=== PATIENT | male | born 1950 | race Caucasian/White ===

== ENCOUNTER → 2020-01-18 10:31 | Outpatient (BNVA) | payer OTHER, SELFPAY | PROVIDERS: PCP Internal Medicine Endocrinology, Diabetes & Metabolism; Referring Provider Internal Medicine Endocrinology, Diabetes & Metabolism; Visit Provider Internal Medicine Cardiovascular Disease | DX: I11.9 Hypertensive heart disease without heart failure (principal); I45.10 Unspecified right bundle-branch block; Z79.899 Other long term (current) drug therapy | CPT/HCPCS: 93005 ==

== ENCOUNTER → 2020-02-07 12:46 | Outpatient (REF) | payer OTHER, SELFPAY ==
--- NOTE | 2020-02-07 12:54 | CA_ITS ---
Transthoracic Echocardiogram Patient (Last, First, Middle): Faizan Rudd, Gender: Male Date of : 1950 Age: 69 Procedure Date: 02/07/2020 Procedure Type: Transthoracic Echocardiogram Location: OP Height: 175.26 cm Weight: 88.91 kg BSA: 2.05 m2 Heart Rate: bpm BP: 130 / 74 mmHg Investor Relations Director: Referring MD: Kvng Bonilla MD Symptoms: I11.9 - Hypertensive heart disease without heart failure Study Quality: Good ECG Rhythm: Sinus Conclusions: - The left ventricular systolic function is normal. The visually estimated ejection fraction is between 60-65%. - No obvious valvular pathology seen on this study. Findings Procedure Information Contrast agent, definity, is being given per protocol without apparent complications. Left Ventricle Normal left ventricular cavity size. There is mildly increased left ventricular wall thickness. The left ventricular systolic function is normal. The visually estimated ejection fraction is between 60-65%. There is no evidence of regional wall motion abnormalities. Evidence suggests grade I (mild) diastolic dysfunction. Right Ventricle Normal right ventricular cavity size and systolic function. Atria The left atrium is normal in size. The right atrium is normal in size. Aortic Valve There is a normal trileaflet aortic valve. There is no aortic valve stenosis. There is no aortic valve regurgitation. Mitral Valve The mitral valve appears normal. There is trace mitral valve regurgitation. There is no mitral valve stenosis. Pulmonic Valve The pulmonic valve was not well visualized. Tricuspid Valve Normal tricuspid valve structure. There is trace tricuspid valve regurgitation. The pulmonary artery systolic pressure is normal. Great Vessels The aortic annulus, sinuses of valsalva, and asc aorta are normal in size. Venous The inferior vena cava is normal in size and collapses greater than 50% with inspiration. Pericardium/Pleural There is no evidence of pericardial effusion. Prior Study Comparison No significant change compared to prior study dated: 02/19/2015. Recommendations, Care & Conclusions No obvious valvular pathology seen on this study. Measurements 2D Linear Measurements RVIDd: 3.29 RVIDd Index: 1.60 IVSd: 1.26 0.6-0.9/0.6-1.0 cm LVIDd: 4.88 3.9-5.3/4.2-5.9 cm LVIDd Index: 2.38 2.4-3.2/2.2-3.1 cm/m2 LVIDs: 3.58 2.0-3.6 cm LVPWd: 1.28 0.7-1.1 cm Ao Root: 3.50 2.1-3.5 cm LA Diam: 3.80 2.7-3.8/3.0-4.0 cm LAIDs Index: 1.85 1.5-2.3 cm/m2 LV Mass: 304.00 67-162/88-224 g LV Mass Index: 148.29 43-95/49-115 g/m2 LVOT Diam: 2.30 3.0+(-)1.3 cm Mitral Valve MV Pk E: 0.42 MV PK A: 0.47 MV Decel Time: 337.00 E/A: 0.90 E'Lateral: 6.09 E'Medial: 5.66 E/E' Med: 7.30 E/E' Lat: 6.80 Aortic Valve AoV Pk Sherwin: 1.09 AoV Mn Sherwin: 0.85 AoV VTI: 0.24 AoV Pk Grad: 5.00 Aov Mn Grad: 3.00 GRADY Cont.VTI: 2.97 LVOT LVOT Pk Sherwin: 0.87 LVOT Mn Sherwin: 0.57 LVOT VTI: 0.17 LVOT Pk Grad: 3.00 LVOT Mn Grad: 2.00 LVOT Diam: 2.30 LVOT Area: 4.15 Diastolic Function MV Pk E: 0.42 MV Pk A: 0.47 E/A: 0.90 E'Medial: 5.66 E/E' Med: 7.30 E' Laterial: 6.09 E/E' Lat: 6.80 Tricuspid Valve RA Press: 3.00 Great Vessels Aorta Ao Root-2D: 3.50 2.0-3.7 cm Ao Asc: 3.50 2.1-3.4 cm Updated in Other Vendor System with Status of Final Fernando Sims MD electronically signed on 02/08/2020 10:51:43 AM with status of Final
== END ==
LOC: HO.CARD 12:46
PROVIDERS: Visit Provider Internal Medicine Cardiovascular Disease
DX: I45.10 Unspecified right bundle-branch block (principal); I11.9 Hypertensive heart disease without heart failure; I10 Essential (primary) hypertension
CPT/HCPCS: 93306; Q9957

== ENCOUNTER → 2020-10-17 14:40 | Outpatient (BNVA) | payer OTHER, SELFPAY | PROVIDERS: PCP Internal Medicine Endocrinology, Diabetes & Metabolism; Visit Provider Urology ==

== ENCOUNTER → 2021-01-17 09:52 | Outpatient (BNVA) | payer OTHER, SELFPAY | PROVIDERS: PCP Internal Medicine Endocrinology, Diabetes & Metabolism; Visit Provider Internal Medicine Cardiovascular Disease ==

== ENCOUNTER → 2021-03-18 12:51 | Outpatient (REF) | payer OTHER, SELFPAY ==
--- NOTE | 2021-03-18 13:27 | CA_ITS ---
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 The visually estimated ejection fraction is between 55-60%. - There is mild calcification of the aortic valve. - No obvious valvular pathology seen on this study. Findings Left Ventricle Normal left ventricular cavity size. There is normal left ventricular wall thickness. The left ventricular systolic function is normal. The visually estimated ejection fraction is between 55-60%. There is no evidence of regional wall motion abnormalities. Diastolic function is indeterminate on the basis of available data. Right Ventricle Normal right ventricular cavity size and systolic function. Atria Both atria are normal in size. Aortic Valve There is a normal trileaflet aortic valve. There is mild calcification of the aortic valve. There is no aortic valve stenosis. The peak aortic gradient is 5 mmHg.There is no aortic valve regurgitation. Mitral Valve The mitral valve appears normal. There is trace mitral valve regurgitation. There is no mitral valve stenosis. Pulmonic Valve The pulmonic valve was not well visualized. Tricuspid Valve Normal tricuspid valve structure. There is no tricuspid valve regurgitation. Tricuspid regurgitation envelope is inadequate for calculation of right ventricular systolic pressure. Great Vessels The asc aorta is normal in size. Venous The inferior vena cava is normal in size and collapses greater than 50% with inspiration. Pericardium/Pleural There is no evidence of pericardial effusion. Prior Study Comparison No significant change compared to prior study dated: 02/07/2020. Recommendations, Care & Conclusions No obvious valvular pathology seen on this study. Measurements 2D Linear Measurements IVSd: 1.13 0.6-0.9/0.6-1.0 cm LVIDd: 5.09 3.9-5.3/4.2-5.9 cm LVIDd Index: 2.62 2.4-3.2/2.2-3.1 cm/m2 LVIDs: 2.67 2.0-3.6 cm LVPWd: 0.94 0.7-1.1 cm Ao Root: 3.70 2.1-3.5 cm LA Diam: 3.70 2.7-3.8/3.0-4.0 cm LAIDs Index: 1.91 1.5-2.3 cm/m2 LV Mass: 244.44 67-162/88-224 g LV Mass Index: 126.00 43-95/49-115 g/m2 LVOT Diam: 2.30 3.0+(-)1.3 cm 2D Systolic Function EF 4C: 64.70 >55% Mitral Valve MV Pk E: 0.46 MV PK A: 0.53 MV Decel Time: 111.00 E/A: 0.90 E'Lateral: 8.27 E'Medial: 6.09 E/E' Med: 7.50 E/E' Lat: 5.60 PHT: 32.00 MVA PHT: 6.88 Decel [place]: 4.15 Aortic Valve AoV Pk Sherwin: 1.11 AoV Pk Grad: 5.00 LVOT LVOT Pk Sherwin: 0.98 LVOT Mn Sherwin: 0.68 LVOT VTI: 0.22 LVOT Pk Grad: 4.00 LVOT Mn Grad: 2.00 LVOT Diam: 2.30 LVOT Area: 4.15 Diastolic Function MV Pk E: 0.46 MV Pk A: 0.53 E/A: 0.90 E'Medial: 6.09 E/E' Med: 7.50 E' Laterial: 8.27 E/E' Lat: 5.60 Right Ventricle TAPSE (mm): 2.17 TVS' Sherwin: 12.60 Tricuspid Valve RA Press: 3.00 Great Vessels Aorta Ao Root-2D: 3.70 2.0-3.7 cm Ao Asc: 3.60 2.1-3.4 cm Updated in Other Vendor System with Status of Final Fernando Sims MD electronically signed on 03/18/2021 3:45:11 PM with status of Final
== END ==
LOC: HO.CARD 12:51
PROVIDERS: Visit Provider Internal Medicine Cardiovascular Disease
DX: I11.9 Hypertensive heart disease without heart failure (principal)
CPT/HCPCS: 93306

== ENCOUNTER → 2021-04-24 10:36 | Outpatient (BNVA) | payer OTHER, SELFPAY | PROVIDERS: PCP Internal Medicine Endocrinology, Diabetes & Metabolism; Visit Provider Urology | DX: N40.1 Benign prostatic hyperplasia with lower urinary tract symptoms (principal); N13.8 Other obstructive and reflux uropathy; R35.1 Nocturia; R35.0 Frequency of micturition | CPT/HCPCS: 51798 ==

== ENCOUNTER → 2021-06-13 13:50 | Outpatient (BNVA) | payer OTHER, SELFPAY | PROVIDERS: PCP Physician Assistant Medical; Visit Provider Urology | DX: Z13.89 Encounter for screening for other disorder (principal) ==

== ENCOUNTER 2021-06-23 08:18 | Day surgery (SDC) | payer OTHER, SELFPAY ==
[2021-06-17 14:21] VITALS: BMI 24.7
[2021-06-18 10:31] VITALS: BMI 24.7
[2021-06-23] VITALS (7 sets, daily range): BP systolic 80–142; BP diastolic 39–71; PULSE 46–53; RESP 16–18; TEMP 36.3–36.7; O2SAT 92–96
--- NOTE | 2021-06-23 08:05 | P.CONAN_ITS ---
[facility] Active Problems Active Problems: All Active Problems (Updated 06/18/21 @ 10:30 by Carmina Deleon RN) BPH w urinary obs/LUTS (Acute) Nocturia more than twice per night (Acute) Urinary frequency (Acute) Hypertensive heart disease (Acute) HTN (hypertension) (Acute) Hyperlipidemia (Acute) Right bundle branch block (RBBB) determined by electrocardiography (Acute) Past Medical History Medical History (Updated 06/18/21 @ 10:30 by Carmina Deleon RN) Anemia Arthritis GERD (gastroesophageal reflux disease) History of pancreatic cancer HIV (human immunodeficiency virus infection) HTN (hypertension) Hyperlipidemia Hypertensive heart disease Right bundle branch block (RBBB) determined by electrocardiography Family History Family History Father No problems noted. Mother Cancer Family history of problems with anesthesia: No Surgical History Surgical History (Updated 06/18/21 @ 10:29 by Carmina Deleon RN) History of prostate surgery History of tonsillectomy and adenoidectomy History of Whipple procedure Hx of colonoscopy Hx of cystoscopy Hx of hernia repair History of Problems with Anesthesia: No Social History Social History Are you a primary primary care provider to a significant other at home: No Do you presently have visiting nurse or other home services: No Patient Tobacco Use Status: Never used Tobacco Use of substances other than those prescribed or required for medical reasons: Yes Substance Use Frequency: Weekly Have you been hit, kicked, punched, or otherwise hurt by someone within the past year? If so, by whom?: No Are you DNR?: No Advance Directives: No Advance Directives Information Provided: Yes Advance Directives on File: No Recently lost weight without trying: No Meds Allergies Allergy/AdvReac Type Severity Reaction Status Date / Time Penicillins [PCN] Allergy Mild HIVES Verified 06/23/21 08:29 abacavir Allergy Unknown rash, Verified 06/23/21 08:29 chills Active Medications: Current Medications Lactated Ringer's (Lr) 1,000 mls @ 50 mls/hr IVCONT .Q20H [facility] Home Medications Medication Instructions Recorded Confirmed Last Taken Type atorvastatin 20 mg tablet 20 mg PO DAILY 01/18/20 06/17/21 Unknown History docusate sodium 100 mg capsule 100 mg PO BEDTIME 01/18/20 06/17/21 Unknown History metoprolol succinate 50 mg 50 mg PO DAILY 01/18/20 06/17/21 Unknown History tablet,extended release 24 hr omeprazole 20 mg capsule,delayed 20 mg PO DAILY 01/18/20 06/17/21 Unknown History release bictegravir 50 mg-emtricitabine 1 tab PO BEDTIME 01/17/21 06/17/21 Unknown History 200 mg-tenofovir alafenam 25 mg tablet ferrous sulfate 325 mg (65 mg 325 mg PO DAILY 04/24/21 06/17/21 Unknown History iron) tablet polyethylene glycol 3350 17 g PO 04/24/21 Unknown History gram/dose oral powder Exam Exam Date and Time: June 23, 2021 0805 Height,Weight and Vital Signs: Height 5 ft 9 in Weight 76.204 kg Airway Mallampati Class: II (Caps laterally) TM Dist: >3cm Neck ROM: Full Heart: rrr Lungs: cta Assessment and Plan Assessment Anesthesia Assessment: Anesthesia Plan Discussed and Chart Reviewed Final Anesthetic Review Family History of Problems with Anesthesia: No History of Problems with Anesthesia: No NPO: Yes ASA Class: III Final Preanesthetic Review: No Changes in Pt Med Stat, Meds/Allgs Chart Reviewed and Consent Obtained/Reviewed Patient Risk: Intermediate Procedure Risk: Intermediate Anesthetic Plan Anesthetic Plan: GA Disposition: Standard PACU
[2021-06-23] MEDS: Lactated Ringers 1,000 ML 50 ML IVCONT (08:59)
--- NOTE | 2021-06-23 10:49 | MHC.SHP ---
Pre-Procedural Eval Section A Date of Service: 06/23/21 The patient is an INPATIENT: No Changes since office visit: No Cold of Flu in the past 2 weeks, No New Medical Problems, No Changes in Medication and No Patient answered all questions The History & Physical has been completed within 30 days and I have reviewed it.: Yes Section B Chief Complaint: bph Allergies: Allergies Allergy/AdvReac Type Severity Reaction Status Date / Time Penicillins [PCN] Allergy Mild HIVES Verified 06/23/21 08:29 abacavir Allergy Unknown rash, Verified 06/23/21 08:29 chills Review of Systems Sugical H&P ROS: Negative: Constitution, Cardiovascular, Respiratory, Neurological, Psychiatric, Hem-Onc, Allergic/Immunologic, Gastrointestinal, Genitourinary, Musculoskeletal, Integumentary, Endocrine and Eyes/Ears/Nose/Throat Exam Surgical H&P Exam: Normal: HEENT, Normal: Heart, Normal: Lungs, Normal: Extremities, Normal: Abdomen, Normal: Skin and Normal: Neurological Plan Diagnosis/Plan: Unchanged (GreenLight laser prostatectomy) I have reviewed the history and physical and performed a pertinent physical examination on my patient. No changes have occurred unless specified.
[2021-06-23] MEDS: oxyCODONE HCl Immed Release 5 MG TABLET PO (11:59)
--- NOTE | 2021-06-23 12:08 | W.PM.OPN ---
Operative Note Operative Note Date of Service: 06/23/21 Narrative: PreOperative Diagnosis: Bladder outlet obstruction recurrence Post Operative Diagnosis: Bladder outlet obstruction recurrence Procedure: GreenLight Laser Enucleation of the prostate Surgeon: Dr Carl Brooks Anesthesia: General Indications for procedure: Recurrence of bladder outlet obstruction History of bladder outlet obstruction. Treated with alpha-howard and other medications. Still with symptoms. On cystoscopy in office has recurrence of right lateral lobe after prior TURP many years ago. Recommendation for prostate procedure with laser enucleation of prostate. It has been discussed. Focus was placed on development of retrograde examination which is a normal part of this procedure. Procedure: After informed consent was verified the patient was brought to the operating room and placed in a supine position. Anesthesia was administered per protocol. Patient was placed in modified dorsal lithotomy position and prepped and draped in a sterile fashion. Safety pause time-out was confirmed. Antibiotics have been given. Twenty-four Yoruba laser cystoscope was inserted per urethra. No abnormalities found the anterior posterior urethra. The bladder was filled on both ureteric orifices were seen in normal position away from our area of interest. Using a GreenLight laser settings of 80 w incisions were made at the 7 o'clock position. The incision was taken down and then extended laterally on the right side. The right side was the area of regrowth. After the incision had been made delineating the right side from the median area and extending the right bladder neck incision laterally the tissue above on the right side was carefully ablated away. Once this was complete incision was made at the 5 o'clock position just to extend the lateral nature of median area to the left side to assist with bladder emptying. When this was completed debris and pieces of prostate removed from the bladder. Both ureteric orifices were reviewed again in shown to be patent in away from any areas of energy damage. The apical area was reviewed in any stray ooze was controlled. A 22 Yoruba 30 cc balloon Gupta catheter was placed over stylet into the bladder. Clear efflux was obtained. 30 cc was placed in the balloon and gentle traction was placed. A snap was used to hold tension once the patient will be moved and transported. Once transportation its finish this novel be removed. A belladonna and opiate suppository was placed for postprocedure pain management. He tolerated procedure well was extubated in the operating and transferred in a stable condition to the recovery area. Total Power 54,000 kW Pathology: Prostate tissue Drains: Gupta catheter
== END 2021-06-23 13:10 | disposition home or self-care (01) ==
PROVIDERS: PCP Physician Assistant Medical; Visit Provider Urology
PROC: (CPT 52648; principal; 2021-06-23 10:20)
DX: N40.1 Benign prostatic hyperplasia with lower urinary tract symptoms (principal); N13.8 Other obstructive and reflux uropathy; R35.0 Frequency of micturition; R35.1 Nocturia; I45.10 Unspecified right bundle-branch block; I11.9 Hypertensive heart disease without heart failure; I10 Essential (primary) hypertension; B20 Human immunodeficiency virus [HIV] disease; E78.5 Hyperlipidemia, unspecified; Z79.899 Other long term (current) drug therapy; Z98.890 Other specified postprocedural states; Z88.0 Allergy status to penicillin; Z88.8 Allergy status to other drugs, medicaments and biological substances
CPT/HCPCS: 52648; J1100; J1956; J2250; J2405; J3010

== ENCOUNTER → 2021-06-26 09:24 | Outpatient (BNVA) | payer OTHER, SELFPAY | PROVIDERS: PCP Physician Assistant Medical; Visit Provider Urology | DX: N40.1 Benign prostatic hyperplasia with lower urinary tract symptoms (principal); N13.8 Other obstructive and reflux uropathy | CPT/HCPCS: 51700; 51798 ==

== ENCOUNTER → 2021-08-07 09:58 | Outpatient (BNVA) | payer OTHER, SELFPAY | PROVIDERS: PCP Physician Assistant Medical; Visit Provider Urology | DX: N40.1 Benign prostatic hyperplasia with lower urinary tract symptoms (principal); N13.8 Other obstructive and reflux uropathy; R35.1 Nocturia; R35.0 Frequency of micturition | CPT/HCPCS: 51798 ==

== ENCOUNTER → 2022-01-19 09:31 | Outpatient (BNVA) | payer OTHER, SELFPAY | PROVIDERS: PCP Physician Assistant Medical; Referring Provider Physician Assistant Medical; Visit Provider Internal Medicine Cardiovascular Disease | DX: I11.9 Hypertensive heart disease without heart failure (principal); I45.10 Unspecified right bundle-branch block; R00.2 Palpitations | CPT/HCPCS: 93005 ==

== ENCOUNTER 2022-02-03 13:36 | Outpatient (REF) | payer OTHER, SELFPAY ==
[2022-02-03 16:07] LABS: Prostate Specific Antigen 1.06 ng/mL (<0.05-4.0)
== END 2022-02-03 13:37 | disposition home or self-care (01) ==
LOC: HO.LAB 13:36
PROVIDERS: PCP Physician Assistant Medical; Visit Provider Urology
DX: N40.1 Benign prostatic hyperplasia with lower urinary tract symptoms (principal); N13.8 Other obstructive and reflux uropathy; Z12.5 Encounter for screening for malignant neoplasm of prostate
CPT/HCPCS: 36415; 84153

== ENCOUNTER 2022-05-20 08:22 | Outpatient (REF) | payer OTHER, SELFPAY ==
[2022-05-20 16:55] LABS: Urine Cytology See Pathology rpt
== END 2022-05-20 08:23 | disposition home or self-care (01) ==
LOC: HO.LAB 08:22
PROVIDERS: PCP Physician Assistant Medical; Visit Provider Urology
DX: N40.1 Benign prostatic hyperplasia with lower urinary tract symptoms (principal); R31.29 Other microscopic hematuria; N39.0 Urinary tract infection, site not specified; R35.0 Frequency of micturition; R35.1 Nocturia; I10 Essential (primary) hypertension; B20 Human immunodeficiency virus [HIV] disease; Z79.899 Other long term (current) drug therapy
CPT/HCPCS: 51798; 87086; 87088; 87186; 88112

== ENCOUNTER 2022-11-03 08:45 | Inpatient (IN) | payer OTHER, SELFPAY ==
[2022-11-03] VITALS (17 sets, daily range): BP systolic 81–117; BP diastolic 41–82; PULSE 63–89; RESP 16–24; TEMP 36.1–38.1; O2SAT 93–100; BMI 24.6; BMI 25.1
--- NOTE | ~2022-11-03 | FL_ITS ---
EXAMINATION: XR FLUOROSCOPY WITH IMAGES CLINICAL INFORMATION: Cystoscopy and ureteroscopy. COMPARISON: Previous CT of the abdomen and pelvis 11/03/2022. TECHNIQUE: Dose: 6.60 mGy Time: 21 sec. Images: 4 Performed By: Dr. Medrano FINDINGS: Images demonstrate left retrograde exam and left internal ureteral stent placement. Question stone in the left UPJ region adjacent to the stent on image 4 of 5. FL/FL guidance in OR IMPRESSION: Fluoroscopy guidance for left retrograde exam and stent placement.
--- NOTE | ~2022-11-03 | CT_ITS ---
EXAMINATION: CT ABDOMEN AND PELVIS WITH CONTRAST CLINICAL INFORMATION: Left lower quadrant pain COMPARISON: None available. TECHNIQUE: Multidetector volumetric images were obtained from the superior aspect of the liver through the pubic symphysis following administration 85 mL of Omnipaque 350 intravenous contrast. Sagittal and coronal reformatted images were obtained on the technologist's workstation. Oral contrast: No This CT examination was performed using dose optimization techniques as appropriate, variously including the following: *Automated exposure control *Adjustment of mA and/or kV according to patient size (this includes techniques or standardized protocols for targeted exams where dose is matched to indication/reason for exam; i.e. extremities or head) *Use of iterative reconstruction technique DLP: 532 mGy-cm FINDINGS: Visualized lung bases demonstrate mild dependent atelectasis. The liver is normal in size. Mild periportal edema and pneumobilia noted. 7 mm hypodense focus within the lateral right hepatic lobe is too small to accurately characterize. The gallbladder surgically absent. Surgical changes in the region of the pancreatic head. The pancreatic body and tail are unremarkable. The spleen is normal in size. The adrenal glands are normal in appearance. Symmetrically enhancing kidneys. There is mild left-sided hydronephrosis secondary to a 5 mm calculus within the proximal left ureter. There is asymmetric perinephric stranding of the left kidney. No right-sided hydronephrosis. There are postsurgical changes of the distal stomach. Normal caliber loops of small and large bowel. Moderate colonic stool burden. Patient is status post appendectomy. Normal caliber abdominal aorta demonstrating moderate atherosclerotic disease. No retroperitoneal lymphadenopathy. The bladder is normal in appearance. The prostate gland is at the upper limits of normal in size. There is no gross free pelvic fluid. Surgical changes along the superior aspect of the pubic symphysis. No inguinal lymphadenopathy. Mild to moderate degenerative changes of the spine. Mild anterolisthesis of L4 on L5. CT/CT abdomen pelvis w IV con IMPRESSION: Mild left-sided hydronephrosis secondary to a 5 mm calculus within the proximal left ureter. Fleischner guidelines were followed.
--- NOTE | ~2022-11-03 | XR_ITS ---
EXAMINATION: XR ABDOMEN COMPLETE CLINICAL INDICATION: Status post stent. COMPARISON: CT abdomen pelvis 11/03/2022 TECHNIQUE: Multiple supine abdomen images.. FINDINGS: There is interval left internal ureteral stent with its proximal end in the kidney pelvis and distal end in the bladder. Small radiopaque stones in the left proximal ureter on the previous CT is not visualized on the present exam. The bowel gas pattern is nonspecific with scattered gas and stool in colon. No gross bony abnormality seen. Right lower abdominal wall hernia repair with mesh in place is noted. XR/XR abdomen 3V IMPRESSION: There is interval left internal ureteral stent. Previously noted left proximal ureter stone is not seen at this time. Mild constipation
--- NOTE | 2022-11-03 09:01 | PC.NURSE ---
Patient reports 8/10 abdominal pain that started last night. reports has been throwing up bile for 2 hours. Last BM yesterday morning. History of abdominal surgeries whipple is april 2020, abdominal wall reconstruction 8 months after whipple and turp in [address] Blair. Patient with hypoactive bowel sounds in left and right quadrant. Patient reports taking stool softeners with no effect. Patient afebrile, reports chills.
--- NOTE | 2022-11-03 09:08 | ECG_ITS ---
Test Reason : abdominal pain Blood Pressure : / mmHG Vent. Rate : 076 BPM Atrial Rate : 000 BPM P-R Int : 000 ms QRS Dur : 118 ms QT Int : 480 ms P-R-T Axes : 000 -32 -08 degrees QTc Int : 540 ms Accelerated Junctional rhythm Left axis deviation Right bundle branch block Inferior infarct , new Anterior injury pattern ACUTE VT / STEMI Abnormal ECG When compared with ECG of 23-DEC-2011 06:59, Junctional rhythm has replaced Sinus rhythm Acute Inferior infarct is now Present Referred By: Geno Novak Electronically Signed By:
[2022-11-03] MEDS: 0.9 % Sodium Chloride 1,000 ML 999 ML IVCONT ×3 (09:12→22:17)
--- NOTE | 2022-11-03 09:13 | ED_ITS ---
HPI - Abdominal Pain General Chief Complaint: Abdominal Pain Stated Complaint: Lower L quadrant pain, vomiting Time Seen by Provider: 11/03/22 08:48 Source: patient and old records reviewed Mode of arrival: EMS Limitations: no limitations History of Present Illness HPI narrative: 72 yo male with hx of HTN, BPH, RBBB, HIV, HLD, s/p Whipple for pancreatic tumor at [facility] 2020 (no chemo needed) then underwent reconstruction for ventral hernia 8 months later comes in with chills and n/v with LLQ pain and distention that started around 3am. It woke him from sleep he tried two stool softeners without relief. He took tylenol but still has pain. He had normal BM yesterday. He did go to a cookout but did not drink and states no issues with food. He states he has not passed gas or had relief from stool softeners yet - no hx of obstructions MD elicited complaint: abdominal pain Pertinent past history: other (s/p whipple 2020) Onset (ago): hour(s) (several) Location: LLQ Severity: severe Quality: stabbing Radiation: none Migration to: no migration Exacerbating factors: movement Relieving factors: nothing Context: other (hx of surgery, went to cook out yesterday) Associated symptoms: nausea and vomiting Treatments prior to arrival: other (tylenol) Related Data Home Medications Medication Instructions Recorded Confirmed atorvastatin 20 mg tablet 20 mg PO DAILY 01/18/20 02/11/22 docusate sodium 100 mg capsule 100 mg PO BEDTIME 01/18/20 02/11/22 metoprolol succinate 50 mg 50 mg PO DAILY 01/18/20 02/11/22 tablet,extended release 24 hr omeprazole 20 mg capsule,delayed 20 mg PO DAILY 01/18/20 02/11/22 release bictegravir 50 mg-emtricitabine 1 tab PO BEDTIME 01/17/21 02/11/22 200 mg-tenofovir alafenam 25 mg tablet ferrous sulfate 325 mg (65 mg 325 mg PO DAILY 04/24/21 02/11/22 iron) tablet polyethylene glycol 3350 17 g PO 04/24/21 02/11/22 gram/dose oral powder flash glucose scanning reader #1 ea 05/20/22 ([employer] [place] [facility] [place]) Previous Rx's Medication Instructions Recorded naproxen 500 mg tablet (Naprosyn) 500 mg PO BID 5 days #10 tabs 06/24/21 oxybutynin chloride 5 mg 5 mg PO DAILY 90 days #90 tabs 05/20/22 tablet,extended release 24 hr nitrofurantoin 100 mg PO BID UTI 10 days #20 caps 05/22/22 monohydrate/macrocrystals 100 mg capsule (Macrobid) Allergies Allergy/AdvReac Type Severity Reaction Status Date / Time Penicillins [PCN] Allergy Mild HIVES Verified 05/20/22 08:38 abacavir Allergy Unknown rash, Verified 05/20/22 08:38 chills Review of Systems Review of Systems Constitutional : No Weight loss, No Fever, pos Chills ENT/Mouth : No sore throat, No Rhinorrhea Eyes: No Swelling, No Redness Cardiovascular : No Chest Pain, No SOB, NoEdema Respiratory : No Cough, No Sputum, No Wheezing Gastrointestinal : Positive Nausea, Positive Vomiting, no Diarrhea, positive abdominal Pain, No Hematochezia, No Melena Genitourinary : No Dysuria, No Urinary Frequency, No Hematuria, No Urgency Musculoskeletal : No joint pain, No Myalgias, No Joint Swelling Skin : No Skin Lesions, No rash Neuro : No Weakness, No Numbness, No Dizziness, No Headache Psych : No Anxiety/Panic, No Depression All other systems reviewed and are negative. [facility] Past Medical History Attestation statement: The following information was validated with the patient. Medical History Anemia Arthritis GERD (gastroesophageal reflux disease) History of pancreatic cancer HIV (human immunodeficiency virus infection) HTN (hypertension) Hyperlipidemia Hypertensive heart disease Right bundle branch block (RBBB) determined by electrocardiography Surgical History History of prostate surgery History of tonsillectomy and adenoidectomy History of Whipple procedure Hx of colonoscopy Hx of cystoscopy Hx of hernia repair Family History Family History Father No problems noted. Mother Cancer Social History Social History Are you a primary career discovery teacher to a significant other at home: No Do you presently have visiting nurse or other home services: No Alcohol intake: current Alcohol intake frequency: a few times a week Patient Tobacco Use Status: Never used Tobacco Use of substances other than those prescribed or required for medical reasons: Yes Substance Use Type: Marijuana Substance Use Frequency: Chronic Longstanding Advance Directives: Yes Advance Directives Information Provided: Yes Advance Directives on File: No Physical Exam ED Vital Signs: Vital Signs - 24 hr 11/03/22 08:53 11/03/22 09:06 11/03/22 12:16 Temperature 98.9 F 98.9 F 99.7 F Pulse Rate 76 74 89 Respiratory Rate 18 18 21 H Blood Pressure 110/73 99/49 L Pulse Oximetry 97 97 97 Oxygen Delivery Method Room Air Room Air BMI result Body Mass Index 24.6 Appearance: Alert. Oriented X3. in pain mild acute distress. having chills Eyes: Pupils equal, round and reactive to light. ENT: Pharynx dry MM Neck: Normal inspection. Neck supple. CVS: Normal heart rate and rhythm. Pulses normal. Respiratory: No respiratory distress. Breath sounds normal. Abdomen: distended with ttp in LLQ but no rebound, no mass felt Skin: Skin warm and dry. pale skin color. Normal skin turgor. Extremities: No lower extremity edema. No calf ttp Neuro: Oriented X 3. No motor deficit. No sensory deficit. Course Course Course Narrative: pain improved with IV morphine does not need more medications at this time. IVF ordered lactic acid up but he is on HIV medications. suspect lactic acid due to HIV medications and not infection or severe sepsis at this time, pending lab history from [facility] Reevaluation(s) Reevaluation #1: called by lab about bands - 15H at this time infection suspected will order ceftriaxone/flagyl for possible acute intra-abdominal pathology [id number] Medical Decision Making Medical Decision Making MDM Narrative: 72 yo male with hx of HTN, BPH, RBBB, HIV, HLD, s/p Whipple for pancreatic tumor at [facility] 2020 (no chemo needed) then underwent reconstruction for ventral hernia 8 months later here with c/o n/v chills distention and lack of flatus or BM since yesterday. He did attend a cook out yesterday. At this time will obtain labs, cultures, lactic acid and CT scan to assess for mass/obstruction/diverticulitis. I have ordered IV morphine for pain. He has had extensive surgery on abdomen and would be high risk for SBO though has not had one before. Differential Diagnosis Differential Diagnoses: The differential diagnosis associated with the presentation includes diverticulitis, SBO, mass, renal colic, food toxicity Admission/Observation Consideration of admission/observation: Escalation of care including admissi on/observation considered admit for IV antibiotics trend of labs and cultures Consult Healthcare Provider Management of the patient was discussed with: Hospitalist (to admit) and [employer] Curator (Dr. Brooks aware patient has been NPO possible stent today) Lab Data MDM Lab Attestation statement: I reviewed the patient's lab results. 11/03/22 09:31 11/03/22 09:31 Labs: Lab Results 11/03/22 11/03/22 11/03/22 Range/Units 09:31 09:31 09:31 WBC 1.7 L (4.8-10.8) X10*3/uL RBC 4.25 L (4.60-5.80) X10*6/uL Hgb 14.6 (14.0-18.0) g/dl Hct 42.8 (42.0-52.0) % MCV 100.7 H (80.0-98.0) fL MCH 34.4 H (27.0-33.0) pg MCHC 34.1 (31.0-36.0) g/dl RDW 12.7 (11.0-16.0) % Plt Count 115 L (160-400) X10*3/uL MPV 9.5 (9.4-12.4) fL Immature Gran % (Auto) Cancelled Neut % (Auto) Cancelled Lymph % (Auto) Cancelled [place] % (Auto) Cancelled Eos % (Auto) Cancelled Baso % (Auto) Cancelled Lymph # (Auto) Cancelled [place] # (Auto) Cancelled Eos # (Auto) Cancelled Baso # (Auto) Cancelled Abs Immat Gran (auto) Cancelled Absolute Neuts (auto) Cancelled Absolute Nucleated RBC 0.000 (0.0-0.012) X10*3/uL Nucleated RBC % (auto) 0.0 (0.0-0.2) /100WBC Neutrophils % (Manual) 73 (45-73) % Band Neutrophils % 15 H (3-5) % Lymphocytes % (Manual) 10 L (20-40) % Eosinophils % (Manual) 1 (0-4) % Basophils % (Manual) 1 (0-2) % Abs Neuts (Manual) 1.5 L (2.0-8.3) X10*3/uL Lymphocytes # (Manual) 0.2 L (1.2-4.9) X10*3/uL Toxic Vacuolation PRESENT Dohle Bodies PRESENT Platelet Estimate DECREASED (NORMAL) Plt Morphology Comment NORMAL RBC Morphology NOTED Polychromasia 1+ (0-2) /OIF Macrocytosis 1+ (5-14) /OIF PT 11.4 (11.1-13.3) SEC INR 0.9 (0.9-1.1) Sodium 140 (135-145) mmol/L Potassium 4.1 (3.3-5.1) mmol/L Chloride 107 (96-108) mmol/L Carbon Dioxide 24 (22-29) mmol/L Anion Gap 13 (12-20) BUN 18 H (9-16) mg/dL Creatinine 1.40 (0.5-1.4) mg/dL Estim Creat Clear Calc 47.6 Estimated GFR 50 Random Glucose 151 H (60-115) mg/dL Lactic Acid (0.5-2.0) mmol/L Lactic Acid F/U @ 2Hr (0.5-2.0) mmol/L Calcium 9.3 (8.4-10.2) mg/dL Magnesium 1.7 (1.6-2.6) mg/dL Total Bilirubin 1.7 H (0.0-1.0) mg/dL Direct Bilirubin 0.7 H (0.0-0.5) mg/dL AST 44 H (5-37) U/L ALT 27 (0-40) U/L Alkaline Phosphatase 79 (39-117) U/L Total Protein 6.9 (6.5-8.0) g/dL Albumin 4.0 (3.5-5.0) g/dL Lipase < 4 L (8-78) U/L COVID-19 (RITIKA) (Negative) COVID-19 Clin Com 11/03/22 11/03/22 11/03/22 Range/Units 09:31 10:01 12:21 WBC (4.8-10.8) X10*3/uL RBC (4.60-5.80) X10*6/uL Hgb (14.0-18.0) g/dl Hct (42.0-52.0) % MCV (80.0-98.0) fL MCH (27.0-33.0) pg MCHC (31.0-36.0) g/dl RDW (11.0-16.0) % Plt Count (160-400) X10*3/uL MPV (9.4-12.4) fL Immature Gran % (Auto) Neut % (Auto) Lymph % (Auto) [place] % (Auto) Eos % (Auto) Baso % (Auto) Lymph # (Auto) [place] # (Auto) Eos # (Auto) Baso # (Auto) Abs Immat Gran (auto) Absolute Neuts (auto) Absolute Nucleated RBC (0.0-0.012) X10*3/uL Nucleated RBC % (auto) (0.0-0.2) /100WBC Neutrophils % (Manual) (45-73) % Band Neutrophils % (3-5) % Lymphocytes % (Manual) (20-40) % Eosinophils % (Manual) (0-4) % Basophils % (Manual) (0-2) % Abs Neuts (Manual) (2.0-8.3) X10*3/uL Lymphocytes # (Manual) (1.2-4.9) X10*3/uL Toxic Vacuolation Dohle Bodies Platelet Estimate (NORMAL) Plt Morphology Comment RBC Morphology Polychromasia /OIF Macrocytosis /OIF PT (11.1-13.3) SEC INR (0.9-1.1) Sodium (135-145) mmol/L Potassium (3.3-5.1) mmol/L Chloride (96-108) mmol/L Carbon Dioxide (22-29) mmol/L Anion Gap (12-20) BUN (9-16) mg/dL Creatinine (0.5-1.4) mg/dL Estim Creat Clear Calc Estimated GFR Random Glucose (60-115) mg/dL Lactic Acid 2.7 H* (0.5-2.0) mmol/L Lactic Acid F/U @ 2Hr 2.8 H* (0.5-2.0) mmol/L Calcium (8.4-10.2) mg/dL Magnesium (1.6-2.6) mg/dL Total Bilirubin (0.0-1.0) mg/dL Direct Bilirubin (0.0-0.5) mg/dL AST (5-37) U/L ALT (0-40) U/L Alkaline Phosphatase (39-117) U/L Total Protein (6.5-8.0) g/dL Albumin (3.5-5.0) g/dL Lipase (8-78) U/L COVID-19 (RITIKA) Negative (Negative) COVID-19 Clin Com See Note Independent Interpretation I performed an independent interpretation of an: EKG and CT Scan (L ureteral stone) Interpretation: Rate: 79 Rhythm: NSR with PVCs Hopkins: normal Normal P waves. Normal FAY. RBBB ST T wave : no NGHIA, artifact in inf leads, nonspecific ST T wave changes inf leads qTC: normal prior studies: no acute ischemia The study has been interpreted contemporaneously by me. . Radiology Impression Discussion of test interpretation with radiology: I have reviewed the radiologist's reading. Independent Historian Clinical information obtained from an independent historian. History obtained from or confirmed by: EMS External Record Review External record reviewed: Office record and Prior outpatient labs WBC count 09/15/22 8.3 Cr. 0.99 from [facility] Medications Administered Generic Name Dose Route Start Last Admin Trade Name Freq PRN Reason Stop Dose Admin Sodium Chloride 500 mls @ 500 mls/hr 11/03/22 13:00 11/03/22 13:06 Ns IV 11/03/22 13:59 500 mls/hr .Q1H CHANTELLE Administration Discontinued Medications Generic Name Dose Route Start Last Admin Trade Name Freq PRN Reason Stop Dose Admin Sodium Chloride 1,000 mls @ 999 mls/hr 11/03/22 09:15 11/03/22 10:38 Ns IVCONT 11/03/22 10:15 Infused .Q1H1M CHANTELLE Infusion Ceftriaxone Sodium 2 gm/ 50 mls @ 100 mls/hr 11/03/22 10:55 11/03/22 11:53 Sodium Chloride IV 11/03/22 11:24 Infused ONCE ONE Infusion Sodium Chloride 1,000 mls @ 999 mls/hr 11/03/22 11:00 11/03/22 13:07 Ns IV 11/03/22 12:00 Infused .Q1H1M CHANTELLE Infusion Iohexol 100 ml 11/03/22 11:16 11/03/22 11:17 Iohexol 350 Mg/Ml 100 Ml Infus..Btl IV 11/03/22 11:17 85 ml ONCE ONE Administration Morphine Sulfate 4 mg 11/03/22 09:07 11/03/22 09:16 Morphine Sulfate 4 Mg/Ml Cartridge IVPUSH 11/03/22 09:08 4 mg ONCE ONE Administration Protocol Ondansetron HCl 4 mg 11/03/22 09:07 11/03/22 09:17 Ondansetron Hcl 4 Mg/2 Ml Vial IVPUSH 11/03/22 09:08 4 mg ONCE ONE Administration Critical Care Time Critical Care Time Critical Care Time: Yes Total Critical Care Time: 60 Attestation: 2.5 L of IVF, hr business partner consultant call, IV morphine with reassessment and pain improved, outpatient records reviewed. I attest to this time spent taking care of the patient Discharge Plan Discharge Clinical Impression: Bandemia, Acidosis, lactic, Left ureteral calculus Abdominal pain Qualifiers: Abdominal location: left lower quadrant Qualified Code(s): R10.32 - Left lower quadrant pain Patient Disposition: Admitted As Inpatient
[2022-11-03] MEDS: Morphine Sulfate 4 MG/ML CARTRIDGE IVPUSH (09:16)
[2022-11-03] MEDS: ondansetron HCL 4 MG/2 ML VIAL IVPUSH (09:17)
[2022-11-03 09:45] LABS: Hematocrit 42.8 % (42.0-52.0); Hemoglobin 14.6 g/dl (14.0-18.0); Mean Corpuscular HGB Conc 34.1 g/dl (31.0-36.0); Mean Corpuscular Hemoglobin 34.4 pg (27.0-33.0); Mean Corpuscular Volume 100.7 fL (80.0-98.0); Mean Platelet Volume 9.5 fL (9.4-12.4); Platelet Count 115 X10*3/uL (160-400); Red Blood Count 4.25 X10*6/uL (4.60-5.80); Red Cell Distribution Width 12.7 % (11.0-16.0)
[2022-11-03 09:49] LABS: White Blood Count 1.7 X10*3/uL (4.8-10.8)
[2022-11-03 09:51] LABS: INTERNATIONAL NORM RATIO 0.9 (0.9-1.1); Prothrombin Time 11.4 SEC (11.1-13.3)
--- NOTE | 2022-11-03 09:54 | PC.NURSE ---
Patient reports feeling better after iv pain medication and fluids.
[2022-11-03 10:01] LABS: Lactic Acid 2.7 mmol/L (0.5-2.0)
[2022-11-03 10:11] LABS: Alanine Aminotransferase 27 U/L (0-40); Alkaline Phosphatase 79 U/L (39-117); Anion Gap 13 (12-20); Aspartate Amino Transferase 44 U/L (5-37); Bilirubin Direct 0.7 mg/dL (0.0-0.5); Bilirubin Total 1.7 mg/dL (0.0-1.0); Blood Urea Nitrogen 18 mg/dL (9-16); Calcium 9.3 mg/dL (8.4-10.2); Carbon Dioxide 24 mmol/L (22-29); Chloride 107 mmol/L (96-108); Creatinine Clr Calc Pharmacy 47.6; Estimated Glomerular Filt Rate 50; Glucose Random 151 mg/dL (60-115); Lipase < 4 U/L (8-78); Magnesium 1.7 mg/dL (1.6-2.6); Potassium 4.1 mmol/L (3.3-5.1); Sodium 140 mmol/L (135-145); Total Protein 6.9 g/dL (6.5-8.0)
[2022-11-03 10:32] LABS: COVID-19 Test Negative (Negative); IDNOW Serial# 08D9AD1C
[2022-11-03 10:51] LABS: Neutrophils Percent Manual 73 % (45-73)
[2022-11-03 10:55] LABS: Basophils Percent Manual 1 % (0-2); Eosinophils Percent Manual 1 % (0-4); Lymphocytes Absolute Manual 0.2 X10*3/uL (1.2-4.9); Lymphocytes Percent Manual 10 % (20-40); Neutrophils Absolute Manual 1.5 X10*3/uL (2.0-8.3)
[2022-11-03 10:57] LABS: Band Neutrophils Percent 15 % (3-5); Macrocytosis 1+ (5-14) /OIF; RBC Morphology NOTED
[2022-11-03 11:00] LABS: Dohle Bodies PRESENT; Polychromasia 1+ (0-2) /OIF; Toxic Vacuolation PRESENT
[2022-11-03 11:01] LABS: Platelet Estimate DECREASED (NORMAL); Platelet Morphology Comment NORMAL
--- NOTE | 2022-11-03 11:11 | PC.NURSE ---
Patient`s friend called stating to called [phone] when he is ready to go home
[2022-11-03] MEDS: iohexoL 350 MG/ML 100 ML INFUS..BTL IV (11:17)
[2022-11-03] MEDS: cefTRIAXone sodium 2 GM in 0.9 % Sodium Chloride 50 ML IV (11:21)
[2022-11-03] MEDS: 0.9 % Sodium Chloride 1,000 ML 999 ML IV (11:23)
[2022-11-03 11:41] LABS: Reflex Lactate? Lactic Acid Added
[2022-11-03 12:41] LABS: ~Lactic Acid-LAB USE ONLY 2.8 mmol/L (0.5-2.0)
[2022-11-03] MEDS: 0.9 % Sodium Chloride 500 ML IV (13:06)
--- NOTE | 2022-11-03 13:06 | PC.NURSE ---
18fr 10 c lares inserted, 300mls cloudy broderick urine drained
[2022-11-03 13:20] LABS: Appearance Urine Clear; Color Urine Yellow; Glucose Urine UA Negative (Negative); Leukocyte Esterase Urine Small (1+) (Negative); Nitrite Urine Negative (Negative); PH 5.5 (5.0-9.0); Specific Gravity - Urine 1.025 (1.005-1.025); UMIC TRIGGER UACC YES; Urine Blood Moderate (2+) (Negative); Urine Ketones Negative (Negative); Urine Protein Negative (Neg-Trace)
[2022-11-03 13:28] LABS: Bacteria Urine 4+ (None Seen); Hyaline Casts Urine 0-2 /LPF (0-2); Squamous Epithelial Cell Urine 0-2 /HPF (0-2); UACC Culture Trigger YES; WBC Urine 21-50 /HPF (0-5)
--- NOTE | 2022-11-03 13:56 | PM.IMHP ---
History of Present Illness Date of Service: 11/03/22 Attending physician on admission: Samia Cash Chief Complaint: llq pain 72 year old male with history of non insulin dependent type 2 diabetes, htn, hld, HIV on biktarvy, history pancreatic cancer s/p Whipple procedure, BPH, right bundle branch block presented to the ED earlier today for evaluation of severe left lower quadrant pain. He reports sudden onset pain around 11 30 last night which interferes with sleeping. Pain was nonradiating. There was associated nausea and vomiting as well as chills. No fevers, diarrhea, dysuria, hematuria, increased urinary frequency, urgency, or flank pain. Denies any history of nephrolithiasis. On arrival, vitals stable, patient afebrile. He has leukopenia of 1.7 with 15% bandemia. No anemia. Renal function normal, electrolyte levels normal. Initial lactic acid 2.7, repeat 2.8. Urinalysis with 1+ leukocytes, 2+ blood, positive urinary sediment, 4+ bacteria. CT abdomen/pelvis shows mild left-sided hydronephrosis secondary to a 5 mm calculus within the proximal left ureter. In the ED, given 2 L IV NS, IV morphine, and ondansetron. Patient seen by Urology with plan for stent placement hopefully later today. Review of Systems Review of Systems: General: No fevers, malaise, unintentional weight loss HEENT: No blurred vision, diplopia. No sore throat, nasal congestion, rhinorrhea, sinus pain, ear pain Cardiovascular: No chest pain, palpitations, or leg edema Respiratory: No shortness of breath, wheezing, cough GI: +abd pain, +nausea, +vomiting. No diarrhea, constipation, melena, hematochezia : No dysuria, hematuria, increased urinary frequency, decreased urinary output MSK: No myalgia, back pain Neuro: No headaches, weakness, paresthesias Skin: No rashes or lesions PMFSH Medical History Anemia Arthritis GERD (gastroesophageal reflux disease) History of pancreatic cancer HIV (human immunodeficiency virus infection) HTN (hypertension) Hyperlipidemia Hypertensive heart disease Right bundle branch block (RBBB) determined by electrocardiography Family History Father No problems noted. Mother Cancer Surgical History History of appendectomy History of prostate surgery History of tonsillectomy and adenoidectomy History of Whipple procedure Hx of colonoscopy Hx of cystoscopy Hx of hernia repair Social History Household Members: None Housing: Apartment Are you a primary day care center director to a significant other at home: No Do you presently have visiting nurse or other home services: No Alcohol intake: current Alcohol intake frequency: a few times a week Patient Tobacco Use Status: Never used Tobacco Use of substances other than those prescribed or required for medical reasons: Yes Substance Use Type: Marijuana Substance Use Type Other:: smoke(3 times/wk) Substance Use Frequency: Weekly Last Used Substance: Days (ago) Currently Displaying Signs/Symptoms of Drug Intoxication Withdrawal: No Have you been hit, kicked, punched, or otherwise hurt by someone within the past year? If so, by whom?: No Do you feel safe in your current relationship?: No Current Relationship Is there a partner from a previous relationship who is making you feel unsafe now?: No Are you made to feel afraid or neglected: No Are you DNR?: No Advance Directives: No Advance Directives on File: No Do you have thoughts of harming others: None Recently lost weight without trying: No How much weight loss: Not applicable Eating poorly because of decreased appetite: No Nutrition screen score: 0 service: No Meds Allergies Allergy/AdvReac Type Severity Reaction Status Date / Time Penicillins [PCN] Allergy Mild HIVES Verified 05/20/22 08:38 abacavir Allergy Unknown rash, Verified 05/20/22 08:38 chills Active Medications: Current Medications Acetaminophen (Acetaminophen 325 Mg Tablet) 650 mg PO Q6H PRN PRN Reason: Pain, Mild (Pain Scale 1-3) Docusate Sodium (Docusate Sodium 100 Mg Capsule) 100 mg PO DAILY PRN PRN Reason: Constipation Sodium Chloride (Ns) 500 mls @ 500 mls/hr IV .Q1H [facility] Stop: 11/03/22 13:59 Last Admin: 11/03/22 13:06 Dose: 500 mls/hr Sodium Chloride (Ns) 1,000 mls @ 100 mls/hr IVCONT .Q10H [facility] Morphine Sulfate (Morphine Sulfate 4 Mg/Ml Cartridge) 2 mg IVPUSH Q6H PRN; Protocol PRN Reason: Pain, Severe (Pain Scale 7-10) Ondansetron HCl (Ondansetron Hcl 4 Mg/2 Ml Vial) 4 mg IVPUSH Q8H PRN PRN Reason: Nausea and Vomiting Sodium Chloride (0.9 % Sodium Chloride Flush 3 Ml Syringe) 3 ml IVFLUSH QSHIFT [facility] Home Medications Medication Instructions Recorded Confirmed Last Taken Type atorvastatin 20 mg tablet 20 mg PO BEDTIME 01/18/20 11/03/22 11/02/22 History docusate sodium 100 mg capsule 100 mg PO BEDTIME PRN Constipation 01/18/20 11/03/22 11/02/22 History metoprolol succinate 50 mg 50 mg PO BEDTIME 01/18/20 11/03/22 11/02/22 History tablet,extended release 24 hr omeprazole 20 mg capsule,delayed 20 mg PO DAILY 01/18/20 11/03/22 11/03/22 History release bictegravir 50 mg-emtricitabine 1 tab PO BEDTIME 01/17/21 11/03/22 11/02/22 History 200 mg-tenofovir alafenam 25 mg tablet polyethylene glycol 3350 17 17 g PO DAILY PRN Constipation 04/24/21 11/03/22 11/03/22 History gram/dose oral powder flash glucose scanning reader #1 ea 05/20/22 Unknown History ([employer] Keer[place] 2 [place]) metformin 500 mg tablet 500 mg PO DAILY diabetes mellitus 11/03/22 11/03/22 11/02/22 History multivitamin 1 tab PO DAILY 11/03/22 11/03/22 11/03/22 History naproxen 500 mg tablet (Naprosyn) 500 mg PO BID PRN Pain 11/03/22 11/03/22 Unknown History Physical Exam Vital Signs and Narrative: Vital Signs: Last Vital Signs Temp 98.7 F 11/03/22 13:14 Pulse 88 11/03/22 13:14 Resp 18 11/03/22 13:14 BP 117/60 11/03/22 13:14 Pulse Ox 97 11/03/22 13:14 O2 Del Method Room Air 11/03/22 13:14 BMI result Body Mass Index 24.6 Constitutional - Awake and Alert, No apparent distress Eyes - PERRLA, EOMI Cardiovascular - S1S2, RRR, No edema Respiratory - Normal lung expansion, Normal respiratory effort, No respiratory distress, CTA bilaterally Gastrointestinal - mild llq ttp. ND; +BS; No rebound or guarding - No CVA tenderness Extremities - no calf tenderness bilaterally, no swelling Skin - Warm/Dry Neurological - Alert & oriented x3 Psychological - Appropriate affect Results Labs 11/03/22 09:31 11/03/22 09:31 Labs: Laboratory Results - last 24 hr 11/03/22 11/03/22 11/03/22 09:31 09:31 09:31 MCV 100.7 H MCH 34.4 H MCHC 34.1 RDW 12.7 Plt Count 115 L MPV 9.5 Immature Gran % (Auto) Cancelled Neut % (Auto) Cancelled Lymph % (Auto) Cancelled [place] % (Auto) Cancelled Eos % (Auto) Cancelled Baso % (Auto) Cancelled Lymph # (Auto) Cancelled [place] # (Auto) Cancelled Eos # (Auto) Cancelled Baso # (Auto) Cancelled Abs Immat Gran (auto) Cancelled Absolute Neuts (auto) Cancelled Absolute Nucleated RBC 0.000 Nucleated RBC % (auto) 0.0 Neutrophils % (Manual) 73 Band Neutrophils % 15 H Lymphocytes % (Manual) 10 L Eosinophils % (Manual) 1 Basophils % (Manual) 1 Abs Neuts (Manual) 1.5 L Lymphocytes # (Manual) 0.2 L Toxic Vacuolation PRESENT Dohle Bodies PRESENT Platelet Estimate DECREASED Plt Morphology Comment NORMAL RBC Morphology NOTED Polychromasia 1+ (0-2) Macrocytosis 1+ (5-14) PT 11.4 INR 0.9 Anion Gap 13 Estim Creat Clear Calc 47.6 Estimated GFR 50 Random Glucose 151 H Lactic Acid Lactic Acid F/U @ 2Hr Calcium 9.3 Magnesium 1.7 Total Bilirubin 1.7 H Direct Bilirubin 0.7 H AST 44 H ALT 27 Alkaline Phosphatase 79 Total Protein 6.9 Albumin 4.0 Lipase < 4 L Urine Color Urine Appearance Urine pH Ur Specific [place] Urine Protein Urine Glucose (UA) Urine Ketones Urine Blood Urine Nitrite Ur Leukocyte Esterase Urine RBC Urine WBC Ur Squamous Epith Cells Urine Bacteria Hyaline Casts COVID-19 ([facility]) COVID-19 Clin Com 11/03/22 11/03/22 11/03/22 09:31 10:01 12:21 MCV MCH MCHC RDW Plt Count MPV Immature Gran % (Auto) Neut % (Auto) Lymph % (Auto) [place] % (Auto) Eos % (Auto) Baso % (Auto) Lymph # (Auto) [place] # (Auto) Eos # (Auto) Baso # (Auto) Abs Immat Gran (auto) Absolute Neuts (auto) Absolute Nucleated RBC Nucleated RBC % (auto) Neutrophils % (Manual) Band Neutrophils % Lymphocytes % (Manual) Eosinophils % (Manual) Basophils % (Manual) Abs Neuts (Manual) Lymphocytes # (Manual) Toxic Vacuolation Dohle Bodies Platelet Estimate Plt Morphology Comment RBC Morphology Polychromasia Macrocytosis PT INR Anion Gap Estim Creat Clear Calc Estimated GFR Random Glucose Lactic Acid 2.7 H* Lactic Acid F/U @ 2Hr 2.8 H* Calcium Magnesium Total Bilirubin Direct Bilirubin AST ALT Alkaline Phosphatase Total Protein Albumin Lipase Urine Color Urine Appearance Urine pH Ur Specific [place] Urine Protein Urine Glucose (UA) Urine Ketones Urine Blood Urine Nitrite Ur Leukocyte Esterase Urine RBC Urine WBC Ur Squamous Epith Cells Urine Bacteria Hyaline Casts COVID-19 ([facility]) Negative COVID-19 Clin Com See Note 11/03/22 13:10 MCV MCH MCHC RDW Plt Count MPV Immature Gran % (Auto) Neut % (Auto) Lymph % (Auto) [place] % (Auto) Eos % (Auto) Baso % (Auto) Lymph # (Auto) [place] # (Auto) Eos # (Auto) Baso # (Auto) Abs Immat Gran (auto) Absolute Neuts (auto) Absolute Nucleated RBC Nucleated RBC % (auto) Neutrophils % (Manual) Band Neutrophils % Lymphocytes % (Manual) Eosinophils % (Manual) Basophils % (Manual) Abs Neuts (Manual) Lymphocytes # (Manual) Toxic Vacuolation Dohle Bodies Platelet Estimate Plt Morphology Comment RBC Morphology Polychromasia Macrocytosis PT INR Anion Gap Estim Creat Clear Calc Estimated GFR Random Glucose Lactic Acid Lactic Acid F/U @ 2Hr Calcium Magnesium Total Bilirubin Direct Bilirubin AST ALT Alkaline Phosphatase Total Protein Albumin Lipase Urine Color Yellow Urine Appearance Clear Urine pH 5.5 Ur Specific [place] 1.025 Urine Protein Negative Urine Glucose (UA) Negative Urine Ketones Negative Urine Blood Moderate (2+) H Urine Nitrite Negative Ur Leukocyte Esterase Small (1+) H Urine RBC 6-10 H Urine WBC 21-50 H Ur Squamous Epith Cells 0-2 Urine Bacteria 4+ Hyaline Casts 0-2 COVID-19 ([facility]) COVID-19 Clin Com Imaging Radiologist's Impressions: Impressions Abdomen/Pelvis CT 11/03/22 11:21 IMPRESSION: Mild left-sided hydronephrosis secondary to a 5 mm calculus within the proximal left ureter. Fleischner guidelines were followed. Assessment and Plan (1) Obstructive uropathy: Status: Acute (2) UTI (urinary tract infection): Status: Acute Plan 72 year old male with history of non insulin dependent type 2 diabetes, htn, hld, HIV on biktarvy, history pancreatic cancer s/p Whipple procedure, BPH, right bundle branch block to be observed for obstructive uropathy with UTI. #Obstructive uropathy -5mm obstructing proximal left ureteral stone with mild left hydronephrosis on CT -Urology consult- plan for stent placement later today -Keep NPO -Ondansetron prn -pain management on pain scale -continue IVF #Acute UTI -UA with 1+ leukocytes, 2+ blood, positive urinary sediment, 4+ bacteria -IV ceftriaxone (initiated 11/03) -leukopenia of 1.7 with 15% bandemia. No other sirs criteria -Follow CBC, cultures # HIV -follows outpatient with [facility] Infectious Disease -last CD4 count 1300, undetectable viral load -continue Biktarvy # [id number] type 2 diabetes -POC glucose -NPO for now, advance to diabetic diet -Humalog on sliding scale, hold metformin # hypertension -blood pressure controlled -continue home antihypertensives # HLD -continue statin # GERD -continue PPI DVT prophylaxis- SCPs Full code Time Spent With Patient Time: Total time managing care of this patient today ____ minutes. Quality Stroke Does the patient have a stroke diagnosis?: No VTE Prior VTE?: No VTE Risk Level:: Medical - moderate - high VTE Device Contraindication: N/A - Device Ordered VTE Drug Contraindication: Treatment Not Indicated
--- NOTE | 2022-11-03 13:58 | PHA.MEDREC ---
Pharmacy Consult ? Medication Reconciliation Pharmacy has completed the medication reconciliation.
[2022-11-03 14:25] LABS: Reflex Lactate? 2 Y
[2022-11-03] MEDS: 0.9 % Sodium Chloride 1,000 ML 100 ML IVCONT (14:28)
--- NOTE | 2022-11-03 15:03 | PC.NURSE ---
Report given to OR
--- NOTE | 2022-11-03 15:13 | PC.NURSE ---
Transported by instructor adjunct surgical technician to OR
[2022-11-03 15:42] LABS: ~Lactic Acid-LAB USE ONLY 2.4 mmol/L (0.5-2.0)
--- NOTE | 2022-11-03 15:54 | HO.ANESPROP2 ---
[facility] Active Problems Active Problems: All Active Problems (Updated 11/03/22 @ 14:14 by FEDERICA Sibley) UTI (urinary tract infection) (Acute) Obstructive uropathy (Acute) Abdominal pain (Acute) Bandemia (Acute) Acidosis, lactic (Acute) Left ureteral calculus (Acute) BPH w urinary obs/LUTS (Acute) Nocturia more than twice per night (Acute) Urinary frequency (Acute) Hypertensive heart disease (Acute) HTN (hypertension) (Acute) Hyperlipidemia (Acute) Right bundle branch block (RBBB) determined by electrocardiography (Acute) Past Medical History Medical History Anemia Arthritis GERD (gastroesophageal reflux disease) History of pancreatic cancer HIV (human immunodeficiency virus infection) HTN (hypertension) Hyperlipidemia Hypertensive heart disease Right bundle branch block (RBBB) determined by electrocardiography Functional capacity: independent ambulation Family History Family History Father No problems noted. Mother Cancer Family history of problems with anesthesia: No Surgical History Surgical History History of appendectomy History of prostate surgery History of tonsillectomy and adenoidectomy History of Whipple procedure Hx of colonoscopy Hx of cystoscopy Hx of hernia repair History of Problems with Anesthesia: No Social History Social History Are you a primary adult daycare coordinator to a significant other at home: No Do you presently have visiting nurse or other home services: No Alcohol intake: current Alcohol intake frequency: a few times a week Patient Tobacco Use Status: Never used Tobacco Use of substances other than those prescribed or required for medical reasons: Yes Substance Use Type: Marijuana Substance Use Type Other:: smoke(3 times/wk) Substance Use Frequency: Weekly Are you DNR?: No Advance Directives: No Advance Directives Information Provided: No Advance Directives on File: No Meds Allergies Allergy/AdvReac Type Severity Reaction Status Date / Time Penicillins [PCN] Allergy Mild HIVES Verified 05/20/22 08:38 abacavir Allergy Unknown rash, Verified 05/20/22 08:38 chills Active Medications: Current Medications Acetaminophen (Acetaminophen 325 Mg Tablet) 650 mg PO Q6H PRN PRN Reason: Pain, Mild (Pain Scale 1-3) Atorvastatin Calcium (Atorvastatin Calcium 20 Mg Tablet) 20 mg PO BEDTIME [facility] Bictegravir/Emtricitabine/Tenofovir (Bictegrav/Emtricit/Tenofov Ala Tablet) 1 tab PO BEDTIME [facility] Dextrose (Dextrose 50 % 25 Gm/50 Ml Syringe) 25 gm IVPUSH Q15M PRN; Protocol PRN Reason: per Hypoglycemia Standing Ord. Docusate Sodium (Docusate Sodium 100 Mg Capsule) 100 mg PO DAILY PRN PRN Reason: Constipation Glucose (Glucose Gel 15 Gm Gel..Gram.) 15 gm PO Q15M PRN; Protocol PRN Reason: per Hypoglycemia Standing Ord. Sodium Chloride (Ns) 1,000 mls @ 100 mls/hr IVCONT .Q10H [facility] Last Admin: 11/03/22 14:28 Dose: 100 mls/hr Ceftriaxone Sodium 1 gm/ (Sodium Chloride) 50 mls @ 100 mls/hr IV Q24H [facility] Insulin Human Lispro (Insulin Lispro 100 Unit/Ml 3 Ml Vial) 0 unit SUBCUT QIDACHS [facility]; Protocol Ketorolac Tromethamine (Ketorolac Tromethamine 15 Mg/Ml Vial) 15 mg IVPUSH Q6H PRN PRN Reason: Pain, Moderate(Pain Scale 4-6) Metoprolol Succinate (Metoprolol Succinate Er 50 Mg Tab.Er.24h) 50 mg PO BEDTIME [facility]; Protocol Morphine Sulfate (Morphine Sulfate 4 Mg/Ml Cartridge) 2 mg IVPUSH Q6H PRN; Protocol PRN Reason: Pain, Severe (Pain Scale 7-10) Multivitamins/Vitamin C (Multivitamin Tablet) 1 tab PO DAILY [facility] Omeprazole (Omeprazole 20 Mg Capsule.Dr) 20 mg PO DAILY@0630 [facility] Ondansetron HCl (Ondansetron Hcl 4 Mg/2 Ml Vial) 4 mg IVPUSH Q8H PRN PRN Reason: Nausea and Vomiting Oxybutynin Chloride (Oxybutynin Chloride Er 5 Mg Tab.Er.24) 5 mg PO DAILY [facility] Polyethylene Glycol (Polyethylene Glycol 3350 17 Gm Powd.Pack) 17 gm PO DAILY PRN PRN Reason: Constipation Sodium Chloride (0.9 % Sodium Chloride Flush 3 Ml Syringe) 3 ml IVFLUSH QSHIFT [facility] Home Medications Medication Instructions Recorded Confirmed Last Taken Type atorvastatin 20 mg tablet 20 mg PO BEDTIME 01/18/20 11/03/22 11/02/22 History docusate sodium 100 mg capsule 100 mg PO BEDTIME PRN Constipation 01/18/20 11/03/22 11/02/22 History metoprolol succinate 50 mg 50 mg PO BEDTIME 01/18/20 11/03/22 11/02/22 History tablet,extended release 24 hr omeprazole 20 mg capsule,delayed 20 mg PO DAILY 01/18/20 11/03/22 11/03/22 History release bictegravir 50 mg-emtricitabine 1 tab PO BEDTIME 01/17/21 11/03/22 11/02/22 History 200 mg-tenofovir alafenam 25 mg tablet polyethylene glycol 3350 17 17 g PO DAILY PRN Constipation 04/24/21 11/03/22 11/03/22 History gram/dose oral powder flash glucose scanning reader #1 ea 05/20/22 Unknown History ([employer] [place] 2 [place]) metformin 500 mg tablet 500 mg PO DAILY diabetes mellitus 11/03/22 11/03/22 11/02/22 History multivitamin 1 tab PO DAILY 11/03/22 11/03/22 11/03/22 History naproxen 500 mg tablet (Naprosyn) 500 mg PO BID PRN Pain 11/03/22 11/03/22 Unknown History Exam Exam Date and Time: November 03, 2022 1554 Height,Weight and Vital Signs: Height 5 ft 9 in Weight 75.7 kg Last Vital Signs Temp 98.7 F 11/03/22 13:14 Pulse 88 11/03/22 13:14 Resp 18 11/03/22 13:14 BP 117/60 11/03/22 13:14 Pulse Ox 97 11/03/22 13:14 O2 Del Method Room Air 11/03/22 13:14 Pertinent Lab Results Pertinent Lab Results: lLaboratory Tests 11/03/22 11/03/22 11/03/22 09:31 09:31 09:31 WBC 1.7 L RBC 4.25 L Hgb 14.6 Hct 42.8 MCV 100.7 H MCH 34.4 H MCHC 34.1 RDW 12.7 Plt Count 115 L MPV 9.5 Immature Gran % (Auto) Cancelled Neut % (Auto) Cancelled Lymph % (Auto) Cancelled [place] % (Auto) Cancelled Eos % (Auto) Cancelled Baso % (Auto) Cancelled Lymph # (Auto) Cancelled [place] # (Auto) Cancelled Eos # (Auto) Cancelled Baso # (Auto) Cancelled Abs Immat Gran (auto) Cancelled Absolute Neuts (auto) Cancelled Absolute Nucleated RBC 0.000 Nucleated RBC % (auto) 0.0 Neutrophils % (Manual) 73 Band Neutrophils % 15 H Lymphocytes % (Manual) 10 L Eosinophils % (Manual) 1 Basophils % (Manual) 1 Abs Neuts (Manual) 1.5 L Lymphocytes # (Manual) 0.2 L Toxic Vacuolation PRESENT Dohle Bodies PRESENT Platelet Estimate DECREASED Plt Morphology Comment NORMAL RBC Morphology NOTED Polychromasia 1+ (0-2) Macrocytosis 1+ (5-14) PT 11.4 INR 0.9 Sodium 140 Potassium 4.1 Chloride 107 Carbon Dioxide 24 Anion Gap 13 BUN 18 H Creatinine 1.40 Estim Creat Clear Calc 47.6 Estimated GFR 50 Random Glucose 151 H Lactic Acid Lactic Acid F/U @ 2Hr Lactic Acid F/U @ 4Hr Calcium 9.3 Magnesium 1.7 Total Bilirubin 1.7 H Direct Bilirubin 0.7 H AST 44 H ALT 27 Alkaline Phosphatase 79 Total Protein 6.9 Albumin 4.0 Lipase < 4 L Urine Color Urine Appearance Urine pH Ur Specific [place] Urine Protein Urine Glucose (UA) Urine Ketones Urine Blood Urine Nitrite Ur Leukocyte Esterase Urine RBC Urine WBC Ur Squamous Epith Cells Urine Bacteria Hyaline Casts COVID-19 ([facility]) COVID-19 Clin Com 11/03/22 11/03/22 11/03/22 09:31 10:01 12:21 WBC RBC Hgb Hct MCV MCH MCHC RDW Plt Count MPV Immature Gran % (Auto) Neut % (Auto) Lymph % (Auto) [place] % (Auto) Eos % (Auto) Baso % (Auto) Lymph # (Auto) [place] # (Auto) Eos # (Auto) Baso # (Auto) Abs Immat Gran (auto) Absolute Neuts (auto) Absolute Nucleated RBC Nucleated RBC % (auto) Neutrophils % (Manual) Band Neutrophils % Lymphocytes % (Manual) Eosinophils % (Manual) Basophils % (Manual) Abs Neuts (Manual) Lymphocytes # (Manual) Toxic Vacuolation Dohle Bodies Platelet Estimate Plt Morphology Comment RBC Morphology Polychromasia Macrocytosis PT INR Sodium Potassium Chloride Carbon Dioxide Anion Gap BUN Creatinine Estim Creat Clear Calc Estimated GFR Random Glucose Lactic Acid 2.7 H* Lactic Acid F/U @ 2Hr 2.8 H* Lactic Acid F/U @ 4Hr Calcium Magnesium Total Bilirubin Direct Bilirubin AST ALT Alkaline Phosphatase Total Protein Albumin Lipase Urine Color Urine Appearance Urine pH Ur Specific [place] Urine Protein Urine Glucose (UA) Urine Ketones Urine Blood Urine Nitrite Ur Leukocyte Esterase Urine RBC Urine WBC Ur Squamous Epith Cells Urine Bacteria Hyaline Casts COVID-19 ([facility]) Negative COVID-19 Clin Com See Note 11/03/22 11/03/22 13:10 14:52 WBC RBC Hgb Hct MCV MCH MCHC RDW Plt Count MPV Immature Gran % (Auto) Neut % (Auto) Lymph % (Auto) [place] % (Auto) Eos % (Auto) Baso % (Auto) Lymph # (Auto) [place] # (Auto) Eos # (Auto) Baso # (Auto) Abs Immat Gran (auto) Absolute Neuts (auto) Absolute Nucleated RBC Nucleated RBC % (auto) Neutrophils % (Manual) Band Neutrophils % Lymphocytes % (Manual) Eosinophils % (Manual) Basophils % (Manual) Abs Neuts (Manual) Lymphocytes # (Manual) Toxic Vacuolation Dohle Bodies Platelet Estimate Plt Morphology Comment RBC Morphology Polychromasia Macrocytosis PT INR Sodium Potassium Chloride Carbon Dioxide Anion Gap BUN Creatinine Estim Creat Clear Calc Estimated GFR Random Glucose Lactic Acid Lactic Acid F/U @ 2Hr Lactic Acid F/U @ 4Hr 2.4 H* Calcium Magnesium Total Bilirubin Direct Bilirubin AST ALT Alkaline Phosphatase Total Protein Albumin Lipase Urine Color Yellow Urine Appearance Clear Urine pH 5.5 Ur Specific [place] 1.025 Urine Protein Negative Urine Glucose (UA) Negative Urine Ketones Negative Urine Blood Moderate (2+) H Urine Nitrite Negative Ur Leukocyte Esterase Small (1+) H Urine RBC 6-10 H Urine WBC 21-50 H Ur Squamous Epith Cells 0-2 Urine Bacteria 4+ Hyaline Casts 0-2 COVID-19 ([facility]A) COVID-19 Clin Com Airway Mallampati Class: II TM Dist: >3cm Neck ROM: Full Heart: RRR Lungs: CTA Assessment and Plan Final Anesthetic Review Family History of Problems with Anesthesia: No History of Problems with Anesthesia: No NPO: Yes ASA Class: III and Emergency Final Preanesthetic Review: Meds/Allgs Chart Reviewed, Consent Obtained/Reviewed and Anes Risks/Benef Reviewed Patient Risk: Intermediate Procedure Risk: Low Anesthetic Plan Anesthetic Plan: GA Disposition: Standard PACU
--- NOTE | 2022-11-03 15:56 | PM.UROCN ---
History of Present Illness Consult details Consult date: 11/03/22 Narrative: cc: Left mid ureteric stone 72-year-old male Well known to Urology Presents with 12 hour history of left flank pain that woke him from sleep Minimal nausea vomiting but has had fever in emergency room No prior stone history Imaging - 11/21 here is mild left-sided hydronephrosis secondary to a 5 mm calculus within the proximal left ureter. There is asymmetric perinephric stranding of the left kidney Laboratories - WBC 1.7, creatinine 1.4, lactate 2.4 Recommendation cystoscopy, left retrograde, left stent placement Has been medically managed in emergency room Review of Systems Constitutional: Constitutional: Reports as per HPI and Reports no additional constitutional complaints Cardiovascular: Cardiovascular: Reports as per HPI and Reports no additional cardiovascular complaints Respiratory: Respiratory: Reports as per HPI and Reports no additional respiratory complaints Gastrointestinal: Gastrointestinal: Reports as per HPI and Reports no additional gastrointestinal complaints Genitourinary: Genitourinary: Reports as per HPI Musculoskeletal: Musculoskeletal: Reports no additional musculoskeletal complaints and Reports as per HPI Neurologic: Reports system reviewed and no additional complaints, except as documented and Reports as per HPI [facility] Past Medical History Medical History Anemia Arthritis GERD (gastroesophageal reflux disease) History of pancreatic cancer HIV (human immunodeficiency virus infection) HTN (hypertension) Hyperlipidemia Hypertensive heart disease Right bundle branch block (RBBB) determined by electrocardiography Family History Family History Father No problems noted. Mother Cancer Surgical History Surgical History History of appendectomy History of prostate surgery History of tonsillectomy and adenoidectomy History of Whipple procedure Hx of colonoscopy Hx of cystoscopy Hx of hernia repair Social History Social History Are you a primary lawn care worker to a significant other at home: No Do you presently have visiting nurse or other home services: No Alcohol intake: current Alcohol intake frequency: a few times a week Patient Tobacco Use Status: Never used Tobacco Use of substances other than those prescribed or required for medical reasons: Yes Substance Use Type: Marijuana Substance Use Type Other:: smoke(3 times/wk) Substance Use Frequency: Weekly Are you DNR?: No Advance Directives: No Advance Directives Information Provided: No Advance Directives on File: No Meds Allergies Allergy/AdvReac Type Severity Reaction Status Date / Time Penicillins [PCN] Allergy Mild HIVES Verified 05/20/22 08:38 abacavir Allergy Unknown rash, Verified 05/20/22 08:38 chills Active Medications: Current Medications Acetaminophen (Acetaminophen 325 Mg Tablet) 650 mg PO Q6H PRN PRN Reason: Pain, Mild (Pain Scale 1-3) Atorvastatin Calcium (Atorvastatin Calcium 20 Mg Tablet) 20 mg PO BEDTIME [facility] Bictegravir/Emtricitabine/Tenofovir (Bictegrav/Emtricit/Tenofov Ala Tablet) 1 tab PO BEDTIME [facility] Dextrose (Dextrose 50 % 25 Gm/50 Ml Syringe) 25 gm IVPUSH Q15M PRN; Protocol PRN Reason: per Hypoglycemia Standing Ord. Docusate Sodium (Docusate Sodium 100 Mg Capsule) 100 mg PO DAILY PRN PRN Reason: Constipation Glucose (Glucose Gel 15 Gm Gel..Gram.) 15 gm PO Q15M PRN; Protocol PRN Reason: per Hypoglycemia Standing Ord. Sodium Chloride (Ns) 1,000 mls @ 100 mls/hr IVCONT .Q10H [facility] Last Admin: 11/03/22 14:28 Dose: 100 mls/hr Ceftriaxone Sodium 1 gm/ (Sodium Chloride) 50 mls @ 100 mls/hr IV Q24H [facility] Insulin Human Lispro (Insulin Lispro 100 Unit/Ml 3 Ml Vial) 0 unit SUBCUT QIDACHS [facility]; Protocol Ketorolac Tromethamine (Ketorolac Tromethamine 15 Mg/Ml Vial) 15 mg IVPUSH Q6H PRN PRN Reason: Pain, Moderate(Pain Scale 4-6) Metoprolol Succinate (Metoprolol Succinate Er 50 Mg Tab.Er.24h) 50 mg PO BEDTIME [facility]; Protocol Morphine Sulfate (Morphine Sulfate 4 Mg/Ml Cartridge) 2 mg IVPUSH Q6H PRN; Protocol PRN Reason: Pain, Severe (Pain Scale 7-10) Multivitamins/Vitamin C (Multivitamin Tablet) 1 tab PO DAILY [facility] Omeprazole (Omeprazole 20 Mg Capsule.Dr) 20 mg PO DAILY@0630 [facility] Ondansetron HCl (Ondansetron Hcl 4 Mg/2 Ml Vial) 4 mg IVPUSH Q8H PRN PRN Reason: Nausea and Vomiting Oxybutynin Chloride (Oxybutynin Chloride Er 5 Mg Tab.Er.24) 5 mg PO DAILY [facility] Polyethylene Glycol (Polyethylene Glycol 3350 17 Gm Powd.Pack) 17 gm PO DAILY PRN PRN Reason: Constipation Sodium Chloride (0.9 % Sodium Chloride Flush 3 Ml Syringe) 3 ml IVFLUSH QSHIFT [facility] Home Medications Medication Instructions Recorded Confirmed Last Taken Type atorvastatin 20 mg tablet 20 mg PO BEDTIME 01/18/20 11/03/22 11/02/22 History docusate sodium 100 mg capsule 100 mg PO BEDTIME PRN Constipation 01/18/20 11/03/22 11/02/22 History metoprolol succinate 50 mg 50 mg PO BEDTIME 01/18/20 11/03/22 11/02/22 History tablet,extended release 24 hr omeprazole 20 mg capsule,delayed 20 mg PO DAILY 01/18/20 11/03/22 11/03/22 History release bictegravir 50 mg-emtricitabine 1 tab PO BEDTIME 01/17/21 11/03/22 11/02/22 History 200 mg-tenofovir alafenam 25 mg tablet polyethylene glycol 3350 17 17 g PO DAILY PRN Constipation 04/24/21 11/03/22 11/03/22 History gram/dose oral powder flash glucose scanning reader #1 ea 05/20/22 Unknown History ([employer] Keerthi [address] [place]) metformin 500 mg tablet 500 mg PO DAILY diabetes mellitus 11/03/22 11/03/22 11/02/22 History multivitamin 1 tab PO DAILY 11/03/22 11/03/22 11/03/22 History naproxen 500 mg tablet (Naprosyn) 500 mg PO BID PRN Pain 11/03/22 11/03/22 Unknown History Physical Exam Vital Signs: Vital Signs: Last Vital Signs Temp 98.7 F 11/03/22 13:14 Pulse 88 11/03/22 13:14 Resp 18 11/03/22 13:14 BP 117/60 11/03/22 13:14 Pulse Ox 97 11/03/22 13:14 O2 Del Method Room Air 11/03/22 13:14 BMI result Body Mass Index 24.6 Const: General: cooperative, healthy appearing, comfortable and no acute distress Orientation/consciousness: patient oriented x3 HEENT: Face and sinus: Yes normal facial exam Mouth: moist mucous membranes Neck: Neck: Yes normal visual inspection, Yes full ROM and Yes trachea midline Chest: Chest palpation & inspection: normal inspection of the chest Resp: Effort & Inspection: normal respiratory effort, able to speak in complete sentences and no respiratory distress GI: Inspection: Yes normal to inspection Back/Spine/Pelvis: Cervical Spine: normal cervical lordosis Thoracic/Lumbar Spine: thoracic and lumbar spine normal to inspection Skin: General skin exam: no rashes or lesions noted Neuro: General: patient oriented x3, tone normal and moves all extremities Extrem: General: Yes normal to inspection and Yes capillary refill normal Results Labs 11/03/22 09:11/03/22 09: Labs: Abnormal lab results 11/03/22 11/03/22 11/03/22 Range/Units 09: 09: 09:31 WBC 1.7 L (4.8-10.8) X10*3/uL RBC 4.25 L (4.60-5.80) X10*6/uL MCV 100.7 H (80.0-98.0) fL MCH 34.4 H (27.0-33.0) pg Plt Count 115 L (160-400) X10*3/uL Band Neutrophils % 15 H (3-5) % Lymphocytes % (Manual) 10 L (20-40) % Abs Neuts (Manual) 1.5 L (2.0-8.3) X10*3/uL Lymphocytes # (Manual) 0.2 L (1.2-4.9) X10*3/uL BUN 18 H (9-16) mg/dL Random Glucose 151 H (60-115) mg/dL Lactic Acid 2.7 H* (0.5-2.0) mmol/L Lactic Acid F/U @ 2Hr (0.5-2.0) mmol/L Lactic Acid F/U @ 4Hr (0.5-2.0) mmol/L Total Bilirubin 1.7 H (0.0-1.0) mg/dL Direct Bilirubin 0.7 H (0.0-0.5) mg/dL AST 44 H (5-37) U/L Lipase < 4 L (8-78) U/L Urine Blood (Negative) Ur Leukocyte Esterase (Negative) Urine RBC (0-2) /HPF Urine WBC (0-5) /HPF 11/03/22 11/03/22 11/03/22 Range/Units 12:21 13:10 14:52 WBC (4.8-10.8) X10*3/uL RBC (4.60-5.80) X10*6/uL MCV (80.0-98.0) fL MCH (27.0-33.0) pg Plt Count (160-400) X10*3/uL Band Neutrophils % (3-5) % Lymphocytes % (Manual) (20-40) % Abs Neuts (Manual) (2.0-8.3) X10*3/uL Lymphocytes # (Manual) (1.2-4.9) X10*3/uL BUN (9-16) mg/dL Random Glucose (60-115) mg/dL Lactic Acid (0.5-2.0) mmol/L Lactic Acid F/U @ 2Hr 2.8 H* (0.5-2.0) mmol/L Lactic Acid F/U @ 4Hr 2.4 H* (0.5-2.0) mmol/L Total Bilirubin (0.0-1.0) mg/dL Direct Bilirubin (0.0-0.5) mg/dL AST (5-37) U/L Lipase (8-78) U/L Urine Blood Moderate (2+) H (Negative) Ur Leukocyte Esterase Small (1+) H (Negative) Urine RBC 6-10 H (0-2) /HPF Urine WBC 21-50 H (0-5) /HPF Short CBC 11/03/22 Range/Units 09:31 WBC 1.7 L (4.8-10.8) X10*3/uL Hgb 14.6 (14.0-18.0) g/dl Hct 42.8 (42.0-52.0) % Plt Count 115 L (160-400) X10*3/uL BMP 11/03/22 09:31 Sodium 140 Potassium 4.1 Chloride 107 Carbon Dioxide 24 BUN 18 H Creatinine 1.40 Calcium 9.3 Liver Function 11/03/22 Range/Units 09:31 Total Bilirubin 1.7 H (0.0-1.0) mg/dL Direct Bilirubin 0.7 H (0.0-0.5) mg/dL AST 44 H (5-37) U/L ALT 27 (0-40) U/L Alkaline Phosphatase 79 (39-117) U/L Albumin 4.0 (3.5-5.0) g/dL Urine 11/03/22 Range/Units 13:10 Urine Color Yellow Urine Appearance Clear Urine pH 5.5 (5.0-9.0) Ur Specific [place] 1.025 (1.005-1.025) Urine Protein Negative (Neg-Trace) mg/dL Urine Glucose (UA) Negative (Negative) mg/dL All other labs normal. Assessment and Plan (1) Obstructive uropathy: Status: Acute (2) UTI (urinary tract infection): Status: Acute (3) Bandemia: Status: Acute (4) Acidosis, lactic: Status: Acute Plan Risks, benefits and alternatives to therapy were discussed. These include but are not limited to infection, bleeding, damage to local organs and tissues, need for further interventions. Anesthetic risks regarding cardiac arrhythmia, blood clots, and potential mortality were discussed. The patient understands the typical recovery time and the outpatient nature of the procedure. After consideration of these risks the patient gives full informed consent and they wish to move ahead with the procedure. Cystoscopy, left retrograde, left stent placement Time Spent With Patient Time: Total time managing care of this patient today ____ minutes. Procedures Date of Service Date of Service: 11/03/22
--- NOTE | 2022-11-03 16:01 | PC.NURSE ---
critical lactate discussed with md. Han
--- NOTE | 2022-11-03 16:56 | MHC.SHP ---
Pre-Procedural Eval Section A Date of Service: 11/03/22 The patient is an INPATIENT: Yes The History & Physical has been completed within 30 days and I have reviewed it.: Yes Section B Chief Complaint: obstructive uropathy uti Allergies: Allergies Allergy/AdvReac Type Severity Reaction Status Date / Time Penicillins [PCN] Allergy Mild HIVES Verified 05/20/22 08:38 abacavir Allergy Unknown rash, Verified 05/20/22 08:38 chills Plan Diagnosis/Plan: Unchanged I have reviewed the history and physical and performed a pertinent physical examination on my patient. No changes have occurred unless specified. cysto Left uretera stent, retrograde Time Spent With Patient Time: Total time managing care of this patient today ____ minutes.
[2022-11-03] MEDS: levoFLOXacin/D5W 500 MG/100 ML PIGGYBACK 100 MG IV (17:15)
--- NOTE | 2022-11-03 17:36 | P.CONAN_ITS ---
[facility] Active Problems Active Problems: All Active Problems UTI (urinary tract infection) (Acute) Obstructive uropathy (Acute) Abdominal pain (Acute) Bandemia (Acute) Acidosis, lactic (Acute) Left ureteral calculus (Acute) BPH w urinary obs/LUTS (Acute) Nocturia more than twice per night (Acute) Urinary frequency (Acute) Hypertensive heart disease (Acute) HTN (hypertension) (Acute) Hyperlipidemia (Acute) Right bundle branch block (RBBB) determined by electrocardiography (Acute) Past Medical History Medical History Anemia Arthritis GERD (gastroesophageal reflux disease) History of pancreatic cancer HIV (human immunodeficiency virus infection) HTN (hypertension) Hyperlipidemia Hypertensive heart disease Right bundle branch block (RBBB) determined by electrocardiography Functional capacity: independent ambulation Family History Family History Father No problems noted. Mother Cancer Family history of problems with anesthesia: No Surgical History Surgical History History of appendectomy History of prostate surgery History of tonsillectomy and adenoidectomy History of Whipple procedure Hx of colonoscopy Hx of cystoscopy Hx of hernia repair History of Problems with Anesthesia: No Social History Social History Are you a primary career services coordinator to a significant other at home: No Do you presently have visiting nurse or other home services: No Alcohol intake: current Alcohol intake frequency: a few times a week Patient Tobacco Use Status: Never used Tobacco Use of substances other than those prescribed or required for medical reasons: Yes Substance Use Type: Marijuana Substance Use Type Other:: smoke(3 times/wk) Substance Use Frequency: Weekly Are you DNR?: No Advance Directives: No Advance Directives Information Provided: No Advance Directives on File: No Meds Allergies Allergy/AdvReac Type Severity Reaction Status Date / Time Penicillins [PCN] Allergy Mild HIVES Verified 05/20/22 08:38 abacavir Allergy Unknown rash, Verified 05/20/22 08:38 chills Active Medications: Current Medications Acetaminophen (Acetaminophen 325 Mg Tablet) 650 mg PO Q6H PRN PRN Reason: Pain, Mild (Pain Scale 1-3) Atorvastatin Calcium (Atorvastatin Calcium 20 Mg Tablet) 20 mg PO BEDTIME [facility] Bictegravir/Emtricitabine/Tenofovir (Bictegrav/Emtricit/Tenofov Ala Tablet) 1 tab PO BEDTIME [facility] Dextrose (Dextrose 50 % 25 Gm/50 Ml Syringe) 25 gm IVPUSH Q15M PRN; Protocol PRN Reason: per Hypoglycemia Standing Ord. Docusate Sodium (Docusate Sodium 100 Mg Capsule) 100 mg PO DAILY PRN PRN Reason: Constipation Glucose (Glucose Gel 15 Gm Gel..Gram.) 15 gm PO Q15M PRN; Protocol PRN Reason: per Hypoglycemia Standing Ord. Sodium Chloride (Ns) 1,000 mls @ 100 mls/hr IVCONT .Q10H [facility] Last Admin: 11/03/22 14:28 Dose: 100 mls/hr Ceftriaxone Sodium 1 gm/ (Sodium Chloride) 50 mls @ 100 mls/hr IV Q24H [facility] Levofloxacin (Levaquin) 500 mg in 100 mls @ 100 mls/hr IV PREOP ONE Stop: 11/03/22 17:53 Insulin Human Lispro (Insulin Lispro 100 Unit/Ml 3 Ml Vial) 0 unit SUBCUT QIDACHS [facility]; Protocol Ketorolac Tromethamine (Ketorolac Tromethamine 15 Mg/Ml Vial) 15 mg IVPUSH Q6H PRN PRN Reason: Pain, Moderate(Pain Scale 4-6) Metoprolol Succinate (Metoprolol Succinate Er 50 Mg Tab.Er.24h) 50 mg PO BEDTIME [facility]; Protocol Morphine Sulfate (Morphine Sulfate 4 Mg/Ml Cartridge) 2 mg IVPUSH Q6H PRN; Protocol PRN Reason: Pain, Severe (Pain Scale 7-10) Multivitamins/Vitamin C (Multivitamin Tablet) 1 tab PO DAILY [facility] Omeprazole (Omeprazole 20 Mg Capsule.Dr) 20 mg PO DAILY@0630 [facility] Ondansetron HCl (Ondansetron Hcl 4 Mg/2 Ml Vial) 4 mg IVPUSH Q8H PRN PRN Reason: Nausea and Vomiting Oxybutynin Chloride (Oxybutynin Chloride Er 5 Mg Tab.Er.24) 5 mg PO DAILY [facility] Polyethylene Glycol (Polyethylene Glycol 3350 17 Gm Powd.Pack) 17 gm PO DAILY PRN PRN Reason: Constipation Sodium Chloride (0.9 % Sodium Chloride Flush 3 Ml Syringe) 3 ml IVFLUSH QSHIFT [facility] Home Medications Medication Instructions Recorded Confirmed Last Taken Type atorvastatin 20 mg tablet 20 mg PO BEDTIME 01/18/20 11/03/22 11/02/22 History docusate sodium 100 mg capsule 100 mg PO BEDTIME PRN Constipation 01/18/20 11/03/22 11/02/22 History metoprolol succinate 50 mg 50 mg PO BEDTIME 01/18/20 11/03/22 11/02/22 History tablet,extended release 24 hr omeprazole 20 mg capsule,delayed 20 mg PO DAILY 01/18/20 11/03/22 11/03/22 History release bictegravir 50 mg-emtricitabine 1 tab PO BEDTIME 01/17/21 11/03/22 11/02/22 History 200 mg-tenofovir alafenam 25 mg tablet polyethylene glycol 3350 17 17 g PO DAILY PRN Constipation 04/24/21 11/03/22 11/03/22 History gram/dose oral powder flash glucose scanning reader #1 ea 05/20/22 Unknown History ([employer] Ke[employer] [address] [place]) metformin 500 mg tablet 500 mg PO DAILY diabetes mellitus 11/03/22 11/03/22 11/02/22 History multivitamin 1 tab PO DAILY 11/03/22 11/03/22 11/03/22 History naproxen 500 mg tablet (Naprosyn) 500 mg PO BID PRN Pain 11/03/22 11/03/22 Unknown History Exam Exam Date and Time: November 03, 2022 1736 Height,Weight and Vital Signs: Height 5 ft 9 in Weight 75.7 kg Last Vital Signs Temp 98.7 F 11/03/22 13:14 Pulse 88 11/03/22 13:14 Resp 18 11/03/22 13:14 BP 117/60 11/03/22 13:14 Pulse Ox 97 11/03/22 13:14 O2 Del Method Room Air 11/03/22 13:14 Pertinent Lab Results Pertinent Lab Results: Laboratory Tests 11/03/22 11/03/22 11/03/22 09:31 09:31 09:31 WBC 1.7 L RBC 4.25 L Hgb 14.6 Hct 42.8 MCV 100.7 H MCH 34.4 H MCHC 34.1 RDW 12.7 Plt Count 115 L MPV 9.5 Immature Gran % (Auto) Cancelled Neut % (Auto) Cancelled Lymph % (Auto) Cancelled [place] % (Auto) Cancelled Eos % (Auto) Cancelled Baso % (Auto) Cancelled Lymph # (Auto) Cancelled [place] # (Auto) Cancelled Eos # (Auto) Cancelled Baso # (Auto) Cancelled Abs Immat Gran (auto) Cancelled Absolute Neuts (auto) Cancelled Absolute Nucleated RBC 0.000 Nucleated RBC % (auto) 0.0 Neutrophils % (Manual) 73 Band Neutrophils % 15 H Lymphocytes % (Manual) 10 L Eosinophils % (Manual) 1 Basophils % (Manual) 1 Abs Neuts (Manual) 1.5 L Lymphocytes # (Manual) 0.2 L Toxic Vacuolation PRESENT Dohle Bodies PRESENT Platelet Estimate DECREASED Plt Morphology Comment NORMAL RBC Morphology NOTED Polychromasia 1+ (0-2) Macrocytosis 1+ (5-14) PT 11.4 INR 0.9 Sodium 140 Potassium 4.1 Chloride 107 Carbon Dioxide 24 Anion Gap 13 BUN 18 H Creatinine 1.40 Estim Creat Clear Calc 47.6 Estimated GFR 50 Random Glucose 151 H Lactic Acid Lactic Acid F/U @ 2Hr Lactic Acid F/U @ 4Hr Calcium 9.3 Magnesium 1.7 Total Bilirubin 1.7 H Direct Bilirubin 0.7 H AST 44 H ALT 27 Alkaline Phosphatase 79 Total Protein 6.9 Albumin 4.0 Lipase < 4 L Urine Color Urine Appearance Urine pH Ur Specific [place] Urine Protein Urine Glucose (UA) Urine Ketones Urine Blood Urine Nitrite Ur Leukocyte Esterase Urine RBC Urine WBC Ur Squamous Epith Cells Urine Bacteria Hyaline Casts COVID-19 ([facility]) COVID-19 Clin Com 11/03/22 11/03/22 11/03/22 09:31 10:01 12:21 WBC RBC Hgb Hct MCV MCH MCHC RDW Plt Count MPV Immature Gran % (Auto) Neut % (Auto) Lymph % (Auto) [place] % (Auto) Eos % (Auto) Baso % (Auto) Lymph # (Auto) [place] # (Auto) Eos # (Auto) Baso # (Auto) Abs Immat Gran (auto) Absolute Neuts (auto) Absolute Nucleated RBC Nucleated RBC % (auto) Neutrophils % (Manual) Band Neutrophils % Lymphocytes % (Manual) Eosinophils % (Manual) Basophils % (Manual) Abs Neuts (Manual) Lymphocytes # (Manual) Toxic Vacuolation Dohle Bodies Platelet Estimate Plt Morphology Comment RBC Morphology Polychromasia Macrocytosis PT INR Sodium Potassium Chloride Carbon Dioxide Anion Gap BUN Creatinine Estim Creat Clear Calc Estimated GFR Random Glucose Lactic Acid 2.7 H* Lactic Acid F/U @ 2Hr 2.8 H* Lactic Acid F/U @ 4Hr Calcium Magnesium Total Bilirubin Direct Bilirubin AST ALT Alkaline Phosphatase Total Protein Albumin Lipase Urine Color Urine Appearance Urine pH Ur Specific [place] Urine Protein Urine Glucose (UA) Urine Ketones Urine Blood Urine Nitrite Ur Leukocyte Esterase Urine RBC Urine WBC Ur Squamous Epith Cells Urine Bacteria Hyaline Casts COVID-19 ([facility]) Negative COVID-19 Clin Com See Note 11/03/22 11/03/22 13:10 14:52 WBC RBC Hgb Hct MCV MCH MCHC RDW Plt Count MPV Immature Gran % (Auto) Neut % (Auto) Lymph % (Auto) [place] % (Auto) Eos % (Auto) Baso % (Auto) Lymph # (Auto) [place] # (Auto) Eos # (Auto) Baso # (Auto) Abs Immat Gran (auto) Absolute Neuts (auto) Absolute Nucleated RBC Nucleated RBC % (auto) Neutrophils % (Manual) Band Neutrophils % Lymphocytes % (Manual) Eosinophils % (Manual) Basophils % (Manual) Abs Neuts (Manual) Lymphocytes # (Manual) Toxic Vacuolation Dohle Bodies Platelet Estimate Plt Morphology Comment RBC Morphology Polychromasia Macrocytosis PT INR Sodium Potassium Chloride Carbon Dioxide Anion Gap BUN Creatinine Estim Creat Clear Calc Estimated GFR Random Glucose Lactic Acid Lactic Acid F/U @ 2Hr Lactic Acid F/U @ 4Hr 2.4 H* Calcium Magnesium Total Bilirubin Direct Bilirubin AST ALT Alkaline Phosphatase Total Protein Albumin Lipase Urine Color Yellow Urine Appearance Clear Urine pH 5.5 Ur Specific [place] 1.025 Urine Protein Negative Urine Glucose (UA) Negative Urine Ketones Negative Urine Blood Moderate (2+) H Urine Nitrite Negative Ur Leukocyte Esterase Small (1+) H Urine RBC 6-10 H Urine WBC 21-50 H Ur Squamous Epith Cells 0-2 Urine Bacteria 4+ Hyaline Casts 0-2 COVID-19 ([facility]) COVID-19 Clin Com Airway Heart: RRR Lungs: CTA Assessment and Plan Final Anesthetic Review Family History of Problems with Anesthesia: No History of Problems with Anesthesia: No NPO: Yes ASA Class: III and Emergency Final Preanesthetic Review: Meds/Allgs Chart Reviewed, Consent Obtained/Reviewed and Anes Risks/Benef Reviewed Patient Risk: Intermediate Procedure Risk: Low Anesthetic Plan Anesthetic Plan: GA Disposition: Standard PACU
--- NOTE | 2022-11-03 17:42 | P.OP_ITS ---
Operative Note Operative Note Date of Service: 11/03/22 Narrative: PreOperative Diagnosis:?? Left ureteral stone, hydronephrosis, UTI Post Operative Diagnosis:?? ?Left ureteral stone, hydronephrosis, UTI Procedure: - cystoscopy, left retrograde - left stent placement 6 fr x multi-length Surgeon:?Dr Alexus Medrano Anesthesia:? General Indications for procedure: UTI sepsis, left obstructing proximal ureteral stone Procedure: After informed consent was verified the patient was brought to the operating placed on the OR table in supine position.? General Anesthesia was administered per protocol.? The patient was placed in lithotomy position, prepped and draped in the usual sterile fashion.? Safety pause time-out and side of surgery confirmed.? Antibiotics confirmed. A 22 [place] cystoscope was inserted transurethrally, the bulbous urethra was within normal limits. The prostatic urethra was nonobstructive. The bladder was visualized.? Both ureteric orifices were in normal position. The? left ureteric orifice was cannulated? and a retrograde examination was performed, there was dilation of the left renal pelvis and calyces A hydrophilic guidewire was placed up to the level of the renal pelvis under fluoroscopy. A? 6 [place] by multi- length stent was placed into the ureter and renal pelvis under a combination of fluoroscopy and direct visualization. The bladder was emptied.? The rigid cystoscope was removed. ? The patient tolerated the procedure well and was brought to the recovery room in stable condition. Complications: None Drains: Ureteral stent as dictated above
[2022-11-03] MEDS: Acetaminophen 325 MG TABLET 650 MG PO (18:53)
[2022-11-03 20:37] LABS: Glucose, Whole Blood 141 mg/dL (60-115)
--- NOTE | 2022-11-03 20:47 | PM.EVENT ---
Event Note Date of Service: 11/03/22 Event Note: GNR bactereemia 2/2, and BP trending down. NS bolus, change Ceftriaxone to meropenem to cover ESBL.. Time Spent With Patient Time: Total time managing care of this patient today ____ minutes.
[2022-11-03] MEDS: Atorvastatin Calcium 20 MG TABLET PO (21:27)
[2022-11-03] MEDS: Bictegrav/Emtricit/Tenofov Ala TABLET 1 TAB PO (21:29)
[2022-11-03] MEDS: 0.9 % Sodium Chloride Flush 3 ML SYRINGE IVFLUSH (21:30)
[2022-11-04] VITALS (16 sets, daily range): BP systolic 82–128; BP diastolic 50–71; PULSE 64–85; RESP 12–28; TEMP 36.7–37.1; O2SAT 92–98
[2022-11-04] MEDS: 0.9 % Sodium Chloride 1,000 ML 100 ML IVCONT (00:16)
[2022-11-04] MEDS: 0.9 % Sodium Chloride 1,000 ML 999 ML IVCONT ×2 (00:25→01:26)
[2022-11-04] MEDS: Midodrine HCl 5 MG TABLET PO (01:28)
[2022-11-04 01:57] LABS: Lactic Acid 2.7 mmol/L (0.5-2.0)
--- NOTE | 2022-11-04 02:14 | PM.EVENT ---
Event Note Date of Service: 11/04/22 Event Note: Patient has been given 4 Liters of IVF, 5 mg of midodrine and not able to get SBP over 90, he is alert, conversing, not cold or clamy, given underlying immunosupressive state will transfer to ICU to be considered for vasopressor, discussed with ICU Attending Dr Pearce and FEDERICA Warner Time Spent With Patient Time: Total time managing care of this patient today ____ minutes.
--- NOTE | 2022-11-04 02:39 | PC.NURSE ---
Patient received via stretcher at approx. 20:00; SWIFT TENDER's at bedside and handover received. At 2014, received critical result from lab/micro w/ POSITIVE Blood Cultures with Gram Negative Rods. Pt. awake, alert and oriented x3. Pt. voices no c/o pain, lightheadedness, dizziness on admit to unit. Initial BP on arrival 87/45 at 20:00. 93% 2L NC. Reported BP and no sx's to Dr. Zuleta at 2000 and received order for 1L NS bolus x2 for total of 2L NS. Dr. Johns in to see pt. The 2L of NS bolus completed at 2400. See VS. Manual BP's checked. 2306 manual BP 84/50 left arm. Pt. remains asymptomatic when questioned and awakens easily to verbal cues. Updated Dr. Zuleta at that time. Another 1L NS bolus x2 ordered and started at midnight and completed at 0230. Pt's BP at 0110 manual was 82/56 left arm, reported to Dr. Zuleta. Pt. received Midodrine 5mg by mouth x1 dose at 0128. At 0135, BP 88/72 manual and pt. denies sx's. 0158 received critical LACTIC acid level result of 2.7, reported to Dr. Zuleta. Dr. Zuleta here to see pt. and pt. to transfer to ICU. Pt. remains awake and alert.
[2022-11-04 03:08] LABS: Reflex Lactate? Lactic Acid Added
--- NOTE | 2022-11-04 03:11 | W.PM.CCCN ---
Documented by User: FEDERICA Doran 11/04/22 06:46 History of Present Illness Data of Consult Service Date: 11/04/22 Requesting physician: Aric Granados Primary Care Provider: FEDERICA Ashley HPI Reason for consult: Septic shock, Gram-negative bacteremia HPI: ?72-year-old male with underlying history of HIV currently on HAART whose last CD4 count was 1300 2 months ago, history of pancreatic cancer status post Whipple procedure and abdominal wall reconstructive surgery, TURP x3 due to BPH, hypertension, diabetes, right bundle branch block among others presents to the ICU after being seen in the emergency room and admitted to the hospital due to a infective obstructive uropathy and Gram-negative bacteremia. ? ? Through his workup which included a CT of the abdomen and pelvis it was notice he had a mild left-sided hydronephrosis secondary to 5 mm calculi within the proximal left ureter and he underwent a cystoscopy with left retrograde pyelogram and placement of a 6 Indian multilink stent by Dr. Medrano. ?Postoperatively the patient had been transferred to the floor, had received a total of 4 L fluid since his ER and counter, however despite of these his blood pressure continues to be low with the lowest at 82/56 at 1 in the morning, although the patient is not symptomatic, there is a concern that he has risk factors for opportunistic infection and fast decompensation. ?Two of his preliminary blood cultures have already come back negative with Gram-negative rods and there is a prior history of E coli UTI.? He had been treated with Levaquin and was switched to meropenem. ? Currently patient states that he feels slightly better than what he felt earlier on, denies any abdominal pain, fever, has some chills, denies nausea or vomiting, chest pain, shortness of breath, cough, sputum production.? He does however state that he feels quite constipated for he normally has a bowel movement on a daily basis but he has not gone for the past 3 days. ? Review of systems: As above, otherwise the patient denies any prior history of strokes, cold intolerance, migraine headaches, head trauma, no eyes, ears or nose problems, no problems swallowing or with phonation, no thyroid disease, denies any history of chest pain, palpitations, coronary disease, cough, sputum production, pneumonia, bronchitis, COPD or emphysema, abdominal pain, nausea, vomiting, diarrhea, melena, hematochezia, hematemesis, hematuria, liver problems, no history of DVT or PE, leg edema, fractures or extremity surgeries all other review of systems were reviewed and they were all negative. ? Past Medical History:? As above ? Past Surgical History: ?As above ? Family history: ?Noncontributory ? Social History:? Lives at home with family, denies tobacco consumption, admits to smoking marijuana 3-4 times per week, drinks 3-4 times per week about 3-4 hard liquor drinks. ? CODE STATUS: FULL CODE ? Allergies: ?Penicillin and acyclovir (rash) ? Home Medications: See Med Rec ? PHYSICAL EXAM: VS: ?88/52, 64, 20, 94% on room air, 98.0. General:? Alert oriented x3 no acute distress.? Speaking full sentences.? Speech is well articulated, thought process is coherent.? Following all commands. Skin:? Intact, no lesions, edema, erythema, clubbing or cyanosis.? No ulcers. HEENT:? Head is normocephalic, atraumatic, pupils equal round reactive to light accommodation bilaterally.? Extraocular movements appear intact.? Buccal mucosa is moist, Neck is supple without lymphadenopathy. Cardiac:? Clear S1-S2, no murmurs rubs or gallops. Pulmonary:? Clear to auscultation, no wheezes, rales or rhonchi. Abdomen:? Protuberant, positive but diminished bowel sounds in all 4 quadrants. ?There is tympany but no tenderness to percussion, Soft, nontender, no rebound or guarding.? No CVA tenderness.? Gupta catheter in place with approximately 100 cc of clear yellow urine. Musculoskeletal:? Moving all 4 extremities upon request a major joints, there is no crepitus or tenderness.? The strength is 5/5 bilaterally and throughout all 4 extremities.? There is no leg edema , no calf tenderness , no leg asymmetry.? Gait not assessed at this point. Neurologic:? As above, cranial nerves 2-12 are grossly intact.? No focal deficits noted. Vascular:? 2+ pulses upper and lower extremities distally. ?Less than 2nd capillary refill of the finger and toes bilaterally upper and lower extremities. ? SIGNIFICANT LABORATORY DATA:? White blood cells 1.7, hemoglobin 14.6, hematocrit 42.8, platelets 115, band neutrophils 15, toxic vacuolation and Dohle bodies. ?Sodium 140, potassium 4.1, chloride 107, carbon dioxide 24, BUN 21, creatinine 1.30. Lactic Acid 2.7 ? REVIEW OF IMAGES: ?As above ? EKG REVIEW: ?Sinus rhythm 79 beats per minute.? Occasional PVCs, left axis deviation, incomplete right bundle.? There is no ST elevations, no ST depressions.? It QT 422 MS.? No comparison available. ? ASSESSMENT : 1. Acute septic shock 2. Gram-negative bacteremia 3. Infected obstructive uropathy postop day 0. post cystoscopy with retrograde pyelogram and stent placement 4. History of HIV on HARRT 5. Lactic/metabolic acidosis 6. Uncontrolled diabetes 7. Hypo magnesemia 8. Clinical dehydration 9. Hypoalbuminemia 10. Pseudo hypocalcemia with corrected calcium of 9.02 ? PLAN OF CARE: Given the significant risk of quick decompensation, the patient will be transferred to the ICU for further care, will continue with IV fluids as the patient's lungs are clear, there is no S3 gallop sounds, he is satting well and is not requiring supplemental oxygen, producing good amount of urine.? Will continue with meropenem, repeat labs stat and if necessary give albumin, will also give him hydrocortisone IV x1, for now we will not administer any vasopressors given the patient's lack of symptomatology, certainly he will need to be monitor closely particularly given his immunosuppressed status, leukopenia and we should be aware of the possibility of a low ANC. The overall fluid intake is 8.6 L and the output is 8.4 with a positive balance of 250 mL, will continue with current fluids.? As for now will hold of on metoprolol; given the lactic acidosis I will not continue with metformin although I do not think it is the culprit of it. ?Albumin salt ordered. His last repeated lactic acid is 2.3, coming down from 2.7.? Will continue with morphine for pain control and will discontinue Toradol as these can be a nephrotoxin. ? GI PROPHYLAXIS: ?On Prilosec DVT PROPHYLAXIS: ?Pneumatic stockings while in bed, will avoid anticoagulation for now given risk of bleeding postprocedure. ? Critical care time used for critical evaluation of this patient, diagnosis, treatment and coordination of care, review her records and documentation TOTAL CRITICAL CARE TIME??90? MIN . discussion and coordination with consultants, completely separate from any procedures performed. Patient's care was discussed in detail with Dr. Pearce.? She is aware of all the above as well as the plan of care for this patient. [facility] Past Medical History Medical History Anemia Arthritis GERD (gastroesophageal reflux disease) History of pancreatic cancer HIV (human immunodeficiency virus infection) HTN (hypertension) Hyperlipidemia Hypertensive heart disease Right bundle branch block (RBBB) determined by electrocardiography Functional capacity: independent ambulation Family History Family History Father No problems noted. Mother Cancer Surgical History Surgical History History of appendectomy History of prostate surgery History of tonsillectomy and adenoidectomy History of Whipple procedure Hx of colonoscopy Hx of cystoscopy Hx of hernia repair Social History Social History Household Members: None Housing: Apartment Are you a primary gericare aide to a significant other at home: No Do you presently have visiting nurse or other home services: No Alcohol intake: current Alcohol intake frequency: a few times a week Patient Tobacco Use Status: Never used Tobacco Use of substances other than those prescribed or required for medical reasons: Yes Substance Use Type: Marijuana Substance Use Type Other:: smoke(3 times/wk) Substance Use Frequency: Weekly Last Used Substance: Days (ago) Currently Displaying Signs/Symptoms of Drug Intoxication Withdrawal: No Have you been hit, kicked, punched, or otherwise hurt by someone within the past year? If so, by whom?: No Do you feel safe in your current relationship?: No Current Relationship Is there a partner from a previous relationship who is making you feel unsafe now?: No Are you made to feel afraid or neglected: No Are you DNR?: No Advance Directives: No Advance Directives on File: No Do you have thoughts of harming others: None Recently lost weight without trying: No How much weight loss: Not applicable Eating poorly because of decreased appetite: No Nutrition screen score: 0 service: No Meds Allergies Allergy/AdvReac Type Severity Reaction Status Date / Time Penicillins [PCN] Allergy Mild HIVES Verified 05/20/22 08:38 abacavir Allergy Unknown rash, Verified 05/20/22 08:38 chills Active Medications: Current Medications Acetaminophen (Acetaminophen 325 Mg Tablet) 650 mg PO Q6H PRN PRN Reason: Pain, Mild (Pain Scale 1-3) Last Admin: 11/03/22 18:53 Dose: 650 mg Atorvastatin Calcium (Atorvastatin Calcium 20 Mg Tablet) 20 mg PO BEDTIME [facility] Last Admin: 11/03/22 21:27 Dose: 20 mg Bictegravir/Emtricitabine/Tenofovir (Bictegrav/Emtricit/Tenofov Ala Tablet) 1 tab PO BEDTIME [facility] Last Admin: 11/03/22 21:29 Dose: 1 tab Dextrose (Dextrose 50 % 25 Gm/50 Ml Syringe) 25 gm IVPUSH Q15M PRN; Protocol PRN Reason: per Hypoglycemia Standing Ord. Docusate Sodium (Docusate Sodium 100 Mg Capsule) 100 mg PO DAILY PRN PRN Reason: Constipation Glucose (Glucose Gel 15 Gm Gel..Gram.) 15 gm PO Q15M PRN; Protocol PRN Reason: per Hypoglycemia Standing Ord. Sodium Chloride (Ns) 1,000 mls @ 100 mls/hr IVCONT .Q10H [facility] Last Infusion: 11/04/22 02:29 Dose: 200 mls/hr Meropenem 1 gm/ Sodium (Chloride) 100 mls @ 200 mls/hr IV Q12H [facility] Last Infusion: 11/03/22 22:50 Dose: Infused Insulin Human Lispro (Insulin Lispro 100 Unit/Ml 3 Ml Vial) 0 unit SUBCUT QIDACHS [facility]; Protocol Last Admin: 11/03/22 21:21 Dose: Not Given Morphine Sulfate (Morphine Sulfate 4 Mg/Ml Cartridge) 2 mg IVPUSH Q6H PRN; Protocol PRN Reason: Pain, Severe (Pain Scale 7-10) Multivitamins/Vitamin C (Multivitamin Tablet) 1 tab PO DAILY [facility] Omeprazole (Omeprazole 20 Mg Capsule.Dr) 20 mg PO DAILY@0630 [facility] Ondansetron HCl (Ondansetron Hcl 4 Mg/2 Ml Vial) 4 mg IVPUSH Q8H PRN PRN Reason: Nausea and Vomiting Oxybutynin Chloride (Oxybutynin Chloride Er 5 Mg Tab.Er.24) 5 mg PO DAILY [facility] Polyethylene Glycol (Polyethylene Glycol 3350 17 Gm Powd.Pack) 17 gm PO DAILY PRN PRN Reason: Constipation Sodium Chloride (0.9 % Sodium Chloride Flush 3 Ml Syringe) 3 ml IVFLUSH QSHIFT [facility] Last Admin: 11/04/22 00:00 Dose: 3 ml Home Medications Medication Instructions Recorded Confirmed Last Taken Type atorvastatin 20 mg tablet 20 mg PO BEDTIME 01/18/20 11/03/22 11/02/22 History docusate sodium 100 mg capsule 100 mg PO BEDTIME PRN Constipation 01/18/20 11/03/22 11/02/22 History metoprolol succinate 50 mg 50 mg PO BEDTIME 01/18/20 11/03/22 11/02/22 History tablet,extended release 24 hr omeprazole 20 mg capsule,delayed 20 mg PO DAILY 01/18/20 11/03/22 11/03/22 History release bictegravir 50 mg-emtricitabine 1 tab PO BEDTIME 01/17/21 11/03/22 11/02/22 History 200 mg-tenofovir alafenam 25 mg tablet polyethylene glycol 3350 17 17 g PO DAILY PRN Constipation 04/24/21 11/03/22 11/03/22 History gram/dose oral powder flash glucose scanning reader #1 ea 05/20/22 Unknown History ([facility] [place]) metformin 500 mg tablet 500 mg PO DAILY diabetes mellitus 11/03/22 11/03/22 11/02/22 History multivitamin 1 tab PO DAILY 11/03/22 11/03/22 11/03/22 History naproxen 500 mg tablet (Naprosyn) 500 mg PO BID PRN Pain 11/03/22 11/03/22 Unknown History Physical Exam Vital Signs: Vital Signs: Last Vital Signs Temp 97.2 F 11/03/22 23:23 Pulse 63 11/03/22 23:23 Resp 20 11/03/22 23:23 BP 88/52 L 11/04/22 01:37 Pulse Ox 94 11/03/22 23:23 O2 Del Method Nasal Cannula 11/03/22 23:23 O2 Flow Rate 2 11/03/22 23:23 Oxygen Flow Rate 2 11/03/22 20:27 BMI result Body Mass Index 25.1 Results Labs 11/03/22 09:31 11/03/22 09:31 Labs: Short CBC 11/03/22 Range/Units 09:31 WBC 1.7 L (4.8-10.8) X10*3/uL Hgb 14.6 (14.0-18.0) g/dl Hct 42.8 (42.0-52.0) % Plt Count 115 L (160-400) X10*3/uL BMP 11/03/22 09:31 Sodium 140 Potassium 4.1 Chloride 107 Carbon Dioxide 24 BUN 18 H Creatinine 1.40 Calcium 9.3 Liver Function 11/03/22 Range/Units 09:31 Total Bilirubin 1.7 H (0.0-1.0) mg/dL Direct Bilirubin 0.7 H (0.0-0.5) mg/dL AST 44 H (5-37) U/L ALT 27 (0-40) U/L Alkaline Phosphatase 79 (39-117) U/L Albumin 4.0 (3.5-5.0) g/dL Urine 11/03/22 Range/Units 13:10 Urine Color Yellow Urine Appearance Clear Urine pH 5.5 (5.0-9.0) Ur Specific Meally 1.025 (1.005-1.025) Urine Protein Negative (Neg-Trace) mg/dL Urine Glucose (UA) Negative (Negative) mg/dL Microbiology Microbiology Results: Microbiology 11/03/22 09:31 Blood - Arterial Blood Culture - Preliminary Prelim: GNR Gram Stain only 11/03/22 09:31 Blood - Arterial Blood Culture - Preliminary Prelim: GNR Gram Stain only Assessment and Plan (1) UTI (urinary tract infection): Status: Acute (2) Obstructive uropathy: Status: Acute (3) Left ureteral calculus: Status: Acute Time Spent With Patient Time: Total time managing care of this patient today ____ minutes. Documented by User: Emerita Pearce MD 11/04/22 11:09 [facility] Past Medical History Medical History Anemia Arthritis GERD (gastroesophageal reflux disease) History of pancreatic cancer HIV (human immunodeficiency virus infection) HTN (hypertension) Hyperlipidemia Hypertensive heart disease Right bundle branch block (RBBB) determined by electrocardiography Family History Family History Father No problems noted. Mother Cancer Surgical History Surgical History History of appendectomy History of prostate surgery History of tonsillectomy and adenoidectomy History of Whipple procedure Hx of colonoscopy Hx of cystoscopy Hx of hernia repair Social History Social History Household Members: None Housing: Apartment Are you a primary gericare aide to a significant other at home: No Do you presently have visiting nurse or other home services: No Alcohol intake: current Alcohol intake frequency: a few times a week Patient Tobacco Use Status: Never used Tobacco Use of substances other than those prescribed or required for medical reasons: Yes Substance Use Type: Marijuana Substance Use Type Other:: smoke(3 times/wk) Substance Use Frequency: Weekly Last Used Substance: Days (ago) Currently Displaying Signs/Symptoms of Drug Intoxication Withdrawal: No Have you been hit, kicked, punched, or otherwise hurt by someone within the past year? If so, by whom?: No Do you feel safe in your current relationship?: No Current Relationship Is there a partner from a previous relationship who is making you feel unsafe now?: No Are you made to feel afraid or neglected: No Are you DNR?: No Advance Directives: No Advance Directives on File: No Do you have thoughts of harming others: None Recently lost weight without trying: No How much weight loss: Not applicable Eating poorly because of decreased appetite: No Nutrition screen score: 0 service: No Meds Allergies Allergy/AdvReac Type Severity Reaction Status Date / Time Penicillins [PCN] Allergy Mild HIVES Verified 05/20/22 08:38 abacavir Allergy Unknown rash, Verified 05/20/22 08:38 chills Home Medications Medication Instructions Recorded Confirmed Last Taken Type atorvastatin 20 mg tablet 20 mg PO BEDTIME 01/18/20 11/03/22 11/02/22 History docusate sodium 100 mg capsule 100 mg PO BEDTIME PRN Constipation 01/18/20 11/03/22 11/02/22 History metoprolol succinate 50 mg 50 mg PO BEDTIME 01/18/20 11/03/22 11/02/22 History tablet,extended release 24 hr omeprazole 20 mg capsule,delayed 20 mg PO DAILY 01/18/20 11/03/22 11/03/22 History release bictegravir 50 mg-emtricitabine 1 tab PO BEDTIME 01/17/21 11/03/22 11/02/22 History 200 mg-tenofovir alafenam 25 mg tablet polyethylene glycol 3350 17 17 g PO DAILY PRN Constipation 04/24/21 11/03/22 11/03/22 History gram/dose oral powder flash glucose scanning reader #1 ea 05/20/22 Unknown History ([facility] [place]) metformin 500 mg tablet 500 mg PO DAILY diabetes mellitus 11/03/22 11/03/22 11/02/22 History multivitamin 1 tab PO DAILY 11/03/22 11/03/22 11/03/22 History naproxen 500 mg tablet (Naprosyn) 500 mg PO BID PRN Pain 11/03/22 11/03/22 Unknown History Results Labs 11/03/22 09:31 11/03/22 09:31 Assessment and Plan (1) UTI (urinary tract infection): Status: Acute (2) Obstructive uropathy: Status: Acute (3) Left ureteral calculus: Status: Acute Plan Attending Attestation: 72 Y M, hypertension, HIV, p/w flank pain, found to have infected nephrolithiasis, s/p stent placement, developed hypotension, despite fluid resuscitation, brought to ICU for further fluid resuscitation, broadened antibiotics, and monitoring; upon assessment 11/04 AM, patient non-toxic appearing, with improved hypotension, MAP >65; plan to transfer back to floor
[2022-11-04 03:24] LABS: Hematocrit 33.4 % (42.0-52.0); Hemoglobin 11.2 g/dl (14.0-18.0); Mean Corpuscular HGB Conc 33.5 g/dl (31.0-36.0); Mean Corpuscular Hemoglobin 34.4 pg (27.0-33.0); Mean Corpuscular Volume 102.5 fL (80.0-98.0); Mean Platelet Volume 10.2 fL (9.4-12.4); Red Blood Count 3.26 X10*6/uL (4.60-5.80); Red Cell Distribution Width 13.4 % (11.0-16.0); White Blood Count 14.9 X10*3/uL (4.8-10.8)
[2022-11-04 03:36] LABS: Lactic Acid 2.3 mmol/L (0.5-2.0)
[2022-11-04 03:38] LABS: Alanine Aminotransferase 28 U/L (0-40); Albumin Level 2.6 g/dL (3.5-5.0); Alkaline Phosphatase 39 U/L (39-117); Anion Gap 10 (12-20); Aspartate Amino Transferase 35 U/L (5-37); Bilirubin Total 0.8 mg/dL (0.0-1.0); Blood Urea Nitrogen 21 mg/dL (9-16); Calcium 7.1 mg/dL (8.4-10.2); Carbon Dioxide 20 mmol/L (22-29); Chloride 115 mmol/L (96-108); Creatinine Clr Calc Pharmacy 51.3; Estimated Glomerular Filt Rate 54; Glucose Random 122 mg/dL (60-115); Potassium 4.3 mmol/L (3.3-5.1); Sodium 141 mmol/L (135-145); Total Protein 4.6 g/dL (6.5-8.0)
[2022-11-04] MEDS: Hydrocortisone Sod Succ/PF 100 MG VIAL IVPUSH (03:40)
[2022-11-04 03:54] LABS: Platelet Count 64 X10*3/uL (160-400)
[2022-11-04 03:58] LABS: Atypical Lymph Absolute Manual 0.3 x10*3/uL; Atypical Lymphs Percent Manual 2 % (0-6); Band Neutrophils Percent 12 % (3-5); Lymphocytes Absolute Manual 1.5 X10*3/uL (1.2-4.9); Lymphocytes Percent Manual 10 % (20-40); Metamyelocytes Absolute 0.3 X10*3/uL; Metamyelocytes Percent 2 %; Monocytes Absolute Manual 0.1 X10*3/uL (0.1-1.2); Monocytes Percent Manual 1 % (2-11); Neutrophils Absolute Manual 12.7 X10*3/uL (2.0-8.3); Neutrophils Percent Manual 73 % (45-73)
[2022-11-04] MEDS: Sodium Bicarbonate 8.4% 50 MEQ/50 ML SYRINGE 100 MEQ IVPUSH (03:59)
[2022-11-04 04:00] LABS: Macrocytosis 1+ (5-14) /OIF; Platelet Estimate DECREASED (NORMAL); Platelet Morphology Comment NORMAL; RBC Morphology NOTED; Toxic Granulation PRESENT
[2022-11-04] MEDS: Albumin Human 25 % 100 ML 200 ML IV ×2 (04:00→04:34)
[2022-11-04 04:01] LABS: Burr Cells 1+ (0-2) /OIF; Toxic Vacuolation PRESENT
[2022-11-04] MEDS: Dextrose 5 % and Lactated Ring 1,000 ML 125 ML IVCONT (04:42)
[2022-11-04 05:19] LABS: Reflex Lactate? Lactic Acid Added
[2022-11-04] MEDS: Omeprazole 20 MG CAPSULE.DR PO (06:17)
[2022-11-04] MEDS: Magnesium Sulfate/H2O 2 GM/50 ML PIGGYBACK IV (07:43)
[2022-11-04] MEDS: Docusate Sodium 100 MG CAPSULE PO (07:44)
[2022-11-04] MEDS: polyethylene glycoL 3350 17 GM POWD.PACK PO (07:44)
[2022-11-04 08:08] LABS: Glucose, Whole Blood 160 mg/dL (60-115)
[2022-11-04] MEDS: Insulin Lispro 100 UNIT/ML 3 ML VIAL SUBCUT ×2 (09:36→12:19)
[2022-11-04] MEDS: oxyBUTYnin chloride ER 5 MG TAB.ER.24 PO (09:36)
[2022-11-04] MEDS: Multivitamin TABLET 1 TAB PO (09:37)
[2022-11-04] MEDS: 0.9 % Sodium Chloride Flush 3 ML SYRINGE IVFLUSH ×2 (09:38)
[2022-11-04] MEDS: Lactated Ringers 1,000 ML 999 ML IV (10:51)
--- NOTE | 2022-11-04 11:01 | MHC.CM.PN ---
CM MET WITH PT AT BEDSIDE. PT LIVES ALONE IN [facility]. INDEPENDENT AT BASELINE. DOES NOT HAVE A HCP THAT HE CAN RECALL BUT WOULD LIKE TO THINK OF WHO HE WOULD LIKE TO NAME AND GET BACK TO CM. +COVID VAX UP TO DATE. PCP JUDITH STALLWORTH AT [facility]. DP: HOME, NO SERVICES ANTICIPATED. FRIEND WILL TRANSPORT HOME. CM WILL CONTINUE TO FOLLOW FOR ANY CHANGE IN DC PLAN/NEEDS.
--- NOTE | 2022-11-04 11:24 | HO.POSTANES ---
Post Anesthesia Evaluation Post Anesthesia Evaluation Date of Service: 11/04/22 Vital Signs: Vital Signs Temp Pulse Resp BP Pulse Ox O2 Del Method 11/04/22 11:00 98.2 F 85 28 H 100/56 L 95 Room Air 11/04/22 10:00 78 22 H 108/59 L 92 Room Air 11/04/22 09:00 64 19 109/67 93 Room Air 11/04/22 08:00 98.2 F 68 20 109/65 93 Room Air 11/04/22 07:00 70 24 H 103/62 93 Room Air 11/04/22 06:00 66 16 106/57 L 92 Room Air 11/04/22 05:00 72 18 96/57 L 95 Room Air 11/04/22 04:34 70 16 98/60 96 Room Air 11/04/22 04:00 68 13 86/52 L 98 Room Air 11/04/22 03:28 98.0 F 65 12 89/50 L 95 Room Air 11/04/22 01:37 88/52 L 11/04/22 01:10 82/56 L Anesthesia: General Mental Status: Awake Pain Control: Satisfactory Nausea/Vomiting: None Hydration: Adequate Anesthesia-Related Issues: No Anes. Related Issues
[2022-11-04 11:43] LABS: Glucose, Whole Blood 197 mg/dL (60-115)
[2022-11-04] MEDS: Albumin Human 25 % 100 ML IV ×2 (12:17→14:01)
[2022-11-04] MEDS: Acetaminophen 325 MG TABLET 650 MG PO ×2 (15:15→23:13)
--- NOTE | 2022-11-04 16:27 | P.CNID_ITS ---
History of Present Illness Data of Consult Service Date: 11/04/22 Requesting physician: Samia Cash Primary Care Provider: FEDERICA Ashley HPI Reason for consult: sepsis,gram negative rods He presents with 9/10 LLQ pain as well as chills suddenly. He was diagnosed with left calculus and had cystoscopy with stent placed on 11/03. He became hypotensive with SBP under 90 at night and was transferred to ICU. He is now transferred to the floor. He has been started on Merem and now has pending gram negative organisms in blood and urine. He has been HIV positive since 1985 and been in [facility] and had seen Dr Borrego PCP outpatient. He started HAART in 1998 and now is taking Biktarvy with Dr Bowman in [place] after seeing Dr Mei Louis. He reports most recently CD4 count of 1330 and viral load undetectable in August 2022. Review of Systems Review of Systems: Yes all other systems are reviewed and are negative PMFSH Past Medical History Medical History (Updated 11/04/22 @ 16:36 by Karen Tavares MD) Anemia Arthritis GERD (gastroesophageal reflux disease) History of pancreatic cancer HIV (human immunodeficiency virus infection) HTN (hypertension) Hyperlipidemia Hypertensive heart disease Right bundle branch block (RBBB) determined by electrocardiography Sepsis associated hypotension Functional capacity: independent ambulation Family History Family History Father No problems noted. Mother Cancer Family history: reviewed and not pertinent Surgical History Surgical History History of appendectomy History of prostate surgery History of tonsillectomy and adenoidectomy History of Whipple procedure Hx of colonoscopy Hx of cystoscopy Hx of hernia repair Social History Social History Household Members: None Housing: Apartment Are you a primary home care companion to a significant other at home: No Do you presently have visiting nurse or other home services: No Alcohol intake: current Alcohol intake frequency: a few times a week Patient Tobacco Use Status: Never used Tobacco Use of substances other than those prescribed or required for medical reasons: Yes Substance Use Type: Marijuana Substance Use Type Other:: smoke(3 times/wk) Substance Use Frequency: Weekly Last Used Substance: Days (ago) Currently Displaying Signs/Symptoms of Drug Intoxication Withdrawal: No Have you been hit, kicked, punched, or otherwise hurt by someone within the past year? If so, by whom?: No Do you feel safe in your current relationship?: No Current Relationship Is there a partner from a previous relationship who is making you feel unsafe now?: No Are you made to feel afraid or neglected: No Are you DNR?: No Advance Directives: No Advance Directives on File: No Do you have thoughts of harming others: None Recently lost weight without trying: No How much weight loss: Not applicable Eating poorly because of decreased appetite: No Nutrition screen score: 0 service: No Meds Allergies Allergy/AdvReac Type Severity Reaction Status Date / Time Penicillins [PCN] Allergy Mild HIVES Verified 05/20/22 08:38 abacavir Allergy Unknown rash, Verified 05/20/22 08:38 chills Active Medications: Current Medications Acetaminophen (Acetaminophen 325 Mg Tablet) 650 mg PO Q6H PRN PRN Reason: Pain, Mild (Pain Scale 1-3) Last Admin: 11/03/22 18:53 Dose: 650 mg Atorvastatin Calcium (Atorvastatin Calcium 20 Mg Tablet) 20 mg PO BEDTIME [facility] Last Admin: 11/03/22 21:27 Dose: 20 mg Bictegravir/Emtricitabine/Tenofovir (Bictegrav/Emtricit/Tenofov Ala Tablet) 1 tab PO BEDTIME [facility] Last Admin: 11/03/22 21:29 Dose: 1 tab Dextrose (Dextrose 50 % 25 Gm/50 Ml Syringe) 25 gm IVPUSH Q15M PRN; Protocol PRN Reason: per Hypoglycemia Standing Ord. Docusate Sodium (Docusate Sodium 100 Mg Capsule) 100 mg PO DAILY PRN PRN Reason: Constipation Last Admin: 11/04/22 07:44 Dose: 100 mg Glucose (Glucose Gel 15 Gm Gel..Gram.) 15 gm PO Q15M PRN; Protocol PRN Reason: per Hypoglycemia Standing Ord. Meropenem 1 gm/ Sodium (Chloride) 100 mls @ 200 mls/hr IV Q12H [facility] Last Infusion: 11/04/22 10:44 Dose: Infused Insulin Human Lispro (Insulin Lispro 100 Unit/Ml 3 Ml Vial) 0 unit SUBCUT QIDACHS [facility]; Protocol Last Admin: 11/04/22 12:19 Dose: 2 unit Morphine Sulfate (Morphine Sulfate 4 Mg/Ml Cartridge) 2 mg IVPUSH Q6H PRN; Protocol PRN Reason: Pain, Severe (Pain Scale 7-10) Multivitamins/Vitamin C (Multivitamin Tablet) 1 tab PO DAILY [facility] Last Admin: 11/04/22 09:37 Dose: 1 tab Omeprazole (Omeprazole 20 Mg Capsule.Dr) 20 mg PO DAILY@0630 [facility] Last Admin: 11/04/22 06:17 Dose: 20 mg Ondansetron HCl (Ondansetron Hcl 4 Mg/2 Ml Vial) 4 mg IVPUSH Q8H PRN PRN Reason: Nausea and Vomiting Oxybutynin Chloride (Oxybutynin Chloride Er 5 Mg Tab.Er.24) 5 mg PO DAILY [facility] Last Admin: 11/04/22 09:36 Dose: 5 mg Polyethylene Glycol (Polyethylene Glycol 3350 17 Gm Powd.Pack) 17 gm PO DAILY PRN PRN Reason: Constipation Last Admin: 11/04/22 07:44 Dose: 17 gm Sodium Chloride (0.9 % Sodium Chloride Flush 3 Ml Syringe) 3 ml IVFLUSH QSNCFT [facility] Last Admin: 11/04/22 09:38 Dose: 3 ml Home Medications Medication Instructions Recorded Confirmed Last Taken Type atorvastatin 20 mg tablet 20 mg PO BEDTIME 01/18/20 11/03/22 11/02/22 History docusate sodium 100 mg capsule 100 mg PO BEDTIME PRN Constipation 01/18/20 11/03/22 11/02/22 History metoprolol succinate 50 mg 50 mg PO BEDTIME 01/18/20 11/03/22 11/02/22 History tablet,extended release 24 hr omeprazole 20 mg capsule,delayed 20 mg PO DAILY 01/18/20 11/03/22 11/03/22 History release bictegravir 50 mg-emtricitabine 1 tab PO BEDTIME 01/17/21 11/03/22 11/02/22 History 200 mg-tenofovir alafenam 25 mg tablet polyethylene glycol 3350 17 17 g PO DAILY PRN Constipation 04/24/21 11/03/22 11/03/22 History gram/dose oral powder flash glucose scanning reader #1 ea 05/20/22 Unknown History ([facility] [place]) metformin 500 mg tablet 500 mg PO DAILY diabetes mellitus 11/03/22 11/03/22 11/02/22 History multivitamin 1 tab PO DAILY 11/03/22 11/03/22 11/03/22 History naproxen 500 mg tablet (Naprosyn) 500 mg PO BID PRN Pain 11/03/22 11/03/22 Unknown History Physical Exam Vital Signs: Vital Signs: Last Vital Signs Temp 98.8 F 11/04/22 15:57 Pulse 78 11/04/22 15:57 Resp 18 11/04/22 15:57 BP 121/69 11/04/22 15:57 Pulse Ox 97 11/04/22 15:57 O2 Del Method Room Air 11/04/22 15:57 O2 Flow Rate 2 11/03/22 23:23 Oxygen Flow Rate 2 11/03/22 20:27 BMI result Body Mass Index 25.1 Const: General: cooperative HEENT: Head: Yes normal to inspection Face and sinus: Yes normal facial exam Mouth: Normal oral and palatal mucosa present Teeth and gingiva: dentition normal Eyes: General: appearance normal, both eyes and all related structures Pupils: Equal, round and reactive pupils present Resp: Effort & Inspection: normal respiratory effort Cardio: Rate: regular rate Rhythm: regular rhythm GI: Palpation (GI): Soft to palpation and nontender : General: Yes no CVA tenderness Back/Spine/Pelvis: Back: no CVA tenderness Skin: General skin exam: no rashes or lesions noted Neuro: General: moves all extremities Cranial nerves: Yes Equal, round and reactive pupils present Extrem: General: Yes normal to inspection Psych: Appearance: grossly normal Results Labs 11/04/22 03:10 11/04/22 03:10 Labs: Short CBC 11/04/22 Range/Units 03:10 WBC 14.9 H (4.8-10.8) X10*3/uL Hgb 11.2 L D (14.0-18.0) g/dl Hct 33.4 L D (42.0-52.0) % Plt Count 64 L D (160-400) X10*3/uL BMP 11/04/22 03:10 Sodium 141 Potassium 4.3 Chloride 115 H Carbon Dioxide 20 L BUN 21 H Creatinine 1.30 Calcium 7.1 L D Liver Function 11/04/22 Range/Units 03:10 Total Bilirubin 0.8 (0.0-1.0) mg/dL AST 35 (5-37) U/L ALT 28 (0-40) U/L Alkaline Phosphatase 39 (39-117) U/L Albumin 2.6 L (3.5-5.0) g/dL Microbiology Microbiology Results: Microbiology 11/03/22 Unknown Urine clean catch - Urine orellana top Urine Culture - Preliminary Gram negative debby 11/03/22 09:31 Blood - Arterial Blood Culture - Preliminary Gram negative debby 11/03/22 09:31 Blood - Arterial Blood Culture - Preliminary Gram negative debby Assessment and Plan (1) UTI (urinary tract infection): Status: Acute (2) Obstructive uropathy: Status: Acute (3) Left ureteral calculus: Status: Acute (4) Sepsis associated hypotension: Status: Acute He has gram negative bacteremia and recent sensitivities pending He is feeling much better today. Plan Switch to IV Ceftriaxone if sensitive and then po cephalosporin total 14 days . He has reconstituted immune system so no further treatment except maintain Biktarvy. Time Spent With Patient Time: Total time managing care of this patient today ____ minutes.
[2022-11-04 16:33] LABS: PLT CLUMP 1
[2022-11-04 16:35] LABS: Hematocrit 30.9 % (42.0-52.0); Hemoglobin 10.5 g/dl (14.0-18.0); Mean Corpuscular Hemoglobin 34.9 pg (27.0-33.0); Mean Corpuscular Volume 102.7 fL (80.0-98.0); Mean Platelet Volume 10.7 fL (9.4-12.4); Red Blood Count 3.01 X10*6/uL (4.60-5.80); Red Cell Distribution Width 13.4 % (11.0-16.0)
[2022-11-04 16:36] LABS: Glucose, Whole Blood 118 mg/dL (60-115)
[2022-11-04 16:47] LABS: Alanine Aminotransferase 19 U/L (0-40); Albumin Level 3.7 g/dL (3.5-5.0); Alkaline Phosphatase 35 U/L (39-117); Anion Gap 9 (12-20); Aspartate Amino Transferase 27 U/L (5-37); Blood Urea Nitrogen 18 mg/dL (9-16); Calcium 7.8 mg/dL (8.4-10.2); Carbon Dioxide 24 mmol/L (22-29); Chloride 112 mmol/L (96-108); Estimated Glomerular Filt Rate > 60; Glucose Random 118 mg/dL (60-115); Potassium 3.7 mmol/L (3.3-5.1); Sodium 141 mmol/L (135-145); Total Protein 5.6 g/dL (6.5-8.0)
[2022-11-04 17:00] LABS: Platelet Count 50 X10*3/uL (160-400); White Blood Count 11.4 X10*3/uL (4.8-10.8)
[2022-11-04 17:03] LABS: Band Neutrophils Percent 21 % (3-5); Lymphocytes Percent Manual 9 % (20-40); Metamyelocytes Absolute 0.5 X10*3/uL; Metamyelocytes Percent 4 %; Monocytes Absolute Manual 0.1 X10*3/uL (0.1-1.2); Monocytes Percent Manual 1 % (2-11); Neutrophils Absolute Manual 9.8 X10*3/uL (2.0-8.3); Neutrophils Percent Manual 65 % (45-73); RBC Morphology NOTED
[2022-11-04 17:04] LABS: Macrocytosis 1+ (5-14) /OIF; Platelet Estimate DECREASED (NORMAL); Platelet Morphology Comment NORMAL; Toxic Granulation PRESENT; Toxic Vacuolation PRESENT
[2022-11-04] MEDS: Atorvastatin Calcium 20 MG TABLET PO (20:20)
[2022-11-04] MEDS: Bictegrav/Emtricit/Tenofov Ala TABLET 1 TAB PO (20:20)
[2022-11-04 20:47] LABS: Glucose, Whole Blood 143 mg/dL (60-115)
[2022-11-05 03:33] VITALS: BP 130/67; PULSE 69; RESP 16; TEMP 36.4; O2SAT 93
[2022-11-05] MEDS: Omeprazole 20 MG CAPSULE.DR PO (05:45)
[2022-11-05 07:31] VITALS: BP 136/70; PULSE 63; RESP 20; TEMP 36.3; O2SAT 95
[2022-11-05 07:55] LABS: Glucose, Whole Blood 134 mg/dL (60-115)
[2022-11-05 10:19] VITALS: BP 137/78; PULSE 68; RESP 20; TEMP 36.8; O2SAT 95
[2022-11-05] MEDS: 0.9 % Sodium Chloride Flush 3 ML SYRINGE IVFLUSH ×2 (10:28→17:49)
[2022-11-05] MEDS: oxyBUTYnin chloride ER 5 MG TAB.ER.24 PO (10:28)
[2022-11-05] MEDS: Acetaminophen 325 MG TABLET 650 MG PO ×2 (10:29→17:21)
[2022-11-05] MEDS: Multivitamin TABLET 1 TAB PO (10:29)
[2022-11-05 11:03] VITALS: TEMP 37.3
[2022-11-05 11:38] LABS: Glucose, Whole Blood 174 mg/dL (60-115)
[2022-11-05] MEDS: Morphine Sulfate 4 MG/ML CARTRIDGE 2 MG IVPUSH ×2 (14:37→19:55)
--- NOTE | 2022-11-05 15:11 | HO.PM.IMPN ---
Subjective Subjective Date of Service: 11/05/22 Interval History: Gram-negative bacteremia, Review of Systems Patient denies any fever or chills or abdominal pain or nausea orvomiting Physical Exam Vital Signs: Vital Signs: Last Vital Signs Temp 99.2 F 11/05/22 11:03 Pulse 68 11/05/22 10:19 Resp 20 11/05/22 10:19 BP 137/78 11/05/22 10:19 Pulse Ox 95 11/05/22 10:19 O2 Del Method Room Air 11/05/22 10:19 O2 Flow Rate 2 11/03/22 23:23 Oxygen Flow Rate 2 11/03/22 20:27 BMI result Body Mass Index 25.1 Appearance: Alert.? Oriented X3.? cvs: [id number], [id number] . res: clear to auscultation ,no rhonchii or wheezing abd: no rebound or guarding ,nt, bs present. ext pulses present , no cyanosis . neuro: axo3 , nonfocal. Objective Data Active Medications Acetaminophen (Acetaminophen 325 Mg Tablet) 650 mg PO Q6H PRN PRN Reason: Pain, Mild (Pain Scale 1-3) Last Admin: 11/05/22 10:29 Dose: 650 mg Documented By: NEYDA Atorvastatin Calcium (Atorvastatin Calcium 20 Mg Tablet) 20 mg PO BEDTIME [facility] Last Admin: 11/04/22 20:20 Dose: 20 mg Documented By: AKASH Bictegravir/Emtricitabine/Tenofovir (Bictegrav/Emtricit/Tenofov Ala Tablet) 1 tab PO BEDTIME [facility] Last Admin: 11/04/22 20:20 Dose: 1 tab Documented By: AKASH Dextrose (Dextrose 50 % 25 Gm/50 Ml Syringe) 25 gm IVPUSH Q15M PRN; Protocol PRN Reason: per Hypoglycemia Standing Ord. Docusate Sodium (Docusate Sodium 100 Mg Capsule) 100 mg PO DAILY PRN PRN Reason: Constipation Last Admin: 11/04/22 07:44 Dose: 100 mg Documented By: SCOTT Glucose (Glucose Gel 15 Gm Gel..Gram.) 15 gm PO Q15M PRN; Protocol PRN Reason: per Hypoglycemia Standing Ord. Meropenem 1 gm/ Sodium (Chloride) 100 mls @ 200 mls/hr IV Q12H [facility] Last Infusion: 11/05/22 11:19 Dose: Infused Documented By: NEYDA Insulin Human Lispro (Insulin Lispro 100 Unit/Ml 3 Ml Vial) 0 unit SUBCUT QIDACHS [facility]; Protocol Last Admin: 11/05/22 12:35 Dose: Not Given Documented By: NEYDA Non-Admin Reason: Patient Refused Morphine Sulfate (Morphine Sulfate 4 Mg/Ml Cartridge) 2 mg IVPUSH Q6H PRN; Protocol PRN Reason: Pain, Severe (Pain Scale 7-10) Last Admin: 11/05/22 14:37 Dose: 2 mg Documented By: JOAQUIN Multivitamins/Vitamin C (Multivitamin Tablet) 1 tab PO DAILY [facility] Last Admin: 11/05/22 10:29 Dose: 1 tab Documented By: NEYDA Omeprazole (Omeprazole 20 Mg Capsule.Dr) 20 mg PO DAILY@0630 [facility] Last Admin: 11/05/22 05:45 Dose: 20 mg Documented By: AKASH Comments: downtime Ondansetron HCl (Ondansetron Hcl 4 Mg/2 Ml Vial) 4 mg IVPUSH Q8H PRN PRN Reason: Nausea and Vomiting Oxybutynin Chloride (Oxybutynin Chloride Er 5 Mg Tab.Er.24) 5 mg PO DAILY [facility] Last Admin: 11/05/22 10:28 Dose: 5 mg Documented By: NEYDA Polyethylene Glycol (Polyethylene Glycol 3350 17 Gm Powd.Pack) 17 gm PO DAILY PRN PRN Reason: Constipation Last Admin: 11/04/22 07:44 Dose: 17 gm Documented By: SCOTT Sodium Chloride (0.9 % Sodium Chloride Flush 3 Ml Syringe) [facility] Last Admin: 11/05/22 10:28 Dose: 3 ml Documented By: NEYDA Labs 11/04/22 16:08 11/04/22 16:08 Labs: Laboratory Results - last 24 hr 11/04/22 11/04/22 11/04/22 16:08 16:09 20:31 MCV 102.7 H MCH 34.9 H MCHC 34.0 RDW 13.4 Plt Count 50 L MPV 10.7 Immature Gran % (Auto) Cancelled Neut % (Auto) Cancelled Lymph % (Auto) Cancelled [place] % (Auto) Cancelled Eos % (Auto) Cancelled Baso % (Auto) Cancelled Lymph # (Auto) Cancelled [place] # (Auto) Cancelled Eos # (Auto) Cancelled Baso # (Auto) Cancelled Abs Immat Gran (auto) Cancelled Absolute Neuts (auto) Cancelled Absolute Nucleated RBC 0.000 Nucleated RBC % (auto) 0.0 Neutrophils % (Manual) 65 Band Neutrophils % 21 H Lymphocytes % (Manual) 9 L Monocytes % (Manual) 1 L Metamyelocytes % 4 Abs Neuts (Manual) 9.8 H Lymphocytes # (Manual) 1.0 L Monocytes # (Manual) 0.1 Metamyelocytes # 0.5 Toxic Granulation PRESENT Toxic Vacuolation PRESENT Platelet Estimate DECREASED Plt Morphology Comment NORMAL RBC Morphology NOTED Macrocytosis 1+ (5-14) Anion Gap 9 L Estim Creat Clear Calc 75.0 Estimated GFR > 60 POC Glucose 118 H 143 H Random Glucose 118 H Calcium 7.8 L D Total Bilirubin 1.0 AST 27 ALT 19 Alkaline Phosphatase 35 L Total Protein 5.6 L Albumin 3.7 11/05/22 11/05/22 07:51 11:28 MCV MCH MCHC RDW Plt Count MPV Immature Gran % (Auto) Neut % (Auto) Lymph % (Auto) [place] % (Auto) Eos % (Auto) Baso % (Auto) Lymph # (Auto) [place] # (Auto) Eos # (Auto) Baso # (Auto) Abs Immat Gran (auto) Absolute Neuts (auto) Absolute Nucleated RBC Nucleated RBC % (auto) Neutrophils % (Manual) Band Neutrophils % Lymphocytes % (Manual) Monocytes % (Manual) Metamyelocytes % Abs Neuts (Manual) Lymphocytes # (Manual) Monocytes # (Manual) Metamyelocytes # Toxic Granulation Toxic Vacuolation Platelet Estimate Plt Morphology Comment RBC Morphology Macrocytosis Anion Gap Estim Creat Clear Calc Estimated GFR POC Glucose 134 H 174 H Random Glucose Calcium Total Bilirubin AST ALT Alkaline Phosphatase Total Protein Albumin Microbiology Microbiology Results: Microbiology 11/03/22 09:31 Blood Culture - Final Blood - Arterial Escherichia coli 11/03/22 09:31 Blood Culture - Final Blood - Arterial Escherichia coli 11/03/22 Unknown Urine Culture - Final Urine clean catch - Urine orellana top Escherichia coli Assessment and Plan (1) Sepsis associated hypotension: Status: Acute Plan 72 year old male with history of non insulin dependent type 2 diabetes, htn, hld, HIV on biktarvy, history pancreatic cancer s/p Whipple procedure, BPH, right bundle branch block to be observed for obstructive uropathy with UTI-admitted for obstructive uropathy/UTI-was started on IV antibiotics ceftriaxone initially and subsequently patient become bacteremic/gram-negative bacteremia and hypotensive-antibiotics switched to meropenem, patient required multiple bolus of IV fluids, subsequently patient was in ICU for monitoring and transferred back on 11/04/22 : As per ICU Documentation: possible sepsis with hypotension/gr neg bateremia : Required multiple IV bolus of fluid, antibiotics switched to meropenem. Blood culture and urine culture both growing Gram-negative rods-organism identification and sensitivity pending. Sepsis seems to be improving. Obstructive uropathy -5mm obstructing proximal left ureteral stone with mild left hydronephrosis on CT -Urology consult- status post stent on 11/03 continue ivf ,pain management on pain scale, continue antibiotics Acute UTI/bacteremia -UA with 1+ leukocytes, 2+ blood, positive urinary sediment, 4+ bacteria on meropenem since 11/03 HIV -follows outpatient with [facility] Infectious [facility] -last CD4 count 1300, undetectable viral load -continue Biktarvy [id number] type 2 diabetes -POC glucose -NPO for now, advance to diabetic diet -Humalog on sliding scale, hold metformin hypertension -blood pressure controlled hold home antihypertensives HLD -continue statin GERD -continue PPI DVT prophylaxis- SCPs Full code On going inpatient neeed: UTI/sepsis/obstructive uropathy:-need hydration, IV antibiotics, blood cultures sensitivity and organism identification pending. Time Spent With Patient Time: Total time managing care of this patient today ____ minutes. Quality Stroke Does the patient have a stroke diagnosis?: No VTE Prior VTE?: No VTE Risk Level:: Medical - moderate - high VTE Device Contraindication: N/A - Device Ordered VTE Drug Contraindication: Treatment Not Indicated
[2022-11-05 16:04] VITALS: BP 130/84; PULSE 69; RESP 20; TEMP 37.3; O2SAT 94
[2022-11-05 16:24] LABS: Glucose, Whole Blood 168 mg/dL (60-115)
[2022-11-05 19:28] VITALS: BP 158/82; PULSE 65; RESP 18; TEMP 36.8; O2SAT 92
[2022-11-05] MEDS: Bictegrav/Emtricit/Tenofov Ala TABLET 1 TAB PO (19:56)
[2022-11-05] MEDS: Melatonin 3 MG TABLET 6 MG PO (19:56)
[2022-11-05] MEDS: Atorvastatin Calcium 20 MG TABLET PO (19:56)
[2022-11-05 20:23] LABS: Glucose, Whole Blood 187 mg/dL (60-115)
[2022-11-06 04:00] VITALS: BP 139/71; PULSE 64; RESP 18; TEMP 36.8; O2SAT 94
[2022-11-06] MEDS: Omeprazole 20 MG CAPSULE.DR PO (06:08)
[2022-11-06 07:21] VITALS: BP 128/82; PULSE 72; RESP 20; TEMP 37.4; O2SAT 94
[2022-11-06 07:58] LABS: Glucose, Whole Blood 135 mg/dL (60-115)
[2022-11-06] MEDS: cefTRIAXone sodium 2 GM in 0.9 % Sodium Chloride 50 ML IV (08:14)
[2022-11-06] MEDS: 0.9 % Sodium Chloride Flush 3 ML SYRINGE IVFLUSH ×3 (08:17→20:00)
[2022-11-06] MEDS: Multivitamin TABLET 1 TAB PO (08:20)
[2022-11-06] MEDS: oxyBUTYnin chloride ER 5 MG TAB.ER.24 PO (08:20)
[2022-11-06 12:01] LABS: Glucose, Whole Blood 170 mg/dL (60-115)
[2022-11-06] MEDS: Insulin Lispro 100 UNIT/ML 3 ML VIAL SUBCUT ×2 (12:21→19:55)
--- NOTE | 2022-11-06 13:37 | HO.PM.IMPN ---
Subjective Subjective Date of Service: 11/06/22 Interval History: Gram-negative bacteremia, Review of Systems no abd pain or nausea or vomiting no fever or chills or sob. Physical Exam Vital Signs: Vital Signs: Last Vital Signs Temp 99.3 F 11/06/22 07:21 Pulse 72 11/06/22 07:21 Resp 20 11/06/22 07:21 BP 128/82 11/06/22 07:21 Pulse Ox 94 11/06/22 07:21 O2 Del Method Room Air 11/06/22 07:21 O2 Flow Rate 2 11/03/22 23:23 Oxygen Flow Rate 2 11/03/22 20:27 BMI result Body Mass Index 25.1 Appearance: Alert.? Oriented X3.? cvs: [id number], [id number] . res: clear to auscultation ,no rhonchii or wheezing abd: no rebound or guarding ,nt, bs present. ext pulses present , no cyanosis . neuro: axo3 , nonfocal. Objective Data Active Medications Acetaminophen (Acetaminophen 325 Mg Tablet) 650 mg PO Q6H PRN PRN Reason: Pain, Mild (Pain Scale 1-3) Last Admin: 11/05/22 17:21 Dose: 650 mg Documented By: GERARDO Atorvastatin Calcium (Atorvastatin Calcium 20 Mg Tablet) 20 mg PO BEDTIME [facility] Last Admin: 11/05/22 19:56 Dose: 20 mg Documented By: AKASH Bictegravir/Emtricitabine/Tenofovir (Bictegrav/Emtricit/Tenofov Ala Tablet) 1 tab PO BEDTIME [facility] Last Admin: 11/05/22 19:56 Dose: 1 tab Documented By: AKASH Dextrose (Dextrose 50 % 25 Gm/50 Ml Syringe) 25 gm IVPUSH Q15M PRN; Protocol PRN Reason: per Hypoglycemia Standing Ord. Docusate Sodium (Docusate Sodium 100 Mg Capsule) 100 mg PO DAILY PRN PRN Reason: Constipation Last Admin: 11/04/22 07:44 Dose: 100 mg Documented By: SCOTT Glucose (Glucose Gel 15 Gm Gel..Gram.) 15 gm PO Q15M PRN; Protocol PRN Reason: per Hypoglycemia Standing Ord. Ceftriaxone Sodium 2 gm/ (Sodium Chloride) 50 mls @ 100 mls/hr IV Q24H [facility] Last Infusion: 11/06/22 08:53 Dose: Infused Documented By: NEYDA Insulin Human Lispro (Insulin Lispro 100 Unit/Ml 3 Ml Vial) 0 unit SUBCUT QIDACHS [facility]; Protocol Last Admin: 11/06/22 12:21 Dose: 2 unit Documented By: NEYDA Melatonin (Melatonin 3 Mg Tablet) 6 mg PO BEDTIME [facility] Last Admin: 11/05/22 19:56 Dose: 6 mg Documented By: AKASH Morphine Sulfate (Morphine Sulfate 2 Mg/Ml Cartridge) 2 mg IVPUSH Q4H PRN; Protocol PRN Reason: Pain, Severe (Pain Scale 7-10) Multivitamins/Vitamin C (Multivitamin Tablet) 1 tab PO DAILY [facility] Last Admin: 11/06/22 08:20 Dose: 1 tab Documented By: NEYDA Omeprazole (Omeprazole 20 Mg Capsule.Dr) 20 mg PO DAILY@0630 [facility] Last Admin: 11/06/22 06:08 Dose: 20 mg Documented By: AKASH Ondansetron HCl (Ondansetron Hcl 4 Mg/2 Ml Vial) 4 mg IVPUSH Q8H PRN PRN Reason: Nausea and Vomiting Oxybutynin Chloride (Oxybutynin Chloride Er 5 Mg Tab.Er.24) 5 mg PO DAILY [facility] Last Admin: 11/06/22 08:20 Dose: 5 mg Documented By: NEYDA Polyethylene Glycol (Polyethylene Glycol 3350 17 Gm Powd.Pack) 17 gm PO DAILY PRN PRN Reason: Constipation Last Admin: 11/04/22 07:44 Dose: 17 gm Documented By: SCOTT Sodium Chloride (0.9 % Sodium Chloride Flush 3 Ml Syringe) 3 ml IVFLUSH QSHIFT [facility] Last Admin: 11/06/22 08:17 Dose: 3 ml Documented By: NEYDA Labs 11/04/22 16:08 11/04/22 16:08 Labs: Laboratory Results - last 24 hr 11/05/22 11/05/22 11/06/22 16:12 20:10 07:41 POC Glucose 168 H 187 H 135 H 11/06/22 11:58 POC Glucose 170 H Microbiology Microbiology Results: Microbiology 11/03/22 09:31 Blood Culture - Final Blood - Arterial Escherichia coli 11/03/22 09:31 Blood Culture - Final Blood - Arterial Escherichia coli Assessment and Plan (1) Sepsis associated hypotension: Status: Acute (2) UTI (urinary tract infection): Status: Acute (3) Obstructive uropathy: Status: Acute (4) Diarrhea: Status: Acute Plan 72 year old male with history of non insulin dependent type 2 diabetes, htn, hld, HIV on biktarvy, history pancreatic cancer s/p Whipple procedure, BPH, right bundle branch block to be observed for obstructive uropathy with UTI-admitted for obstructive uropathy/UTI-was started on IV antibiotics ceftriaxone initially and subsequently patient become bacteremic/gram-negative bacteremia and hypotensive-antibiotics switched to meropenem, patient required multiple bolus of IV fluids, subsequently patient was in ICU for monitoring and transferred back on 11/04/22 : As per ICU Documentation: possible sepsis with hypotension/gr neg bateremia : Required multiple IV bolus of fluid Blood culture and urine culture both growing Gram-negative rods- ecoli senstive to ceftriaxone -will change meropemen to ceftriaxone Sepsis seems to be improving. Obstructive uropathy -5mm obstructing proximal left ureteral stone with mild left hydronephrosis on CT -Urology consult- status post stent on 11/03 continue ivf ,pain management on pain scale, continue antibiotics Acute UTI/bacteremia -UA with 1+ leukocytes, 2+ blood, positive urinary sediment, 4+ bacteria on meropenem since 11/03 HIV -follows outpatient with [facility] Infectious Disease -last CD4 count 1300, undetectable viral load -continue Biktarvy [id number] type 2 diabetes -POC glucose -NPO for now, advance to diabetic diet -Humalog on sliding scale, hold metformin hypertension -blood pressure controlled hold home antihypertensives HLD -continue statin GERD -continue PPI Diarrhae:unclear etiology abd pain improved Gip panel pending DVT prophylaxis- SCPs Full code On going inpatient neeed: UTI/sepsis/obstructive uropathy:-need hydration, IV antibiotics, dirrhae -workup. Time Spent With Patient Time: Total time managing care of this patient today ____ minutes. Quality Stroke Does the patient have a stroke diagnosis?: No VTE Prior VTE?: No VTE Risk Level:: Medical - moderate - high VTE Device Contraindication: N/A - Device Ordered VTE Drug Contraindication: Treatment Not Indicated
[2022-11-06 14:59] LABS: Campylobacter Not Detected (Not Detect.); E. coli EAEC Not Detected (Not Detect.); E. coli EPEC Not Detected (Not Detect.); E. coli ETEC Not Detected (Not Detect.); E. coli STEC Not Detected (Not Detect.); Plesiomonas shigelloides Not Detected (Not Detect.); Salmonella Not Detected (Not Detect.); Vibrio Not Detected (Not Detect.); Vibrio Cholerae Not Detected (Not Detect.); Yersinia enterocolitica Not Detected (Not Detect.)
[2022-11-06 15:00] LABS: Adenovirus F 40/41 Not Detected (Not Detect.); Astrovirus Not Detected (Not Detect.); Cryptosporidium Not Detected (Not Detect.); Cyclospora cayetanensis Not Detected (Not Detect.); Entamoeba histolytica Not Detected (Not Detect.); Giardia lamblia Not Detected (Not Detect.); Norovirus GI/GII Not Detected (Not Detect.); Rotavirus A Not Detected (Not Detect.); Sapovirus Not Detected (Not Detect.); Shigella sp./EIEC Not Detected (Not Detect.)
--- NOTE | 2022-11-06 15:04 | MHC.CM.PN ---
EMR REVIEWED, PER HOSPITALIST PT WILL REMAIN INPT D/T TO NEED FOR IV ABX/CULTURE'S PENDING AND DIARRHEA, CM WILL CONT TO FOLLOW D/C NEEDS.
[2022-11-06 15:22] VITALS: BP 126/77; PULSE 61; RESP 20; TEMP 36.6; O2SAT 95
[2022-11-06 16:08] LABS: Glucose, Whole Blood 140 mg/dL (60-115)
[2022-11-06] MEDS: Acetaminophen 325 MG TABLET 650 MG PO (16:41)
[2022-11-06 19:28] VITALS: BP 130/77; PULSE 59; RESP 19; TEMP 36.6; O2SAT 94
[2022-11-06 19:44] LABS: Glucose, Whole Blood 207 mg/dL (60-115)
[2022-11-06] MEDS: Bictegrav/Emtricit/Tenofov Ala TABLET 1 TAB PO (19:54)
[2022-11-06] MEDS: Atorvastatin Calcium 20 MG TABLET PO (19:54)
[2022-11-06] MEDS: Melatonin 3 MG TABLET 6 MG PO (19:54)
[2022-11-07] MEDS: Morphine Sulfate 2 MG/ML CARTRIDGE IVPUSH (04:55)
[2022-11-07] MEDS: Omeprazole 20 MG CAPSULE.DR PO (04:56)
[2022-11-07 06:09] LABS: Hemoglobin 11.6 g/dl (14.0-18.0)
[2022-11-07 07:16] VITALS: BP 137/78; PULSE 63; RESP 16; TEMP 36.6; O2SAT 93
[2022-11-07 07:26] LABS: Glucose, Whole Blood 136 mg/dL (60-115)
[2022-11-07] MEDS: oxyBUTYnin chloride ER 5 MG TAB.ER.24 PO (07:57)
[2022-11-07] MEDS: Multivitamin TABLET 1 TAB PO (07:58)
[2022-11-07] MEDS: cefTRIAXone sodium 2 GM in 0.9 % Sodium Chloride 50 ML IV (07:58)
[2022-11-07] MEDS: 0.9 % Sodium Chloride Flush 3 ML SYRINGE IVFLUSH (07:58)
[2022-11-07] MEDS: Tamsulosin HCL 0.4 MG CAPSULE PO (09:21)
[2022-11-07] MEDS: Acetaminophen 325 MG TABLET 650 MG PO (10:38)
--- NOTE | 2022-11-07 10:57 | P.PNUR_ITS ---
Subjective Subjective Date of Service: 11/07/22 Interval history: s/p ureteral stent for UTI hydronephrosis secondary to obstructing stone Plan KUB today Physical Exam 2 Vital Signs: Vital Signs: Last Vital Signs Temp 97.8 F 11/07/22 07:16 Pulse 63 11/07/22 07:16 Resp 16 11/07/22 07:16 BP 137/78 11/07/22 07:16 Pulse Ox 93 11/07/22 07:16 O2 Del Method Room Air 11/07/22 07:16 O2 Flow Rate 2 11/03/22 23:23 Oxygen Flow Rate 2 11/03/22 20:27 BMI result Body Mass Index 25.1 Urology Results Labs 11/07/22 05:54 11/04/22 16:08 Labs: Laboratory Results - last 24 hr 11/06/22 11/06/22 11/06/22 04:20 11:58 16:04 Hgb Hct POC Glucose 170 H 140 H Stl C. cayetanensis PCR Not Detected Stool Rotavirus A PCR Not Detected Stl Adenov F 40/41 PCR Not Detected Stool Astrovirus (PCR) Not Detected Stool Campylobacter PCR Not Detected Stool Cryptosporidium PCR Not Detected Stl Sh Tox Pr E STEC PCR Not Detected Stool E coli O157 PCR Not applicable Stl Enterotoxigenic E PCR Not Detected Stool EPEC (PCR) Not Detected Stool EAEC (PCR) Not Detected Stl E. histolytica PCR Not Detected Stool Giardia Lamblia PCR Not Detected Stl P. shigelloides PCR Not Detected Stool Salmonella PCR Not Detected Stool Sapovirus (PCR) Not Detected Stl Shigella/EIEC PCR Not Detected St Y.enterocolitica PCR Not Detected Stool Vibrio (PCR) Not Detected Stl Vibrio cholerae PCR Not Detected Stl Norovirus GI/GII PCR Not Detected 11/06/22 11/07/22 11/07/22 19:41 05:54 07:22 Hgb 11.6 L Hct 33.0 L POC Glucose 207 H 136 H Stl C. cayetanensis PCR Stool Rotavirus A PCR Stl Adenov F 40/41 PCR Stool Astrovirus (PCR) Stool Campylobacter PCR Stool Cryptosporidium PCR Stl Sh Tox Pr E STEC PCR Stool E coli O157 PCR Stl Enterotoxigenic E PCR Stool EPEC (PCR) Stool EAEC (PCR) Stl E. histolytica PCR Stool Giardia Lamblia PCR Stl P. shigelloides PCR Stool Salmonella PCR Stool Sapovirus (PCR) Stl Shigella/EIEC PCR St Y.enterocolitica PCR Stool Vibrio (PCR) Stl Vibrio cholerae PCR Stl Norovirus GI/GII PCR Progress Note: A&P Assessment and plan (1) UTI (urinary tract infection): Status: Acute (2) Obstructive uropathy: Status: Acute (3) S/P ureteral stent placement: Status: Acute Plan Plan KUB today Time Spent With Patient Time: Total time managing care of this patient today ____ minutes. Progress Note: Quality Stroke Does the patient have a stroke diagnosis?: No
[2022-11-07 11:07] LABS: Glucose, Whole Blood 187 mg/dL (60-115)
--- NOTE | 2022-11-07 11:17 | MHC.CM.PN ---
PT TO DC HOME TODAY WITH NO SERVICES FRIEND TO TRANSPORT
--- NOTE | 2022-11-07 11:18 | PM.DS ---
DS: Providers Provider Date of Service: 11/07/22 Date of admission: 11/04/22 10:58 Date of discharge: 11/07/22 Primary care physician: FEDERICA Ashley Consults: 11/03/22 14:07 Consult to Urology Routine Consulting Provider: Carl Brooks Reason for consultation: obstructive uropathy 11/03/22 20:48 Consult to Infectious Diseases Routine Consulting Provider: [facility] [place] [facility] Reason for consultation: HIV, gram negative Has provider been notified: No Attending physician on discharge: Samia Cash Discharging clinician: Samia Cash DS: Diagnosis Discharge Diagnosis (1) UTI (urinary tract infection): Status: Acute (2) Obstructive uropathy: Status: Acute (3) S/P ureteral stent placement: Status: Acute DS: Summary Hospital Course Hospital Course: 72 year old male with history of non insulin dependent type 2 diabetes, htn, hld, HIV on biktarvy, history pancreatic cancer s/p Whipple procedure, BPH, right bundle branch block presented to the ED earlier today for evaluation of severe left lower quadrant pain. He reports sudden onset pain around 11 30 last night which interferes with sleeping. Pain was nonradiating. There was associated nausea and vomiting as well as chills. No fevers, diarrhea, dysuria, hematuria, increased urinary frequency, urgency, or flank pain. Denies any history of nephrolithiasis. On arrival, vitals stable, patient afebrile. He has leukopenia of 1.7 with 15% bandemia. No anemia. Renal function normal, electrolyte levels normal. Initial lactic acid 2.7, repeat 2.8. Urinalysis with 1+ leukocytes, 2+ blood, positive urinary sediment, 4+ bacteria. CT abdomen/pelvis shows mild left-sided hydronephrosis secondary to a 5 mm calculus within the proximal left ureter. In the ED, given 2 L IV NS, IV morphine, and ondansetron. Patient seen by Urology with plan for stent placement hopefully later today. Hospital course: Patient admitted due to flank pain/left lowe side pain-found to have left ureter stone, UTI: Started on antibiotics, blood cultures sent, urology consulted-undergone cystoscopy, left ureteral stent placement .Subsequently patient needed to go to ICU because of sepsis with hypotension ,bacteremia : Given IV fluids, antibiotics, Subsequently his blood cultures came back positive for E coli which is sensitive to ceftriaxone(antibiotic)-patient was seen by infectious disease and recommended to switch to p.o. antibiotics upon discharge for 14 days. Please complete the course of Ceftin 500 mg by mouth twice daily for 14 days. Follow-up with Urology and PCP out patiently. Above management discussed with the patient in detail length she understand and in agreement with the above plan, time spent 50 minutes and 50% time spent on counseling. Time Spent with Patient Time attestation: Total time managing care of this patient today ____ minutes. Discharge coordination time: Greater than 30 minutes Quality: Safe Use of Opioids Does Pt have an Active Cancer Diagnosis on the Problem List?: No Quality: Stroke Does the patient have a stroke diagnosis?: No Physical Exam Vital Signs: Vital Signs: Last Vital Signs Temp 97.8 F 11/07/22 07:16 Pulse 63 11/07/22 07:16 Resp 16 11/07/22 07:16 BP 137/78 11/07/22 07:16 Pulse Ox 93 11/07/22 07:16 O2 Del Method Room Air 11/07/22 07:16 O2 Flow Rate 2 11/03/22 23:23 Oxygen Flow Rate 2 11/03/22 20:27 BMI result Body Mass Index 25.1 Appearance: Alert.? Oriented X3.? not in distress.? cvs: rrr, [id number] , no murmur res: clear to auscultation ,no rhonchii or wheezing abd: no rebound or guarding ,nt, bs present. ext pulses present , no cyanosis . neuro: axo3 , nonfocal. DS: Data Data Completed and Pending Labs on day of discharge: Laboratory Results - last 24 hr 11/06/22 11/06/22 11/06/22 04:20 11:58 16:04 Hgb Hct POC Glucose 170 H 140 H Stl C. cayetanensis PCR Not Detected Stool Rotavirus A PCR Not Detected Stl Adenov F 40/41 PCR Not Detected Stool Astrovirus (PCR) Not Detected Stool Campylobacter PCR Not Detected Stool Cryptosporidium PCR Not Detected Stl Sh Tox Pr E STEC PCR Not Detected Stool E coli O157 PCR Not applicable Stl Enterotoxigenic E PCR Not Detected Stool EPEC (PCR) Not Detected Stool EAEC (PCR) Not Detected Stl E. histolytica PCR Not Detected Stool Giardia Lamblia PCR Not Detected Stl P. shigelloides PCR Not Detected Stool Salmonella PCR Not Detected Stool Sapovirus (PCR) Not Detected Stl Shigella/EIEC PCR Not Detected St Y.enterocolitica PCR Not Detected Stool Vibrio (PCR) Not Detected Stl Vibrio cholerae PCR Not Detected Stl Norovirus GI/GII PCR Not Detected 11/06/22 11/07/22 11/07/22 19:41 05:54 07:22 Hgb 11.6 L Hct 33.0 L POC Glucose 207 H 136 H Stl C. cayetanensis PCR Stool Rotavirus A PCR Stl Adenov F 40/41 PCR Stool Astrovirus (PCR) Stool Campylobacter PCR Stool Cryptosporidium PCR Stl Sh Tox Pr E STEC PCR Stool E coli O157 PCR Stl Enterotoxigenic E PCR Stool EPEC (PCR) Stool EAEC (PCR) Stl E. histolytica PCR Stool Giardia Lamblia PCR Stl P. shigelloides PCR Stool Salmonella PCR Stool Sapovirus (PCR) Stl Shigella/EIEC PCR St Y.enterocolitica PCR Stool Vibrio (PCR) Stl Vibrio cholerae PCR Stl Norovirus GI/GII PCR 11/07/22 11:02 Hgb Hct POC Glucose 187 H Stl C. cayetanensis PCR Stool Rotavirus A PCR Stl Adenov F 40/41 PCR Stool Astrovirus (PCR) Stool Campylobacter PCR Stool Cryptosporidium PCR Stl Sh Tox Pr E STEC PCR Stool E coli O157 PCR Stl Enterotoxigenic E PCR Stool EPEC (PCR) Stool EAEC (PCR) Stl E. histolytica PCR Stool Giardia Lamblia PCR Stl P. shigelloides PCR Stool Salmonella PCR Stool Sapovirus (PCR) Stl Shigella/EIEC PCR St Y.enterocolitica PCR Stool Vibrio (PCR) Stl Vibrio cholerae PCR Stl Norovirus GI/GII PCR Imaging Chest x-ray: Radiologist's impression: ITS Impressions Abdomen/Pelvis CT 11/03/22 11:21 IMPRESSION: Mild left-sided hydronephrosis secondary to a 5 mm calculus within the proximal left ureter. Fleischner guidelines were followed. Discharge Plan Discharge Anticipated Discharge Date/Time: 11/07/22 11:09 Patient Disposition: Home, Self-Care Discharge Diagnosis: uti, ecoli bacteremia Referrals: Carl Brooks MD [Physician] - 1 Week (follow up outpatient ) Liborio Noland PA [Primary Care Provider] - 1 Week Discharge Medications: New tamsulosin 0.4 mg Capsule 0.4 mg PO DAILY Qty: 30 0RF cefuroxime axetil 500 mg tablet 500 mg PO BID Qty: 28 0RF Continued oxybutynin chloride 5 mg tablet extended release 24hr 5 mg PO DAILY 90 Days Qty: 90 1RF metformin 500 mg tablet 500 mg PO DAILY naproxen [Naprosyn] 500 mg tablet 500 mg PO BID PRN (Reason: Pain) multivitamin Tablet 1 tab PO DAILY docusate sodium 100 mg capsule 100 mg PO BEDTIME PRN (Reason: Constipation) atorvastatin 20 mg tablet 20 mg PO BEDTIME metoprolol succinate 50 mg tablet extended release 24 hr 50 mg PO BEDTIME omeprazole 20 mg capsule,delayed release(DR/EC) 20 mg PO DAILY sewukdblj-gxtczyrk-zmcywda ala 50-200-25 mg tablet 1 tab PO BEDTIME polyethylene glycol 3350 17 gram/dose powder 17 g PO DAILY PRN (Reason: Constipation) (DME) [employer] 2 Ethel Misc See Rx Instructions .ROUTE .MEDSUPPLY Qty: 1 Rx Instructions: As directed Discharge Orders: Discharge Order (Routine); Ordered 11/07/22 Ordered By: Samia Cash Diet: Advance to usual diet Activity on Discharge: As tolerated Stand Alone Forms: Patient Portal Discharge page Care Plan Goals: Patient admitted due to flank pain-found to have left ureter stone,, UTI: Started on antibiotics, blood cultures sent, urology consulted. Subsequently patient needed to go to ICU because of low blood pressure as well as infection in the blood: Given IV fluids, antibiotics, Patient was seen by Urology-undergone cystoscopy, left ureteral stent placement. Subsequently his blood cultures came back positive for E coli which is sensitive to ceftriaxone(antibiotic)-patient was seen by infectious disease and recommended to switch to p.o. antibiotics upon discharge for 14 days. Please complete the course of Ceftin 500 mg by mouth twice daily for 14 days. Follow-up with Urology and PCP out patiently. Health Concerns: As above. Plan of Treatment: As above. Assessment: As above. Patient Instructions: Bacteremia (DC), Urinary Tract Infection in Older Adults (DC)
[2022-11-07 15:16] VITALS: BP 137/84; PULSE 73; RESP 20; TEMP 37; O2SAT 93
== END 2022-11-07 16:04 | disposition home or self-care (01) | DRG 854 ==
LOC: HO.ED 14:04 → HO.EDOVER 14:10 → HO.IMC 19:08 → HO.ICU 11-04 02:56 → HO.S3 11-04 13:42
PROVIDERS: Internal Medicine; Internal Medicine Critical Care Medicine; Physician Assistant Medical; Urology; Admitting Provider Physician Assistant; Emergency Provider Emergency Medicine; PCP Physician Assistant Medical; Visit Provider Internal Medicine
PROC: 0T778DZ Dilation of Left Ureter with Intraluminal Device, Via Natural or Artificial Opening Endoscopic (ICD-10-PCS; CPT 52332; principal; 2022-11-03 16:30)
PROC: 0T778DZ Dilation of Left Ureter with Intraluminal Device, Via Natural or Artificial Opening Endoscopic (ICD-10-PCS; CPT 52332; 2022-11-03 16:30)
DX: A41.59 Other Gram-negative sepsis (principal); E87.20 Acidosis, unspecified; N13.6 Pyonephrosis; I10 Essential (primary) hypertension; K21.9 Gastro-esophageal reflux disease without esophagitis; E83.42 Hypomagnesemia; E11.9 Type 2 diabetes mellitus without complications; Z21 Asymptomatic human immunodeficiency virus [HIV] infection status; B96.20 Unspecified Escherichia coli [E. coli] as the cause of diseases classified elsewhere; K59.00 Constipation, unspecified; E78.5 Hyperlipidemia, unspecified; E88.09 Other disorders of plasma-protein metabolism, not elsewhere classified; E86.0 Dehydration; Z20.822 Contact with and (suspected) exposure to COVID-19; Z85.07 Personal history of malignant neoplasm of pancreas; Z88.0 Allergy status to penicillin; Z79.84 Long term (current) use of oral hypoglycemic drugs; Z79.899 Other long term (current) drug therapy
CPT/HCPCS: 52332; 36415; 74021; 74177; 80048; 80053; 80076; 81001; 82947; 83605; 83690; 83735; 85007; 85014; 85018; 85025; 85027; 85610; 87040; 87077; 87086; 87088; 87147; 87186; 87205; 87507; 87635; 93005; 99285; C1758; C1769; C2617; J0696; J1956; J2185; J2270; J2405; J3010; J3475; P9047; Q9967

== ENCOUNTER → 2022-11-03 13:48 | Outpatient (BNV) | payer OTHER, SELFPAY | PROVIDERS: Admitting Provider Physician Assistant; Emergency Provider Emergency Medicine; PCP Physician Assistant Medical; Visit Provider Urology | DX: N39.0 Urinary tract infection, site not specified (principal); N13.9 Obstructive and reflux uropathy, unspecified; Z96.0 Presence of urogenital implants | CPT/HCPCS: 52332; 99222; 99232 ==

== ENCOUNTER → 2022-11-03 13:48 | Outpatient (BNV) | payer OTHER, SELFPAY | PROVIDERS: Admitting Provider Physician Assistant; Emergency Provider Emergency Medicine; PCP Physician Assistant Medical; Visit Provider Internal Medicine | DX: A41.9 Sepsis, unspecified organism (principal); I95.9 Hypotension, unspecified; N39.0 Urinary tract infection, site not specified; N13.9 Obstructive and reflux uropathy, unspecified; R19.7 Diarrhea, unspecified | CPT/HCPCS: 99223; 99232; 99239; 99499 ==

== ENCOUNTER → 2022-11-04 10:58 | Outpatient (BNV) | payer OTHER, SELFPAY | PROVIDERS: Admitting Provider Physician Assistant; Emergency Provider Emergency Medicine; PCP Physician Assistant Medical; Visit Provider Physician Assistant Medical | DX: N39.0 Urinary tract infection, site not specified (principal); N13.9 Obstructive and reflux uropathy, unspecified; N20.1 Calculus of ureter | CPT/HCPCS: 99291 ==

== ENCOUNTER → 2022-11-04 10:58 | Outpatient (BNV) | payer OTHER, SELFPAY | PROVIDERS: Admitting Provider Physician Assistant; Emergency Provider Emergency Medicine; PCP Physician Assistant Medical; Visit Provider Internal Medicine | DX: N39.0 Urinary tract infection, site not specified (principal); N13.9 Obstructive and reflux uropathy, unspecified; N20.1 Calculus of ureter; A41.9 Sepsis, unspecified organism; I95.9 Hypotension, unspecified | CPT/HCPCS: 99222 ==

== ENCOUNTER 2022-11-16 14:28 | Outpatient (AMB) | payer OTHER, SELFPAY ==
--- NOTE | 2022-11-16 14:31 | A.OFFVIS_ITS ---
Intake Intake Visit Reasons: 2 wk follow-up prior stent removal Intake Note: Patient presents today for a 3wk follow-up prior stent removal: Meds- None Allergies to Antibiotic- No Known Allergies Blood Thinner- None Third Officer Required: No Accompanied by: Self / Same As Patient Allergies Penicillins [PCN] Allergy (Mild, Verified 11/16/22 14:32) HIVES abacavir Allergy (Unknown, Verified 11/16/22 14:32) rash, chills HPI HPI Comments History of Present Illness Details Faizan is a 72-year-old male who presents today to the office for a follow-up. 11/16/2022? He is followed today for prior stent placement and UTI sepsis. He states he is doing well, denies pain. He was last seen by me on 11/03/2022 as an inpatient due to hydronephrosis secondary to obstructing left ureteral stone. I have discussed ureteroscopy, possible stent removal in OR on 11/17/2022. I reviewed the CT of the abdomen/pelvis results from 11/03/2022 revealed mild left-sided hydronephrosis secondary to a 5 mm calculus within the proximal left ureter. I reviewed the urine culture results from 11/03/2022 which came back Escherichia coli? > 100,000 cfu/mL. Evaluation today?UA? Leukocytes: negative; blood: negative. Plan: Left ureteroscopy, possible laser and possible stent removal vs exchange. [facility] Medical History Sepsis associated hypotension HIV (human immunodeficiency virus infection) Anemia GERD (gastroesophageal reflux disease) Arthritis History of pancreatic cancer Hypertensive heart disease HTN (hypertension) Hyperlipidemia Right bundle branch block (RBBB) determined by electrocardiography Surgical History History of appendectomy Hx of cystoscopy History of Whipple procedure History of tonsillectomy and adenoidectomy Hx of hernia repair History of prostate surgery Hx of colonoscopy Family History Father No problems noted. Mother Cancer Social History Household Members: None Housing: Apartment Are you a primary field care coordinator to a significant other at home: No Do you presently have visiting nurse or other home services: No Alcohol intake: current Alcohol intake frequency: a few times a week Patient Tobacco Use Status: Never used Tobacco Substance Use Type: Marijuana Advance Directives: No Advance Directives Information Provided: Yes service: No Review of Systems Const All systems reviewed & are unremarkable except as noted in HPI and below Reports no additional complaints Eyes Reports no additional complaints ENT Reports no additional complaints Card Denies dyspnea Resp Denies cough and Denies dyspnea GI Reports no additional complaints Musc Reports no additional complaints Skin/Breast Denies rash and Denies unusual bruising Neuro Reports no additional complaints Psych Reports no additional complaints Endo Reports no additional complaints Santos/Lymph Reports no additional complaints Aller/Immun Reports no additional complaints Physical Exam Const General: healthy appearing, no acute distress and well developed Orientation/consciousness: patient oriented x3 HEENT Head: Yes normocephalic and Yes atraumatic Eyes Conjunctivae: conjunctivae normal Neck Neck: Yes normal visual inspection Chest Chest palpation & inspection: normal inspection of the chest Resp Effort & Inspection: normal respiratory effort Cardio Rate: regular rate GI Inspection: Yes normal to inspection Skin General skin exam: no rashes or lesions noted Neuro General: patient oriented x3 Extrem General: No pedal edema Psych Appearance: grossly normal Affect: normal affect Results AMB Urinalysis, Automated UA Leukoctes 0 Yuki/uL Last Edit by EDYTA Foy on 11/16/22 14:41 UA Nitrite Negative Last Edit by EDYTA Foy on 11/16/22 14:41 UA Urobilinogen 0.2 mg/dL Last Edit by EDYTA Foy on 11/16/22 14:4 1 UA Protein 0 mg/dL Last Edit by EDYTA Foy on 11/16/22 14:41 UA pH 6.0 Last Edit by EDYTA Foy on 11/16/22 14:41 UA Blood 0 Armando/uL Last Edit by Jj Ferguson, RMA on 11/16/22 14:41 UA Specific [place] 1.010 Last Edit by Jj Ferguson, RMA on 11/16/22 14: 41 UA Ketone Negative Last Edit by Jj Ferguson, RMA on 11/16/22 14:41 UA Bilirubin 0 mg/dL Last Edit by Jj Ferguson, RMA on 11/16/22 14:41 UA Glucose 0 mg/dL Last Edit by Jj Ferguson, RMA on 11/16/22 14:41 Results Reviewed Results Reviewed: Laboratory Last Values Urine pH (Auto) 6.0 11/16/22 14:40 Specific [place] (Auto) 1.010 11/16/22 14:40 Urine Protein (Auto) 0 mg/dL 11/16/22 14:40 Glucose (UA)(Auto) 0 mg/dL 11/16/22 14:40 Urine Ketones (Auto) Negative 11/16/22 14:40 Urine Blood (Auto) 0 Armando/uL 11/16/22 14:40 Urine Nitrite (Auto) Negative 11/16/22 14:40 Urine Bilirubin (Auto) 0 mg/dL 11/16/22 14:40 Urine Urobilinogen (Auto) 0.2 mg/dL 11/16/22 14:40 Leukocyte Esterase (Auto) 0 Yuki/uL 11/16/22 14:40 Ordered:? Urine Culture? Procedure?Result?Verified?Site ? Urine Culture? Final?11/05/22-8 ? ? ?Organism 1?Escherichia coli ? Quant?> 100,000 cfu/mL ? E coli? M.I.C.? ? RX? --------- ---?Ampicillin?16?I?Ceftriaxone? <=0.25? ? ?S?Gentamicin?>=16?R?Levofloxacin?>=8? R?Nitrofurantoin?<=16?S?Trimethoprim/Sulfamethoxazole? >=320? ? ? R? ? ? Date of Service: 11/03/22 EXAMINATION: CT ABDOMEN AND PELVIS WITH CONTRAST CLINICAL INFORMATION: Left lower quadrant pain COMPARISON: None available. FINDINGS: Visualized lung bases demonstrate mild dependent atelectasis. The liver is normal in size. Mild periportal edema and pneumobilia noted. 7 mm hypodense focus within the lateral right hepatic lobe is too small to accurately characterize. The gallbladder surgically absent. Surgical changes in the region of the pancreatic head. The pancreatic body and tail are unremarkable. The spleen is normal in size. The adrenal glands are normal in appearance. Symmetrically enhancing kidneys. There is mild left-sided hydronephrosis secondary to a 5 mm calculus within the proximal left ureter. There is asymmetric perinephric stranding of the left kidney. No right-sided hydronephrosis. There are postsurgical changes of the distal stomach. Normal caliber loops of small and large bowel. Moderate colonic stool burden. Patient is status post appendectomy. Normal caliber abdominal aorta demonstrating moderate atherosclerotic disease. No retroperitoneal lymphadenopathy. The bladder is normal in appearance. The prostate gland is at the upper limits of normal in size. There is no gross free pelvic fluid. Surgical changes along the superior aspect of the pubic symphysis. No inguinal lymphadenopathy. Mild to moderate degenerative changes of the spine. Mild anterolisthesis of L4 on L5. IMPRESSION: Mild left-sided hydronephrosis secondary to a 5 mm calculus within the proximal left ureter. Assessment & Plan Assessment & Plan (1) S/P ureteral stent placement: Code(s): Z96.0 - Presence of urogenital implants (2) UTI (urinary tract infection): Code(s): N39.0 - Urinary tract infection, site not specified (3) Obstructive uropathy: Code(s): N13.9 - Obstructive and reflux uropathy, unspecified (4) Left ureteral calculus: Code(s): N20.1 - Calculus of ureter Plan left ureteroscopy, possible laser and possible stent removal vs exchange.? Orders: Orders AMB Urinalysis Automated 11/16/22 Z13.9 - Encounter for screening, unspecified Patient Instructions: The patient had an opportunity to ask questions regarding treatment plan. All questions were answered. Imaging, Laboratory studies and physical exam results were discussed and reviewed in detail. No major barriers to understanding were identified. The patient expressed understanding and agreement with the above treatment plan.? ? ? The patient is aware they should contact our office by phone for worsening of their current condition or the appearance of new symptoms. Compliance is encouraged with any medications and followup testing that is ordered.? ? ? It is a privilege to be allowed the opportunity to participate in the urologic care of your patient. If you have any questions or concerns regarding treatment for the above conditions please do not hesitate to contact me. The office telephone contact is [phone].? ? ? This note is constructed in part using voice recognition software. While every effort has been made to ensure accuracy bird trapper errors may have been included.? ? ? Yours sincerely,? ? ? Alexus Medrano MD? ? Coding Level of Care Code Est Pt Level 4 (54604) Diagnoses S/P ureteral stent placement Z96.0 UTI (urinary tract infection) N39.0 Obstructive uropathy N13.9 Left ureteral calculus N20.1
== END 2022-11-16 15:08 | disposition home or self-care (01) ==
PROVIDERS: PCP Physician Assistant Medical; Visit Provider Urology
DX: Z96.0 Presence of urogenital implants (principal); N39.0 Urinary tract infection, site not specified; N13.9 Obstructive and reflux uropathy, unspecified; N20.1 Calculus of ureter
CPT/HCPCS: 99214

== ENCOUNTER → 2022-11-16 14:28 | Outpatient (BNVA) | payer OTHER, SELFPAY | PROVIDERS: PCP Physician Assistant Medical; Visit Provider Urology | DX: N13.2 Hydronephrosis with renal and ureteral calculous obstruction (principal); N39.0 Urinary tract infection, site not specified; Z96.0 Presence of urogenital implants | CPT/HCPCS: 81003 ==

== ENCOUNTER 2022-11-17 09:11 | Day surgery (SDC) | payer OTHER, SELFPAY ==
--- NOTE | 2022-11-16 13:17 | P.CONAN_ITS ---
HPI - Anesthesia Eval Consult details Narrative: 72yo M for Cystoscopy, Ureteroroscopy, Retro, Laser,with poss stent exchange s/p cysto, stent 10/2022 with GA-LMA 5 Hx pancreatic ca s/p whipple 2020 HIV HTN, RBBB PMFSH Active Problems Active Problems: All Active Problems (Updated 11/15/22 @ 00:03 by Background Daemon) S/P ureteral stent placement (Acute) Diarrhea (Acute) Sepsis associated hypotension (Acute) UTI (urinary tract infection) (Acute) Obstructive uropathy (Acute) Abdominal pain (Acute) Bandemia (Acute) Acidosis, lactic (Acute) Left ureteral calculus (Acute) BPH w urinary obs/LUTS (Acute) Nocturia more than twice per night (Acute) Urinary frequency (Acute) Hypertensive heart disease (Acute) HTN (hypertension) (Acute) Hyperlipidemia (Acute) Right bundle branch block (RBBB) determined by electrocardiography (Acute) Past Medical History Medical History (Updated 11/15/22 @ 00:03 by Background Daemon) Sepsis associated hypotension HIV (human immunodeficiency virus infection) Anemia GERD (gastroesophageal reflux disease) Arthritis History of pancreatic cancer Hypertensive heart disease HTN (hypertension) Hyperlipidemia Right bundle branch block (RBBB) determined by electrocardiography Family History Family History Father No problems noted. Mother Cancer Family history of problems with anesthesia: No Surgical History Surgical History (Updated 11/15/22 @ 00:03 by Background Daemon) History of appendectomy Hx of cystoscopy History of Whipple procedure History of tonsillectomy and adenoidectomy Hx of hernia repair History of prostate surgery Hx of colonoscopy History of Problems with Anesthesia: No Social History Social History Household Members: None Housing: Apartment Are you a primary customer care consultant to a significant other at home: No Do you presently have visiting nurse or other home services: No Alcohol intake: current Alcohol intake frequency: a few times a week Patient Tobacco Use Status: Never used Tobacco Substance Use Type: Marijuana service: No Meds Allergies Allergy/AdvReac Type Severity Reaction Status Date / Time Penicillins [PCN] Allergy Mild HIVES Verified 05/20/22 08:38 abacavir Allergy Unknown rash, Verified 05/20/22 08:38 chills Home Medications Medication Instructions Recorded Confirmed Last Taken Type atorvastatin 20 mg tablet 20 mg PO BEDTIME 01/18/20 11/03/22 11/02/22 History docusate sodium 100 mg capsule 100 mg PO BEDTIME PRN Constipation 01/18/20 11/03/22 11/02/22 History metoprolol succinate 50 mg 50 mg PO BEDTIME 01/18/20 11/03/22 11/02/22 History tablet,extended release 24 hr omeprazole 20 mg capsule,delayed 20 mg PO DAILY 01/18/20 11/03/22 11/03/22 History release bictegravir 50 mg-emtricitabine 1 tab PO BEDTIME 01/17/21 11/03/22 11/02/22 History 200 mg-tenofovir alafenam 25 mg tablet polyethylene glycol 3350 17 17 g PO DAILY PRN Constipation 04/24/21 11/03/22 11/03/22 History gram/dose oral powder flash glucose scanning reader #1 ea 05/20/22 Unknown History ([employer] [place]) metformin 500 mg tablet 500 mg PO DAILY diabetes mellitus 11/03/22 11/03/22 11/02/22 History multivitamin 1 tab PO DAILY 11/03/22 11/03/22 11/03/22 History naproxen 500 mg tablet (Naprosyn) 500 mg PO BID PRN Pain 11/03/22 11/03/22 Unknown History Exam Exam Date and Time: November 16, 2022 131 Pertinent Lab Results Pertinent Lab Results: Laboratory Tests 11/03/22 11/03/22 11/03/22 09:31 09:31 09:31 WBC 1.7 L RBC 4.25 L Hgb 14.6 Hct 42.8 MCV 100.7 H MCH 34.4 H MCHC 34.1 RDW 12.7 Plt Count 115 L MPV 9.5 Immature Gran % (Auto) Cancelled Neut % (Auto) Cancelled Lymph % (Auto) Cancelled [place] % (Auto) Cancelled Eos % (Auto) Cancelled Baso % (Auto) Cancelled Lymph # (Auto) Cancelled [place] # (Auto) Cancelled Eos # (Auto) Cancelled Baso # (Auto) Cancelled Abs Immat Gran (auto) Cancelled Absolute Neuts (auto) Cancelled Absolute Nucleated RBC 0.000 Nucleated RBC % (auto) 0.0 Neutrophils % (Manual) 73 Band Neutrophils % 15 H Lymphocytes % (Manual) 10 L Eosinophils % (Manual) 1 Basophils % (Manual) 1 Abs Neuts (Manual) 1.5 L Lymphocytes # (Manual) 0.2 L Toxic Vacuolation PRESENT Dohle Bodies PRESENT Platelet Estimate DECREASED Plt Morphology Comment NORMAL RBC Morphology NOTED Polychromasia 1+ (0-2) Macrocytosis 1+ (5-14) PT 11.4 INR 0.9 Sodium 140 Potassium 4.1 Chloride 107 Carbon Dioxide 24 Anion Gap 13 BUN 18 H Creatinine 1.40 Estim Creat Clear Calc 47.6 Estimated GFR 50 Random Glucose 151 H Lactic Acid Lactic Acid F/U @ 2Hr Lactic Acid F/U @ 4Hr Calcium 9.3 Magnesium 1.7 Total Bilirubin 1.7 H Direct Bilirubin 0.7 H AST 44 H ALT 27 Alkaline Phosphatase 79 Total Protein 6.9 Albumin 4.0 Lipase < 4 L Urine Color Urine Appearance Urine pH Ur Specific [place] Urine Protein Urine Glucose (UA) Urine Ketones Urine Blood Urine Nitrite Ur Leukocyte Esterase Urine RBC Urine WBC Ur Squamous Epith Cells Urine Bacteria Hyaline Casts COVID-19 (RITIKA) COVID-19 Clin Com 11/03/22 11/03/22 11/03/22 09:31 10:01 12:21 WBC RBC Hgb Hct MCV MCH MCHC RDW Plt Count MPV Immature Gran % (Auto) Neut % (Auto) Lymph % (Auto) [place] % (Auto) Eos % (Auto) Baso % (Auto) Lymph # (Auto) [place] # (Auto) Eos # (Auto) Baso # (Auto) Abs Immat Gran (auto) Absolute Neuts (auto) Absolute Nucleated RBC Nucleated RBC % (auto) Neutrophils % (Manual) Band Neutrophils % Lymphocytes % (Manual) Eosinophils % (Manual) Basophils % (Manual) Abs Neuts (Manual) Lymphocytes # (Manual) Toxic Vacuolation Dohle Bodies Platelet Estimate Plt Morphology Comment RBC Morphology Polychromasia Macrocytosis PT INR Sodium Potassium Chloride Carbon Dioxide Anion Gap BUN Creatinine Estim Creat Clear Calc Estimated GFR Random Glucose Lactic Acid 2.7 H* Lactic Acid F/U @ 2Hr 2.8 H* Lactic Acid F/U @ 4Hr Calcium Magnesium Total Bilirubin Direct Bilirubin AST ALT Alkaline Phosphatase Total Protein Albumin Lipase Urine Color Urine Appearance Urine pH Ur Specific [place] Urine Protein Urine Glucose (UA) Urine Ketones Urine Blood Urine Nitrite Ur Leukocyte Esterase Urine RBC Urine WBC Ur Squamous Epith Cells Urine Bacteria Hyaline Casts COVID-19 (RITIKA) Negative COVID-19 Clin Com See Note 11/03/22 11/03/22 13:10 14:52 WBC RBC Hgb Hct MCV MCH MCHC RDW Plt Count MPV Immature Gran % (Auto) Neut % (Auto) Lymph % (Auto) [place] % (Auto) Eos % (Auto) Baso % (Auto) Lymph # (Auto) [place] # (Auto) Eos # (Auto) Baso # (Auto) Abs Immat Gran (auto) Absolute Neuts (auto) Absolute Nucleated RBC Nucleated RBC % (auto) Neutrophils % (Manual) Band Neutrophils % Lymphocytes % (Manual) Eosinophils % (Manual) Basophils % (Manual) Abs Neuts (Manual) Lymphocytes # (Manual) Toxic Vacuolation Dohle Bodies Platelet Estimate Plt Morphology Comment RBC Morphology Polychromasia Macrocytosis PT INR Sodium Potassium Chloride Carbon Dioxide Anion Gap BUN Creatinine Estim Creat Clear Calc Estimated GFR Random Glucose Lactic Acid Lactic Acid F/U @ 2Hr Lactic Acid F/U @ 4Hr 2.4 H* Calcium Magnesium Total Bilirubin Direct Bilirubin AST ALT Alkaline Phosphatase Total Protein Albumin Lipase Urine Color Yellow Urine Appearance Clear Urine pH 5.5 Ur Specific [place] 1.025 Urine Protein Negative Urine Glucose (UA) Negative Urine Ketones Negative Urine Blood Moderate (2+) H Urine Nitrite Negative Ur Leukocyte Esterase Small (1+) H Urine RBC 6-10 H Urine WBC 21-50 H Ur Squamous Epith Cells 0-2 Urine Bacteria 4+ Hyaline Casts 0-2 COVID-19 (RITIKA) COVID-19 Clin Com Narrative Narrative: Abnormal EKG in DRAFT from 10/2022 ED physician interpretation: Rate: 79 Rhythm: NSR with PVCs [place]: normal Normal P waves. Normal FAY. RBBB ST T wave : no NGHIA, artifact in inf leads, nonspecific ST T wave changes inf leads qTC: normal Assessment and Plan Assessment Anesthesia Assessment: Chart Reviewed Final Anesthetic Review Family History of Problems with Anesthesia: No History of Problems with Anesthesia: No
[2022-11-17] VITALS (7 sets, daily range): BP systolic 122–140; BP diastolic 64–75; PULSE 58–65; RESP 16–18; TEMP 36.2–36.7; O2SAT 94–97; BMI 25.1
--- NOTE | ~2022-11-17 | FL_ITS ---
EXAMINATION: XR FLUOROSCOPY WITH IMAGES CLINICAL INFORMATION: Left stone. COMPARISON: Previous exam 11/03/2022 TECHNIQUE: Fluoroscopy Supervised By: Dr. Medrano. Fluoroscopy Time: 18.8 seconds. Cumulative Dose: 4.57 mGy. DAP: Gycm2. Images: 3. FINDINGS: Fluoroscopy guidance provided for left internal ureteral stent change. FL/FL guidance in OR IMPRESSION: Fluoroscopy guidance provided for left internal ureteral stent change.
--- NOTE | 2022-11-17 09:18 | P.CONAN_ITS ---
[facility] Active Problems Active Problems: All Active Problems (Updated 11/15/22 @ 00:03 by Meghann Lovett) S/P ureteral stent placement (Acute) Diarrhea (Acute) Sepsis associated hypotension (Acute) UTI (urinary tract infection) (Acute) Obstructive uropathy (Acute) Abdominal pain (Acute) Bandemia (Acute) Acidosis, lactic (Acute) Left ureteral calculus (Acute) BPH w urinary obs/LUTS (Acute) Nocturia more than twice per night (Acute) Urinary frequency (Acute) Hypertensive heart disease (Acute) HTN (hypertension) (Acute) Hyperlipidemia (Acute) Right bundle branch block (RBBB) determined by electrocardiography (Acute) Past Medical History Medical History Sepsis associated hypotension HIV (human immunodeficiency virus infection) Anemia GERD (gastroesophageal reflux disease) Arthritis History of pancreatic cancer Hypertensive heart disease HTN (hypertension) Hyperlipidemia Right bundle branch block (RBBB) determined by electrocardiography Functional capacity: independent ambulation Family History Family History Father No problems noted. Mother Cancer Family history of problems with anesthesia: No Surgical History Surgical History History of appendectomy Hx of cystoscopy History of Whipple procedure History of tonsillectomy and adenoidectomy Hx of hernia repair History of prostate surgery Hx of colonoscopy History of Problems with Anesthesia: No Social History Social History Household Members: None Housing: Apartment Are you a primary home visit field care manager to a significant other at home: No Do you presently have visiting nurse or other home services: No Alcohol intake: current Alcohol intake frequency: 0-2 drinks per day Patient Tobacco Use Status: Never used Tobacco Substance Use Type: Marijuana service: No Meds Allergies Allergy/AdvReac Type Severity Reaction Status Date / Time Penicillins [PCN] Allergy Mild HIVES Verified 11/16/22 14:32 abacavir Allergy Unknown rash, Verified 11/16/22 14:32 chills Active Medications: Current Medications Ceftriaxone Sodium 1 gm/ (Sodium Chloride) 50 mls @ 100 mls/hr IV Q24H [facility] Lactated Ringer's (Lr) 1,000 mls @ 100 mls/hr IVCONT .Q10H [facility] Home Medications Medication Instructions Recorded Confirmed Last Taken Type atorvastatin 20 mg tablet 20 mg PO BEDTIME 01/18/20 11/17/22 11/02/22 History docusate sodium 100 mg capsule 100 mg PO BEDTIME PRN Constipation 01/18/20 11/17/22 11/02/22 History metoprolol succinate 50 mg 50 mg PO BEDTIME 01/18/20 11/17/22 11/02/22 History tablet,extended release 24 hr omeprazole 20 mg capsule,delayed 20 mg PO DAILY 01/18/20 11/17/22 11/03/22 History release bictegravir 50 mg-emtricitabine 1 tab PO BEDTIME 01/17/21 11/17/22 11/02/22 History 200 mg-tenofovir alafenam 25 mg tablet polyethylene glycol 3350 17 17 g PO DAILY PRN Constipation 04/24/21 11/17/22 11/03/22 History gram/dose oral powder flash glucose scanning reader #1 ea 05/20/22 11/17/22 Unknown History (Egenera Keetrhi 2 [place]) metformin 500 mg tablet 500 mg PO DAILY diabetes mellitus 11/03/22 11/17/22 11/02/22 History multivitamin 1 tab PO DAILY 11/03/22 11/17/22 11/03/22 History naproxen 500 mg tablet (Naprosyn) 500 mg PO BID PRN Pain 11/03/22 11/17/22 Unknown History Exam Exam Date and Time: November 17, [id number] Airway Mallampati Class: II TM Dist: >3cm Neck ROM: Full Heart: RRR Lungs: CTA Assessment and Plan Assessment Anesthesia Assessment: Anesthesia Plan Discussed Final Anesthetic Review Family History of Problems with Anesthesia: No History of Problems with Anesthesia: No ASA Class: III Final Preanesthetic Review: Meds/Allgs Chart Reviewed, Consent Obtained/Reviewed and Anes Risks/Benef Reviewed Patient Risk: Intermediate Procedure Risk: Low Anesthetic Plan Anesthetic Plan: GA
[2022-11-17] MEDS: Lactated Ringers 1,000 ML 100 ML IVCONT (09:52)
[2022-11-17 10:00] LABS: Glucose, Whole Blood 120 mg/dL (60-115)
--- NOTE | 2022-11-17 11:44 | MHC.SHP ---
Pre-Procedural Eval Section A Date of Service: 11/17/22 The patient is an INPATIENT: No The History & Physical has been completed within 30 days and I have reviewed it.: Yes Section B Chief Complaint: Calculus of kidney Allergies: Allergies Allergy/AdvReac Type Severity Reaction Status Date / Time Penicillins [PCN] Allergy Mild HIVES Verified 11/16/22 14:32 abacavir Allergy Unknown rash, Verified 11/16/22 14:32 chills Plan Diagnosis/Plan: Unchanged I have reviewed the history and physical and performed a pertinent physical examination on my patient. No changes have occurred unless specified. Plan for Cystoscopy, left stent removal vs stent exchange, left ureteroscopy, possible laser lithotripsy,. Risks discussed included but not limited to, possible need to repeat procedure if stone is not completely fragmented, Irritative voiding symptoms, bladder spasms, urgency, blood in urine. Time Spent With Patient Time: Total time managing care of this patient today ____ minutes.
--- NOTE | 2022-11-17 11:46 | P.OP_ITS ---
Operative Note Operative Note Date of Service: 11/17/22 Narrative: PreOperative Diagnosis:?? UTI sepsis, Left ureteral stone, s/p left ureteral stent Post Operative Diagnosis:?? Left ureteral stone, s/p left ureteral stent Procedure: - Cystoscopy, left ureteroscopy laser lithotripsy stent exchange, 6 Portuguese by multi-length cm Surgeon:?Dr Alexus Medrano Anesthesia:? General Indications for procedure: Procedure: After informed consent was verified the patient was brought to the operating placed on the OR table in supine position.? General Anesthesia was administered per protocol.? The patient was placed in lithotomy position, prepped and draped in the usual sterile fashion.? Safety pause time-out and side of surgery confirmed.? Antibiotics confirmed. 2% lidocaine jelly 10 mL was passed transurethrally. A 22 Portuguese cystoscope was inserted transurethrally, the bulbous urethra was within normal limits. The prostatic urethra was nonobstructive. The bladder was visualized.? Both ureteric orifices were in normal position. The left ureteral stent was curled in the bladder. The?left distal end of the ureteral stent was grasped with the flexible grasping forceps. The stent was pulled retrograde through the urethra. A guidewire was passed through the stent. The stent was removed. The cystoscope was removed, leaving the guidewire in place. The guidewire was used as the safety and was attached to the draping. The semi rigid ureteroscope with a second guide wire was passed transurethrally into the left ureter, a stone was visualized in the proximal ureter. The 2nd guide wire was removed. Laser lithotripsy of the stone was done using the 365 fiber with a settings 0.8 joules by 6 hertz. There was good fragmentation of the stone. Total KJ 2.0. The 0 degree basket was passed through the ureteroscope, and stone fragments were removed to send for analysis. The ureteroscope was removed. The cystoscope was passed over the safety guidewire. A? 6 Portuguese by multi-length cm stent was placed into the ureter and renal pelvis under a combination of fl uoroscopy and direct visualization. The bladder was emptied.? The rigid cystoscope was removed. ? The patient tolerated the procedure well and was brought to the recovery room in stable condition. Complications: None Drains: Ureteral stent as dictated above
--- NOTE | 2022-11-17 14:05 | HO.POSTANES ---
Post Anesthesia Evaluation Post Anesthesia Evaluation Date of Service: 11/17/22 Vital Signs: Vital Signs Temp Pulse Resp BP Pulse Ox O2 Del Method 11/17/22 12:10 97.6 F 11/17/22 12:05 58 18 135/72 96 Room Air 11/17/22 11:50 60 16 140/67 H 96 Room Air 11/17/22 11:45 62 16 138/72 95 Room Air 11/17/22 11:40 63 16 136/72 94 Room Air 11/17/22 11:36 97.2 F 60 16 122/64 94 Room Air 11/17/22 09:39 98.0 F 65 18 127/75 97 Room Air Anesthesia: General LMA Mental Status: Awake Pain Control: Satisfactory Nausea/Vomiting: None Hydration: Adequate Anesthesia-Related Issues: No Anes. Related Issues
[2022-11-24 13:58] LABS: Stone Source KIDNEY STONE
== END 2022-11-17 12:59 | disposition home or self-care (01) ==
PROVIDERS: PCP Physician Assistant Medical; Visit Provider Urology
PROC: (CPT 52356; principal; 2022-11-17 11:20)
DX: N20.0 Calculus of kidney (principal); A41.51 Sepsis due to Escherichia coli [E. coli]; N39.0 Urinary tract infection, site not specified; D64.9 Anemia, unspecified; K21.9 Gastro-esophageal reflux disease without esophagitis; B20 Human immunodeficiency virus [HIV] disease; Z85.07 Personal history of malignant neoplasm of pancreas; I10 Essential (primary) hypertension; E78.5 Hyperlipidemia, unspecified; Z79.69 Long term (current) use of other immunomodulators and immunosuppressants; Z79.899 Other long term (current) drug therapy; Z79.84 Long term (current) use of oral hypoglycemic drugs; Z79.1 Long term (current) use of non-steroidal anti-inflammatories (NSAID); Z88.0 Allergy status to penicillin; Z88.8 Allergy status to other drugs, medicaments and biological substances; F12.90 Cannabis use, unspecified, uncomplicated; Z98.890 Other specified postprocedural states
CPT/HCPCS: 52356; 82365; 82947; 88300; C1769; C2617; J2250; J3010; Q9967

== ENCOUNTER → 2022-11-17 09:11 | Outpatient (BNV) | payer OTHER, SELFPAY | PROVIDERS: PCP Physician Assistant Medical; Visit Provider Urology | DX: N20.0 Calculus of kidney (principal) | CPT/HCPCS: 52356 ==

== ENCOUNTER 2022-11-24 06:56 | Day surgery (SDC) | payer OTHER, SELFPAY ==
[2022-11-24 07:12] VITALS: BMI 25.7
[2022-11-24 07:14] VITALS: BP 99/75; PULSE 62; RESP 20; TEMP 36.6; O2SAT 97
[2022-11-24 07:14] LABS: Glucose, Whole Blood 123 mg/dL (60-115)
--- NOTE | 2022-11-24 07:38 | MHC.SHP ---
Pre-Procedural Eval Section A Date of Service: 11/24/22 The patient is an INPATIENT: No The History & Physical has been completed within 30 days and I have reviewed it.: Yes Section B Chief Complaint: Calculus of ureter Allergies: Allergies Allergy/AdvReac Type Severity Reaction Status Date / Time Penicillins [PCN] Allergy Mild HIVES Verified 11/16/22 14:32 abacavir Allergy Unknown rash, Verified 11/16/22 14:32 chills Plan Diagnosis/Plan: Unchanged I have reviewed the history and physical and performed a pertinent physical examination on my patient. No changes have occurred unless specified. Cystoscopy Left ureteral stent removal. Time Spent With Patient Time: Total time managing care of this patient today ____ minutes.
[2022-11-24 08:10] VITALS: BP 96/57; PULSE 62; RESP 14; TEMP 36.7; O2SAT 94
[2022-11-24 08:26] VITALS: BP 112/70; PULSE 47; RESP 18; TEMP 36.7; O2SAT 95
--- NOTE | 2022-11-24 10:40 | HO.ANESPROP2 ---
HPI - Anesthesia Eval Consult details Narrative: 72-year-old male here for ureteral stent removal PMFSH Active Problems Active Problems: All Active Problems (Updated 11/15/22 @ 00:03 by Meghann Lovett) S/P ureteral stent placement (Acute) Diarrhea (Acute) Sepsis associated hypotension (Acute) UTI (urinary tract infection) (Acute) Obstructive uropathy (Acute) Abdominal pain (Acute) Bandemia (Acute) Acidosis, lactic (Acute) Left ureteral calculus (Acute) BPH w urinary obs/LUTS (Acute) Nocturia more than twice per night (Acute) Urinary frequency (Acute) Hypertensive heart disease (Acute) HTN (hypertension) (Acute) Hyperlipidemia (Acute) Right bundle branch block (RBBB) determined by electrocardiography (Acute) Past Medical History Medical History Sepsis associated hypotension HIV (human immunodeficiency virus infection) Anemia GERD (gastroesophageal reflux disease) Arthritis History of pancreatic cancer Hypertensive heart disease HTN (hypertension) Hyperlipidemia Right bundle branch block (RBBB) determined by electrocardiography Family History Family History Father No problems noted. Mother Cancer Family history of problems with anesthesia: No Surgical History Surgical History History of appendectomy Hx of cystoscopy History of Whipple procedure History of tonsillectomy and adenoidectomy Hx of hernia repair History of prostate surgery Hx of colonoscopy History of Problems with Anesthesia: No Social History Social History Household Members: None Housing: Apartment Are you a primary vehicle care specialist to a significant other at home: No Do you presently have visiting nurse or other home services: No Alcohol intake: current Alcohol intake frequency: holidays/special occasions only Patient Tobacco Use Status: Never used Tobacco Substance Use Type: Marijuana Are you DNR?: No Advance Directives: No Advance Directives Information Provided: Yes service: No Meds Allergies Allergy/AdvReac Type Severity Reaction Status Date / Time Penicillins [PCN] Allergy Mild HIVES Verified 11/16/22 14:32 abacavir Allergy Unknown rash, Verified 11/16/22 14:32 chills Home Medications Medication Instructions Recorded Confirmed Last Taken Type atorvastatin 20 mg tablet 20 mg PO BEDTIME 01/18/20 11/17/22 11/02/22 History metoprolol succinate 50 mg 50 mg PO BEDTIME 01/18/20 11/17/22 11/02/22 History tablet,extended release 24 hr omeprazole 20 mg capsule,delayed 20 mg PO DAILY 01/18/20 11/17/22 11/03/22 History release bictegravir 50 mg-emtricitabine 1 tab PO BEDTIME 01/17/21 11/17/22 11/02/22 History 200 mg-tenofovir alafenam 25 mg tablet metformin 500 mg tablet 500 mg PO DAILY diabetes mellitus 11/03/22 11/17/22 11/02/22 History multivitamin 1 tab PO DAILY 11/03/22 11/17/22 11/03/22 History naproxen 500 mg tablet (Naprosyn) 500 mg PO BID PRN Pain 11/03/22 11/17/22 Unknown History Exam Exam Date and Time: November 24, 2022 1040 Height,Weight and Vital Signs: Height 5 ft 8 in Weight 169 lb Last Vital Signs Temp 98.1 F 11/24/22 08:26 Pulse 47 L 11/24/22 08:26 Resp 18 11/24/22 08:26 BP 112/70 11/24/22 08:26 Pulse Ox 95 11/24/22 08:26 O2 Del Method Room Air 11/24/22 08:26 Pertinent Lab Results Pertinent Lab Results: Laboratory Tests 11/24/22 07:10 POC Glucose 123 H Airway Mallampati Class: II TM Dist: >3cm Neck ROM: Full Loose/Missing/Broken Teeth: Yes Assessment and Plan Assessment Anesthesia Assessment: Anesthesia Plan Discussed and Chart Reviewed Final Anesthetic Review Family History of Problems with Anesthesia: No History of Problems with Anesthesia: No NPO: Yes ASA Class: III Final Preanesthetic Review: No Changes in Pt Med Stat, Meds/Allgs Chart Reviewed, Consent Obtained/Reviewed and Anes Risks/Benef Reviewed Patient Risk: Intermediate Procedure Risk: Low Anesthetic Plan Anesthetic Plan: MAC: Disposition: Standard PACU
--- NOTE | 2022-11-24 10:50 | W.PM.OPN ---
Operative Note Operative Note Date of Service: 11/24/22 Narrative: PREOP DIAGNOSIS: S/P left ureteroscopy lithotripsy, Left ureteral stent present POSTOP DIAGNOSIS: S/P left ureteroscopy lithotripsy, Left ureteral stent present PROCEDURE: CYSTOSCOPY LEFT URETERAL STENT REMOVAL SURGEON: Alexus Medrano MD Details of procedure: The patient was brought into the operating room placed on the OR table in supine position. 2 g of Ancef IV. The anesthesiologist administered anesthesia. The patient was repositioned into lithotomy position, prepped and draped in the usual sterile fashion. Time-out was done per protocol. A 22 fr cystoscope was placed transurethrally into the bladder. The right and left ureteral orifices were visualized. The entire bladder was visualized. The distal end of the left ureteral stent was visualized and using the grasping forceps, the stent was gasped and removed. The cystoscope was replaced, the left ureteral orifice was revisualized, efflux of urine was noted, no clots visualized. The cystoscope was removed. 2% lidocaine urojet was passed transurethrally into the bladder. The patient was brought out of anesthesia and taken to recovery in stable condition. Complications: None Drains: None
== END 2022-11-24 09:48 | disposition home or self-care (01) ==
PROVIDERS: PCP Physician Assistant Medical; Visit Provider Urology
PROC: (CPT 52310; principal; 2022-11-24 10:20)
DX: N20.1 Calculus of ureter (principal); N39.0 Urinary tract infection, site not specified; N13.9 Obstructive and reflux uropathy, unspecified; B20 Human immunodeficiency virus [HIV] disease; I11.9 Hypertensive heart disease without heart failure; E78.5 Hyperlipidemia, unspecified; D64.9 Anemia, unspecified; K21.9 Gastro-esophageal reflux disease without esophagitis; I45.10 Unspecified right bundle-branch block; F12.90 Cannabis use, unspecified, uncomplicated; Z85.07 Personal history of malignant neoplasm of pancreas; Z90.49 Acquired absence of other specified parts of digestive tract; Z96.0 Presence of urogenital implants; R35.0 Frequency of micturition; R35.1 Nocturia; R10.9 Unspecified abdominal pain
CPT/HCPCS: 52310; 82947; J0690

== ENCOUNTER 2022-11-27 09:38 | Outpatient (AMB) | payer OTHER, SELFPAY ==
--- NOTE | 2022-11-27 09:51 | MHC.OFFVIS ---
Intake Intake Visit Reasons: 6m/PVR Intake Note: Patient is Present for Follow Up PVR Urology Medication: Tamsulosin, Oxybutynin (Patient is requesting refill on oxybutynin) Antibiotic Allergies: Penicillins Blood Thinners: None Pharmacy: [facility] PVR: 0ml Compliants: Has been having some frequency and nocturia Allergies Penicillins [PCN] Allergy (Mild, Verified 11/27/22 09:57) HIVES abacavir Allergy (Unknown, Verified 11/27/22 09:57) rash, chills HPI HPI Comments History of Present Illness Details Faizan is a pleasant male. He is a patient of Dr. Wheeler. He is seen for the following urologic conditions - lower urinary tract symptoms - nephrolithiasis Post stone procedures Encourage fluid intake 3 month follow-up ultrasound Nephrolithiasis Initial presentation September 2022 Underwent ureteroscopy Stone composition - calcified ox monohydrate 75% Surveillance imaging Lower urinary tract symptoms Background triple therapy HIV for 1999 diagnosis in 1985 Underwent laser prostatectomy in the past Procedure 06/20 redo laser prostatectomy Cystoscopy 2019 - apical tissue PSA 02/19 1.1 PFSH Medical History Sepsis associated hypotension HIV (human immunodeficiency virus infection) Anemia GERD (gastroesophageal reflux disease) Arthritis History of pancreatic cancer Hypertensive heart disease HTN (hypertension) Hyperlipidemia Right bundle branch block (RBBB) determined by electrocardiography Surgical History History of appendectomy Hx of cystoscopy History of Whipple procedure History of tonsillectomy and adenoidectomy Hx of hernia repair History of prostate surgery Hx of colonoscopy Family History Father No problems noted. Mother Cancer Social History Household Members: None Housing: Apartment Are you a primary career technical counselor to a significant other at home: No Do you presently have visiting nurse or other home services: No Alcohol intake: current Alcohol intake frequency: holidays/special occasions only Patient Tobacco Use Status: Never used Tobacco Substance Use Type: Marijuana service: No Review of Systems Const Denies chills and Denies fever(s) Card Reports no additional complaints and Denies syncope Resp Denies cough GI Denies abdominal pain and Denies heartburn Reports as per HPI and Denies change in libido Neuro Denies syncope Psych Denies change in libido Endo Denies change in libido Physical Exam Const General: cooperative, healthy appearing, comfortable and no acute distress Orientation/consciousness: patient oriented x3 HEENT Face and sinus: Yes normal facial exam Mouth: moist mucous membranes Neck Neck: Yes normal visual inspection, Yes full ROM and Yes trachea midline Chest Chest palpation & inspection: normal inspection of the chest Resp Effort & Inspection: normal respiratory effort, able to speak in complete sentences and no respiratory distress GI Inspection: Yes normal to inspection Back/Spine/Pelvis Cervical Spine: normal cervical lordosis Thoracic/Lumbar Spine: thoracic and lumbar spine normal to inspection Skin General skin exam: no rashes or lesions noted Neuro General: patient oriented x3, gait normal, tone normal and moves all extremities Extrem General: Yes normal to inspection and Yes capillary refill normal Office Procedures Post Void Residual Post Residual Void Post Void Residual (PVR): 0 [id number] Void Residual by ultrasound Results AMB Urinalysis, Automated UA Leukoctes 0 Yuki/uL Last Edit by Angi Gannon [facility] on 11/27/22 10:05 UA Nitrite Negative Last Edit by Angi Gannon [facility] on 11/27/22 10:05 UA Urobilinogen 0.2 mg/dL Last Edit by Angi Gannon [facility] on 11/27/22 10:05 UA Protein 0 mg/dL Last Edit by Angi Gannon [facility] on 11/27/22 10:05 UA pH 5.5 Last Edit by Angi Gannon [facility] on 11/27/22 10:05 UA Blood 0 Armando/uL Last Edit by Angi Gannon [facility] on 11/27/22 10:05 UA Specific [place] 1.015 Last Edit by Angi Gannon [facility] on 11/27/22 10:05 UA Ketone Negative Last Edit by Angi Gannon [facility] on 11/27/22 10:05 UA Bilirubin 0 mg/dL Last Edit by Angi Gannon [facility] on 11/27/22 10:05 UA Glucose 0 mg/dL Last Edit by Angi Gannon RMA on 11/27/22 10:05 Results Reviewed Results Reviewed: Laboratory Last Values Urine pH (Auto) 5.5 11/27/22 09:58 Specific [place] (Auto) 1.015 11/27/22 09:58 Urine Protein (Auto) 0 mg/dL 11/27/22 09:58 Glucose (UA)(Auto) 0 mg/dL 11/27/22 09:58 Urine Ketones (Auto) Negative 11/27/22 09:58 Urine Blood (Auto) 0 Armando/uL 11/27/22 09:58 Urine Nitrite (Auto) Negative 11/27/22 09:58 Urine Bilirubin (Auto) 0 mg/dL 11/27/22 09:58 Urine Urobilinogen (Auto) 0.2 mg/dL 11/27/22 09:58 Leukocyte Esterase (Auto) 0 Yuki/uL 11/27/22 09:58 Assessment & Plan Assessment & Plan (1) BPH w urinary obs/LUTS: Code(s): N40.1 - Benign prostatic hyperplasia with lower urinary tract symptoms; N13.8 - Other obstructive and reflux uropathy (2) Left ureteral calculus: Code(s): N20.1 - Calculus of ureter Plan Three month follow-up ultrasound Orders: Orders AMB Urinalysis Automated Today Z13.9 - Encounter for screening, unspecified AMB Post Void Residual by ultrasound Today N13.8 - Other obstructive and reflux uropathy, N40.1 - Benign prostatic hyperplasia with lower urinary tract symptoms US renal BI 3 Months N20.1 - Calculus of ureter Patient Instructions: Imaging studies, laboratory and physical exam results were discussed and reviewed in detail. No major barriers to patient understanding were identified. An opportunity to ask questions regarding the treatment plan was provided. All questions were answered. The patient expressed understanding and agreement with the above treatment plan. The patient is aware they should contact our office by phone for worsening of their current condition or the appearance of new urologic symptoms. Compliance is encouraged with any medications and followup testing that is ordered. It is a privilege to participate in the urologic care of your patient. If you have any questions or concerns regarding treatment for the above conditions, or other urologic issues, please do not hesitate to contact me. The office telephone contact is [phone]. This note is constructed using voice recognition software. While every effort has been made to ensure accuracy relay dispatcher errors may have been included. Yours sincerely, Dr Carl Brooks MD, [facility] - Urology Providers of Expert, Compassionate Care for the Genitourinary System Coding Level of Care Code Est Pt Level 3 (96232) Diagnoses BPH w urinary obs/LUTS N40.1; N13.8 Left ureteral calculus N20.1 CPT Codes Post Residual Void - PVR CPT Code: 92927-Qfve Void Residual by ultrasound ([id number])
== END 2022-11-27 10:18 | disposition home or self-care (01) ==
PROVIDERS: PCP Physician Assistant Medical; Visit Provider Urology
DX: N40.1 Benign prostatic hyperplasia with lower urinary tract symptoms (principal); N13.8 Other obstructive and reflux uropathy; N20.1 Calculus of ureter; Z13.9 Encounter for screening, unspecified
CPT/HCPCS: 99213

== ENCOUNTER → 2022-11-27 09:38 | Outpatient (BNVA) | payer OTHER, SELFPAY | PROVIDERS: Visit Provider Urology | DX: N40.1 Benign prostatic hyperplasia with lower urinary tract symptoms (principal); N13.8 Other obstructive and reflux uropathy; N20.1 Calculus of ureter | CPT/HCPCS: 51798; 81003 ==

== ENCOUNTER 2023-02-08 07:56 | Outpatient (REF) | payer OTHER, SELFPAY ==
--- NOTE | ~2023-02-08 | US_ITS ---
EXAMINATION: US RETROPERITONEAL LIMITED (RENAL ONLY) CLINICAL INFORMATION: Calculus of ureter. COMPARISON: X-ray abdomen 11/07/2022. CT abdomen and pelvis 11/03/2022. TECHNIQUE: Real-time imaging of the kidneys. Limited visualization due to bowel gas. FINDINGS: RIGHT KIDNEY: 10.3 x 5.4 x 5.3 cm (SAG x AP x TRV). No hydronephrosis. No renal calculi. Renal cortical thickness is normal. Limited visualization. LEFT KIDNEY: 10.2 x 4.8 x 5.6 cm (SAG x AP x TRV). No hydronephrosis. No renal calculi. Renal cortical thickness is normal. Limited visualization. Left hydroureter partially imaged. The bladder is only partially distended on limited images. Bilateral ureteral jets were visualized. US/US renal BI IMPRESSION: Moderate dilatation of the imaged proximal left ureter, hydroureter. No hydronephrosis. No renal calculi. Limited visualization. CT scan of November 03, 2022 had demonstrated mild left hydronephrosis with a 5 mm calculus within the proximal left ureter.
== END 2023-02-08 07:57 | disposition home or self-care (01) ==
LOC: HO.US 07:56
PROVIDERS: PCP Physician Assistant Medical; Visit Provider Urology
DX: N20.1 Calculus of ureter (principal)
CPT/HCPCS: 76775

== ENCOUNTER 2023-03-05 09:03 | Outpatient (AMB) | payer OTHER, SELFPAY ==
--- NOTE | 2023-03-05 09:24 | MHC.OFFVIS ---
Intake Intake Visit Reasons: 3m/US(set) Intake Note: Patient is Present for Telephone Follow Up Urology Med: Oxybutynin, Tamsulosin Antibiotic Allergy: None Blood Thinner: None Allergies Penicillins [PCN] Allergy (Mild, Verified 03/05/23 09:24) HIVES abacavir Allergy (Unknown, Verified 03/05/23 09:24) rash, chills Medication List - Last Reconciled 03/05/23 by Carl Brooks MD atorvastatin 20 mg PO BEDTIME eitywskji-kewjrhba-eiuejmj ala 50-200-25 mg 1 tab PO BEDTIME cefuroxime axetil 500 mg PO BID metformin 500 mg PO DAILY metoprolol succinate ER 50 mg PO BEDTIME multivitamin 1 tab PO DAILY naproxen (Naprosyn) 500 mg PO BID PRN omeprazole 20 mg PO DAILY oxybutynin chloride ER 5 mg PO DAILY 90 days HPI HPI Comments History of Present Illness Details Faizan is a pleasant male. He is a patient of Dr. Wheeler. He is seen for the following urologic conditions - lower urinary tract symptoms - nephrolithiasis Telemedicine Evaluation 15 min Consultation [employer] Omar Video attempted Renal ultrasound shows no stones Postop Flomax Continues with oxybutynin for urinary urge Will try coming off Six month follow-up renal ultrasound Nephrolithiasis Initial presentation September 2022 Intervention - 11/21 left ureteroscopy Stone composition - calcified ox monohydrate 75% Imaging - 02/20 renal ultrasound no evidence of stone, mild left hydronephrosis Surveillance imaging Lower urinary tract symptoms Background triple therapy HIV for 1999 diagnosis in 1985 Underwent laser prostatectomy in the past Procedure 06/20 redo laser prostatectomy Cystoscopy 2019 - apical tissue PSA 02/19 1.1 PFSH Medical History (Updated 03/05/23 @ 09:36 by Carl Brooks MD) UTI (urinary tract infection) Obstructive uropathy Left ureteral calculus Acidosis, lactic Bandemia Abdominal pain Sepsis associated hypotension HIV (human immunodeficiency virus infection) Anemia GERD (gastroesophageal reflux disease) Arthritis History of pancreatic cancer Hypertensive heart disease HTN (hypertension) Hyperlipidemia Right bundle branch block (RBBB) determined by electrocardiography Surgical History (Updated 03/05/23 @ 09:36 by Carl Brooks MD) S/P ureteral stent placement History of appendectomy Hx of cystoscopy History of Whipple procedure History of tonsillectomy and adenoidectomy Hx of hernia repair History of prostate surgery Hx of colonoscopy Family History Father No problems noted. Mother Cancer Social History Household Members: None Housing: Apartment Are you a primary zoo caretaker to a significant other at home: No Do you presently have visiting nurse or other home services: No Alcohol intake: current Alcohol intake frequency: holidays/special occasions only Comment: aware of trip hazard Patient Tobacco Use Status: Never used Tobacco Substance Use Type: Marijuana service: No Review of Systems Const All systems reviewed & are unremarkable except as noted in HPI and below Reports no additional complaints Resp Reports no additional complaints GI Reports no additional complaints Reports as per HPI Musc Reports no additional complaints Physical Exam Telemedicine evaluation Appropriate responses Regular breathing rate and rhythm HEENT Head: Yes normal to inspection Ears: hearing grossly normal bilaterally Eyes General: appearance normal, both eyes and all related structures Neck Neck: Yes normal visual inspection Chest Chest palpation & inspection: normal inspection of the chest Resp Effort & Inspection: normal respiratory effort and able to speak in complete sentences Assessment & Plan Assessment & Plan (1) BPH w urinary obs/LUTS: Code(s): N40.1 - Benign prostatic hyperplasia with lower urinary tract symptoms; N13.8 - Other obstructive and reflux uropathy (2) Nephrolithiasis: Code(s): N20.0 - Calculus of kidney Plan Stones surveillance Encourage fluids Six month follow-up Medications: Discontinued tamsulosin Discontinued Reason: Patient Completed Course 0.4 mg PO DAILY 30 caps 0RF Patient Instructions: Imaging studies, laboratory and physical exam results were discussed and reviewed in detail. No major barriers to patient understanding were identified. An opportunity to ask questions regarding the treatment plan was provided. All questions were answered. The patient expressed understanding and agreement with the above treatment plan. The patient is aware they should contact our office by phone for worsening of their current condition or the appearance of new urologic symptoms. Compliance is encouraged with any medications and followup testing that is ordered. It is a privilege to participate in the urologic care of your patient. If you have any questions or concerns regarding treatment for the above conditions, or other urologic issues, please do not hesitate to contact me. The office telephone contact is [phone]. This note is constructed using voice recognition software. While every effort has been made to ensure accuracy recycling manager errors may have been included. Yours sincerely, Dr Carl Brooks MD, [facility] - Urology Providers of Expert, Compassionate Care for the Genitourinary System Telehealth Telehealth Location of provider rendering services: practice address Location of patient: address on file Patient Identification confirmed using: Name, : Yes Telehealth method: video Patient verbally consented to treatment: Yes Patient verbally consented to billing insurance company: Yes Patient informed of any privacy concerns related to visit: Yes Coding Level of Care Code Tele Est Pt Level 3 (89950) Diagnoses BPH w urinary obs/LUTS N40.1; N13.8 Nephrolithiasis N20.0
== END 2023-03-05 09:45 | disposition home or self-care (01) ==
LOC: HO.HUSH 09:03
PROVIDERS: PCP Physician Assistant Medical; Visit Provider Urology
DX: N40.1 Benign prostatic hyperplasia with lower urinary tract symptoms (principal); N13.8 Other obstructive and reflux uropathy; N20.0 Calculus of kidney
CPT/HCPCS: 99213

== ENCOUNTER → 2023-03-05 09:03 | Outpatient (BNVA) | payer OTHER, SELFPAY | PROVIDERS: PCP Physician Assistant Medical; Visit Provider Urology ==

== ENCOUNTER 2023-05-05 11:02 | Outpatient (AMB) | payer OTHER, SELFPAY ==
--- NOTE | 2023-05-05 11:03 | MHC.OFFVIS ---
Intake Vital Signs 05/05/23 11:04 Height 5 ft 8 in Weight 167 lb 8.821 oz BMI 25.5 BP 120/70 Blood Pressure Location Lt brachial Position Sitting Intake Visit Reasons: 1 yr f/up Intake Note: 1 year follow up with EKG Allergies Penicillins [PCN] Allergy (Mild, Verified 03/05/23 09:24) HIVES abacavir Allergy (Unknown, Verified 03/05/23 09:24) rash, chills Medication List - Last Reconciled 05/05/23 by Kvng Bonilla MD atorvastatin 20 mg PO BEDTIME lzmxogukk-xduiobxj-zguilgw ala 50-200-25 mg 1 tab PO BEDTIME docusate sodium 100 mg PO BID metformin 500 mg PO DAILY metoprolol succinate ER 25 mg PO BEDTIME multivitamin 1 tab PO DAILY naproxen (Naprosyn) 500 mg PO BID PRN omeprazole 20 mg PO DAILY oxybutynin chloride ER 5 mg PO DAILY 90 days HPI HPI Comments History of Present Illness Details Faizan comes for follow-up. He has been doing well. He continues to have intermittent episodes of jabbing sensation which she describes as strong sensation that comes from back of his chest into the precordial area. Symptoms can last for 2-3 days, intermittently and then dissipate. He now tries to manage his stress during these episodes and his symptoms actually improved. He remains active. Denies any symptoms exertional chest pain or shortness of breath. Blood pressure is generally well controlled. Recently suffered from kidney stones and related sepsis for which she underwent stent placement. [facility] Medical History (Updated 03/05/23 @ 09:36 by Carl Brooks MD) UTI (urinary tract infection) Obstructive uropathy Left ureteral calculus Acidosis, lactic Bandemia Abdominal pain Sepsis associated hypotension HIV (human immunodeficiency virus infection) Anemia GERD (gastroesophageal reflux disease) Arthritis History of pancreatic cancer Hypertensive heart disease HTN (hypertension) Hyperlipidemia Right bundle branch block (RBBB) determined by electrocardiography Surgical History (Updated 03/05/23 @ 09:36 by Carl Brooks MD) S/P ureteral stent placement History of appendectomy Hx of cystoscopy History of Whipple procedure History of tonsillectomy and adenoidectomy Hx of hernia repair History of prostate surgery Hx of colonoscopy Family History Father No problems noted. Mother Cancer Social History Household Members: None Housing: Apartment Are you a primary caregivers non medical to a significant other at home: No Do you presently have visiting nurse or other home services: No Alcohol intake: current Alcohol intake frequency: holidays/special occasions only Comment: aware of trip hazard Patient Tobacco Use Status: Never used Tobacco Substance Use Type: Marijuana service: No Review of Systems Const Denies weakness ENT Denies dizziness Card Denies chest pain, Denies chest pain with activity, Denies syncope, Denies rapid heart rate, Denies pedal edema, Denies edema, Denies leg edema, Denies lightheadedness, Denies palpitations, Denies dyspnea, Denies dyspnea on exertion and Denies orthopnea Resp Denies cough, Denies dyspnea and Denies dyspnea on exertion GI Denies hematochezia and Denies change in stool character Musc Denies abnormal gait, Denies muscle cramps, Denies muscle weakness, Denies numbness, Denies radiating pain into limb and Denies tingling Neuro Denies abnormal gait, Denies dizziness, Denies syncope, Denies numbness, Denies tingling and Denies weakness Endo Denies palpitations Physical Exam Vital Signs: Last Vital Signs BP 120/70 05/05/23 11:04 BMI result Body Mass Index 25.5 Const General: cooperative, healthy appearing, comfortable and no acute distress Nutritional Appearance: malnourished and thin Orientation/consciousness: patient oriented x3 Limitations: no limitations HEENT Face and sinus: Yes normal facial exam Mouth: moist mucous membranes Neck Neck: Yes trachea midline, Yes supple and Yes no JVD Chest Chest palpation & inspection: normal inspection of the chest Resp Effort & Inspection: normal respiratory effort and respiratory distress Auscultation: clear to auscultation bilaterally Cardio Jugular venous distension: no JVD Palpation: normal PMI Rate: regular rate Rhythm: regular rhythm Heart sounds: S1 normal heart sound present, S2 normal heart sound present, no click, no gallops, no murmurs and no rubs GI Other: Compression bandage on Auscultation: normal bowel sounds Skin General skin exam: no rashes or lesions noted Neuro General: patient oriented x3 and no focal motor deficits Extrem General: Yes no clubbing, cyanosis or edema Office Procedures EKG Details: EKG shows normal sinus rhythm with right bundle-branch block with Q-waves in inferior leads, most likely pseudo infarct pattern from body habitus [id number], Complete Assessment & Plan Assessment & Plan (1) Hypertensive heart disease: Code(s): I11.9 - Hypertensive heart disease without heart failure Plan: Hypertensive heart disease well-controlled blood pressure for many years. LVH is actually improved. His blood pressure is currently very well controlled. Advised to continue current medications. Advised to monitor blood pressure at home maintain a log. Low-salt diet was discussed. No signs or symptoms of heart failure. These were discussed advised to call me with any new symptoms. No changes in therapy. (2) Palpitations: Code(s): R00.2 - Palpitations Plan: Intermittent symptoms of palpitation which most likely related to PVCs although they are never been diagnosed. Continue metoprolol therapy. We discussed about benign nature of isolated PVCs in general. He understands and agrees. No further interventions required. Stress mitigation strategies to be pursued. Avoidance of stimulants was discussed. Will follow up in the clinic in 1 year's time, sooner p.r.n.. Thank you for allowing me to partake in his care Coding Level of Care Code Est Pt Level 4 (38099) Diagnoses Hypertensive heart disease I11.9 Palpitations R00.2 CPT Codes EKG - CPT: 09399-[id number], Complete ([id number])
[2023-05-05 11:04] VITALS: BP 120/70; BMI 25.5
== END 2023-05-05 11:41 | disposition home or self-care (01) ==
PROVIDERS: PCP Physician Assistant Medical; Visit Provider Internal Medicine Cardiovascular Disease
DX: I11.9 Hypertensive heart disease without heart failure (principal); R00.2 Palpitations
CPT/HCPCS: 93010; 99214

== ENCOUNTER → 2023-05-05 11:02 | Outpatient (BNVA) | payer OTHER, SELFPAY | PROVIDERS: PCP Physician Assistant Medical; Visit Provider Internal Medicine Cardiovascular Disease | DX: I11.9 Hypertensive heart disease without heart failure (principal); R00.2 Palpitations | CPT/HCPCS: 93005 ==

== ENCOUNTER 2023-08-24 08:11 | Outpatient (REF) | payer OTHER, SELFPAY ==
--- NOTE | ~2023-08-24 | US_ITS ---
EXAMINATION: US RETROPERITONEAL LIMITED (RENAL ONLY) CLINICAL INFORMATION: Calculus of kidney. COMPARISON: Renal ultrasound 02/08/2023. X-ray abdomen 11/07/2022. CT abdomen and pelvis 11/03/2022. TECHNIQUE: Real-time imaging of the kidneys. Limited visualization due to bowel gas. FINDINGS: RIGHT KIDNEY: 10.7 x 4.7 x 5.3 cm (SAG x AP x TRV). No hydronephrosis. No renal calculi. Renal cortical thickness is normal. Limited visualization. LEFT KIDNEY: 10.7 x 4.9 x 4.6 cm (SAG x AP x TRV). At least 3 left renal calculi, largest 0.3 cm lower pole. Possible prominent left extrarenal pelvis. No gross hydronephrosis. Renal cortical thickness is normal. Limited visualization. US/US renal BI IMPRESSION: At least 3 left renal calculi, largest 0.3 cm lower pole. Possible prominent left extrarenal pelvis. No gross hydronephrosis.
== END 2023-08-24 08:12 | disposition home or self-care (01) ==
LOC: HO.US 08:11
PROVIDERS: PCP Physician Assistant Medical; Visit Provider Urology
DX: N20.0 Calculus of kidney (principal)
CPT/HCPCS: 76775

== ENCOUNTER 2023-09-03 09:30 | Outpatient (AMB) | payer OTHER, SELFPAY ==
--- NOTE | 2023-09-03 09:35 | A.OFFVIS_ITS ---
Intake Visit Reasons: 6m/U/S/PVR Intake Note: Patient is present for PVR/6m/US Urology Medication:OXYBUTYNIN Antibiotic Allergy:PENICILLIN Blood Thinner:NONE Last PVR: 0ml's Todays PVR: 17ml's Route Aide Required: No Allergies Penicillins [PCN] Allergy (Mild, Verified 09/03/23 09:36) HIVES abacavir Allergy (Unknown, Verified 09/03/23 09:36) rash, chills HPI Comments Details: Faizan is a pleasant male. He is a patient of Dr. Wheeler. He is seen for the following urologic conditions - lower urinary tract symptoms - nephrolithiasis Current ultrasound shows small stones left side Feels he needs to go back on medication to control bladder instability Previously had used oxybutynin but given age and risk of cognitive impact would suggest trying other agents Start allopurinol and vitamin B6 Interval imaging Nephrolithiasis Initial presentation September 2022 Intervention - 11/21 left ureteroscopy Stone composition - calcified ox monohydrate 75% Imaging - 02/20 renal ultrasound no evidence of stone, mild left hydronephrosis - 08/22 renal ultrasound question small stone left side 3 mm Surveillance imaging Lower urinary tract symptoms Background triple therapy HIV for 1999 diagnosis in 1985 Underwent laser prostatectomy in the past Procedure 06/20 redo laser prostatectomy Cystoscopy 2019 - apical tissue PSA 02/19 1.1 PFSH Medical History (Updated 03/05/23 @ 09:36 by Carl Brooks MD) UTI (urinary tract infection) Obstructive uropathy Left ureteral calculus Acidosis, lactic Bandemia Abdominal pain Sepsis associated hypotension HIV (human immunodeficiency virus infection) Anemia GERD (gastroesophageal reflux disease) Arthritis History of pancreatic cancer Hypertensive heart disease HTN (hypertension) Hyperlipidemia Right bundle branch block (RBBB) determined by electrocardiography Surgical History (Updated 03/05/23 @ 09:36 by Carl Brooks MD) S/P ureteral stent placement History of appendectomy Hx of cystoscopy History of Whipple procedure History of tonsillectomy and adenoidectomy Hx of hernia repair History of prostate surgery Hx of colonoscopy Family History Father No problems noted. Mother Cancer Social History Household Members: None Housing: Apartment Are you a primary acute care physical therapist to a significant other at home: No Do you presently have visiting nurse or other home services: No Alcohol intake: current Alcohol intake frequency: holidays/special occasions only Comment: aware of trip hazard Patient Tobacco Use Status: Never used Tobacco Substance Use Type: Marijuana service: No Review of Systems Const Denies chills and Denies fever(s) Card Reports no additional complaints and Denies syncope Resp Denies cough GI Denies abdominal pain and Denies heartburn Reports as per HPI and Denies change in libido Neuro Denies syncope Psych Denies change in libido Endo Denies change in libido Physical Exam Const General: cooperative, healthy appearing, comfortable and no acute distress Orientation/consciousness: patient oriented x3 HEENT Face and sinus: Yes normal facial exam Mouth: moist mucous membranes Neck Neck: Yes normal visual inspection, Yes full ROM and Yes trachea midline Chest Chest palpation & inspection: normal inspection of the chest Resp Effort & Inspection: normal respiratory effort, able to speak in complete sentences and no respiratory distress GI Inspection: Yes normal to inspection Back/Spine/Pelvis Cervical Spine: normal cervical lordosis Thoracic/Lumbar Spine: thoracic and lumbar spine normal to inspection Skin General skin exam: no rashes or lesions noted Neuro General: patient oriented x3, gait normal, tone normal and moves all extremities Extrem General: Yes normal to inspection and Yes capillary refill normal Results AMB Urinalysis, Automated UA Leukoctes 0 Yuki/uL Last Edit by ORQUIDEA Kulkarni on 09/03/23 09:49 UA Nitrite Negative Last Edit by ORQUIDEA Kulkarni on 09/03/23 09:49 UA Urobilinogen 0.2 mg/dL Last Edit by ORQUIDEA Kulkarni on 09/03/23 09:4 9 UA Protein 0 mg/dL Last Edit by ORQUIDEA Kulkarni on 09/03/23 09:49 UA pH 6.0 Last Edit by ORQUIDEA Kulkarni on 09/03/23 09:49 UA Blood 0 Armando/uL Last Edit by ORQUIDEA Kulkarni on 09/03/23 09:49 UA Specific [place] 1.020 Last Edit by ORQUIDEA Kulkarni on 09/03/23 09: 49 UA Ketone Negative Last Edit by ORQUIDEA Kulkarni on 09/03/23 09:49 UA Bilirubin 0 mg/dL Last Edit by ORQUIDEA Kulkarni on 09/03/23 09:49 UA Glucose 0 mg/dL Last Edit by ORQUIDEA Kulkarni on 09/03/23 09:49 Results Reviewed Results Reviewed: Laboratory Last Values Urine pH (Auto) 6.0 09/03/23 09:48 Specific [place] (Auto) 1.020 09/03/23 09:48 Urine Protein (Auto) 0 mg/dL 09/03/23 09:48 Glucose (UA)(Auto) 0 mg/dL 09/03/23 09:48 Urine Ketones (Auto) Negative 09/03/23 09:48 Urine Blood (Auto) 0 Armando/uL 09/03/23 09:48 Urine Nitrite (Auto) Negative 09/03/23 09:48 Urine Bilirubin (Auto) 0 mg/dL 09/03/23 09:48 Urine Urobilinogen (Auto) 0.2 mg/dL 09/03/23 09:48 Leukocyte Esterase (Auto) 0 Yuki/uL 09/03/23 09:48 Assessment & Plan Assessment & Plan (1) Nephrolithiasis: Code(s): N20.0 - Calculus of kidney Category: Medical (2) BPH w urinary obs/LUTS: Code(s): N40.1 - Benign prostatic hyperplasia with lower urinary tract symptoms; N13.8 - Other obstructive and reflux uropathy Category: Medical (3) Urinary frequency: Code(s): R35.0 - Frequency of micturition Category: Medical Plan Six-month follow-up imaging Orders: Orders AMB Urinalysis Automated Today Z13.9 - Encounter for screening, unspecified US renal BI 6 Months N20.0 - Calculus of kidney Medications: New pyridoxine (vitamin B6) 50 mg PO DAILY 90 tabs 1RF 90 days N20.0 - Calculus of kidney, R35.0 - Frequency of micturition allopurinol 100 mg PO DAILY 90 tabs 1RF 90 days N20.0 - Calculus of kidney, R35.0 - Frequency of micturition fesoterodine ER 4 mg PO DAILY 90 tabs 1RF 90 days R35.0 - Frequency of micturition Patient Instructions: Imaging studies, laboratory and physical exam results were discussed and reviewed in detail. No major barriers to patient understanding were identified. An opportunity to ask questions regarding the treatment plan was provided. All questions were answered. The patient expressed understanding and agreement with the above treatment plan. The patient is aware they should contact our office by phone for worsening of their current condition or the appearance of new urologic symptoms. Compliance is encouraged with any medications and followup testing that is ordered. It is a privilege to participate in the urologic care of your patient. If you have any questions or concerns regarding treatment for the above conditions, or other urologic issues, please do not hesitate to contact me. The office telephone contact is [phone]. This note is constructed using voice recognition software. While every effort has been made to ensure accuracy brim rounder errors may have been included. Yours sincerely, Dr Carl Brooks MD, [facility] - Urology Providers of Expert, Compassionate Care for the Genitourinary System Coding Level of Care Code Est Pt Level 4 (58996) Complex EM visit Add On G2211 Diagnoses Nephrolithiasis N20.0 BPH w urinary obs/LUTS N40.1; N13.8 Urinary frequency R35.0
== END 2023-09-03 10:21 | disposition home or self-care (01) ==
PROVIDERS: PCP Physician Assistant Medical; Visit Provider Urology
DX: N20.0 Calculus of kidney (principal); N40.1 Benign prostatic hyperplasia with lower urinary tract symptoms; N13.8 Other obstructive and reflux uropathy; R35.0 Frequency of micturition; Z13.9 Encounter for screening, unspecified
CPT/HCPCS: 99214

== ENCOUNTER → 2023-09-03 09:30 | Outpatient (BNVA) | payer OTHER, SELFPAY | PROVIDERS: PCP Physician Assistant Medical; Visit Provider Urology | DX: N20.0 Calculus of kidney (principal); N40.1 Benign prostatic hyperplasia with lower urinary tract symptoms; N13.8 Other obstructive and reflux uropathy; R35.0 Frequency of micturition | CPT/HCPCS: 81003 ==

== ENCOUNTER 2024-02-08 08:28 | Outpatient (REF) | payer OTHER, SELFPAY | END 2024-02-08 08:29 | disposition home or self-care (01) | LOC: HO.US 08:28 | PROVIDERS: PCP Physician Assistant Medical; Visit Provider Urology | DX: N20.0 Calculus of kidney (principal) | CPT/HCPCS: 76775 ==

== ENCOUNTER 2024-03-09 09:28 | Outpatient (AMB) | payer OTHER, SELFPAY ==
--- NOTE | 2024-03-09 09:30 | MHC.OFFVIS ---
Intake Visit Reasons: 6M US/PVR/Med Review(Toviaz,Vitamin B6) Intake Note: Patient is present for 6M US/PVR/MED REVIEW Urology Medication:ALLOPURINOL,OXYBUTYNIN,VITAMIN B6,FESOTERODINE Antibiotic Allergy:PENICILLINS Blood Thinner:NONE TODAY'S PVR 14ML'S Executive Administrative Assistant Required: No Allergies Penicillins [PCN] Allergy (Mild, Verified 03/09/24 09:33) HIVES abacavir Allergy (Unknown, Verified 03/09/24 09:33) rash, chills HPI Comments Details: Faizan is a pleasant male. He is a patient of Dr. Wheeler. He is seen for the following urologic conditions - lower urinary tract symptoms - nephrolithiasis Tiny stones on imaging Good response to allopurinol and vitamin B6 Interval imaging at 12 months Nephrolithiasis Initial presentation September 2022 Intervention - 11/21 left ureteroscopy Stone composition - calcified ox monohydrate 75% Imaging - 02/20 renal ultrasound no evidence of stone, mild left hydronephrosis - 08/22 renal ultrasound question small stone left side 3 mm - 02/21 renal ultrasound tiny bilateral stone Surveillance imaging Lower urinary tract symptoms Background triple therapy HIV for 1999 diagnosis in 1985 Underwent laser prostatectomy in the past Procedure 06/20 redo laser prostatectomy Cystoscopy 2019 - apical tissue PSA 02/19 1.1 Four years from pancreatectomy [facility] Medical History (Updated 03/05/23 @ 09:36 by Carl Brooks MD) UTI (urinary tract infection) Obstructive uropathy Left ureteral calculus Acidosis, lactic Bandemia Abdominal pain Sepsis associated hypotension HIV (human immunodeficiency virus infection) Anemia GERD (gastroesophageal reflux disease) Arthritis History of pancreatic cancer Hypertensive heart disease HTN (hypertension) Hyperlipidemia Right bundle branch block (RBBB) determined by electrocardiography Surgical History (Updated 03/05/23 @ 09:36 by Carl Brooks MD) S/P ureteral stent placement History of appendectomy Hx of cystoscopy History of Whipple procedure History of tonsillectomy and adenoidectomy Hx of hernia repair History of prostate surgery Hx of colonoscopy Family History Father No problems noted. Mother Cancer Social History Household Members: None Housing: Apartment Are you a primary career services director to a significant other at home: No Do you presently have visiting nurse or other home services: No Alcohol intake: current Alcohol intake frequency: holidays/special occasions only Comment: aware of trip hazard Patient Tobacco Use Status: Never used Tobacco Substance Use Type: Marijuana service: No Office Procedures Post Void Residual Post Residual Void Post Void Residual (PVR): 14 01532-Uqet Void Residual by ultrasound Results AMB Urinalysis, Automated UA Leukoctes 0 Yuki/uL Last Edit by ORQUIDEA Kulkarni on 03/09/24 09:56 UA Nitrite Negative Last Edit by ORQUIDEA Kulkarni on 03/09/24 09:56 UA Urobilinogen 0.2 mg/dL Last Edit by ORQUIDEA Kulkarni on 03/09/24 09:56 UA Protein 15 mg/dL Last Edit by ORQUIDEA Kulkarni on 03/09/24 09:56 UA pH 6.0 Last Edit by ORQUIDEA Kulkarni on 03/09/24 09:56 UA Blood 0 Armando/uL Last Edit by ORQUIDEA Kulkarni on 03/09/24 09:56 UA Specific [place] 1.025 Last Edit by ORQUIDEA Kulkarni on 03/09/24 09:56 UA Ketone Negative Last Edit by ORQUIDEA Kulkarni on 03/09/24 09:56 UA Bilirubin 1 mg/dL Last Edit by ORQUIDEA Kulkarni on 03/09/24 09:56 UA Glucose 0 mg/dL Last Edit by Quincy Yepez CCM on 03/09/24 09:56 Assessment & Plan Assessment & Plan (1) BPH w urinary obs/LUTS: Code(s): N40.1 - Benign prostatic hyperplasia with lower urinary tract symptoms; N13.8 - Other obstructive and reflux uropathy Category: Medical (2) Nocturia more than twice per night: Code(s): R35.1 - Nocturia Category: Medical (3) Nephrolithiasis: Code(s): N20.0 - Calculus of kidney Category: Medical Plan Refill prescriptions Six-month follow-up PSA Orders: Orders AMB Urinalysis Automated Today Z13.9 - Encounter for screening, unspecified Prostate Specific Antigen 6 Months R35.0 - Frequency of micturition Medications: Refilled pyridoxine (vitamin B6) 50 mg PO DAILY 90 days 90 tabs 1RF N20.0 - Calculus of kidney, R35.0 - Frequency of micturition fesoterodine ER 4 mg PO DAILY 90 days 90 tabs 1RF R35.0 - Frequency of micturition allopurinol 100 mg PO DAILY 90 days 90 tabs 1RF N20.0 - Calculus of kidney, R35.0 - Frequency of micturition Discontinued oxybutynin chloride ER Discontinued Reason: Doctor's Order 5 mg PO DAILY 90 days 90 tabs 1RF R35.0 - Frequency of micturition Patient Instructions: Imaging studies, laboratory and physical exam results were discussed and reviewed in detail. No major barriers to patient understanding were identified. An opportunity to ask questions regarding the treatment plan was provided. All questions were answered. The patient expressed understanding and agreement with the above treatment plan. The patient is aware they should contact our office by phone for worsening of their current condition or the appearance of new urologic symptoms. Compliance is encouraged with any medications and followup testing that is ordered. It is a privilege to participate in the urologic care of your patient. If you have any questions or concerns regarding treatment for the above conditions, or other urologic issues, please do not hesitate to contact me. The office telephone contact is [phone]. This note is constructed using voice recognition software. While every effort has been made to ensure accuracy identification officer errors may have been included. Yours sincerely, Dr Carl Brooks MD, [facility] - Urology Providers of Expert, Compassionate Care for the Genitourinary System Coding Level of Care Code Est Pt Level 3 (28714) Diagnoses BPH w urinary obs/LUTS N40.1; N13.8 Nocturia more than twice per night R35.1 Nephrolithiasis N20.0 CPT Codes Post Residual Void - PVR CPT Code: 97784-Iaum Void Residual by ultrasound ([id number])
== END 2024-03-09 10:15 | disposition home or self-care (01) ==
PROVIDERS: PCP Physician Assistant Medical; Visit Provider Urology
DX: N40.1 Benign prostatic hyperplasia with lower urinary tract symptoms (principal); N13.8 Other obstructive and reflux uropathy; R35.1 Nocturia; N20.0 Calculus of kidney; Z13.9 Encounter for screening, unspecified
CPT/HCPCS: 99213

== ENCOUNTER → 2024-03-09 09:28 | Outpatient (BNVA) | payer OTHER, SELFPAY | PROVIDERS: PCP Physician Assistant Medical; Visit Provider Urology | DX: N40.1 Benign prostatic hyperplasia with lower urinary tract symptoms (principal); N13.8 Other obstructive and reflux uropathy; R35.1 Nocturia; N20.0 Calculus of kidney; Z79.899 Other long term (current) drug therapy | CPT/HCPCS: 51798; 81003 ==

== ENCOUNTER 2024-05-09 09:32 | Outpatient (AMB) | payer OTHER, SELFPAY ==
[2024-05-09 09:43] VITALS: BP 118/78; PULSE 57; BMI 25.1
--- NOTE | 2024-05-09 09:43 | A.OFFVIS_ITS ---
Vital Signs 05/09/24 09:43 Height 5 ft 8 in Weight 165 lb 5.547 oz BMI 25.1 BP 118/78 Blood Pressure Location Lt brachial Position Sitting Pulse 57 Intake Visit Reasons: 1 yr s/p echo Intake Note: 1 year follow-up with ekg feeling good Cloud Software Engineer Required: No Allergies Penicillins [PCN] Allergy (Mild, Verified 03/09/24 09:33) HIVES abacavir Allergy (Unknown, Verified 03/09/24 09:33) rash, chills Medication List - Last Reconciled 05/09/24 by Kvng Bonilla MD allopurinol 100 mg PO DAILY 90 days atorvastatin 20 mg PO BEDTIME emivjimsa-ozfictwc-wwgwlpc ala 50-200-25 mg 1 tab PO BEDTIME docusate sodium 100 mg PO ONCE fesoterodine ER 4 mg PO DAILY 90 days metformin 500 mg PO DAILY metoprolol succinate ER 25 mg PO BEDTIME multivitamin 1 tab PO DAILY naproxen (Naprosyn) 500 mg PO BID PRN omeprazole 20 mg PO DAILY pyridoxine (vitamin B6) 50 mg PO DAILY 90 days HPI Comments Details: Ed comes for follow-up. Overall he has done very well. He says that it has been many months since he has had any symptoms of skipped heartbeats. He said he occasionally still gets them. Denies any exertional symptoms of chest pain or shortness of breath. No orthopnea, PND. No lightheadedness, syncope. Takes all his medications including metoprolol. [facility] Medical History UTI (urinary tract infection) Obstructive uropathy Left ureteral calculus Acidosis, lactic Bandemia Abdominal pain Sepsis associated hypotension HIV (human immunodeficiency virus infection) Anemia GERD (gastroesophageal reflux disease) Arthritis History of pancreatic cancer Hypertensive heart disease HTN (hypertension) Hyperlipidemia Right bundle branch block (RBBB) determined by electrocardiography Surgical History S/P ureteral stent placement History of appendectomy Hx of cystoscopy History of Whipple procedure History of tonsillectomy and adenoidectomy Hx of hernia repair History of prostate surgery Hx of colonoscopy Family History Father No problems noted. Mother Cancer Social History Household Members: None Housing: Apartment Are you a primary manager wound care to a significant other at home: No Do you presently have visiting nurse or other home services: No Alcohol intake: current Alcohol intake frequency: holidays/special occasions only Comment: aware of trip hazard Patient Tobacco Use Status: Never used Tobacco Substance Use Type: Marijuana service: No Review of Systems Const Denies chills, Denies fatigue, Denies fever(s), Denies frequent falls, Denies weakness, Denies weight gain and Denies weight loss ENT Denies dizziness Card Denies chest pain, Denies leg edema, Denies lightheadedness, Denies palpitations, Denies dyspnea, Denies dyspnea on exertion, Denies orthopnea and Denies other (loss of consciousness) Resp Denies cough, Denies dyspnea and Denies dyspnea on exertion GI Denies hematochezia and Denies change in stool character Musc Denies abnormal gait, Denies muscle weakness, Denies numbness, Denies radiating pain into limb and Denies tingling Neuro Denies abnormal gait, Denies dizziness, Denies frequent falls, Denies numbness, Denies tingling and Denies weakness Endo Denies fatigue and Denies palpitations Physical Exam Vital Signs: Last Vital Signs Pulse 57 05/09/24 09:43 BP 118/78 05/09/24 09:43 BMI result Body Mass Index 25.1 Const General: cooperative, healthy appearing, comfortable and no acute distress Nutritional Appearance: malnourished and thin Orientation/consciousness: patient oriented x3 Limitations: no limitations HEENT Face and sinus: Yes normal facial exam Mouth: moist mucous membranes Neck Neck: Yes trachea midline, Yes supple and Yes no JVD Chest Chest palpation & inspection: normal inspection of the chest Resp Effort & Inspection: normal respiratory effort and respiratory distress Auscultation: clear to auscultation bilaterally Cardio Jugular venous distension: no JVD Palpation: normal PMI Rate: regular rate Rhythm: regular rhythm Heart sounds: S1 normal heart sound present, S2 normal heart sound present, no click, no gallops, no murmurs and no rubs GI Other: Compression bandage on Auscultation: normal bowel sounds Skin General skin exam: no rashes or lesions noted Neuro General: patient oriented x3 and no focal motor deficits Extrem General: Yes no clubbing, cyanosis or edema Office Procedures EKG Details: EKG shows normal sinus rhythm with right bundle-branch block with inferior Q- waves which are most likely due to body habitus 99311-[id number], Complete Assessment & Plan Assessment & Plan (1) Hypertensive heart disease: Code(s): I11.9 - Hypertensive heart disease without heart failure Category: Medical Plan: Hypertension with hypertensive heart disease in the past with last echocardiogram did not show any significant left ventricular hypertrophy. Blood pressures remained well optimized on current low-dose metoprolol therapy. Advised to continue monitor blood pressure intermittently at home maintain a log. Goal blood pressure less than 130/84. Low-salt diet was discussed. Will follow-up echocardiogram next year prior to the office visit. Advised to call me with any new symptoms. (2) Right bundle branch block (RBBB) determined by electrocardiography: Code(s): I45.10 - Unspecified right bundle-branch block Category: Medical Plan: Right bundle-branch block without any new changes. No interventions required. Will continue monitor by annual EKG. Will follow up in the clinic in 1 year's time, sooner p.r.n.. Thank you for allowing me to partake in his care Coding Level of Care Code Est Pt Level 3 (38740) Complex EM visit Add On G2211 Diagnoses Hypertensive heart disease I11.9 Right bundle branch block (RBBB) determined by electrocardiography I45.10 CPT Codes EKG - CPT: 14766-Rmxnvefqqekxunudv, Complete ([id number])
--- OUTSIDE RECORDS SUMMARY | 2024-05-09 10:45 | XMS_ITS | Clinical Summary ---
Author Organization [facility] Address [address] [place] [address] Care Team Providers Care Baling Machine Operator Name Role Phone Liborio Noland PA-C Primary Care Provider Allergies Active Allergy Reactions Criticality Noted Date Comments Penicillins 04/17/2020 Medications Medication Sig Dispensed Refills Start Date End Date Status omeprazole (PriLOSEC) 20 MG capsule Take 1 capsule (20 mg total) by mouth daily. 0 Active tamsulosin (FLOMAX) 0.4 MG CAPS Take 1 capsule (0.4 mg total) by mouth daily. 0 Active atorvastatin (LIPITOR) tablet 20 mg Take 1 tablet (20 mg total) by mouth daily. 0 Active docusate sodium (COLACE) 100 MG capsule Take 1 capsule (100 mg total) by mouth 2 (two) times a day. 0 Active bictegravir-emtricitab ine-tenofovir (Biktarvy) 50-200-25 MG TABS tablet Take 1 tablet by mouth daily. 0 Active metoprolol tartrate (LOPRESSOR) 25 MG tablet Take by mouth 2 (two) times a day. 0 Active oxybutynin (DITROPAN-XL) 5 MG 24 hr tablet Take 1 tablet (5 mg total) by mouth daily. 0 Active metFORMIN (GLUCOPHAGE) tablet 500 mg Take 1 tablet (500 mg total) by mouth 2 (two) times a day with meals. 0 Active Active Problems No known active problems Social History Tobacco Use Types Packs/Day Years Used Date Smoking Tobacco: Never Smokeless Tobacco: Never Alcohol Use Standard Drinks/Week Comments No 0 (1 standard drink = 0.6 oz pure alcohol) Stopped Drinking due to health concerns Sex and Gender Information Value Date Recorded Sex Assigned at Not on file Gender Identity Not on file Sexual Orientation Not on file Job Start Date Occupation Industry Not on file Not on file Not on file Last Filed Vital Signs Vital Sign Reading Time Taken Comments Blood Pressure 105/59 12/31/2022 9:20 AM EDT Pulse 49 12/31/2022 9:20 AM EDT Temperature 36.6 ??C (97.8 ??F) 12/31/2022 9:20 AM ED T Respiratory Rate - - Oxygen Saturation 100% 12/31/2022 9:20 AM EDT Inhaled Oxygen Concentration - - Weight 71.7 kg (158 lb) 12/31/2022 9:20 AM EDT Height 174 cm (5' 8.5 ) 12/31/2022 9:20 AM EDT Body Mass Index 23.67 12/31/2022 9:20 AM EDT Plan of Treatment Health Maintenance Due Date Last Done Comments Hepatitis C Screening 1950 COVID-19 Vaccine (#1) 1950 Depression Screening 1962 Preventative Health Evaluation 1968 Colon Cancer Screening (Colonoscopy) 06/13/1995 Hepatitis B Vaccines (3 of 3 - 19+ 3-dose series) 11/02/2001 09/07/2001, 04/11/2001 Fall Risk Assessment 06/13/2015 Influenza Vaccine (#1) 2023 3, 12/02/2021, 11/01/2019, Additional history exists RSV Adult > 60+ Yrs or (1 - 1-dose 75+ series) 2025 DTap / Tdap / Td (3 - Td or Tdap) 03/30/2032 03/30/2022, 02/10/2012 Shingrix-Zoster Vaccine Completed 11/13/2019, 04/24 Pneumococcal Vaccine Completed 2022, 01/04/2018, 02/14/2016, Additional history exists RSV Ped < 20 months Aged Out No longe r eligible based on patient's age to complete this topic Care Teams Baling Machine Operator Relationship Specialty Start Date End Date Liborio Noland PA-C PCP - General Medical Services 10/07/20
--- OUTSIDE RECORDS SUMMARY | 2024-05-09 10:45 | XMS_ITS | Encounter Summary ---
Author Organization [facility] Address [address] [place] [address] Care Team Providers Care Yard General Car Supervisor Name Role Phone Liborio Noland Primary Care Provider [phone] [phone] Encounter Details Date Type Department Care Team (Latest Contact Info) Description 04/10/2024 9:47 AM EST - 04/10/2024 11:59 PM [facility] Hospital Encounter XRAY - [facility] [address] [place] [address] Persistent cough Discharge Disposition: Home or Self Care Social History Tobacco Use Types Packs/Day Years Used Date Smoking Tobacco: Never Smokeless Tobacco: Never Alcohol Use Standard Drinks/Week Comments Yes 0 (1 standard drink = 0.6 oz pur e alcohol) Sex and Gender Information Value Date Recorded Sex Assigned at Not on file Legal Sex Male 1:04 AM EST Gender Identity Not on file Sexual Orientation Not on file documented as of this encounter Medications at Time of Discharge allopurinoL (ZYLOPRIM) 100 mg tablet Take 1 tablet (100 mg total) by mouth 1 (one) time each day. 11/22/2023 atorvastatin (LIPITOR) 20 mg tablet TAKE 1 TABLET BY MOUTH EVERY DAY 90 tablet 3 04/11/2024 bictegravir-emtri citabine-tenofovi r alafenamide (Biktarvy) 50-200-25 mg per tablet Take 1 tablet by mouth 1 (one) time each day. cefuroxime (CEFTIN) 500 mg tablet 11/08/2022 diphenhydrAMINE (BenadryL) 25 mg capsule 1 CAPSULE EVERY 4 TO 6 HOURS NEEDED docusate sodium (COLACE) 100 mg capsule TAKE 1 CAPSULE BY MOUTH TWICE A DAY 60 capsule 3 01/11/2024 fesoterodine 4 mg tablet extended release 24 hr Take 1 tablet by mouth 1 (one) time each day. 11/22/2023 loperamide (IMODIUM A-D) 2 mg tablet Take 1 Tablet by mouth daily as needed for Diarrhea. 08/13/2021 metFORMIN (GLUCOPHAGE) 500 mg tablet TAKE 1 TABLET BY MOUTH DAILY (WITH BREAKFAST) FOR BLOOD SUGAR. 08/24/2023 metoprolol succinate (TOPROL-XL) 25 mg 24 hr tablet TAKE 1 TABLET BY MOUTH EVERY DAY 90 tablet 3 02/15/2024 metoprolol tartrate (LOPRESSOR) 25 mg tablet Take by mouth 2 (two) times a day. multivit-min/ferr ous fumarate (MULTI VITAMIN ORAL) 1 tablet daily omeprazole (PriLOSEC) [address] capsule TAKE 1 CAPSULE BY MOUTH EVERY DAY 90 capsule 3 03/16/2024 oxyBUTYnin XL (DITROPAN-XL) 5 mg 24 hr tablet Take 1 tablet (5 mg total) by mouth 1 (one) time each day. polyethylene glycol (MIRALAX) 17 gram packet MIX 17 GRAMS INTO LIQUID AND DRINK BY MOUTH ONCE A DAYFOR 1 WEEK THEN EVERY 3 DAYS NEEDED 03/27/2021 tamsulosin (FLOMAX) 0.4 mg 24 hr capsule TAKE 1 CAPSULE BY MOUTH DAILY. TAKE 30 MINS AFTER SAME MEAL EVERY DAY. 90 capsule 1 03/16/2024 atorvastatin (LIPITOR) 20 mg tablet Take 1 tablet (20 mg total) by mouth 1 (one) time each day. 04/11/2024 documented as of this encounter Discharge Disposition Disposition Code Departure Means Destination Home or Self Care documented in this encounter Plan of Treatment Upcoming Encounters Date Type Department Care Team (Late st Contact Info) Description 05/17/2024 8:45 AM EDT Appointment [facility] CT Scan [address] [place] [address] 10/11/2024 8:00 AM EDT Office Visit Adult Medicine [address] [address] Liborio Noland PA [address] [place] [address] 01/11/2025 8:30 AM EST Office Visit General Surgery [facility] 175 [facility] [address] [place] [phone] Alexander Sampson MD 175 [facility] [address] / fax [phone] to [address] [place] [address] 01/16/2025 9:00 AM EST Office Visit [facility] Hematology Oncology [address] [place] [address] Michael Ny MD [address] [place] [address] documented as of this encounter Procedures Procedure Name Priority Date/Time Associated Diagnosis Comments XR CHEST 2 VIEWS Routine 04/10/2024 9:56 AM EST Persistent cough documented in this encounter Results * XR Chest 2 Views (04/10/2024 9:56 AM EST) Anatomical Region Laterality Modality Body Radiographic Christiane ging 04/10/2024 8:05 PM EST Impressions 04/10/2024 8:10 PM EST No evidence of an acute chest process. POS - [id number] -------- FINAL REPORT -------- Dictated By: Maria Eugenia Rodriguez Dictated Date: 04/10/2024 20:05 ET Assigned Physician: Maria Eugenia Rodriguez Reviewed and Electronically Signed By: Maria Eugenia Rodriguez Signed Date: 04/10/2024 20:10 ET Workstation ID: [id number] Transcribed By: Self Edit Transcribed Date: 04/10/2024 20:05 ET Narrative 04/10/2024 8:10 PM EST EXAM: Chest x-ray HISTORY: ??Persistent cough. COMPARISON: 07/08/2018, chest CT 11/05/2021 FINDINGS: PA and lateral views of the chest were performed. ?? No focal infiltrate, pleural effusion, or evidence of pulmonary edema. Heart is not enlarged. ??Mediastinal contours are stable. Degenerative changes in the spine. Procedure Note Maria Eugenia Rodriguez MD - 04/10/2024 EXAM: Chest x-ray HISTORY: Persistent cough. COMPARISON: 07/08/2018, chest CT 11/05/2021 FINDINGS: PA and lateral views of the chest were performed. No focal infiltrate, pleural effusion, or evidence of pulmonary edema.Heart is not enlarged. Mediastinal contours are stable. Degenerativechanges in the spine. IMPRESSION: No evidence of an acute chest process. POS - [id number] -------- FINAL REPORT -------- Dictated By: Maria Eugenia Rodriguez Dictated Date: 04/10/2024 20:05 ET Assigned Physician: Maria Eugenia Rodriguez Reviewed and Electronically Signed By: Maria Eugenia Rodriguez Signed Date: 04/10/2024 20:10 ET Workstation ID: [id number] Transcribed By: Self Edit Transcribed Date: 04/10/2024 20:05 ET Liborio STALLWORTH IMG XR PROCEDURES Final R esult documented in this encounter Visit Diagnoses Diagnosis Persistent cough documented in this encounter Care Teams Yard General Car Supervisor Relationship Specialty Start Date End Date Liborio Noland PA [address] [place] [id number] PCP - General Internal Medicine 01/05/24 documented as of this encounter
--- OUTSIDE RECORDS SUMMARY | 2024-05-09 10:46 | XMS_ITS | Encounter Summary ---
Author Organization [facility] Address [address] [place] [address] Care Team Providers Care Conductor Symphonic Orchestra Name Role Phone Liborio Noland Primary Care Provider [phone] [phone] Reason for Visit * Reason Comments Follow-up Med f/u Encounter Details Date Type Department Care Team (Late st Contact Info) Description 04/10/2024 8:15 AM EST Office Visit Adult Medicine [facility] [address] [place] [phone] Liborio Noland PA [address] [place] [address] Type 2 diabetes mellitus without complication, without long-term current use of insulin (CMS/HCC) (Primary Dx); Benign prostatic hyperplasia with nocturia; Gastroesophageal reflux disease without esophagitis; Human immunodeficiency virus (HIV) disease (CMS/HCC); Mixed hyperlipidemia; Iron deficiency anemia, unspecified iron deficiency anemia type; Subclinical hypothyroidism; Pancreatic adenocarcinoma (CMS/HCC); Persistent cough Social History Tobacco Use Types Packs/Day Years Used Date Smoking Tobacco: Never Smokeless Tobacco: Never Tobacco Cessation:Counseling Given: Not Answered Alcohol Use Standard Drinks/Week Comments Yes 0 (1 standard drink = 0.6 oz pur e alcohol) Sex and Gender Information Value Date Recorded Sex Assigned at Not on file Legal Sex Male 1:04 AM EST Gender Identity Not on file Sexual Orientation Not on file documented as of this encounter Last Filed Vital Signs Vital Sign Reading Time Taken Comments Blood Pressure 107/62 04/10/2024 9:13 AM EST Pulse 56 04/10/2024 9:13 AM EST Temperature 36.7 ??C (98.1 ??F) 04/10/2024 9:13 AM ES T Respiratory Rate 12 04/10/2024 9:13 AM EST Oxygen Saturation - - Inhaled Oxygen Concentration - - Weight 74.5 kg (164 lb 3.2 oz) 04/10/2024 9:13 A M EST Height 172.7 cm (5' 8 ) 04/10/2024 9:13 AM EST Body Mass Index 24.97 04/10/2024 9:13 AM EST documented in this encounter Progress Notes * FEDERICA Ashley - 04/10/2024 8:15 AM EST CHIEF COMPLAINT: Follow-up (Med f/u) IDENTIFIER: Faizan Rudd is a 73 y.o. old male. HPI: This pleasant gentleman presents today for follow-up. He does have a little bit of a persistent cough ever since he had a respiratory infection about 5 or 6 weeks ago. The cough seems to be nonproductive. Denies shortness of breath or wheezing. Overall symptoms have improved denies any fevers. He also had a CT recently which we did review. There were some findings that the liver and I was not really sure what the best approach was given his history of the Whipple procedure so I did reach out to his surgeon and oncologist in regards to this. ROS: GENERAL: Negative for malaise, significant weight loss and fever RESPIRATORY: See above CARDIOVASCULAR: Negative for chest pain, leg swelling and palpitations ENDOCRINE: Negative for cold or heat intolerance, polyuria, polydipsia and goiter NEURO: No persistent headache, fainting, seizures, strokes, TIAs, weakness, numbness or tingling PAST MEDICAL HISTORY: Patient Active Problem List Diagnosis Date Noted Type 2 diabetes mellitus without complication, without long-term current use of insulin (CMS/HCC) 11/11/2022 Frequent stools 08/13/2021 Incisional hernia of anterior abdominal wall without obstruction or gangrene 11/19/2020 Iron deficiency anemia 11/14/2020 Pancreatic adenocarcinoma (CMS/HCC) 06/18/2020 GERD (gastroesophageal reflux disease) 08/15/2018 Benign prostatic hyperplasia with nocturia 02/16/2017 Right bundle branch block (RBBB) 08/28/2016 Subclinical hypothyroidism 07/22/2016 Retinal vein occlusion, branch ([facility]) 08/07/2011 Mixed hyperlipidemia 08/02/2009 Human immunodeficiency virus (HIV) disease ([facility]) 05/10/2005 Hypertrophy of breast 05/10/2005 Past Surgical History: Procedure Laterality Date APPENDECTOMY 02/11/2015 PROCEDURE: HISTORICAL APPENDECTOMY BREAST SURGERY 2005, 2008ish PROCEDURE: NE UNLISTED PROCEDURE BREAST; COMMENT: ? bilat COLONOSCOPY 2006 PROCEDURE: HISTORICAL COLONOSCOPY; COMMENT: Negative screening examination COLONOSCOPY 09/25/2016 PROCEDURE: HISTORICAL COLONOSCOPY; COMMENT: 5 mm cecal polyp: Tubular adenoma COLONOSCOPY 12/24/2022 PROCEDURE: HISTORICAL COLONOSCOPY; COMMENT: muslu 4 polyps 3 years CYSTOSCOPY 11/03/2022 PROCEDURE: HISTORICAL CYSTOSCOPY; COMMENT: Left cystoscopy, stent placement for left ureteral stonedr. thanh conte FLEXIBLE SIGMOIDOSCOPY 2001 PROCEDURE: HISTORICAL FLEXIBLE SIGMOIDOSCOPY; COMMENT: negative HERNIA REPAIR PROCEDURE: HISTORICAL HERNIA REPAIR/ING; COMMENT: times 2 1988, 1991 OTHER SURGICAL HISTORY PROCEDURE: ---- OTHER ----; COMMENT: fatty tumor chest TONSILLECTOMY PROCEDURE: HISTORICAL TONSILLECTOMY TURP / TRANSURETHRAL INCISION / DRAINAGE PROSTATE 06/23/2021 PROCEDURE: HISTORICAL TURP; COMMENT: Dr. Johnnie perrin laser SOCIAL HISTORY: Social History Tobacco Use Smoking status: Never Smokeless tobacco: Never Substance Use Topics Alcohol use: Yes FAMILY HISTORY: Family History Problem Relation Name Age of Onset Breast cancer Mother 40 39.00 bilateral; age 42, suicided Kidney failure Father 44, renal transplant Other (Other: Other) Maternal Grandmother ? cause of Other (Other: Other) Maternal Grandfather ? cause of Other (Other: heart failure) Paternal Grandmother at age 88 Pancreatic cancer Paternal Grandfather 87.00 at age 87 Other (Other: traumatic brain injury) Uncle maternal uncle Other (Other: diverticulitis) Brother suicided at 16; inflam bowel dis? Other (Other: heart disease) Aunt at age 81; also polio Blindness Neg Hx Cataracts Neg Hx Glaucoma Neg Hx Macular degeneration Neg Hx Strabismus Neg Hx Family Status Relation Name Status Mother 40 Father (Not Specified) MGM (Not Specified) MGF (Not Specified) PGM (Not Specified) PGF (Not Specified) Uncle (Not Specified) Brother (Not Specified) Aunt (Not Specified) Neg Hx (Not Specified) No partnership data on file MEDICATIONS DISCONTINUED/REORDERED: There are no discontinued medications. ACTIVE MEDICATIONS: Outpatient Medications Marked as Taking for the 04/10/24 encounter (Office Visit) with FEDERICA Ashley Medication Sig Dispense Refill allopurinoL (ZYLOPRIM) 100 mg tablet Take 1 tablet (100 mg total) by mouth 1 (one) time each day. atorvastatin (LIPITOR) 20 mg tablet Take 1 tablet (20 mg total) by mouth 1 (one) time each day. ejpgoehqhor-pxggrkzybucrp-foaxeprxn alafenamide (Biktarvy) 50-200-25 mg per tablet Take 1 tablet bymouth 1 (one) time each day. diphenhydrAMINE (BenadryL) 25 mg capsule 1 CAPSULE EVERY 4 TO 6 HOURS NEEDED docusate sodium (COLACE) 100 mg capsule TAKE 1 CAPSULE BY MOUTH TWICE A DAY 60 capsule 3 fesoterodine 4 mg tablet extended release 24 hr Take 1 tablet by mouth 1 (one) time each day. loperamide (IMODIUM A-D) 2 mg tablet Take 1 Tablet by mouth daily as needed for Diarrhea. metFORMIN (GLUCOPHAGE) 500 mg tablet TAKE 1 TABLET BY MOUTH DAILY (WITH BREAKFAST) FOR BLOOD SUGAR. metoprolol succinate (TOPROL-XL) 25 mg 24 hr tablet TAKE 1 TABLET BY MOUTH EVERY DAY 90 tablet 3 multivit-min/ferrous fumarate (MULTI VITAMIN ORAL) 1 tablet daily omeprazole (PriLOSEC) [address] capsule TAKE 1 CAPSULE BY MOUTH EVERY DAY 90 capsule 3 oxyBUTYnin XL (DITROPAN-XL) 5 mg 24 hr tablet Take 1 tablet (5 mg total) by mouth 1 (one) time eachday. polyethylene glycol (MIRALAX) 17 gram packet MIX 17 GRAMS INTO LIQUID AND DRINK BY MOUTH ONCE A DAYFOR 1 WEEK THEN EVERY 3 DAYS NEEDED tamsulosin (FLOMAX) 0.4 mg 24 hr capsule TAKE 1 CAPSULE BY MOUTH DAILY. TAKE 30 MINS AFTER SAME MEAL EVERY DAY. 90 capsule 1 ALLERGIES: Allergies Allergen Reactions Abacavir Rash Rash/Dermatitis Other Seasonal Allergies Penicillin V Potassium Hives Hives/urticaria Penicillins PHYSICAL EXAM: Visit Vitals BP 107/62 Pulse 56 Temp 36.7 ??C (98.1 ??F) (Temporal) Resp 12 Ht 1.727 m (68 ) Wt 74.5 kg (164 lb 3.2 oz) BMI 24.97 kg/m?? Smoking Status Never BSA 1.88 m?? General appearance: alert and oriented, in no acute distress Lungs: clear to auscultation bilaterally Heart: regular rate and rhythm, S1, S2 normal, no murmur, click, rub or gallop Extremities: extremities normal, warm and well-perfused; no cyanosis, clubbing, or edema Neurologic: Grossly normal LABS/IMAGING: Chest x-ray Lab Results Component Value Date HGBA1C 6.1 04/03/2024 CHOL 119 04/03/2024 LDL 59 09/21/2023 HDL 59 04/03/2024 TRIG 112 04/03/2024 IMPRESSION: 1. Type 2 diabetes mellitus without complication, without long-term current use of insulin (CMS/HCC) 2. Benign prostatic hyperplasia with nocturia 3. Gastroesophageal reflux disease without esophagitis 4. Human immunodeficiency virus (HIV) disease (CMS/HCC) 5. Mixed hyperlipidemia 6. Iron deficiency anemia, unspecified iron deficiency anemia type 7. Subclinical hypothyroidism 8. Pancreatic adenocarcinoma (CMS/HCC) 9. Persistent cough PLAN: 1. Lungs are clear on exam probably postinfectious bronchitis but will check a chest x-ray given the duration. 2. We did review his CT scan. He had a few findings probably most significant was possible liver lesion although it could be artifactual as well. I did reach out to his surgeon and oncologist to see what the next step would be. 3. Diabetes under excellent control continue present regimen follow-up 6 months repeat labs at nextvisit. 4. Blood pressure doing well continue present regimen. 5. Hyperlipidemia, continue statin. 6. History of HIV followed by infectious disease specialist. 7. History of pancreatic cancer no signs of recurrence does have the liver lesion which we will follow-up on. 8. History of iron deficiency will monitor labs he is not taking any iron levels were a little bit high this last time we will follow-up on this next visit. I have applied the code G2211 to this patient???s visit as the primary care provider dealing with (list the condition that is/are complex) leading to the extensive work up, and management associated with the medical care of this patient. This patient???s serious conditions and complex medical conditions also required several consultants needing management and coordination through my office. I have reviewed all information as it pertains to the management of this patient for final approval. Advised the patient to call me if any problems. Patient understands the plan. Patient is in agreement with the plan. documented in this encounter Plan of Treatment Upcoming Encounters Date Type Department Care Team (Late st Contact Info) Description 05/17/2024 8:45 AM EDT Appointment [facility] CT Scan [address] [place] [phone] 10/11/2024 8:00 AM EDT Office Visit Adult Medicine [facility] [address] [place] [address] Liborio Noland PA [address] [place] [address] 01/11/2025 8:30 AM EST Office Visit General Surgery [facility] [address] [phone] Alexander Sampson MD [address] [place] [address] / fax [phone] to [address] [place] [address] 01/16/2025 9:00 AM EST Office Visit [facility] Hematology Oncology [address] [place] [phone] Michael Ny MD [address] [place] [address] Scheduled Orders Name Type Priority Associated Diagnoses Orde r Schedule Lipid panel with reflex to direct LDL Lab Routine Type 2 diabetes mellitus without complication, without long-term current use of insulin ([facility]) Benign prostatic hyperplasia with nocturia Gastroesophageal reflux disease without esophagitis Human immunodeficiency virus (HIV) disease (CMS/HCC) Mixed hyperlipidemia Iron deficiency anemia, unspecified iron deficiency anemia type Subclinical hypothyroidism Pancreatic adenocarcinoma (CMS/HCC) 1 Occurrences starting 04/10/2024 until 04/10/2025 Microalbumin creatinine urine ratio Lab Routine Type 2 diabetes mellitus without complication, without long-term current use of insulin (CMS/HCC) Benign prostatic hyperplasia with nocturia Gastroesophageal reflux disease without esophagitis Human immunodeficiency virus (HIV) disease (CMS/HCC) Mixed hyperlipidemia Iron deficiency anemia, unspecified iron deficiency anemia type Subclinical hypothyroidism Pancreatic adenocarcinoma (CMS/HCC) 1 Occurrences starting 04/10/2024 until 04/10/2025 Comprehensive metabolic panel Lab Routine Type 2 diabetes mellitus without complication, without long-term current use of insulin (CMS/HCC) Benign prostatic hyperplasia with nocturia Gastroesophageal reflux disease without esophagitis Human immunodeficiency virus (HIV) disease (CMS/HCC) Mixed hyperlipidemia Iron deficiency anemia, unspecified iron deficiency anemia type Subclinical hypothyroidism Pancreatic adenocarcinoma (CMS/HCC) 1 Occurrences starting 04/10/2024 until 04/10/2025 Hemoglobin A1c Lab Routine Type 2 diabetes mellitus without complication, without long-term current use of insulin (CMS/HCC) Benign prostatic hyperplasia with nocturia Gastroesophageal reflux disease without esophagitis Human immunodeficiency virus (HIV) disease (CMS/HCC) Mixed hyperlipidemia Iron deficiency anemia, unspecified iron deficiency anemia type Subclinical hypothyroidism Pancreatic adenocarcinoma (CMS/HCC) 1 Occurrences starting 04/10/2024 until 04/10/2025 CBC and differential Lab Routine Type 2 diabetes mellitus without complication, without long-term current use of insulin ([facility]) Benign prostatic hyperplasia with nocturia Gastroesophageal reflux disease without esophagitis Human immunodeficiency virus (HIV) disease (CMS/HCC) Mixed hyperlipidemia Iron deficiency anemia, unspecified iron deficiency anemia type Subclinical hypothyroidism Pancreatic adenocarcinoma (CMS/HCC) 1 Occurrences starting 04/10/2024 until 04/10/2025 Iron and TIBC Lab Routine Type 2 diabetes mellitus without complication, without long-term current use of insulin (CMS/HCC) Benign prostatic hyperplasia with nocturia Gastroesophageal reflux disease without esophagitis Human immunodeficiency virus (HIV) disease (CMS/HCC) Mixed hyperlipidemia Iron deficiency anemia, unspecified iron deficiency anemia type Subclinical hypothyroidism Pancreatic adenocarcinoma (CMS/HCC) 1 Occurrences starting 04/10/2024 until 04/10/2025 Thyroid stimulating hormone with reflex to free t4 and free t3 Lab Routine Type 2 diabetes mellitus without complication, without long-term current use of insulin (CMS/HCC) Benign prostatic hyperplasia with nocturia Gastroesophageal reflux disease without esophagitis Human immunodeficiency virus (HIV) disease (CMS/HCC) Mixed hyperlipidemia Iron deficiency anemia, unspecified iron deficiency anemia type Subclinical hypothyroidism Pancreatic adenocarcinoma (CMS/HCC) 1 Occurrences starting 04/10/2024 until 04/10/2025 documented as of this encounter Results * XR Chest 2 Views (04/10/2024 9:56 AM EST) Anatomical Region Laterality Modality Body Radiographic Christiane ging 04/10/2024 8:05 PM EST Impressions 04/10/2024 8:10 PM EST No evidence of an acute chest process. POS - [id number] -------- FINAL REPORT -------- Dictated By: Maria Eugenia Rodriguez Dictated Date: 04/10/2024 20:05 ET Assigned Physician: Maria Eugenia Rodriguez Reviewed and Electronically Signed By: Maria Eugenia Rodriguez Signed Date: 04/10/2024 20:10 ET Workstation ID: [id number] Transcribed By: Self Edit Transcribed Date: 04/10/2024 [...] of an acute chest process. POS - [id number] -------- FINAL REPORT -------- Dictated By: Maria Eugenia Rodriguez Dictated Date: 04/10/2024 20:05 ET Assigned Physician: Maria Eugenia Rodriguez Reviewed and Electronically Signed By: Maria Eugenia Rodriguez Signed Date: 04/10/2024 20:10 ET Workstation ID: [id number] Transcribed By: Self Edit Transcribed Date: 04/10/2024 20:05 ET Liborio STALLWORTH IMG XR PROCEDURES Final R esult documented in this encounter Visit Diagnoses Diagnosis Type 2 diabetes mellitus without complication, without long-term current use of insulin (CMS/HCC)- Primary Benign prostatic hyperplasia with nocturia Gastroesophageal reflux disease without esophagitis Esophageal reflux Human immunodeficiency virus (HIV) disease (CMS/HCC) Human immunodeficiency virus [HIV] disease Mixed hyperlipidemia Iron deficiency anemia, unspecified iron deficiency anemia type Subclinical hypothyroidism Other specified acquired hypothyroidism Pancreatic adenocarcinoma (CMS/HCC) Malignant neoplasm of pancreas, part unspecified Persistent cough Persistent cough documented in this encounter Care Teams Conductor Symphonic Orchestra Relationship Specialty Start Date End Date Liborio Noland PA [address] [place] [address] PCP - General Internal Medicine 01/05/24 documented as of this encounter
--- OUTSIDE RECORDS SUMMARY | 2024-05-09 10:46 | XMS_ITS | Clinical Summary ---
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 Active metoprolol tartrate (LOPRESSOR) 25 mg tablet Take by mouth 2 (two) times a day. Active oxyBUTYnin XL (DITROPAN-XL) 5 mg 24 hr tablet Take 1 tablet (5 mg total) by mouth 1 (one) time each day. Active diphenhydrAMINE (BenadryL) 25 mg capsule 1 CAPSULE EVERY 4 TO 6 HOURS NEEDED Active cefuroxime (CEFTIN) 500 mg tablet 3 Active loperamide (IMODIUM A-D) 2 mg tablet Take 1 Tablet by mouth daily as needed for Diarrhea. 2 Active metFORMIN (GLUCOPHAGE) 500 mg tablet TAKE 1 TABLET BY MOUTH DAILY (WITH BREAKFAST) FOR BLOOD SUGAR. 4 Active multivit-min/fe rrous fumarate (MULTI VITAMIN ORAL) 1 tablet daily Active polyethylene glycol (MIRALAX) 17 gram packet MIX 17 GRAMS INTO LIQUID AND DRINK BY MOUTH ONCE A DAYFOR 1 WEEK THEN EVERY 3 DAYS NEEDED 2 Active docusate sodium (COLACE) 100 mg capsule TAKE 1 CAPSULE BY MOUTH TWICE A DAY 60 capsule 3 4 Active allopurinoL (ZYLOPRIM) 100 mg tablet Take 1 tablet (100 mg total) by mouth 1 (one) time each day. 4 Active fesoterodine 4 mg tablet extended release 24 hr Take 1 tablet by mouth 1 (one) time each day. 4 Active metoprolol succinate (TOPROL-XL) 25 mg 24 hr tablet TAKE 1 TABLET BY MOUTH EVERY DAY 90 tablet 3 4 Active tamsulosin (FLOMAX) 0.4 mg 24 hr capsule TAKE 1 CAPSULE BY MOUTH DAILY. TAKE 30 MINS AFTER SAME MEAL EVERY DAY. 90 capsule 1 5 Active omeprazole (PriLOSEC) [address] capsule TAKE 1 CAPSULE BY MOUTH EVERY DAY 90 capsule 3 5 Active atorvastatin (LIPITOR) 20 mg tablet TAKE 1 TABLET BY MOUTH EVERY DAY 90 tablet 3 5 Active atorvastatin (LIPITOR) 20 mg tablet Take 1 tablet (20 mg total) by mouth 1 (one) time each day. 025 Discontinued Active Problems Problem Noted Date Diagnosed Date Type 2 diabetes mellitus wit hout complication, without long-term current use of insulin 11/11/2022 Frequent stools 08/13/2021 Incisional hernia of anterio r abdominal wall without obstruction or gangrene 11/19/2020 Iron deficiency anemia 11/14/2020 Pancreatic adenocarcinoma 06/18/2020 Overview (11/30/2023): S/P whipple procedure Drs. Bose GERD (gastroesophageal reflux disease) 9 Benign prostatic hyperplasia with nocturia 02/16 Right bundle branch block (RBBB) 08/28/2016 Subclinical hypothyroidism 07/22/2016 Overview (11/30/2023): TSH 5.02, 07/14/16 Retinal vein occlusion, branch 08/07/2011 Overview (11/30/2023): Left, 2011 Mixed hyperlipidemia 08/02/2009 Human immunodeficiency virus (HIV) disease 05/10 Overview (11/30/2023): Dx July 2000 Hypertrophy of breast 05/10/2005 Encounters Date Type Department Care Team Description 04/10/2024 9:47 AM EST - 04/10/2024 11:59 PM EST Hospital Encounter [address] [phone] Persistent cough Discharge Disposition: Home or Self Care 04/10/2024 8:15 AM EST Office Visit Adult Medicine [address] [phone] Liborio Noland PA Type 2 diabetes mellitus without complication, without long-term current use of insulin (CMS/HCC) (Primary Dx); Benign prostatic hyperplasia with nocturia; Gastroesophageal reflux disease without esophagitis; Human immunodeficiency virus (HIV) disease (CMS/HCC); Mixed hyperlipidemia; Iron deficiency anemia, unspecified iron deficiency anemia type; Subclinical hypothyroidism; Pancreatic adenocarcinoma (CMS/HCC); Persistent cough 03/28/2024 9:48 AM EST - 03/28/2024 11:59 PM EST Hospital Encounter 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) Discharge Disposition: Home or Self Care 03/27/2024 Telephone Adult Medicine [address] [phone] Liborio Noland PA Labs Only (All labs ordered on 10/05/23) from Last 3 Months Immunizations Name Administration Dates Next Due H1N1 Inj Preservative Free 02/08/2009 Hepatitis B (Bygqliq-N-Bgeuz , Recombivax HB-Adult) 19yo and older 09/07/2001,04/11/2001 Influenza trivalent, 0.5mL ( Fluzone High-dose) 65yo and older 11/27/2022,12/02/2021,11/01/2019,11/23,11/26/2015 Influenza trivalent, with pr eservative (Fluzone; Afluria) 6mo and older 11/11/2014,12/06/2013,11/25/2012,11/23,12/18/2010,11/30/2009,11/27/2008 ,11/24/2007,11/24/2006,01/24/2006,11/29 Influenza, Unspecified 11/21/2017 Moderna SARS-CoV-2 COVID-19, mRNA, LNP-S, preservative free 07/15/2021 PPD Test 08/01/2000 Pfizer (ages 12 & older) Biv alent, COVID-19 01/20/2022 Pneumococcal conjugate 13 va lent (Prevnar 13, PCV13) 2mo and older 02/14/2016 Pneumococcal conjugate 20 va lent (Prevnar 20, PCV 20) 2mo and older 2022 Pneumococcal polysaccharide 23 valent (Pneumovax 23) 2yo and older 01/04/2018,07/20/2006,02/17/2001 RSV, bivalent, protein subun it RSVpreF, 0.5mL, Preservative Free (Arexvy) 60yo and older 12/21/2022 Td Tetanus diptheria, preser vative free (Tenivac) 7yo and older 04/18/2001 Tdap Tetanus diptheria acell ular pertussis (Boostrix; Adacel) 7yo and older 03/30/2022,02/10/2012 Zoster Live 09/14/2013 Zoster recombinant (Shingrix ) 19yo and older 11/13/2019,04/24/2019 Surgical History Surgery Date Site/Laterality Comments HERNIA REPAIR PROCEDURE: HISTORICAL HERNIA REPAIR/ING; COMMENT: times 2 1988, 1991 OTHER SURGICAL HISTORY PROCEDURE: ---- OTHER ----; COMMENT: fatty tumor chest TONSILLECTOMY PROCEDURE: HISTORICAL TONSILLECTOMY APPENDECTOMY 02/11/2015 PROCEDURE: HISTORICAL APPENDECTOMY FLEXIBLE SIGMOIDOSCOPY 2001 PROCEDURE: HISTORICAL FLEXIBLE SIGMOIDOSCOPY; COMMENT: negative COLONOSCOPY 2006 PROCEDURE: HISTORICAL COLONOSCOPY; COMMENT: Negative screening examination COLONOSCOPY 09/25/2016 PROCEDURE: HISTORICAL COLONOSCOPY; COMMENT: 5 mm cecal polyp: Tubular adenoma BREAST SURGERY 2005, 2008ish PROCEDURE: DE UNLISTED PROCEDURE BREAST; COMMENT: ? bilat TURP / TRANSURETHRAL INCISION / DRAINAGE PROSTATE 06/23/2021 PROCEDURE: HISTORICAL TURP; COMMENT: Dr. Johnnie perrin laser CYSTOSCOPY 11/03/2022 PROCEDURE: HISTORICAL CYSTOSCOPY; COMMENT: Left cystoscopy, stent placement for left ureteral stone dr. thanh conte COLONOSCOPY 12/24/2022 PROCEDURE: HISTORICAL COLONOSCOPY; COMMENT: muslu 4 polyps 3 years Medical History Medical History Date Comments Human immunodeficiency virus (HIV) disease (CMS/HCC) 05/10/2005 DX:Human immunodeficiency vi everett (HIV) disease ([facility]); COMMENT: Dx July 2000 Hypertrophy of breast 05/10/2005 DX:Hypertr ophy of breast Special screening for malign ant neoplasms, colon 03/24/2006 DX:Special screening for mal ignant neoplasms, colon; COMMENT: Negative colonoscopy 03/24/2006, no colon cancer screening needed for 10 years. History of actinic keratoses DX: History of actinic keratoses; COMMENT: Actinic keratosis 05/17 right side of face GERD (gastroesophageal reflux disease) 08/15/2018 DX:GERD (gastroesophageal reflux disease) Family History Medical History Relation Name Comments Other: heart disease Aunt at age 81; also polio Other: diverticulitis Brother suicid ed at 16; inflam bowel dis? Kidney failure Father 44, mu l transplant Other: Other Maternal Grandfather ? cause of Other: Other Maternal Grandmother ? cause of Breast cancer Mother 40 bilateral; d age 42, suicided Pancreatic cancer Paternal Grandfather di ed at age 87 Other: heart failure Paternal Grandmother at age 88 Other: traumatic brain injury Uncle maternal uncle Blindness Neg Hx Cataracts Neg Hx Glaucoma Neg Hx Macular degeneration Neg Hx Strabismus Neg Hx Relation Name Status Comments Aunt Brother Father Maternal Grandfather Maternal Grandmother Mother 40 Paternal Grandfather Paternal Grandmother Uncle Social History Tobacco Use Types Packs/Day Years [...] on file Sexual Orientation Not on file Obstetrics History Last Filed Vital Signs Vital Sign Reading Time Taken Comments Blood Pressure 107/62 04/10/2024 9:13 AM EST Pulse 56 04/10/2024 9:13 AM EST Temperature 36.7 ??C (98.1 ??F) 04/10/2024 9:13 AM ES T Respiratory Rate 12 04/10/2024 9:13 AM EST Oxygen Saturation 100% 01/12/2024 8:42 AM EST Inhaled Oxygen Concentration - - Weight 74.5 kg (164 lb 3.2 oz) 04/10/2024 9:13 A M EST Height 172.7 cm (5' 8 ) 04/10/2024 9:13 AM EST Body Mass Index 24.97 04/10/2024 9:13 AM EST Plan of Treatment Upcoming Encounters Date Type Department Care Team (Late st Contact Info) Description 05/17/2024 8:[address] [facility] Scan [address] [place] [phone] 10/11/2024 8:00 AM EDT Office Visit Adult Medicine [facility] [address] [place] [address] Liborio Noland PA [address] [place] [address] 01/11/2025 8:30 AM EST Office Visit General Surgery [facility] [address] [phone] Alexander Boes MD 175 [facility] 110 / fax [phone] to [address] [place] [address] 01/16/2025 9:00 AM EST Office Visit [facility] Hematology Oncology [address] [place] [phone] Michael Ny MD [address] [place] [address] Health Maintenance Due Date Last Done Comments Meningococcal ACWY Vaccine (1 - Risk 2-dose series) 1952 Hepatitis A Vaccines (1 of 2 - Risk 2-dose series) 1969 Hepatitis B Vaccines (3 of 3 - Risk 3-dose series) 11/02/2001 09/07/2001, 04/11/2001 MMR Vaccines (1 of 2 - Risk 2-dose series) 10/12/2013 Depression Screening 02/06/2022 Falls Risk Assessment 02/06/2022 Social Influencers of Health Screening 02/06/2022 Diabetes: Annual Foot Exam 12/26/2023 12/25/2022 Diabetes: Annual Retina Eye Exam 09/23/2024 09/24/2023 Diabetes: Blood Sugar Control Test (HGBA1C) 10/01/2024 04/03/2024, 09/21/2023, 09/21/2023 Diabetes: Annual Urine Albumin-Creatinine Ratio (uACR) 04/03/2025 04/03/2024, 09/21/2023 Diabetes: Annual GFR (Glomerular Filtration Rate) 05/02/2025 05/02/2024, 04/03/2024, 03/27/2024, Additional history exists Colorectal Cancer Screening: Colonoscopy 12/24/2025 12/24/2022 Cholesterol Screening (Lipid Panel) 04/03/2029 04/03/2024, 09/21/2023, 09/21/2023 DTaP,Tdap,and Td Vaccines (4 - Td or Tdap) 03/30/2032 03/30/2022, 02/10/2012, 04/18/2001 Zoster Vaccines Completed 11/13/2019, 04/02, 09/14/2013 Hepatitis C Screening Completed 04/09/2020 Pneumococcal Vaccine: 50+ Years Completed 2022, 08/22/2021, 01/04/2018, Additional history exists RSV Immunization Patients 60+ Years Old Completed 12/21/2022 Influenza Vaccine Completed 12/30/2023, , 12/02/2021, Additional history exists COVID-19 Vaccine Completed 02/03/2024, 06/2022, 01/20/2022, Additional history exists HIB Vaccines Aged Out No longer eligi ble based on patient's age to complete this topic HPV Vaccines Aged Out No longer eligi ble based on patient's age to complete this topic IPV Vaccines Aged Out No longer eligi ble based on patient's age to complete this topic Meningococcal B Vacine Aged Out No lo nger eligible based on patient's age to complete this topic RSV Immunization Patients Under 20 months Aged Out No longer eligible based on patient's age to complete this topic Varicella Vaccines Aged Out No longer eligible based on patient's age to complete this topic Procedures Procedure Name Priority Date/Time Associated Diagnosis Comments CBC WITH AUTO DIFFERENTIAL Routine 05/02/2024 8:47 AM EST Human immunodeficiency virus (HIV) disease ([facility]) TREPONEMA PALLIDUM ANTIBODY WITH REFLEX TO RPR AND PARTICLE AGGLUTINATION Routine 05/02/2024 8:47 AM EST Human immunodeficiency virus (HIV) disease ([facility]) CREATININE, SERUM Routine 05/02/2024 8:4 7 AM EST Human immunodeficiency virus (HIV) disease ([facility]) ASPARTATE AMINOTRANSFERASE Routine 05/02/2024 8:47 AM EST Human immunodeficiency virus (HIV) disease ([facility]) ALANINE AMINOTRANSFERASE Routine 05/02/2024 8:47 AM EST Human immunodeficiency virus (HIV) disease ([facility]/HCC) CBC AND DIFFERENTIAL Routine 05/02/2024 8:47 AM EST Human immunodeficiency virus (HIV) disease ([facility]) HIV 1, 2 ANTIBODY, P24 ANTIGEN WITH REFLEX TO DIFFERENTIATION Routine 05/02/2024 8:47 AM EST Human immunodeficiency virus (HIV) disease ([facility]) LYMPHOCYTE T-CELL PANEL Routine 05/03/19 8:47 AM EST Human immunodeficiency virus (HIV) disease ([facility]) XR CHEST 2 VIEWS Routine 04/10/2024 9:56 AM EST Persistent cough TRIIODOTHYRONINE FREE Routine 04/03/2024 8:00 AM EST Type 2 diabetes mellitus without complication, without long-term current use of insulin ([facility]) Iron deficiency anemia, unspecified iron deficiency anemia type Mixed hyperlipidemia Subclinical hypothyroidism FREE THYROXINE WITH REFLEX TO FREE TRIIODOTHYRONINE Routine 04/03/2024 8:00 AM EST Type 2 diabetes mellitus without complication, without long-term current use of insulin ([facility]) Iron deficiency anemia, unspecified iron deficiency anemia type Mixed hyperlipidemia Subclinical hypothyroidism CBC WITH AUTO DIFFERENTIAL Routine 04/03/2024 8:00 AM EST Type 2 diabetes mellitus without complication, without long-term current use of insulin ([facility]) Iron deficiency anemia, unspecified iron deficiency anemia type Mixed hyperlipidemia Subclinical hypothyroidism COMPREHENSIVE METABOLIC PANEL Routine 04/03/2024 8:00 AM EST Type 2 diabetes mellitus without complication, without long-term current use of insulin ([facility]) Iron deficiency anemia, unspecified iron deficiency anemia type Mixed hyperlipidemia Subclinical hypothyroidism MICROALBUMIN CREATININE URINE RATIO Routine 04/03/2024 8:00 AM EST Type 2 diabetes mellitus without complication, without long-term current use of insulin ([facility]) Iron deficiency anemia, unspecified iron deficiency anemia type Mixed hyperlipidemia Subclinical hypothyroidism LIPID PANEL WITH REFLEX TO DIRECT LDL Routine 04/03/2024 8:00 AM EST Type 2 diabetes mellitus without complication, without long-term current use of insulin ([facility]) Iron deficiency anemia, unspecified iron deficiency anemia type Mixed hyperlipidemia Subclinical hypothyroidism THYROID STIMULATING HORMONE WITH REFLEX TO FREE T4 AND FREE T3 Routine 04/03/2024 8:00 AM EST Type 2 diabetes mellitus without complication, without long-term current use of insulin ([facility]) Iron deficiency anemia, unspecified iron deficiency anemia type Mixed hyperlipidemia Subclinical hypothyroidism CBC AND DIFFERENTIAL Routine 04/03/2024 8:00 AM EST Type 2 diabetes mellitus without complication, without long-term current use of insulin ([facility]) Iron deficiency anemia, unspecified iron deficiency anemia type Mixed hyperlipidemia Subclinical hypothyroidism IRON AND TIBC Routine 04/03/2024 8:00 AM EST Type 2 diabetes mellitus without complication, without long-term current use of insulin (CMS/HCC) Iron deficiency anemia, unspecified iron deficiency anemia type Mixed hyperlipidemia Subclinical hypothyroidism HEMOGLOBIN A1C Routine 04/03/2024 8:00 AM EST Type 2 diabetes mellitus without complication, without long-term current use of insulin (CMS/HCC) Iron deficiency anemia, unspecified iron deficiency anemia type Mixed hyperlipidemia Subclinical hypothyroidism CT ABDOMEN W CONTRAST Routine 03/28/2024 10:24 AM EST 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) COMPREHENSIVE METABOLIC PANEL Routine 03/27/2024 2:30 PM EST Ampullary carcinoma (CMS/HCC) DIABETES EYE EXAM Routine 09/24/2023 DIABETES FOOT EXAM Routine 12/25/2022 COLONOSCOPY Routine 12/24/2022 HEPATITIS C SCREENING Routine 04/09/2020 from Last 3 Months or Most Recently Relevant to Health Maintenance Results * (ABNORMAL) HIV 1,2 antibody, p24 antigen with reflex to differentiation (05/02/2024 8:47 AM EST) Pathologist [facility] HIV Combo AB/AG Positive (A) Negative LAB CHEMISTRY METHOD 05/02/2024 1:[address] [facility] Comment: Positive HIV screen has been sent out for HIV-1/HIV-2 differentiation testing. Patients should not be considered positive for HIV antibodies unless confirmed by the differentiation test. ?? If the differentiation test is negative or indeterminate, HIV viral load testing is recommended. ?? Note--> This test may not be added on due to different specimen requirements. Blood Venous blood specimen / Unknown Venipuncture / Unknown 05/02/2024 8:47 AM EST 05/02/2024 10:38 AM EST Narrative [facility] - 05/02/2024 1:43 PM EST This assay is a 4th generation assay allowing for earlier detection of HIV infection by detecting the presence of the HIV-1 p24 antigen as well as the traditional antibodies to HIV type 1 (including group O) and type 2. ??Use of a 4th generation assay is the current CDC recommendation for HIV screening. No Bowman MD LAB BLOOD ORDERABLES Azeb l Result Performing Organization Address City/[facility]/ZIP Co de Phone Number [facility] [address] [place] [address], [place] [phone] * Treponema pallidum antibody with reflex to RPR and particle agglutination (05/02/2024 8:47 AM EST) [facility] T. Pallidum Antibodies Negative Negative LAB CHEMISTRY METHOD 05/02/2024 11:[address] [facility] Blood Venous blood specimen / Unknown Venipuncture / Unknown 05/02/2024 8:47 AM EST 05/02/2024 10:38 AM EST No Bowman MD LAB BLOOD ORDERABLES Azeb l Result Performing Organization Address [facility] Co de Phone Number [facility] [address] [place] [address], * (ABNORMAL) CBC auto differential (05/02/2024 8:47 AM EST) Only the most recent of2 resultswithin the time period is included. [facility] WBC 6.1 4.8 - 10.8 K/mcL LAB HEMETOLOGY METHOD 05/02/2024 11:[address] [facility] RBC 4.10(L) 4.50 - 5.50 M/mcL LAB HEMETOLOGY METHOD 05/02/2024 11:03 AM [facility] Hemoglobin 14.3 13.5 - 17.5 g/dL LAB HEMETOLOGY METHOD 05/02/2024 11:03 AM [facility] Hematocrit 42.6 42.0 - 54.0 % LAB HEMETOLOGY METHOD 05/02/2024 11:03 AM [facility] MCV 102.9(H) 79.0 - 98.0 FL LAB HEMETOLOGY METHOD 05/02/2024 11:03 AM [facility] MCH 34.5(H) 27.0 - 32.0 pcg LAB HEMETOLOGY METHOD 05/02/2024 11:03 AM [facility] MCHC 33.6 32.0 - 37.0 g/dL LAB HEMETOLOGY METHOD 05/02/2024 11:03 AM [facility] RDW 12.7 11.0 - 15.0 % LAB HEMETOLOGY METHOD 05/02/2024 11:03 AM [facility] Platelets 136 130 - 400 K/mcL LAB HEMETOLOGY METHOD 05/02/2024 11:03 AM [facility] MPV 10.1 7.0 - 11.0 FL LAB HEMETOLOGY METHOD 05/02/2024 11:03 AM [facility] NRBC 0.0 <1.0 % LAB HEMETOLOGY METHOD 05/02/2024 11:03 AM [facility] NRBC Absolute 0.00 <0.10 K/mcL LAB HEMETOLOGY METHOD 05/02/2024 11:03 AM [facility] Neutrophils Relative 56.1 % LAB HEMETOLOGY METHOD 05/02/2024 11:03 AM [facility] Lymphocytes Relative 33.8 % LAB HEMETOLOGY METHOD 05/02/2024 11:03 AM [facility] Monocytes Relative 7.0 % LAB HEMETOLOGY METHOD 05/02/2024 11:03 AM [facility] Eosinophils Relative 1.5 % LAB HEMETOLOGY METHOD 05/02/2024 11:03 AM [facility] Basophils Relative 1.1 % LAB HEMETOLOGY METHOD 05/02/2024 11:03 AM [facility] Immature Granulocytes Relative 0.5 % LAB HEMETOLOGY METHOD 05/02/2024 11:03 AM [facility] Neutrophils Absolute 3.42 1.50 - 7.00 K/mcL LAB HEMETOLOGY METHOD 05/02/2024 11:03 AM [facility] Lymphocytes Absolute 2.06 1.00 - 5.00 K/mcL LAB HEMETOLOGY METHOD 05/02/2024 11:03 AM [facility] Monocytes Absolute 0.43 0.20 - 1.00 K/mcL LAB HEMETOLOGY METHOD 05/02/2024 11:03 AM [facility] Eosinophils Absolute 0.09 0.00 - 0.50 K/mcL LAB HEMETOLOGY METHOD 05/02/2024 11:03 AM [facility] Basophils Absolute 0.07 0.00 - 0.20 K/mcL LAB HEMETOLOGY METHOD 05/02/2024 11:03 AM [facility] Immature Granulocytes Absolute 0.03 0.00 - 0.03 K/mcL LAB HEMETOLOGY METHOD 05/02/2024 11:03 AM [facility] Blood Venous blood specimen / Unknown Venipuncture / Unknown 05/02/2024 8:47 AM EST 05/02/2024 10:39 AM EST us No Bowman MD LAB BLOOD ORDERABLES Azeb enamorado Result [facility] [address] [place] [address], * (ABNORMAL) Lymphocyte T-cell panel (05/02/2024 8:47 AM EST) CD4 900 426 - 1,776 cells/mcL 05/04/2024 2:02 PM EST [facility] CD8 947(H) 161 - 838 cells/mcL 05/04/2024 2:02 PM EST [facility] CD4/CD8 Ratio 0.95 0.90 - 4.90 05/04/2024 2:02 PM EST [facility] CD4 % 43 33 - 64 % 05/04/2024 2:02 PM EST [facility] CD8 % 46(H) 10 - 39 % 05/04/2024 2:02 PM EST [facility] Blood Venous blood specimen / Unknown Venipuncture / Unknown 05/02/2024 8:47 AM EST 05/02/2024 10:38 AM EST No Bowman MD LAB MOLECULAR DIAGNOSTICS ORDERABLES Final Result Performing Organization Address City/[facility]/ZIP Co de Phone Number [facility] [address] [place] [address], [place] [phone] * Creatinine (05/02/2024 8:47 AM EST) [facility] Signature Creatinine 1.05 0.70 - 1.30 mg/dL LAB CHEMISTRY METHOD 05/02/2024 11:[address] [facility] eGFR 75 >=60 mL/min/1. 73m2 LAB CHEMISTRY METHOD 05/02/2024 11:[address] [facility] Comment:Calculation based on the??Chronic Kidney Disease Epidemiology Collaboration (CKD-EPI) equation refit??without adjustment for race. Blood Venous blood specimen / Unknown Venipuncture / Unknown 05/02/2024 8:47 AM EST 05/02/2024 10:38 AM EST No Bowman MD LAB BLOOD ORDERABLES Azeb l Result [facility] [address] [place] [address], [place] [phone] * Alanine aminotransferase (05/02/2024 8:47 AM EST) ALT (SGPT) 36 10 - 60 unit/L LAB CHEMISTRY METHOD 05/02/2024 11:[address] [facility] Blood Venous blood specimen / Unknown Venipuncture / Unknown 05/02/2024 8:47 AM EST 05/02/2024 10:38 AM EST No Bowman MD LAB BLOOD ORDERABLES Azeb l Result Performing Organization Address City/[facility]/ZIP Co de Phone Number [facility] [address] [place] [address], * Aspartate aminotransferase (05/02/2024 8:47 AM EST) AST (SGOT) 24 10 - 42 unit/L LAB CHEMISTRY METHOD 05/02/2024 11:[address] [facility] Blood Venous blood specimen / Unknown Venipuncture / Unknown 05/02/2024 8:47 AM EST 05/02/2024 10:38 AM EST No Bowman MD LAB BLOOD ORDERABLES Azeb l Result Performing Organization Address City/[facility]/ZIP Co de Phone Number [facility] [address] [place] [address], * XR Chest 2 Views (04/10/2024 9:56 AM EST) Anatomical Region Laterality Modality Body Radiographic Christiane ging 04/10/2024 8:05 PM EST Impressions 04/10/2024 8:10 PM EST No evidence of an acute chest process. POS - [id number] -------- FINAL REPORT -------- Dictated By: Maria Eugenia Rodriguez Dictated Date: 04/10/2024 20:05 ET Assigned Physician: Maria Eugenia Rodriguez Reviewed and Electronically Signed By: Maria Eugenia Rodriguez Signed Date: 04/10/2024 20:10 ET Workstation ID: [id number] Transcribed By: Self Edit Transcribed Date: 04/10/2024 [...] of an acute chest process. POS - [id number] -------- FINAL REPORT -------- Dictated By: Maria Eugenia Rodriguez Dictated Date: 04/10/2024 20:05 ET Assigned Physician: Maria Eugenia Rodriguez Reviewed and Electronically Signed By: Maria Eugenia Rodriguez Signed Date: 04/10/2024 20:10 ET Workstation ID: [id number] Transcribed By: Self Edit Transcribed Date: 04/10/2024 20:05 ET Liborio STALLWORTH IMG XR PROCEDURES Final R esult * (ABNORMAL) Thyroid stimulating hormone with reflex to free t4 and free t3 (04/03/2024 8:00 AM EST) TSH 5.86(H) 0.40 - 4.00 mcIU/mL LAB CHEMISTRY METHOD 04/03/2024 11:[address] [facility] Blood Venous blood specimen / Unknown Venipuncture / Unknown 04/03/2024 8:00 AM EST 04/03/2024 8:00 AM EST Liborio STALLWORTH LAB BLOOD ORDERABLES Azeb l Result Performing Organization Address City/[facility]/ZIP Co de Phone Number [facility] [address] [place] [address], [place] [phone] * Free thyroxine with reflex to free triiodothyronine (04/03/2024 8:00 AM EST) [facility] Free T4 1.04 0.70 - 1.80 ng/dL LAB CHEMISTRY METHOD 04/03/2024 11:43 AM [facility] Blood Venous blood specimen / Unknown Venipuncture / Unknown 04/03/2024 8:00 AM EST 04/03/2024 8:00 AM EST Liborio STALLWORTH LAB BLOOD ORDERABLES Azeb l Result Performing Organization Address [facility]/ZIP Co de Phone Number [facility] [address] [place] [address], [place] [phone] * Lipid panel with reflex to direct LDL (04/03/2024 8:00 AM EST) [facility] Cholesterol 119 0 - 200 mg/dL LAB CHEMISTRY METHOD 04/03/2024 11:40 AM [facility] Triglycerides 112 0 - 150 mg/dL LAB CHEMISTRY METHOD 04/03/2024 11:40 AM [facility] HDL 59 >=40 mg/dL LAB CHEMISTRY METHOD 04/03/2024 11:40 AM [facility] LDL Calculated 38 0 - 100 mg/dL LAB CHEMISTRY METHOD 04/03/2024 11:40 AM [facility] VLDL Cholesterol Brice 22.4 mg/dL LAB CHEMISTRY METHOD 04/03/2024 11:40 AM [facility] Non HDL Chol. (LDL+VLDL) 60 <145 mg/dL LAB CHEMISTRY METHOD 04/03/2024 11:40 AM [facility] Chol/HDL Ratio 2.0 0.0 - 4.4 LAB CHEMISTRY METHOD 04/03/2024 11:[address] [facility] Blood Venous blood specimen / Unknown Venipuncture / Unknown 04/03/2024 8:00 AM EST 04/03/2024 8:00 AM EST [facility] LAB BLOOD ORDERABLES Azeb l Result Performing Organization Address City/[facility]/ZIP Co de Phone Number [facility] [address] [place] [address], [place] [phone] * (ABNORMAL) Iron and TIBC (04/03/2024 8:00 AM EST) Iron 234(H) 50 - 160 mcg/dL LAB CHEMISTRY METHOD 04/03/2024 11:[address] [facility] TIBC 346 250 - 450 mcg/dL LAB CHEMISTRY METHOD 04/03/2024 11:40 AM [facility] Iron Saturation 68(H) 20 - 50 % LAB CHEMISTRY METHOD 04/03/2024 11:40 AM [facility] Blood Venous blood specimen / Unknown Venipuncture / Unknown 04/03/2024 8:00 AM EST 04/03/2024 8:00 AM EST [facility] CT LAB BLOOD ORDERABLES Azeb l Result Performing Organization Address City/[facility]/ZIP Co de Phone Number [facility] [address] [place] [address], [place] [phone] * Microalbumin creatinine urine ratio (04/03/2024 8:00 AM EST) Creatinine, Urine 168.0 mg/dL LAB CHEMISTRY METHOD 04/03/2024 12:[address] [facility] Microalb, Ur 27.2 0.0 - 29.0 mg/L LAB CHEMISTRY METHOD 04/03/2024 12:00 PM [facility] Microalb/Creat Ratio 16 <30 mg/g creat LAB CHEMISTRY METHOD 04/03/2024 12:00 PM [facility] Urine Urine specimen obtained by clean catch procedure / Unknown Non-blood Collection / Unknown 04/03/2024 8:00 AM EST 04/03/2024 8:00 AM EST Liborio STALLWORTH LAB URINE ORDERABLES Azeb l Result Performing Organization Address City/[facility]/ZIP Co de Phone Number [facility] [address] [place] [address], [place] [phone] * Triiodothyronine free (04/03/2024 8:00 AM EST) T3, Free 284 230 - 420 pcg/dL LAB CHEMISTRY METHOD 04/03/2024 12:09 PM [facility] Blood Venous blood specimen / Unknown Venipuncture / Unknown 04/03/2024 8:00 AM EST 04/03/2024 8:00 AM EST Liborio STALLWORTH LAB BLOOD ORDERABLES Azeb l Result Performing Organization Address City/[facility]/ZIP Co de Phone Number [facility] [address] [place] [address], [place] [phone] * Hemoglobin A1c (04/03/2024 8:00 AM EST) Hemoglobin A1C 6.1 <6.5 % LAB CHEMISTRY METHOD 04/03/2024 12:02 PM [facility] Mean Bld Glu Estim. 128 mg/dL LAB CHEMISTRY METHOD 04/03/2024 12:02 PM [facility] Blood Venous blood specimen / Unknown Venipuncture / Unknown 04/03/2024 8:00 AM EST 04/03/2024 8:00 AM EST us Liborio STALLWORTH LAB BLOOD ORDERABLES Azeb enamorado Result [facility] [address] [place] [address], * (ABNORMAL) Comprehensive metabolic panel (04/03/2024 8:00 AM EST) Only the most recent of2 resultswithin the time period is included. Sodium 137 133 - 145 mmol/L LAB CHEMISTRY METHOD 04/03/2024 11:40 AM [facility] Potassium 4.3 3.5 - 5.5 mmol/L LAB CHEMISTRY METHOD 04/03/2024 11:40 AM [facility] Chloride 104 96 - 110 mmol/L LAB CHEMISTRY METHOD 04/03/2024 11:40 AM [facility] CO2 29 21 - 32 mmol/L LAB CHEMISTRY METHOD 04/03/2024 11:40 AM [facility] Anion Gap 4 3 - 11 LAB CHEMISTRY METHOD 04/03/2024 11:40 AM [facility] Glucose 142(H) 70 - 100 mg/dL LAB CHEMISTRY METHOD 04/03/2024 11:40 AM [facility] BUN 19 5 - 25 mg/dL LAB CHEMISTRY METHOD 04/03/2024 11:40 AM [facility] Creatinine 1.00 0.70 - 1.30 mg/dL LAB CHEMISTRY METHOD 04/03/2024 11:40 AM [facility] eGFR 79 >=60 mL/min/1. 73m2 LAB CHEMISTRY METHOD 04/03/2024 11:40 AM [facility] Comment:Calculation based on the??Chronic Kidney Disease Epidemiology Collaboration (CKD-EPI) equation refit??without adjustment for race. BUN/Creatinine Ratio 19.0 LAB CHEMISTRY METHOD 04/03/2024 11:40 AM [facility] Calcium 8.9 8.5 - 10.5 mg/dL LAB CHEMISTRY METHOD 04/03/2024 11:40 AM [facility] AST (SGOT) 29 10 - 42 unit/L LAB CHEMISTRY METHOD 04/03/2024 11:40 AM [facility] ALT (SGPT) 39 10 - 60 unit/L LAB CHEMISTRY METHOD 04/03/2024 11:40 AM [facility] Alkaline Phosphatase 68 42 - 121 unit/L LAB CHEMISTRY METHOD 04/03/2024 11:40 AM [facility] Total Protein 6.9 6.0 - 8.0 g/dL LAB CHEMISTRY METHOD 04/03/2024 11:40 AM [facility] Albumin 3.8 3.2 - 5.0 g/dL LAB CHEMISTRY METHOD 04/03/2024 11:40 AM [facility] Total Bilirubin 1.0 0.0 - 1.4 mg/dL LAB CHEMISTRY METHOD 04/03/2024 11:[address] [facility] Blood Venous blood specimen / Unknown Venipuncture / Unknown 04/03/2024 8:00 AM EST 04/03/2024 8:00 AM EST us Liborio STALLWORTH LAB BLOOD ORDERABLES Azeb l Result [facility] [address] [place] [address], * CT Abdomen w Contrast (03/28/2024 10:24 AM EST) Anatomical Region Laterality Modality Body Computed Tomogra phy 03/29/2024 5:33 PM EST Impressions 03/29/2024 5:53 PM EST 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 Nonspecific but likely unchanged mesenteric lymph nodes. There is an enhancing abnormality in the dome of the left lobe of the liver. ??This single phase exam does not allow full characterization. ??This is not demonstrated on previous exams. Although this could represent a perfusion abnormality an underlying lesion is difficult to exclude. This is an area which would likely encounter extensive cardiac pulsation artifact on MRI. Consider multiphasic liver mass protocol CT or short interval follow-up. ?? 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 TECHNIQUE: Multidetector CT. Helical examination of the abdomen. Imaging performed after the IV administration of contrast. Reformatting in the coronal and sagittal planes. DLP: 559 mGy-cm Dose optimization was performed including the use of low-dose iterative reconstruction technique with automatic exposure control based on patient size. Type of contrast: ISOVUE 370 Volume of IV contrast: 90 mL Volume of contrast discarded: 0 mL FINDINGS: LIVER: The liver contour is smooth. Circumscribed low attenuating 1.2 cm mass in the lower anterior portion of hepatic segment 8. ??This is smaller than 09/06/2018 and does not require any specific imaging follow-up. There is an approximately 1.3 cm hyperdense abnormality abutting the dome of hepatic segment 2 (; 601/30; 602/67). ??This is not demonstrated on 12/16/2023, 09/06/2018 or MRI 04/15/2020. ??This could be a perfusion abnormality or a vascular anomaly. ??However, in the setting of known malignancy this requires careful assessment. There is pneumobilia. ?? BILIARY TRACT: ??There is gas in the common duct. ??There is no mass at the hepaticojejunal anastomosis region. SPLEEN: No suspicious abnormality. ?? PANCREAS: There is some dilation of the pancreatic duct distally. ??The duct is normal caliber in the pancreatic body. ??There is some enhancement at the extreme pancreatic tail similar to previous. ?? ADRENAL GLANDS: Normal; no mass. ?? KIDNEYS: No suspicious mass. ??The enhancement is symmetric. ?? GASTROINTESTINAL TRACT: ?Contrast has traversed the hepaticojejunostomy and is present within the distal small bowel and proximal colon. There has been previous Whipple procedure. ??There is no measurable mass at the surgical bed. There is some swirling of the mesenteric vessels but no localized fat stranding. ABDOMINAL WALL: No significant hernia is appreciated. ?? LYMPHOVASCULAR STRUCTURES AND FLUID: There is no abdominal aortic aneurysm. ??There is some atherosclerotic calcification. The celiac axis is patent as is the central portion of the hepatic and splenic arteries. ??The SMA is patent. ??The portal vein enhances. There are scattered lymph nodes including adjacent to the left lower liver (3/49), mesentery and some nonenlarged retroperitoneal lymph nodes. ??No significant interval change. There is no free fluid in the upper abdomen. No measurable omental or mesenteric mass. ?? VISUALIZED LOWER CHEST: Marked coronary calcification. ??No suspicious lung base nodules. ?? MUSCULOSKELETAL: No acute or suspicious osseous abnormality. ??Slight irregularity of the anterior right iliac crest which appears chronic. ??There is degenerative change greatest at L5/S1. 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 Helical examination of the abdomen. Imaging performed after the IV administration of contrast. Reformatting in the coronal and sagittal planes. DLP: 559 mGy-cm Dose optimization was performed including the use of low-dose iterativereconstruction technique with automatic exposure control based on patientsize. Type of contrast: ISOVUE 370 Volume of IV contrast: 90 mL Volume of contrast discarded: 0 mL FINDINGS: LIVER: The liver contour is smooth. Circumscribed low attenuating 1.2 cmmass in the lower anterior portion of hepatic segment 8. This is smallerthan 09/06/2018 and does not require any specific imaging follow-up. There is an approximately 1.3 cm hyperdense abnormality abutting the domeof hepatic segment 2 (3/33; 601/30; 602/67). This is not demonstrated on12/16/2023, 09/06/2018 or MRI 04/15/2020. This could be a perfusionabnormality or a vascular anomaly. However, in the setting of knownmalignancy this requires careful assessment. There is pneumobilia. BILIARY TRACT: There is gas in the common duct. There is no mass at thehepaticojejunal anastomosis region. SPLEEN: No suspicious abnormality. PANCREAS: There is some dilation of the pancreatic duct distally. Theduct is normal caliber in the pancreatic body. There is some enhancementat the extreme pancreatic tail similar to previous. ADRENAL GLANDS: Normal; no mass. KIDNEYS: No suspicious mass. The enhancement is symmetric. GASTROINTESTINAL TRACT: Contrast has traversed the hepaticojejunostomyand is present within the distal small bowel and proximal colon. There has been previous Whipple procedure. There is no measurable mass atthe surgical bed. There is some swirling of the mesenteric vessels but no localized fatstranding. ABDOMINAL WALL: No significant hernia is appreciated. LYMPHOVASCULAR STRUCTURES AND FLUID: There is no abdominal aorticaneurysm. There is some atherosclerotic calcification. The celiac axis is patent as is the central portion of the hepatic andsplenic arteries. The SMA is patent. The portal vein enhances. There are scattered lymph nodes including adjacent to the left lower liver(3/49), mesentery and some nonenlarged retroperitoneal lymph nodes. Nosignificant interval change. There is no free fluid in the upper abdomen. No measurable omental or mesenteric mass. VISUALIZED LOWER CHEST: Marked coronary calcification. No suspicious lungbase nodules. MUSCULOSKELETAL: No acute or suspicious osseous abnormality. Slightirregularity of the anterior right iliac crest which appears chronic.There is degenerative change greatest at L5/S1. 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 Nonspecific but likely unchanged mesenteric lymph nodes. There is an enhancing abnormality in the dome of the left lobe of theliver. This single phase exam does not allow full characterization. Thisis not demonstrated on previous exams. Although this could represent a perfusion abnormality an underlying lesionis difficult to exclude. This is an area which would likely encounter extensive cardiac pulsationartifact on MRI. Consider multiphasic liver mass protocol CT or short interval follow-up. -------- FINAL REPORT -------- Dictated By: Edison Sampson Dictated Date: 03/29/2024 17:33 ET Assigned Physician: Edison Sampson Reviewed and Electronically Signed By: Edison Sampson Signed Date: 03/29/2024 17:53 ET Workstation ID: [id number] Transcribed By: Self Edit Transcribed Date: 03/29/2024 17:33 ET Alexander Bose MD IMG CT PROCEDURES Final Re sult * Diabetes Eye Exam (09/24/2023) [facility] Diabetes: Annual Retina Eye Exam abstracted Result [facility] Provider HEALTH MAINTENANCE Final Result * Diabetes Foot Exam (12/25/2022) [facility] Diabetes: Annual Foot Exam abstracted Result [facility] Provider HEALTH MAINTENANCE Final Result * Colonoscopy (12/24/2022) [facility] Colonoscopy abstracted Anatomical Region Laterality Modality Other Result [facility] Provider HEALTH MAINTENANCE Final Result * Hepatitis C Screening (04/09/2020) 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
== END 2024-05-09 10:11 | disposition home or self-care (01) ==
LOC: HO.HCS 09:32
PROVIDERS: PCP Physician Assistant Medical; Visit Provider Internal Medicine Cardiovascular Disease
DX: I11.9 Hypertensive heart disease without heart failure (principal); I45.10 Unspecified right bundle-branch block
CPT/HCPCS: 93010; 99213

== ENCOUNTER → 2024-05-09 09:32 | Outpatient (BNVA) | payer OTHER, SELFPAY | PROVIDERS: PCP Physician Assistant Medical; Visit Provider Internal Medicine Cardiovascular Disease | DX: I11.9 Hypertensive heart disease without heart failure (principal); I45.10 Unspecified right bundle-branch block | CPT/HCPCS: 93005 ==

== ENCOUNTER 2024-09-22 09:07 | Outpatient (REF) | payer OTHER, SELFPAY ==
--- OUTSIDE RECORDS SUMMARY | 2024-09-22 09:24 | XMS_ITS | Clinical Summary ---
Author Organization [facility] Address [address] [place] [address] Care Team Providers Care Machine Cloth Measurer Name Role Phone Liborio Noland PA-C Primary [...] 49 12/31/2022 9:20 AM EDT Temperature 36.6 C (97.8 F) 12/31/2022 9:20 AM EDT Respiratory Rate - - Oxygen Saturation 100% [...] Fall Risk Assessment 06/13/2015 Influenza Vaccine (#1) 2024 3, 12/02/2021, 11/01/2019, Additional history exists RSV [...] age to complete this topic Care Teams Machine Cloth Measurer Relationship Specialty Start Date End Date Liborio Noland PA-C PCP - General Medical Services 10/07/20
--- OUTSIDE RECORDS SUMMARY | 2024-09-22 09:25 | XMS_ITS | Clinical Summary ---
Author Organization [address] 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 08/13/2021 Active metFORMIN (GLUCOPHAGE) 500 mg tablet TAKE 1 TABLET BY MOUTH DAILY (WITH BREAKFAST) FOR BLOOD SUGAR. 08/24/2023 Active multivit-min/shannan maureen fumarate (MULTI VITAMIN ORAL) 1 tablet daily Active polyethylene glycol (MIRALAX) 17 gram packet MIX 17 GRAMS INTO LIQUID AND DRINK BY MOUTH ONCE A DAYFOR 1 WEEK THEN EVERY 3 DAYS NEEDED 03/27/2021 Active allopurinoL (ZYLOPRIM) 100 mg tablet Take 1 tablet (100 mg total) by mouth 1 (one) time each day. 11/22/2023 Active fesoterodine 4 mg tablet extended release 24 hr Take 1 tablet by mouth 1 (one) time each day. 11/22/2023 Active metoprolol succinate (TOPROL-XL) 25 mg 24 hr tablet TAKE 1 TABLET BY MOUTH EVERY DAY 90 tablet 3 02/15/2024 Active tamsulosin (FLOMAX) 0.4 mg 24 hr capsule TAKE 1 CAPSULE BY MOUTH DAILY. TAKE 30 MINS AFTER SAME MEAL EVERY DAY. 90 capsule 1 03/16/2024 Active omeprazole (PriLOSEC) [address] capsule TAKE 1 CAPSULE BY MOUTH EVERY DAY 90 capsule 3 03/16/2024 Active atorvastatin (LIPITOR) 20 mg tablet TAKE 1 TABLET BY MOUTH EVERY DAY 90 tablet 3 04/11/2024 Active docusate sodium (COLACE) 100 mg capsule TAKE 1 CAPSULE BY MOUTH TWICE A DAY 60 capsule 3 06/14/2024 Active Active Problems Problem Noted Date Diagnosed Date Type 2 diabetes mellitus wit hout complication, without long-term current use of insulin ([facility] V24, [facility] V28) 11/11/2022 Frequent stools 08/13/2021 Incisional hernia of anterio r abdominal wall without obstruction or gangrene 11/19/2020 Iron deficiency anemia 11/14/2020 Pancreatic adenocarcinoma ([facility] V24, [facility] V28) 06/18/2020 Overview (11/30/2023): S/P whipple procedure Drs. Bose GERD (gastroesophageal reflux disease) 9 Benign prostatic hyperplasia with nocturia 02/16 Right bundle branch block (RBBB) 08/28/2016 Subclinical hypothyroidism 07/22/2016 Overview (11/30/2023): TSH 5.02, 07/14/16 Retinal vein occlusion, branch ([facility] V28) 09/2011 Overview (11/30/2023): Left, 2010 Mixed hyperlipidemia 08/02/2009 Human immunodeficiency virus (HIV) disease ([facility] V24, [facility] V28) 05/10/2005 Overview (11/30/2023): Dx July 2000 Hypertrophy of breast 05/10/2005 Immunizations Name Administration Dates Next Due H1N1 Inj Preservative Free 02/08/2009 Hepatitis B (Sjbnipl-G-Rzucr , Recombivax HB-Adult) 19yo and older 09/07/2001,04/11/2001 [...] Tubular adenoma BREAST SURGERY 2005, 2008ish PROCEDURE: PA UNLISTED PROCEDURE BREAST; COMMENT: ? bilat TURP / TRANSURETHRAL INCISION / DRAINAGE PROSTATE 06/23/2021 PROCEDURE: HISTORICAL TURP; COMMENT: Dr. Johnnie perrni laser CYSTOSCOPY 11/03/2022 PROCEDURE: HISTORICAL CYSTOSCOPY; COMMENT: Left cystoscopy, stent placement for left ureteral stone dr. thanh conte COLONOSCOPY 12/24/2022 PROCEDURE: HISTORICAL COLONOSCOPY; COMMENT: muslu 4 polyps 3 years Medical History Medical History Date Comments Human immunodeficiency virus (HIV) disease ([facility]/HCC V24, [facility] V28) 05/10/2005 DX:Human immunodefi ciency virus (HIV) disease ([facility]); COMMENT: Dx July 2000 Hypertrophy of breast [...] 56 04/10/2024 9:13 AM EST Temperature 36.7 C (98.1 F) 04/10/2024 9:13 AM EST Respiratory Rate 12 04/10/2024 9:13 AM EST [...] Care Team (Late st Contact Info) Description 10/11/2024 8:00 AM EDT Office Visit Adult Medicine [facility] [address] [place] [address] Liborio Noland PA [address] [place], [place] 01/11/2025 8:30 AM EST Office Visit General Surgery [facility] [address] [facility] [address] [place] [id number] Alexander Bose MD [address] [address] 01/16/2025 9:00 AM EST Office Visit [facility] Hematology Oncology [address] [place] [phone] Michael Ny MD [address] [place] [address] Health Maintenance Due Date Last Done Comments Meningococcal ACWY Vaccine (1 - Risk 2-dose series) 1952 Hepatitis A Vaccines (1 of 2 - Risk 2-dose series) 1969 Hepatitis B Vaccines (3 of 3 - Risk 3-dose series) 11/02/2001 09/07/2001, 04/11/2001 MMR Vaccines (1 of 2 - Risk 2-dose series) 10/12/2013 Falls Risk Assessment 02/06/2022 Social Influencers of Health Screening 02/06/2022 Diabetes: Annual Foot Exam 12/26/2023 12/25/2022 Depression Screening 03/01/2024 Diabetes: Annual Retina Eye Exam 09/23/2024 09/24/2023 Influenza Vaccine (#1) 2024 , 11/27/2022, 12/02/2021, Additional history exists Diabetes: Blood Sugar Control Test (HGBA1C) 03/18/2025 09/15/2024, 04/03/2024, 09/21/2023, Additional history exists Diabetes: Annual Urine Albumin-Creatinine Ratio (uACR) 09/15/2025 09/15/2024, 04/03/2024, 09/21/2023 Diabetes: Annual GFR (Glomerular Filtration Rate) 09/15/2025 09/15/2024, 05/02/2024, 04/03/2024, Additional history exists Hypertension/CHF/CAD Annual BMP Blood Test 09/15/2025 09/15/2024, 05/02/2024, 04/03/2024, Additional history exists Colorectal Cancer Screening: Colonoscopy 12/24/2025 12/24/2022 Cholesterol Screening (Lipid Panel) 09/15/2029 09/15/2024, 04/03/2024, 09/21/2023, Additional history exists DTaP,Tdap,and Td Vaccines (4 - Td or Tdap) 03/30/2032 03/30/2022, 02/10/2012, 04/18/2001 Zoster Vaccines Completed 11/13/2019, 04/02, 09/14/2013 Hepatitis C Screening Completed 04/09/2020 Pneumococcal Vaccine: 50+ Years Completed 2022, 08/22/2021, 01/04/2018, Additional history exists RSV Immunization Adult Patients Completed 12/21/2022 COVID-19 Vaccine Completed 08/30/2024, 06/2023, 12/03/2022, Additional history exists HIB Vaccines Aged Out No longer eligi ble based on patient's age to complete this topic HPV Vaccines Aged Out No longer eligi ble based on patient's age to complete this topic IPV Vaccines Aged Out No longer eligi ble based on patient's age to complete this topic Meningococcal B Vaccine Aged Out No l onger eligible based on patient's age to complete this topic RSV Immunization Patients Under 20 months Aged Out No longer eligible based on patient's age to complete this topic Varicella Vaccines Aged Out No longer eligible based on patient's age to complete this topic Procedures Procedure Name Priority Date/Time Associated Diagnosis Comments TRIIODOTHYRONINE FREE Routine 09/15/2024 7:52 AM EDT Type 2 diabetes mellitus without complication, without long-term current use of insulin ([facility] V24, [facility] V28) Benign prostatic hyperplasia with nocturia Gastroesophageal reflux disease without esophagitis Human immunodeficiency virus (HIV) disease ([facility] V24, [facility] V28) Mixed hyperlipidemia Iron deficiency anemia, unspecified iron deficiency anemia type Subclinical hypothyroidism Pancreatic adenocarcinoma ([facility] V24, [facility] V28) FREE THYROXINE WITH REFLEX TO FREE TRIIODOTHYRONINE Routine 09/15/2024 7:52 AM EDT Type 2 diabetes mellitus without complication, without long-term current use of insulin ([facility] V24, [facility] V28) Benign prostatic hyperplasia with nocturia Gastroesophageal reflux disease without esophagitis Human immunodeficiency virus (HIV) disease ([facility] V24, [facility] V28) Mixed hyperlipidemia Iron deficiency anemia, unspecified iron deficiency anemia type Subclinical hypothyroidism Pancreatic adenocarcinoma ([facility]/HCC V24, [facility]/HCC V28) CBC WITH AUTO DIFFERENTIAL Routine 09/15/2024 7:52 AM EDT Type 2 diabetes mellitus without complication, without long-term current use of insulin ([facility] V24, [facility] V28) Benign prostatic hyperplasia with nocturia Gastroesophageal reflux disease without esophagitis Human immunodeficiency virus (HIV) disease ([facility]/HCC V24, [facility]/HCC V28) Mixed hyperlipidemia Iron deficiency anemia, unspecified iron deficiency anemia type Subclinical hypothyroidism Pancreatic adenocarcinoma ([facility]/HCC V24, [facility]/HCC V28) LIPID PANEL WITH REFLEX TO DIRECT LDL Routine 09/15/2024 7:52 AM EDT Type 2 diabetes mellitus without complication, without long-term current use of insulin ([facility] V24, [facility] V28) Benign prostatic hyperplasia with nocturia Gastroesophageal reflux disease without esophagitis Human immunodeficiency virus (HIV) disease ([facility] V24, [facility] V28) Mixed hyperlipidemia Iron deficiency anemia, unspecified iron deficiency anemia type Subclinical hypothyroidism Pancreatic adenocarcinoma ([facility]/HCC V24, [facility] V28) MICROALBUMIN CREATININE URINE RATIO Routine 09/15/2024 7:52 AM EDT Type 2 diabetes mellitus without complication, without long-term current use of insulin ([facility] V24, [facility] V28) Benign prostatic hyperplasia with nocturia Gastroesophageal reflux disease without esophagitis Human immunodeficiency virus (HIV) disease ([facility]/HCC V24, [facility] V28) Mixed hyperlipidemia Iron deficiency anemia, unspecified iron deficiency anemia type Subclinical hypothyroidism Pancreatic adenocarcinoma ([facility] V24, [facility]/HCC V28) COMPREHENSIVE METABOLIC PANEL Routine 09/15/2024 7:52 AM EDT Type 2 diabetes mellitus without complication, without long-term current use of insulin ([facility] V24, [facility] V28) Benign prostatic hyperplasia with nocturia Gastroesophageal reflux disease without esophagitis Human immunodeficiency virus (HIV) disease ([facility]/HCC V24, [facility]/HCC V28) Mixed hyperlipidemia Iron deficiency anemia, unspecified iron deficiency anemia type Subclinical hypothyroidism Pancreatic adenocarcinoma ([facility] V24, [facility]/HCC V28) HEMOGLOBIN A1C Routine 09/15/2024 7:52 AM EDT Type 2 diabetes mellitus without complication, without long-term current use of insulin ([facility] V24, [facility] V28) Benign prostatic hyperplasia with nocturia Gastroesophageal reflux disease without esophagitis Human immunodeficiency virus (HIV) disease ([facility] V24, [facility] V28) Mixed hyperlipidemia Iron deficiency anemia, unspecified iron deficiency anemia type Subclinical hypothyroidism Pancreatic adenocarcinoma ([facility] V24, [facility] V28) CBC AND DIFFERENTIAL Routine 09/15/2024 7:52 AM EDT Type 2 diabetes mellitus without complication, without long-term current use of insulin ([facility] V24, [facility] V28) Benign prostatic hyperplasia with nocturia Gastroesophageal reflux disease without esophagitis Human immunodeficiency virus (HIV) disease ([facility] V24, [facility] V28) Mixed hyperlipidemia Iron deficiency anemia, unspecified iron deficiency anemia type Subclinical hypothyroidism Pancreatic adenocarcinoma ([facility] V24, [facility] V28) IRON AND TIBC Routine 09/15/2024 7:52 AM EDT Type 2 diabetes mellitus without complication, without long-term current use of insulin ([facility] V24, [facility] V28) Benign prostatic hyperplasia with nocturia Gastroesophageal reflux disease without esophagitis Human immunodeficiency virus (HIV) disease ([facility] V24, [facility] V28) Mixed hyperlipidemia Iron deficiency anemia, unspecified iron deficiency anemia type Subclinical hypothyroidism Pancreatic adenocarcinoma ([facility] V24, [facility] V28) THYROID STIMULATING HORMONE WITH REFLEX TO FREE T4 AND FREE T3 Routine 09/15/2024 7:52 AM EDT Type 2 diabetes mellitus without complication, without long-term current use of insulin ([facility] V24, [facility] V28) Benign prostatic hyperplasia with nocturia Gastroesophageal reflux disease without esophagitis Human immunodeficiency virus (HIV) disease ([facility] V24, [facility] V28) Mixed hyperlipidemia Iron deficiency anemia, unspecified iron deficiency anemia type Subclinical hypothyroidism Pancreatic adenocarcinoma ([facility] V24, [facility] V28) HIV 1 MOLECULAR STUDY QUANTITATIVE Routine 07/10/2024 10:07 AM EDT Human immunodeficiency virus (HIV) disease ([facility]/HCC V24, [facility]/HCC V28) DIABETES EYE EXAM Routine 09/24/2023 DIABETES FOOT EXAM Routine 12/25/2022 COLONOSCOPY Routine 12/24/2022 HEPATITIS C SCREENING Routine 04/09/2020 from Last 3 Months or Most Recently Relevant to Health Maintenance Results * (ABNORMAL) Thyroid stimulating hormone with reflex to free t4 and free t3 (09/15/2024 7:52 AM EDT) TSH 4.46(H) 0.40 - 4.00 mcIU/mL LAB CHEMISTRY METHOD 09/15/2024 11:38 AM EDT [facility] Blood Venous blood specimen / Unknown Venipuncture / Unknown 09/15/2024 7:52 AM EDT 09/15/2024 7:52 AM EDT Liborio STALLWORTH LAB BLOOD ORDERABLES Azeb l Result Performing Organization Address City/[facility]/ZIP Co de Phone Number [facility] [address] [place] [address], * Free thyroxine with reflex to free triiodothyronine (09/15/2024 7:52 AM EDT) Free T4 1.09 0.70 - 1.80 ng/dL LAB CHEMISTRY METHOD 09/15/2024 12:49 PM EDT [facility] Blood Venous blood specimen / Unknown Venipuncture / Unknown 09/15/2024 7:52 AM EDT 09/15/2024 7:52 AM EDT Liborio STALLWORTH LAB BLOOD ORDERABLES Azeb l Result [facility] [address] [place] [address], [place] [phone] * Lipid panel with reflex to direct LDL (09/15/2024 7:52 AM EDT) Cholesterol 127 0 - 200 mg/dL LAB CHEMISTRY METHOD 09/15/2024 10:58 AM EDT [facility] Triglycerides 106 0 - 150 mg/dL LAB CHEMISTRY METHOD 09/15/2024 10:58 AM EDT [facility] HDL 57 >=40 mg/dL LAB CHEMISTRY METHOD 09/15/2024 10:58 AM EDT [facility] LDL Calculated 49 0 - 100 mg/dL LAB CHEMISTRY METHOD 09/15/2024 10:58 AM EDT [facility] VLDL Cholesterol Brice 21.2 mg/dL LAB CHEMISTRY METHOD 09/15/2024 10:58 AM EDT [facility] Non HDL Chol. (LDL+VLDL) 70 <145 mg/dL LAB CHEMISTRY METHOD 09/15/2024 10:58 AM EDT [facility] Chol/HDL Ratio 2.2 0.0 - 4.4 LAB CHEMISTRY METHOD 09/15/2024 10:58 AM EDT [facility] Blood Venous blood specimen / Unknown Venipuncture / Unknown 09/15/2024 7:52 AM EDT 09/15/2024 7:52 AM EDT Liborio STALLWORTH LAB BLOOD ORDERABLES Azeb l Result [facility] [address] [place] [address], [place] [phone] * (ABNORMAL) CBC auto differential (09/15/2024 7:52 AM EDT) Pathologist [facility] WBC 6.5 4.8 - 10.8 K/mcL LAB HEMETOLOGY METHOD 09/15/2024 10:44 AM [facility] RBC 4.20(L) 4.50 - 5.50 M/mcL LAB HEMETOLOGY METHOD 09/15/2024 10:44 AM [facility] Hemoglobin 14.4 13.5 - 17.5 g/dL LAB HEMETOLOGY METHOD 09/15/2024 10:44 AM [facility] Hematocrit 42.7 42.0 - 54.0 % LAB HEMETOLOGY METHOD 09/15/2024 10:44 AM [facility] MCV 101.7(H) 79.0 - 98.0 FL LAB HEMETOLOGY METHOD 09/15/2024 10:44 AM [facility] MCH 34.3(H) 27.0 - 32.0 pcg LAB HEMETOLOGY METHOD 09/15/2024 10:44 AM [facility] MCHC 33.7 32.0 - 37.0 g/dL LAB HEMETOLOGY METHOD 09/15/2024 10:44 AM [facility] RDW 12.2 11.0 - 15.0 % LAB HEMETOLOGY METHOD 09/15/2024 10:44 AM [facility] Platelets 156 130 - 400 K/mcL LAB HEMETOLOGY METHOD 09/15/2024 10:44 AM [facility] MPV 10.3 7.0 - 11.0 FL LAB HEMETOLOGY METHOD 09/15/2024 10:44 AM [facility] NRBC 0.0 <1.0 % LAB HEMETOLOGY METHOD 09/15/2024 10:44 AM [facility] NRBC Absolute 0.00 <0.10 K/mcL LAB HEMETOLOGY METHOD 09/15/2024 10:44 AM [facility] Neutrophils Relative 46.2 % LAB HEMETOLOGY METHOD 09/15/2024 10:44 AM [facility] Lymphocytes Relative 41.3 % LAB HEMETOLOGY METHOD 09/15/2024 10:44 AM [facility] Monocytes Relative 8.8 % LAB HEMETOLOGY METHOD 09/15/2024 10:44 AM [facility] Eosinophils Relative 2.0 % LAB HEMETOLOGY METHOD 09/15/2024 10:44 AM [facility] Basophils Relative 1.4 % LAB HEMETOLOGY METHOD 09/15/2024 10:44 AM [facility] Immature Granulocytes Relative 0.3 % LAB HEMETOLOGY METHOD 09/15/2024 10:44 AM [facility] Neutrophils Absolute 2.98 1.50 - 7.00 K/mcL LAB HEMETOLOGY METHOD 09/15/2024 10:44 AM [facility] Lymphocytes Absolute 2.67 1.00 - 5.00 K/mcL LAB HEMETOLOGY METHOD 09/15/2024 10:44 AM [facility] Monocytes Absolute 0.57 0.20 - 1.00 K/mcL LAB HEMETOLOGY METHOD 09/15/2024 10:44 AM [facility] Eosinophils Absolute 0.13 0.00 - 0.50 K/mcL LAB HEMETOLOGY METHOD 09/15/2024 10:44 AM [facility] Basophils Absolute 0.09 0.00 - 0.20 K/mcL LAB HEMETOLOGY METHOD 09/15/2024 10:44 AM [facility] Immature Granulocytes Absolute 0.02 0.00 - 0.03 K/mcL LAB HEMETOLOGY METHOD 09/15/2024 10:44 AM [facility] Blood Venous blood specimen / Unknown Venipuncture / Unknown 09/15/2024 7:52 AM EDT 09/15/2024 7:52 AM EDT Liborio STALLWORTH LAB BLOOD ORDERABLES Azeb l Result [facility] [address] [place] [address], [place] [phone] * Iron and TIBC (09/15/2024 7:52 AM EDT) Iron 96 50 - 160 mcg/dL LAB CHEMISTRY METHOD 09/15/2024 10:58 AM EDT [facility] TIBC 337 250 - 450 mcg/dL LAB CHEMISTRY METHOD 09/15/2024 10:58 AM EDT [facility] Iron Saturation 28 20 - 50 % LAB CHEMISTRY METHOD 09/15/2024 10:58 AM EDT [facility] Blood Venous blood specimen / Unknown Venipuncture / Unknown 09/15/2024 7:52 AM EDT 09/15/2024 7:52 AM EDT Liborio STALLWORTH LAB BLOOD ORDERABLES Azeb l Result Performing Organization Address City/[facility]/ZIP Co de Phone Number [facility] [address] [place] [address], [place] [phone] * Microalbumin creatinine urine ratio (09/15/2024 7:52 AM EDT) Creatinine, Urine 127.0 mg/dL LAB CHEMISTRY METHOD 09/15/2024 11:16 AM EDT [facility] Microalb, Ur 19.9 0.0 - 29.0 mg/L LAB CHEMISTRY METHOD 09/15/2024 11:16 AM EDT [facility] Microalb/Creat Ratio 16 <30 mg/g creat LAB CHEMISTRY METHOD 09/15/2024 11:16 AM EDT [facility] Urine Urine specimen obtained by clean catch procedure / Unknown Non-blood Collection / Unknown 09/15/2024 7:52 AM EDT 09/15/2024 7:52 AM EDT Liborio STALLWORTH LAB URINE ORDERABLES Azeb l Result [facility] [address] [place] [address], [place] [phone] * Triiodothyronine free (09/15/2024 7:52 AM EDT) [facility] T3, Free 329 230 - 420 pcg/dL LAB CHEMISTRY METHOD 09/15/2024 1:32 PM EDT [facility] Blood Venous blood specimen / Unknown Venipuncture / Unknown 09/15/2024 7:52 AM EDT 09/15/2024 7:52 AM EDT Liborio STALLWORTH LAB BLOOD ORDERABLES Azeb l Result Performing Organization Address [facility]/ZIP Co de Phone Number [facility] [address] [place] [address], [place] [phone] * Hemoglobin A1c (09/15/2024 7:52 AM EDT) [facility] Hemoglobin A1C 6.3 <6.5 % LAB CHEMISTRY METHOD 09/15/2024 1:42 PM EDT [facility] Mean Bld Glu Estim. 134 mg/dL LAB CHEMISTRY METHOD 09/15/2024 1:42 PM EDT [facility] Blood Venous blood specimen / Unknown Venipuncture / Unknown 09/15/2024 7:52 AM EDT 09/15/2024 7:52 AM EDT Liborio STALLWORTH LAB BLOOD ORDERABLES Azeb l Result Performing Organization Address City/[facility]/ZIP Co de Phone Number [facility] [address] [place] [address], [place] [phone] * (ABNORMAL) Comprehensive metabolic panel (09/15/2024 7:52 AM EDT) [facility] Signature Sodium 138 133 - 145 mmol/L LAB CHEMISTRY METHOD 09/15/2024 10:58 AM [facility] Potassium 4.6 3.5 - 5.5 mmol/L LAB CHEMISTRY METHOD 09/15/2024 10:58 AM [facility] Chloride 105 96 - 110 mmol/L LAB CHEMISTRY METHOD 09/15/2024 10:58 AM [facility] CO2 28 21 - 32 mmol/L LAB CHEMISTRY METHOD 09/15/2024 10:58 AM [facility] Anion Gap 5 3 - 11 LAB CHEMISTRY METHOD 09/15/2024 10:58 AM [facility] Glucose 123(H) 70 - 100 mg/dL LAB CHEMISTRY METHOD 09/15/2024 10:58 AM [facility] BUN 16 5 - 25 mg/dL LAB CHEMISTRY METHOD 09/15/2024 10:58 AM [facility] Creatinine 0.96 0.70 - 1.30 mg/dL LAB CHEMISTRY METHOD 09/15/2024 10:58 AM [facility] eGFR 83 >=60 mL/min/1. 73m2 LAB CHEMISTRY METHOD 09/15/2024 10:58 AM [facility] Comment:Calculation based on the Chronic Kidney Disease Epidemiology Collaboration (CKD-EPI) equation refit without adjustment for race. BUN/Creatinine Ratio 16.7 LAB CHEMISTRY METHOD 09/15/2024 10:58 AM [facility] Calcium 9.0 8.5 - 10.5 mg/dL LAB CHEMISTRY METHOD 09/15/2024 10:58 AM [facility] AST (SGOT) 19 10 - 42 unit/L LAB CHEMISTRY METHOD 09/15/2024 10:58 AM [facility] ALT (SGPT) 30 10 - 60 unit/L LAB CHEMISTRY METHOD 09/15/2024 10:58 AM EDT [facility] Alkaline Phosphatase 66 42 - 121 unit/L LAB CHEMISTRY METHOD 09/15/2024 10:58 AM EDT [facility] Total Protein 6.9 6.0 - 8.0 g/dL LAB CHEMISTRY METHOD 09/15/2024 10:58 AM EDT [facility] Albumin 3.9 3.2 - 5.0 g/dL LAB CHEMISTRY METHOD 09/15/2024 10:58 AM EDT [facility] Total Bilirubin 0.6 0.0 - 1.4 mg/dL LAB CHEMISTRY METHOD 09/15/2024 10:58 AM EDT [facility] Blood Venous blood specimen / Unknown Venipuncture / Unknown 09/15/2024 7:52 AM EDT 09/15/2024 7:52 AM EDT Liborio STALLWORTH LAB BLOOD ORDERABLES Azeb l Result [facility] [address] [place] [address], [place] [phone] * HIV 1 molecular study quantitative (07/10/2024 10:07 AM EDT) HIV-1 RNA Interpretation Not Detected Not Detected LAB MOLECULAR DIAGNOSTICS METHOD 07/11/2024 10:59 AM EDT [facility] Comment:HIV RNA not detected , unable to report quantitative results. Blood Venous blood specimen / Unknown Venipuncture / Unknown 07/10/2024 10:07 AM EDT 07/10/2024 10:07 AM EDT No Bowman MD LAB BLOOD ORDERABLES Azeb l Result [facility] [address] [place] [address], [place] [phone] * Hm Diabetes Eye Exam (09/24/2023) [facility] Diabetes: Annual Retina Eye Exam abstracted Historical Provider HEALTH MAINTENANCE Final Result * Diabetes Foot Exam (12/25/2022) [facility] Diabetes: Annual Foot Exam abstracted Historical Provider HEALTH MAINTENANCE Final Result * Colonoscopy (12/24/2022) [facility] Colonoscopy abstracted Anatomical Region Laterality Modality Other Historical Provider HEALTH MAINTENANCE Final Result * Hepatitis C Screening (04/09/2020) [facility] Hepatitis C Screening abstracted Historical Provider HEALTH MAINTENANCE Final Result from Last 3 Months or Most Recently Relevant to Health Maintenance [place] [address] [phone] [facility] Advance Directives Documents on File Type Date Recorded Patient Corn Popper Expl anation Health Care Decision (hx) 05/22/2020 AD VELASQUEZ DIRECTIVE Health Care Decision (hx) 05/22/2020 AD VELASQUEZ DIRECTIVE Health Care Decision (hx) 05/22/2020 AD VELASQUEZ DIRECTIVE Health Care Decision (hx) 05/22/2020 AD VELASQUEZ DIRECTIVE Health Care Decision (hx) 05/22/2020 AD VELASQUEZ DIRECTIVE Care Teams 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
--- OUTSIDE RECORDS SUMMARY | 2024-09-22 09:25 | XMS_ITS | Clinical Summary ---
Author Organization [facility] Address [address] [place] [id number] Phone Care Team Providers Care Barrel Builder Name Role Phone Unavailable Primary Care Provider Unavailabl e Social History Tobacco Use Types Packs/Day Years Used Date Smoking Tobacco: Never Assessed Education Answer Date Recorded Are you interested in more education? Not on payal e 06/27/2022 Are you concerned about learning? Not on file 06/27/2022 No 06/27/2022 No 06/27/2022 Digital Access Answer Date Recorded No 07/28/2022 No 07/28/2022 Reliable internet access at home? Not on file 07/28/2022 Device with a working camera? Not on file Sex and Gender Information Value Date Recorded Sex Assigned at Not on file Legal Sex Male 9:08 AM EDT Gender Identity Not on file Sexual Orientation Not on file Plan of Treatment Not on file Medical Devices Not on file Additional Source Comments The information contained in this document represents components of the legal health record. It is not the complete legal health record.[facility]
--- OUTSIDE RECORDS SUMMARY | 2024-09-22 09:25 | XMS_ITS | Data Portability ---
Author Organization TWYLA BARRY MD [facility], Main Office Address [address] [place] [address] Assessment No assessment recorded. Plan of Treatment Reminders Order Date Submit Date Provider Last Modified By Organization Details Last Modified Time Details Appointments B20 FOLLOW UP 2024 11:00A Ana Castaneda MD Not available Not available Not available Lab T-cell regulato ry subsets panel, blood 2024 025 [facility], [address] [place] [address], 605[address], 07/31/2024 10:03:59 HIV-1 RNA, quantita tive, PCR, serum or plasma 2024 025 [facility], [address] [place] [address], 62718, 07/31/2024 10:03:59 CBC w/ diff 2024 025 [facility], [address] [place] [address], 21438, 07/31/2024 10:03:59 ALT (alanine aminotra nsferase ), serum or plasma 2024 025 [facility], [address] [place] [address], 70254, 07/31/2024 10:03:59 AST/SGOT (asparta te aminotra nsferase ), serum or plasma 2024 025 [facility], [address] [place] [address], 68478, 07/31/2024 10:03:59 creatini ne w/ estimate d GFR (eGFR), serum or plasma [address] [place] [address] [employer] [facility], [address] [place] [address], 27722, 07/31/2024 10:03:59 RPR (rapid plasma reagin), serum [address] [place] [address] [employer] [facility], [address] [place] [address], 71073, 07/31/2024 10:03:59 T-cell regulato ry subsets panel, blood [address] [place], [place] [address] [facility], [address] [place] [address], 43339, 03/30/2024 14:44:48 HIV-1 RNA, quantita tive, PCR, serum or plasma [address] [place] [address] [employer] [facility], [address] [place] [address], 526[address], 03/30/2024 14:44:48 CBC w/ diff [address] [place] [address] [employer] [facility], [address] [place] [address], 26621, 03/30/2024 14:44:48 ALT (alanine aminotra nsferase ), serum or plasma [address] [place], [place] [address] [facility], [address] [place] [address], 58778, 03/30/2024 14:44:48 AST/SGOT (asparta te aminotra nsferase ), serum or plasma [address] [place], [place] [address] [facility], [address] [place] [address], 87221, 03/30/2024 14:44:48 creatini ne w/ estimate d GFR (eGFR), serum or plasma 2024 025 [facility], [address] [facility], [facility] [address], [place], [address], 03/30/2024 14:44:48 RPR (rapid plasma reagin), serum [address] [facility], [address] [facility], [facility] [address], [place], [address], 03/30/2024 14:44:48 T-cell regulato ry subsets panel, blood 2023 024 [employer], [address] [facility], [facility] [address], [place], [address], 11/22/2023 08:54:02 HIV-1 RNA, quantita tive, PCR, serum or plasma [address] [facility], [address] [facility], [facility] [address], [place], [address], 11/22/2023 08:54:02 CBC w/ diff 2023 024 [facility], [address] [facility], [facility] [address], [place], [address], 11/22/2023 08:54:02 electrol ytes panel, blood 2023 024 [facility], [address] [facility], [facility] [address], [place], [address], 11/22/2023 08:54:03 ALT (alanine aminotra nsferase ), serum or plasma 2023 024 [facility], [address] [facility], [address], [place], [address], 11/22/2023 08:54:03 AST/SGOT (asparta te aminotra nsferase ), serum or plasma 2023 024 [facility], [address] [facility], [facility] [address], [place], [address], 11/22/2023 08:54:03 creatini ne w/ estimate d GFR (eGFR), serum or plasma [address] [facility], [address] [facility], [place] [address], [place], [address], 11/22/2023 08:54:03 T-cell regulato ry subsets panel, blood [address] [facility], [address] [facility], [facility] [address], [place], [address], 11/22/2023 08:54:03 RPR (rapid plasma reagin), serum 2023 024 [employer] [facility], [address] [facility], [facility] [address], [place], [address], 11/22/2023 08:54:03 chlamydi a + gonorrhe a RNA, QL, unspecif ied specimen 2023 024 [facility], [address] [facility], [facility] [address], [place], [address], 11/22/2023 08:54:03 chlamydi a + gonorrhe a RNA, QL, unspecif ied specimen 2023 024 [employer] [facility], [address] [facility], [facility] [address], [place], [address], 11/22/2023 08:54:03 chlamydi a + gonorrhe a RNA, QL, unspecif ied specimen 2023 024 [facility], [address] [facility], [facility] [address], [place], [address], 11/15/2023 13:19:14 T-cell regulato ry subsets panel, blood 2023 024 [email or web address], [address] [facility], [facility] [address], [place], [address], 07/22/2023 10:39:31 HIV-1 RNA, quantita tive, PCR, serum or plasma 2023 024 [email or web address] [facility], [address] [facility], [place] [address], [place], [address], 07/22/2023 10:39:31 CBC w/ diff 2023 024 [email or web address] [employer] [facility], [address] [facility], [facility] [address], [place], [address], 07/22/2023 10:39:31 electrol ytes panel, blood 2023 024 [facility], [address] [facility], [facility] [address], [place], [address], 07/22/2023 10:39:31 ALT (alanine aminotra nsferase ), serum or plasma 2023 024 [email or web address] [employer] [facility], [address] [address], [place], [address], 07/22/2023 10:39:31 AST/SGOT (asparta te aminotra nsferase ), serum or plasma 2023 024 [email or web address] [employer] [facility], [address] [facility], [place] [address], [place], [address], 07/22/2023 10:39:32 creatini ne w/ estimate d GFR (eGFR), serum or plasma 2023 0[address] [email or web address] [address] [employer] [facility], [address] [facility], [place] [address], [place], [address], 07/22/2023 10:39:32 T-cell regulato ry subsets panel, blood 2023 024 [email or web address] [facility], [address] [facility], [place] [address], [place], [address], 07/22/2023 10:39:32 T-cell regulato ry subsets panel, blood 2023 024 [employer] [facility], [address] [facility], [place] [address], [place], [address], 04/23/2023 16:20:20 HIV-1 RNA, quantita tive, PCR, serum or plasma 2023 024 JALEN [facility], [address] [facility], [address], [place], [address], 04/22/2023 13:45:16 Referral None recorded . Procedures None recorded . Surgeries None recorded . Imaging None recorded . Medication Orders Biktarvy 50 mg-200 mg-25 mg tablet 2024 025 cmartorell [facility]/Pharmacy #2071, [address] [place], [address], 07/20/2024 15:35:02 Robituss in Cough-Ch est Congesti on DM 5 mg-100 mg/5 mL oral liquid 2024 025 [facility]/Pharmacy #2071, [address] [place], [address], 03/22/2024 12:32:00 Biktarvy 50 mg-200 mg-25 mg tablet 2024 025 cmartorell [facility]/Pharmacy #2071, [address] [place], [address], 03/22/2024 12:28:59 [employer] COVID-19 Ag Self Test kit 2023 024 [email or web address] [facility]/Pharmacy #2071, [address] [place], [address], 11/15/2023 12:48:14 doxycycl ine hyclate 100 mg capsule 2023 024 [facility]/Pharmacy #2071, [address] [place], [address], 11/15/2023 12:12:00 Biktarvy 50 mg-200 mg-25 mg tablet 2023 024 cmartorell [facility]/Pharmacy #2071, [address] [place], [address], 11/15/2023 12:12:49 doxycycl ine hyclate 100 mg capsule 2023 024 JALEN [facility]/Pharmacy #2071, [address] [place], [address], 07/15/2023 14:12:20 Biktarvy 50 mg-200 mg-25 mg tablet 2023 024 cmartorell [facility]/Pharmacy #2071, [address] [place], [address], 07/15/2023 14:12:29 Biktarvy 50 mg-200 mg-25 mg tablet 2023 024 cmartorell [facility]/Pharmacy #2071, [address] [place], [address], 04/17/2023 14:00:35 Patient TargetsNo targets recorded. Patient InstructionsNo instructions recorded. Reason for Referral None Reported. Results Created Date Observation Date Name Description Value Unit Range Abnormal Flag Note LastModifiedBy Organization Detail LastModifiedTime 04/21/19 24 04/22/2023 HIV VIRAL LOAD HIV viral load qual NOT DETECT ED not detect . HIV RNA not detec carmela, unabl e to repor t quant itati ve resul ts Not Available [facility] [address] [place] [address], [address], 04/22/2023 13:45:16 04/21/19 24 04/22/2023 HIV VIRAL LOAD performing lab [facility], a [facility] r of [facility] [address] [facility] [place] [address] Medic al Direc chele cedillo MD Not Available [facility] [address] [place], [address], 04/22/2023 13:45:16 04/21/19 24 04/24/2023 T4T8 PANEL percent cd3 84 % 55-86 Not Available [facility] [address] [place] [address], 8[address], 04/24/2023 12:26:26 04/21/19 24 04/24/2023 T4T8 PANEL absolute cd3 2437 cell/ uL 704-21 38 high Not Available [facility] [address] [place] [address], 86672, 04/24/2023 12:26:26 04/21/19 24 04/24/2023 T4T8 PANEL percent cd8 44 % 9-37 high Not Available [facility] [address] [place] [address], 788[address], 04/24/2023 12:26:26 04/21/19 24 04/24/2023 T4T8 PANEL absolute cd8 1275 cell/ uL 190-83 2 high Not Available [facility] [address] [place] [address], 90568, 04/24/2023 12:26:26 04/21/19 24 04/24/2023 T4T8 PANEL percent cd4 42 % 35-66 Not Available [facility] [address] [place], [address], 04/24/2023 12:26:26 04/21/19 24 04/24/2023 T4T8 PANEL absolute cd4 1220 cell/ uL 443-14 71 Not Available [facility] [address] [place] [address], [address]55[address], 04/24/2023 12:26:26 04/21/19 24 04/24/2023 T4T8 PANEL percent cd19 3.0 % 4-25 low Not Available [facility] [address] [place], [address], 04/24/2023 12:26:26 04/21/19 24 04/24/2023 T4T8 PANEL absolute cd19 89 cell/ uL 100-52 4 low Not Available [facility] [address] [place] [address], [address], 04/24/2023 12:26:26 04/21/19 24 04/24/2023 T4T8 PANEL cd4 cd8 ratio 1.0 1.0-3. 7 Test perfo rmed at [facility] , [address], [place] [address] [phone] Not Available [facility] [address] [place], [address], 04/24/2023 12:26:26 04/21/19 24 04/24/2023 T4T8 PANEL percent cd56 12.0 % 3-24 Not Available [facility] [address] [place] [address], 274[address], 04/24/2023 12:26:26 04/21/19 24 04/24/2023 T4T8 PANEL absolute cd56 344 cell/ uL 60-500 Not Available [facility] [address] [place] [address], 218[address], 04/24/2023 12:26:26 07/29/19 24 07/29/2023 CBC WITH AUTO DIFF WBC 7.0 x10-3 /uL 4.8-10 .8 Not Available [facility] [address] [place] [address], 722[address], 07/29/2023 19:56:05 07/29/19 24 07/29/2023 CBC WITH AUTO DIFF RBC 4.1 x10-6 /uL 4.5-5. 5 low Not Available [facility] [address] [place] [address], 45480, 07/29/2023 19:56:05 07/29/19 24 07/29/2023 CBC WITH AUTO DIFF hemoglobin 13.9 g/dL 13.5-1 7.5 Not Available [facility] [address] [place] [address], 66[address], 07/29/2023 19:56:05 07/29/19 24 07/29/2023 CBC WITH AUTO DIFF hematocrit 41.2 % 42-54 low Not Available [facility] [address] [place] [address], 00759, 07/29/2023 19:56:05 07/29/19 24 07/29/2023 CBC WITH AUTO DIFF MCV 100.7 fL 79-98 high Not Available [facility] [address] [place] [address], 85568, 07/29/2023 19:56:05 07/29/19 24 07/29/2023 CBC WITH AUTO DIFF MCH 34.0 pg 27-32 high Not Available [facility] [address] [place], [address], 07/29/2023 19:56:05 07/29/19 24 07/29/2023 CBC WITH AUTO DIFF MCHC 33.7 g/dL 32-37 Not Available [facility] [address] [place], [address], 07/29/2023 19:56:05 07/29/19 24 07/29/2023 CBC WITH AUTO DIFF RDW 12.5 % 11-15 Not Available [facility] [address] [place], [address], 07/29/2023 19:56:05 07/29/19 24 07/29/2023 CBC WITH AUTO DIFF plt count 154 x10-3 /uL 130-40 0 Not Available [facility] [address] [place], [address], 07/29/2023 19:56:05 07/29/19 24 07/29/2023 CBC WITH AUTO DIFF mean platelet volume 10.3 fL 7-11 Not Available [facility] [address] [place], [address], 07/29/2023 19:56:05 07/29/19 24 07/29/2023 CBC WITH AUTO DIFF NRBC % auto 0.0 % <1 Not Available [facility] [address] [place], [address], 07/29/2023 19:56:05 07/29/19 24 07/29/2023 CBC WITH AUTO DIFF neut % 51.2 % Not Available [facility] [address] [place], [address], 07/29/2023 19:56:05 07/29/19 24 07/29/2023 CBC WITH AUTO DIFF lymph % 37.9 % Not Available [facility] [address] [place], [address], 07/29/2023 19:56:05 07/29/19 24 07/29/2023 CBC WITH AUTO DIFF mono % 7.9 % Not Available [facility] [address] [place], [address], 07/29/2023 19:56:05 07/29/19 24 07/29/2023 CBC WITH AUTO DIFF eos % 1.7 % Not Available [facility] [address] [place], [address], 07/29/2023 19:56:05 07/29/19 24 07/29/2023 CBC WITH AUTO DIFF baso % 1.0 % Not Available [facility] [address] [place], [address], 07/29/2023 19:56:05 07/29/19 24 07/29/2023 CBC WITH AUTO DIFF immature granulocytes % 0.3 % Not Available [facility] [address] [place], [address], 07/29/2023 19:56:05 07/29/19 24 07/29/2023 CBC WITH AUTO DIFF NRBC # auto 0.00 x10-3 /uL <0.1 Not Available [facility] [address] [place], [address], 07/29/2023 19:56:05 07/29/19 24 07/29/2023 CBC WITH AUTO DIFF absolute neut 3.58 x10-3 /uL 1.5-7. 0 Not Available [facility] [address] [place], [address], 07/29/2023 19:56:05 07/29/19 24 07/29/2023 CBC WITH AUTO DIFF lymph # 2.65 x10-3 /uL 1-5.0 Not Available [facility] [address] [place], [address], 07/29/2023 19:56:05 07/29/19 24 07/29/2023 CBC WITH AUTO DIFF mono # 0.55 x10-3 /uL 0.2-1. 0 Not Available [facility] [address] [place] [address], 76824, 07/29/2023 19:56:05 07/29/19 24 07/29/2023 CBC WITH AUTO DIFF eos # 0.12 x10-3 /uL 0-0.5 Not Available [facility] [address] [place] [address], 47[address], 07/29/2023 19:56:05 07/29/19 24 07/29/2023 CBC WITH AUTO DIFF baso # 0.07 x10-3 /uL 0-0.2 Not Available [facility] [address] [place] [address], 47[address], 07/29/2023 19:56:05 07/29/19 24 07/29/2023 CBC WITH AUTO DIFF immature granulocytes # 0.02 x10-3 /uL 0-0.03 Not Available [facility] [address] [place] [address], 13543, 07/29/2023 19:56:05 07/29/19 24 07/29/2023 CBC WITH AUTO DIFF performing lab [facility], a membe r of [address] [place] [address] Medic al Direc chele cedillo MD Not Available [facility] [address] [place] [address], 8[address], 07/29/2023 19:56:05 07/29/19 24 07/29/2023 CREAT ININE WITH GFR creat 0.93 mg/dL 0.7-1. 3 Not Available [facility] [address] [place] [address], 71061, 07/29/2023 19:56:06 07/29/19 24 07/29/2023 CREAT ININE WITH GFR glomerular filtration rate 87 >60 This eGFR resul t was calcu lated using the CKD-E PI 2020 Creat inine Equat ion Not Available [facility] [address] [place] [address], 025[address], 07/29/2023 19:56:06 07/29/19 24 07/29/2023 ELECT ROLYT ES sodium 140 mEq/L 135-14 5 Not Available [facility] [address] [place] [address], 39271, 07/29/2023 19:56:07 07/29/19 24 07/29/2023 ELECT ROLYT ES potassium 4.2 mmol/ L 3.5-5. 5 Not Available [facility] [address] [place] [address], 34496, 07/29/2023 19:56:07 07/29/19 24 07/29/2023 ELECT ROLYT ES chloride 105 mmol/ L 96-110 Not Available [facility] [address] [place] [address], 53277, 07/29/2023 19:56:07 07/29/19 24 07/29/2023 ELECT ROLYT ES CO2 28 mmol/ L 21-32 Not Available [facility] [address] [place] [address], 44767, 07/29/2023 19:56:07 07/29/19 24 07/29/2023 ELECT ROLYT ES anion gap 7 3-11 Not Available [facility] [address] [place] [address], 59684, 07/29/2023 19:56:07 07/29/19 24 07/29/2023 SGOT SGOT 22 U/L 10-42 Not Available [facility] [address] [place] [address], 37417, 07/29/2023 19:56:07 07/29/19 24 07/29/2023 SGPT SGPT 27 U/L 10-60 Not Available [facility] [address] [place] [address], 50743, 07/29/2023 19:56:08 07/29/19 24 07/29/2023 SGPT performing lab [facility], [facility] [address] [place] [address] Medic al Direc chele cedillo MD Not Available [facility] [address] [place], [address], 07/29/2023 19:56:08 07/29/19 24 07/30/2023 HIV VIRAL LOAD HIV viral load qual NOT DETECT ED not detect . HIV RNA not detec carmela, unabl e to repor t quant itati ve resul ts Not Available [facility] [address] [place] [address], 53[address], 07/30/2023 08:19:31 07/29/19 24 07/30/2023 HIV VIRAL LOAD performing lab [facility], [facility] [address] [place] [address] Medic al Direc chele cedillo MD Not Available [facility] [address] [place] [address], 87694, 07/30/2023 08:19:31 07/29/19 24 07/31/2023 T4T8 PANEL percent cd3 88 % 55-86 high Not Available [facility] [address] [place] [address], 39480, 07/31/2023 12:30:32 07/29/19 24 07/31/2023 T4T8 PANEL absolute cd3 2681 cell/ uL 704-21 38 high Not Available [facility] [address] [place] [address], 81932, 07/31/2023 12:30:32 07/29/19 24 07/31/2023 T4T8 PANEL percent cd8 45 % 9-37 high Not Available [facility] [address] [place] [address], 35910, 07/31/2023 12:30:32 07/29/19 24 07/31/2023 T4T8 PANEL absolute cd8 1387 cell/ uL 190-83 2 high Not Available [facility] [address] [place] [address], 59414, 07/31/2023 12:30:32 07/29/19 24 07/31/2023 T4T8 PANEL percent cd4 44 % 35-66 Not Available [facility] [address] [place], [address], 07/31/2023 12:30:32 07/29/19 24 07/31/2023 T4T8 PANEL absolute cd4 1361 cell/ uL 443-14 71 Not Available [facility] [address] [place] [address], 01671, 07/31/2023 12:30:32 07/29/19 24 07/31/2023 T4T8 PANEL percent cd19 4.0 % 4-25 Not Available [facility] [address] [place] [address], 12503, 07/31/2023 12:30:32 07/29/19 24 07/31/2023 T4T8 PANEL absolute cd19 136 cell/ uL 100-52 4 Not Available [facility] [address] [place] [address], 11837, 07/31/2023 12:30:32 07/29/19 24 07/31/2023 T4T8 PANEL cd4 cd8 ratio 1.0 1.0-3. 7 Test perfo rmed at [facility] , [address], [place] [address] [phone] Not Available [facility] [address] [place] [address], 578[address], 07/31/2023 12:30:32 07/29/19 24 07/31/2023 T4T8 PANEL percent cd56 8.0 % 3-24 Not Available [facility] [address] [place] [address], 07122, 07/31/2023 12:30:32 07/29/19 24 07/31/2023 T4T8 PANEL absolute cd56 243 cell/ uL 60-500 Not Available [facility] [address] [place] [address], 21829, 07/31/2023 12:30:32 11/15/19 24 11/16/2023 CHLAM YDIA DNA SWAB chlamydia DNA swab NEGATI VE negati ve This speci men type has not been evalu ated for this metho d. Inter pret resul ts with cauti on. SOURC E = ORAL Not Available [facility] [address] [place] [address], 31982, 11/16/2023 09:36:07 11/15/19 24 11/16/2023 GC DNA SWAB GC DNA swab NEGATI VE negati ve This speci men type has not been evalu ated for this metho d. Inter pret resul ts with cauti on. SOURC E = ORAL Not Available [facility] [address] [place] [address], 89695, 11/16/2023 09:36:08 11/15/19 24 11/16/2023 GC DNA SWAB performing lab [facility] of [employer] [place] [address] Medic al Direamparo cedillo MD Not Available [facility] [address] [place] [address], 30361, 11/16/2023 09:36:08 11/15/19 24 11/16/2023 CHLAM YDIA DNA URINE chlamydia DNA urine NEGATI VE negati ve Not Available [facility] [address] [place] [address], 02649, 11/16/2023 09:44:06 11/15/19 24 11/16/2023 GC DNA URINE GC DNA urine NEGATI VE negati ve Not Available [facility] [address] [place] [address], 089[address], 11/16/2023 09:44:07 11/15/19 24 11/16/2023 GC DNA URINE performing lab [facility] [address] [place] [address] Medic al Direamparo cedillo MD Not Available [facility] [address] [place] [address], [address]87[address], 11/16/2023 09:44:07 12/30/19 24 12/30/2023 CBC WITH AUTO DIFF WBC 6.6 x10-3 /uL 4.8-10 .8 Not Available [facility] [address] [place], [address], 12/30/2023 16:29:23 12/30/19 24 12/30/2023 CBC WITH AUTO DIFF RBC 4.2 x10-6 /uL 4.5-5. 5 low Not Available [facility] [address] [place] [address], 24062, 12/30/2023 16:29:23 12/30/19 24 12/30/2023 CBC WITH AUTO DIFF hemoglobin 14.0 g/dL 13.5-1 7.5 Not Available [facility] [address] [place] [address], 07753, 12/30/2023 16:29:23 12/30/19 24 12/30/2023 CBC WITH AUTO DIFF hematocrit 42.5 % 42-54 Not Available [facility] [address] [place] [address], 635[address], 12/30/2023 16:29:23 12/30/19 24 12/30/2023 CBC WITH AUTO DIFF MCV 101.4 fL 79-98 high Not Available [facility] [address] [place] [address], 89898, 12/30/2023 16:29:23 12/30/19 24 12/30/2023 CBC WITH AUTO DIFF MCH 33.4 pg 27-32 high Not Available [facility] [address] [place] [address], 77331, 12/30/2023 16:29:23 12/30/19 24 12/30/2023 CBC WITH AUTO DIFF MCHC 32.9 g/dL 32-37 Not Available [facility] [address] [place] [address], 62365, 12/30/2023 16:29:23 12/30/19 24 12/30/2023 CBC WITH AUTO DIFF RDW 12.8 % 11-15 Not Available [facility] [address] [place] [address], 22482, 12/30/2023 16:29:23 12/30/19 24 12/30/2023 CBC WITH AUTO DIFF plt count 166 x10-3 /uL 130-40 0 Not Available [facility] [address] [place], [address], 12/30/2023 16:29:23 12/30/19 24 12/30/2023 CBC WITH AUTO DIFF mean platelet volume 10.2 fL 7-11 Not Available [facility] [address] [place], [address], 12/30/2023 16:29:23 12/30/19 24 12/30/2023 CBC WITH AUTO DIFF NRBC % auto 0.0 % <1 Not Available [facility] [address] [place], [address], 12/30/2023 16:29:23 12/30/19 24 12/30/2023 CBC WITH AUTO DIFF neut % 56.1 % Not Available [facility] [address] [place], [address], 12/30/2023 16:29:23 12/30/19 24 12/30/2023 CBC WITH AUTO DIFF lymph % 34.3 % Not Available [facility] [address] [place], [address], 12/30/2023 16:29:23 12/30/19 24 12/30/2023 CBC WITH AUTO DIFF mono % 6.3 % Not Available [facility] [address] [place], [address], 12/30/2023 16:29:23 12/30/19 24 12/30/2023 CBC WITH AUTO DIFF eos % 1.5 % Not Available [facility] [address] [place], [address], 12/30/2023 16:29:23 12/30/19 24 12/30/2023 CBC WITH AUTO DIFF baso % 1.5 % Not Available [facility] [address] [place], [address], 12/30/2023 16:29:23 12/30/19 24 12/30/2023 CBC WITH AUTO DIFF immature granulocytes % 0.3 % Not Available [facility] [address] [place], [address], 12/30/2023 16:29:23 12/30/19 24 12/30/2023 CBC WITH AUTO DIFF NRBC # auto 0.00 x10-3 /uL <0.1 Not Available [facility] [address] [place], [id number], 12/30/2023 16:29:23 12/30/19 24 12/30/2023 CBC WITH AUTO DIFF absolute neut 3.68 x10-3 /uL 1.5-7. 0 Not Available [facility] [address] [place], [id number], 12/30/2023 16:29:23 12/30/19 24 12/30/2023 CBC WITH AUTO DIFF lymph # 2.25 x10-3 /uL 1-5.0 Not Available [facility] [address] [place], [id number], 12/30/2023 16:29:23 12/30/19 24 12/30/2023 CBC WITH AUTO DIFF mono # 0.41 x10-3 /uL 0.2-1. 0 Not Available [facility] [address] [place], [id number], 12/30/2023 16:29:23 12/30/19 24 12/30/2023 CBC WITH AUTO DIFF eos # 0.10 x10-3 /uL 0-0.5 Not Available [facility] [address] [place], [address], 12/30/2023 16:29:23 12/30/19 24 12/30/2023 CBC WITH AUTO DIFF baso # 0.10 x10-3 /uL 0-0.2 Not Available [facility] [address] [place], [address], 12/30/2023 16:29:23 12/30/19 24 12/30/2023 CBC WITH AUTO DIFF immature granulocytes # 0.02 x10-3 /uL 0-0.03 Not Available [facility] [address] [place], [address], 12/30/2023 16:29:23 12/30/19 24 12/30/2023 CBC WITH AUTO DIFF performing lab Perfor [facility], a membe r of [facility] [address] [facility] [place] [address] Medic al Direc chele cedillo MD Not Available [facility] [address] [place], [address], 12/30/2023 16:29:23 12/30/19 24 12/30/2023 CREAT ININE WITH GFR creat 0.98 mg/dL 0.7-1. 3 Not Available [facility] [address] [place], [address], 12/30/2023 16:34:17 12/30/19 24 12/30/2023 CREAT ININE WITH GFR glomerular filtration rate 81 >60 This eGFR resul t was calcu lated using the CKD-E PI 2020 Creat inine Equat ion Not Available [facility] [address] [place], [address], 12/30/2023 16:34:17 12/30/19 24 12/30/2023 ELECT ROLYT ES sodium 137 mEq/L 135-14 5 Not Available [facility] [address] [place], [address], 12/30/2023 16:34:17 12/30/1912/30/2023 ELECT ROLYT ES potassium 4.7 mmol/ L 3.5-5. 5 Not Available [facility] [address] [place], [address], 12/30/2023 16:34:17 12/30/19 24 12/30/2023 ELECT ROLYT ES chloride 106 mmol/ L 96-110 Not Available [facility] [address] [place], [address], 12/30/2023 16:34:17 12/30/19 24 12/30/2023 ELECT ROLYT ES CO2 28 mmol/ L 21-32 Not Available [facility] [address] [place] [address], [address], 12/30/2023 16:34:17 12/30/19 24 12/30/2023 ELECT ROLYT ES anion gap 3 3-11 Not Available [facility] [address] [place] [address], [address], 12/30/2023 16:34:17 12/30/19 24 12/30/2023 SGOT SGOT 24 U/L 10-42 Not Available [facility] [address] [place] [address], [address], 12/30/2023 16:34:18 12/30/19 24 12/30/2023 SGPT SGPT 30 U/L 10-60 Not Available [facility] [address] [place] [address], [address], 12/30/2023 16:34:18 12/30/1912/30/2023 SGPT performing lab Perfor [facility], a membe r of [facility] [address] [place] [address] Medic al Direc chele cedillo MD Not Available [facility] [address] [place] [address], [address], 12/30/2023 16:34:18 12/30/19 24 12/31/2023 HIV VIRAL LOAD HIV viral load qual DETECT ED not detect . abnormal Not Available [facility] [address] [place] [address], [address], 12/31/2023 09:39:34 12/30/1912/31/2023 HIV VIRAL LOAD HIV viral load quant 28 <20 Not Available [facility] [address] [place] [address], [address], 12/31/2023 09:39:34 12/30/19 24 12/31/2023 HIV VIRAL LOAD HIV viral load log 1.44 <1.30 Not Available [facility] [address] [place] [address], [address], 12/31/2023 09:39:34 12/30/1912/31/2023 HIV VIRAL LOAD performing lab Perfor alexandrea Lab abnormal [facility], dang barbabe r [facility] [place] [address] [facility] [place] [address] Medic al Dire chele cedillo MD Not Available [facility] [address] [place] [address], [address], 12/31/2023 09:39:34 12/30/1901/01/2024 T4T8 PANEL percent cd3 88 % 55-86 high Not Available [facility] [address] [place] [address], [address], 01/01/2024 13:13:31 12/30/1901/01/2024 T4T8 PANEL absolute cd3 1769 cell/ uL 704-21 38 Not Available [facility] [address] [place] [address], [address], 01/01/2024 13:13:31 12/30/1901/01/2024 T4T8 PANEL percent cd8 49 % 9-37 high Not Available [facility] [address] [place] [address], [address], 01/01/2024 13:13:31 12/30/19 24 01/01/2024 T4T8 PANEL absolute cd8 987 cell/ uL 190-83 2 high Not Available [facility] [address] [place] [address], [address], 01/01/2024 13:13:31 12/30/1901/01/2024 T4T8 PANEL percent cd4 42 % 35-66 Not Available [facility] [address] [place] [address], [address], 01/01/2024 13:13:31 12/30/19 24 01/01/2024 T4T8 PANEL absolute cd4 856 cell/ uL 443-14 71 Not Available [facility] [address] [place] [address], [address], 01/01/2024 13:13:31 12/30/19 24 01/01/2024 T4T8 PANEL percent cd19 4 % 4-25 Not Available [facility] [address] [place], [address], 01/01/2024 13:13:31 12/30/19 24 01/01/2024 T4T8 PANEL absolute cd19 89 cell/ uL 100-52 4 low Not Available [facility] [address] [place], [address], 01/01/2024 13:13:31 12/30/19 24 01/01/2024 T4T8 PANEL cd4 cd8 ratio 0.9 1.0-3. 7 low Test perfo rmed at [facility] , [address] , [place] [address] [phone] 76-65 22 Not Available [facility] [address] [place], [address], 01/01/2024 13:13:31 12/30/19 24 01/01/2024 T4T8 PANEL percent cd56 8 % 3-24 Not Available [facility] [address] [place], [address], 01/01/2024 13:13:31 12/30/19 24 01/01/2024 T4T8 PANEL absolute cd56 157 cell/ uL 60-500 Not Available [facility] [address] [place], [address], 01/01/2024 13:13:31 05/03/19 25 05/02/2024 CBC WITH AUTO DIFFE RENTI AL WBC 6.1 K/mcL 4.8-10 .8 Not Available [facility] [address] [place], [address], 05/02/2024 11:04:54 05/03/19 25 05/02/2024 CBC WITH AUTO DIFFE RENTI AL RBC 4.10 M/mcL 4.50-5 .50 low Not Available [facility] [address] [place], [address], 05/02/2024 11:04:54 05/03/19 25 05/02/2024 CBC WITH AUTO DIFFE RENTI AL hemoglobin 14.3 g/dL 13.5-1 7.5 Not Available [facility] [address] [place], [address], 05/02/2024 11:04:54 05/03/19 25 05/02/2024 CBC WITH AUTO DIFFE RENTI AL hematocrit 42.6 % 42.0-5 4.0 Not Available [facility] [address] [place], [address], 05/02/2024 11:04:54 05/03/19 25 05/02/2024 CBC WITH AUTO DIFFE RENTI AL MCV 102.9 fL 79.0-9 8.0 high Not Available [facility] [address] [place], [address], 05/02/2024 11:04:54 05/03/19 25 05/02/2024 CBC WITH AUTO DIFFE RENTI AL MCH 34.5 pcg 27.0-3 2.0 high Not Available [facility] [address] [place], [address], 05/02/2024 11:04:54 05/03/19 25 05/02/2024 CBC WITH AUTO DIFFE RENTI AL MCHC 33.6 g/dL 32.0-3 7.0 Not Available [facility] [address] [place], [address], 05/02/2024 11:04:54 05/03/19 25 05/02/2024 CBC WITH AUTO DIFFE RENTI AL RDW 12.7 % 11.0-1 5.0 Not Available [facility] [address] [place], [address], 05/02/2024 11:04:54 05/03/19 25 05/02/2024 CBC WITH AUTO DIFFE RENTI AL platelets 136 K/mcL 130-40 0 Not Available [facility] [address] [place], [address], 05/02/2024 11:04:54 05/03/19 25 05/02/2024 CBC WITH AUTO DIFFE RENTI AL MPV 10.1 fL 7.0-11 .0 Not Available [facility] [address] [place], [address], 05/02/2024 11:04:54 05/03/19 25 05/02/2024 CBC WITH AUTO DIFFE RENTI AL NRBC 0.0 % <1.0 Not Available [facility] [address] [place], [address], 05/02/2024 11:04:54 05/03/19 25 05/02/2024 CBC WITH AUTO DIFFE RENTI AL NRBC absolute 0.00 K/mcL <0.10 Not Available [facility] [address] [place], [address], 05/02/2024 11:04:54 05/03/19 25 05/02/2024 CBC WITH AUTO DIFFE RENTI AL neutrophils relative 56.1 % Not Available [facility] [address] [place], [address], 05/02/2024 11:04:54 05/03/19 25 05/02/2024 CBC WITH AUTO DIFFE RENTI AL lymphocytes relative 33.8 % Not Available [facility] [address] [place], [address], 05/02/2024 11:04:54 05/03/19 25 05/02/2024 CBC WITH AUTO DIFFE RENTI AL monocytes relative 7.0 % Not Available [facility] [address] [place], [address], 05/02/2024 11:04:54 05/03/19 25 05/02/2024 CBC WITH AUTO DIFFE RENTI AL eosinophils relative 1.5 % Not Available [facility] [address] [place], [address], 05/02/2024 11:04:54 05/03/19 25 05/02/2024 CBC WITH AUTO DIFFE RENTI AL basophils relative 1.1 % Not Available [facility] [address] [place], [address], 05/02/2024 11:04:54 05/03/19 25 05/02/2024 CBC WITH AUTO DIFFE RENTI AL immature granulocytes relative 0.5 % Not Available [facility] [address] [place], [address], 05/02/2024 11:04:54 05/03/19 25 05/02/2024 CBC WITH AUTO DIFFE RENTI AL neutrophils absolute 3.42 K/mcL 1.50-7 .00 Not Available [facility] [address] [place], [address], 05/02/2024 11:04:54 05/03/19 25 05/02/2024 CBC WITH AUTO DIFFE RENTI AL lymphocytes absolute 2.06 K/mcL 1.00-5 .00 Not Available [facility] [address] [place], [address], 05/02/2024 11:04:54 05/03/19 25 05/02/2024 CBC WITH AUTO DIFFE RENTI AL monocytes absolute 0.43 K/mcL 0.20-1 .00 Not Available [facility] [address] [place], [address], 05/02/2024 11:04:54 05/03/19 25 05/02/2024 CBC WITH AUTO DIFFE RENTI AL eosinophils absolute 0.09 K/mcL 0.00-0 .50 Not Available [facility] [address] [place], [address], 05/02/2024 11:04:54 05/03/19 25 05/02/2024 CBC WITH AUTO DIFFE RENTI AL basophils absolute 0.07 K/mcL 0.00-0 .20 Not Available [facility] [address] [place], [address], 05/02/2024 11:04:54 05/03/19 25 05/02/2024 CBC WITH AUTO DIFFE RENTI AL immature granulocytes absolute 0.03 K/mcL 0.00-0 .03 Not Available [facility] [address] [place], [address], 05/02/2024 11:04:54 05/03/19 25 05/02/2024 CBC WITH AUTO DIFFE RENTI AL note See Report [facility], [address] [facility], [place], [place] [address] Not Available [facility] [address] [place], [address], 05/02/2024 11:04:54 05/03/19 25 05/02/2024 ASPAR ROMO AMINO TRANS FERAS E AST (SGOT) 24 unit/ L 10-42 Not Available [facility] [address] [place], [address], 05/02/2024 11:13:59 05/03/19 25 05/02/2024 ASPAR ROMO AMINO TRANS FERAS E note See Report [facility], [address] [facility], [place]endez d, [facility] [place] [place] [address] Not Available [facility] [address] [place], [address], 05/02/2024 11:13:59 05/03/19 25 05/02/2024 JOHN NE AMINO TRANS FERAS E ALT (SGPT) 36 unit/ L 10-60 Not Available [facility] [address] [place], [address], 05/02/2024 11:14:00 05/03/19 25 05/02/2024 JOHN NE AMINO TRANS FERAS E note See Report [facility], [address] [facility], [place] mendez d, [facility] [place] [address] Not Available [facility] [address] [place], [address], 05/02/2024 11:14:00 05/03/19 25 05/02/2024 CREAT ININE creatinine 1.05 mg/dL 0.70-1 .30 Not Available [facility] [address] [place], [address], 05/02/2024 11:14:01 05/03/19 25 05/02/2024 CREAT ININE eGFR 75 mL/mi n/1.7 3m2 >=60 Calcu latio n based on the Chron ic Kidne y Disea se Epide miolo gy Colla borat ion (CKD- EPI) equat ion refit witho ut adjus tment for race. Not Available [facility] [address] [place], [address], 05/02/2024 11:14:01 05/03/19 25 05/02/2024 CREAT ININE note See Report [facility], [address] [facility], [place] enamoradolorna d, [facility] [place] [address] Not Available [facility] [address] [place] [address], [address], 05/02/2024 11:14:01 05/03/19 25 05/02/2024 TREPO NEMA PALLI DUM ANTIB LOY WITH REFLE X TO RPR AND PARTI DEIRDRE AGGLU TINAT ION T. pallidum antibodies Negati ve negati ve Not Available [facility] [address] [place], [address], 05/02/2024 11:37:03 05/03/19 25 05/02/2024 TREPO NEMA PALLI DUM ANTIB LOY WITH REFLE X TO RPR AND PARTI DEIRDRE AGGLU TINAT ION note See Report [facility], [address] [facility], [place] gfiel d, [facility] [place] [address] Not Available [facility] [address] [place], [address], 05/02/2024 11:37:03 05/03/19 25 05/02/2024 HIV 1, 2 ANTIB LOY, P24 ANTIG EN WITH REFLE X TO DIFFE RENTI ATION HIV combo Ab/Ag Positi ve negati ve abnormal Posit fco HIV scree n has been sent out for HIV-1 /HIV- 2 diffe renti ation testi ng. Patie nts shoul d not be consi dered posit fco for HIV antib odies unles s confi rmed by the diffe renti ation test. If the diffe renti ation test is negat fco or indet ermin ate, HIV viral load testi ng is recom christiana d. Note- -> This test may not be added on due to diffe rent speci men requi marta ts. Not Available [facility] [address] [place] [address], [address], 05/02/2024 13:45:16 05/03/19 25 05/02/2024 HIV 1, 2 ANTIB LOY, P24 ANTIG EN WITH REFLE X TO DIFFE RENTI ATION note See Report abnormal [facility], [address] [facility], Spr[place] gfiel d, [place] [address] Not Available [facility] [address] [place] [address], [address], 05/02/2024 13:45:16 05/03/19 25 05/02/2024 LYMPH OCYTE T-DARA L PANEL cd4 900 cells /mcL 426-17 76 Not Available [facility] [address] [place] [address], [address], 05/04/2024 14:04:25 05/03/19 25 05/02/2024 LYMPH OCYTE T-DARA L PANEL cd8 947 cells /mcL 161-83 8 high Not Available [facility] [address] [place] [address], [address], 05/04/2024 14:04:25 05/03/19 25 05/02/2024 LYMPH OCYTE T-DARA L PANEL cd4/cd8 ratio 0.95 0.90-4 .90 Not Available [facility] [address] [place] [address], [address], 05/04/2024 14:04:25 05/03/19 25 05/02/2024 LYMPH OCYTE T-DARA L PANEL cd4 % 43 % 33-64 Not Available [facility] [address] [place] [address], [address], 05/04/2024 14:04:25 05/03/19 25 05/02/2024 LYMPH OCYTE T-DARA L PANEL cd8 % 46 % 10-39 high Not Available [facility] [address] [place] [address], [address], 05/04/2024 14:04:25 05/03/19 25 05/02/2024 LYMPH OCYTE T-DARA L PANEL note See Report high [facility], [address] [facility], [place] mendez d, [facility] [place] [address] Not Available [facility] [address] [place], [address], 05/04/2024 14:04:25 05/12/19 25 05/11/2024 HIV 1 MOLEC ULAR STUDY QUANT ITATI VE HIV-1 RNA interpretati on Detect ed not detect ed abnormal Not Available [facility] [address] [place], [address], 05/11/2024 14:21:16 05/12/19 25 05/11/2024 HIV 1 MOLEC ULAR STUDY QUANT ITATI VE HIV-1 RNA copies 148 copie s/mL <20 high Not Available [facility] [address] [place] [address], [address], 05/11/2024 14:21:16 05/12/19 25 05/11/2024 HIV 1 MOLEC ULAR STUDY QUANT ITATI VE HIV-1 RNA log 2.17 log_1 0_cop ies/m L <1.30 high Not Available [facility] [address] [place] [address], [address], 05/11/2024 14:21:16 05/12/19 25 05/11/2024 HIV 1 MOLEC ULAR STUDY QUANT ITATI VE note See Report high [facility], [address] [facility], [place]endez d, [facility] [place] [address] Not Available [facility] [address] [place], [address], 05/11/2024 14:21:16 07/11/19 25 07/10/2024 HIV 1 MOLEC ULAR STUDY QUANT ITATI VE HIV-1 RNA interpretati on Not Detect ed not detect ed HIV RNA not detec carmela, unabl e to repor t quant itati ve resul ts. Not Available [facility] [address] [place] [address], [address], 07/11/2024 11:01:08 07/11/19 25 07/10/2024 HIV 1 MOLEC ULAR STUDY QUANT ITATI VE note See Report [facility], [address] [facility], [place], [place] [address] Not Available [facility] [address] [facility], [place], [address], 07/11/2024 11:01:08 Result Notes None recorded. Problems Name Problem SNOMED Code Status Onset Date Resolution Date Notes Provider Name and Address Organization Details Recorded Time Herpes zoster 0771212 Active 2012 Herpes zoster without mention of complicati on; snomeddesc ription: Herpes zoster without mention of complicati on; Report Immunity to Registry: Yes; Notes: 1985,1998; Herpes zoster; snomeddesc ription: Herpes zoster without mention of complicati on; Report Immunity to Registry: Yes; Notes: 1985,1998; Not Available [facility] 4 06:58:08 Lipodystr ophy 31054464 Active 2013 Lipodystro phy; snomeddesc ription: Lipodystro phy; Report Immunity to Registry: Yes; Notes: 2/7 pt waist 38inches hips 38inches; Not Available [facility] 4 06:58:08 Hypertens fco disorder 18718589 Active 2013 Hypertensi on; snomeddesc ription: Hypertensi ve disorder; Report Immunity to Registry: Yes; Hypertens fco disorder; snomeddesc ription: Hypertensi ve disorder; Report Immunity to Registry: Yes; Not Available [facility] 4 06:58:08 Mixed hyperlipi demia 707098012 Active 2013 Mixed hyperlipid emia; snomeddesc ription: Mixed hyperlipid emia; Report Immunity to Registry: Yes; Not Available [facility] 4 06:58:09 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 Human immunodefi ciency virus [HIV] disease; snomeddesc ription: Human immunodefi ciency virus infection; Report Immunity to Registry: Yes; Notes: [id number] pos 2014; Human immunodefi ciency virus infection; snomeddesc ription: Human immunodefi ciency virus infection; Report Immunity to Registry: Yes; Notes: [id number] pos 2014; Not Available [facility] 4 06:58:08 Malignant tumor of pancreas [id number] Active 2020 Malignant tumor of pancreas; snomeddesc ription: Malignant tumor of pancreas; Report Immunity to Registry: Yes; Notes: Pancreatic cancer; underwent whipples surgery; no recurrence . Followed by Oncology r [facility]; ; Malignant neoplasm of pancreas, unspecifie d; snomeddesc ription: Malignant tumor of pancreas; Report Immunity to Registry: Yes; Notes: Pancreatic cancer; underwent whipples surgery; no recurrence . Followed by Oncology r [facility]; ; Not Available [facility] 4 06:58:08 Anogenita l herpesvir al infection 795623367 Active 2022 Anogenital herpesvira l infection, unspecifie d; snomeddesc ription: Genital herpes simplex; Report Immunity to Registry: Yes; Notes: HSV 2 pos serology HSV 1 serology negative; HSV 1 pos 2021; Not Available [facility] 4 06:58:09 Genital herpes simplex 47560714 Active 2022 Genital herpes simplex; snomeddesc ription: Genital herpes simplex; Report Immunity to Registry: Yes; Notes: HSV 2 pos serology HSV 1 serology negative; HSV 1 pos 2021; Not Available [facility] 4 06:58:09 Problem Notes None recorded. Medical Equipment None Reported. Allergies Allergen ID Allergen Name Allergen Category Reaction Reaction Severity Criticality Documentation Date Start Date Code Code System Note Provider Name and Address Organization Details Recorded Time 631 Product containin g penicilli n (product) medicatio n rash Not available Not available 04/21/20232011 62053 8001 SNOMED React ion: Unspe cifie d urtic aria; Comme nt: adver se_ev ent_t ype: 44235 8002; Notes : hives ; ; Not Available [facility] 4 06:50:39 633 Bactrim medicatio n Not available Not available Not available 04/21/20232012 32126 9 RxNorm Comme nt: adver se_ev ent_t ype: 68855 9007; ; Not Available [facility] 4 06:50:39 635 abacavir Not available Not available Not available Not available 04/21/20232014 71419 1 RxNorm Comme nt: sophia se_ev ent_t ype: 79781 1003; Notes : HLAb5 701 posit fco 2014; ; Not Available [facility] 4 06:50:39 Medications Name Sig Start Date Stop Date Status Note LastModified by Organization Details LastModified Time fluconazo le 100 mg tablet 100 mg Quantity : 3; Duration : 3; 0 refill(s ) 04/09 completed Frequenc y: qd; Duration : 3; VACCINE_ IND: no; SU_FULL_ NAME: Oneil enamorado; Not Available Not Available Not Available metformin 500 mg tablet TAKE 1 TABLET BY MOUTH DAILY (WITH BREAKFAS T) FOR BLOOD SUGAR. active Not Available Not Available No t Available doxycycli ne hyclate 100 mg capsule doxycycl ine hyclate 100 mg capsule 2 capsules po within 24-72 hrs after condomle ss sex. 2023 active Not Available Not Available Not Avai lable atorvasta tin 20 mg tablet TAKE 1 TABLET BY MOUTH EVERY DAY active Not Available Not Available No t Available loperamid e 2 mg capsule 2 MG Quantity : 30; Duration : 30; 0 refill(s ) 11/21 completed Duration : 30; VACCINE_ IND: no; Not Available Not Available Not Available Pneumovax -23 25 mcg/0.5 mL injection solution - Quantity : ; 0 refill(s ) 04/26 completed VACCINE_ IND: yes; VACCINE_ NAME: pneumoco ccal polysacc haride PPV23; SU_FULL_ NAME: Oneil enamorado; Not Available Not Available Not Available metoprolo l succinate ER 50 mg tablet,ex tended release 24 hr TAKE 1 TABLET BY MOUTH EVERY DAY active Not Available Not Available No t Available sucralfat e 1 gram tablet 1 GM TABLET; Quantity : 20; Duration : 5; 0 refill(s ) 07/05 completed Duration : 5; VACCINE_ IND: no; Not Available Not Available Not Available fluoroura cil 5 % topical cream APPLY A THIN LAYER TO FACE TWICE DAILY FOR 2 WEEKS. active Not Available Not Available No t Available Zithromax Z-Elvis 250 mg tablet 250 mg Quantity : 6; 0 refill(s ) 10/02 completed Frequenc y: As Directed ; VACCINE_ IND: no; SU_FULL_ NAME: Oneil enamorado; Not Available Not Available Not Available allopurin ol 100 mg tablet TAKE 1 TABLET ORALLY DAILY FOR 90 DAYS active Not Available Not Available No t Available sulfameth oxazole 800 mg-trimet hoprim 160 mg tablet DS TABLET; Quantity : 60; Duration : 30; 0 refill(s ) 09/05 completed Duration : 30; VACCINE_ IND: no; Not Available Not Available Not Available tramadol 50 mg tablet HCL 50 MG TABLET; Quantity : 8; Duration : 2; 0 refill(s ) 11/21 completed Duration : 2; VACCINE_ IND: no; Not Available Not Available Not Available Robitussi n-DM 10 mg-100 mg/5 mL oral syrup 10 mg-100 mg/5 mL Quantity : 500 nl; Duration : 7; 0 refill(s ) 06/09 completed Frequenc y: qid; Duration : 7; VACCINE_ IND: no; SU_FULL_ NAME: Oneil enamorado; Not Available Not Available Not Available amoxicill in 875 mg tablet TAB 875MG; Quantity : 14; Duration : 7; 0 refill(s ) 07/29 completed Duration : 7; VACCINE_ IND: no; Not Available Not Available Not Available lorazepam 0.5 mg tablet 0.5 MG TABLET; Quantity : 1; Duration : 1; 0 refill(s ) 07/05 completed Duration : 1; VACCINE_ IND: no; Not Available Not Available Not Available tamsulosi n 0.4 mg capsule TAKE 1 CAPSULE BY MOUTH DAILY. TAKE 30 MINS AFTER SAME MEAL EVERY DAY. active Not Available Not Available No t Available erythromy tadeo 5 mg/gram (0.5 %) eye ointment 5 MG/GRAM Quantity : 3; Duration : 7; 0 refill(s ) 02/16/ 2023 04/11 /2023 completed Duration : 7; VACCINE_ IND: no; Not Available Not Available Not Available ferrous sulfate 325 mg (65 mg iron) tablet SULFATE 325 MG TABLET; Quantity : 90; Duration : 90; 0 refill(s ) 04/22 completed Duration : 90; VACCINE_ IND: no; Not Available Not Available Not Available nitrofura ntoin macrocrys jarrett 100 mg capsule 100 MG Quantity : 20; Duration : 10; 0 refill(s ) 06/09 completed Duration : 10; VACCINE_ IND: no; Not Available Not Available Not Available nystatin 100,000 unit/gram topical cream apply in affected skin area bid x 7 days 09/15 completed Duration : 7; VACCINE_ IND: no; SU_FULL_ NAME: Oneil enamorado; Not Available Not Available Not Available oxycodone 5 mg capsule TAKE 1 CAPSULE BY MOUTH TWICE A DAY NEEDED FOR PAIN active Not Available Not Available No t Available Valtrex 1 gram tablet 1 g Quantity : 10; 0 refill(s ) 06/08 completed Frequenc y: bid; VACCINE_ IND: no; SU_FULL_ NAME: Oneil enamorado; Not Available Not Available Not Available docusate sodium 100 mg capsule TAKE 1 CAPSULE BY MOUTH TWICE A DAY active Not Available Not Available No t Available oxybutyni n chloride ER 5 mg tablet,ex tended release 24 hr TAKE 1 TABLET BY MOUTH EVERY DAY active Not Available Not Available No t Available pyridoxin e (vitamin B6) 50 mg tablet TAKE 1 TABLET ORALLY DAILY FOR 90 DAYS active Not Available Not Available No t Available omeprazol e 20 mg capsule,d elayed release TAKE 1 CAPSULE BY MOUTH EVERY DAY active Not Available Not Available No t Available hydroxyzi ne HCl 25 mg tablet HCL 25 MG TABLET; Quantity : 30; Duration : 7; 0 refill(s ) 09/05 completed Duration : 7; VACCINE_ IND: no; Not Available Not Available Not Available pravastat in 20 mg tablet 20 mg Quantity : 30; 3 refill(s ) 10/02 completed Frequenc y: qd; VACCINE_ IND: no; SU_FULL_ NAME: Oneil enamorado; Not Available Not Available Not Available metoprolo l succinate ER 25 mg tablet,ex tended release 24 hr TAKE 1 TABLET BY MOUTH EVERY DAY active Not Available Not Available No t Available lorazepam 1 mg tablet 1 MG TABLET; Quantity : 4; Duration : 2; 0 refill(s ) 09/05 completed Duration : 2; VACCINE_ IND: no; Not Available Not Available Not Available cefuroxim e axetil 500 mg tablet TAKE 1 TABLET BY MOUTH TWICE A DAY active Not Available Not Available No t Available polyethyl sherine glycol 3350 17 gram/dose oral powder 17 G/DOSE Quantity : 510; Duration : 30; 0 refill(s ) 08/15 completed Duration : 30; VACCINE_ IND: no; Not Available Not Available Not Available fluticaso ne propionat e 50 mcg/actua tion nasal spray,marlene pension 50 Quantity : 16; Duration : 30; 0 refill(s ) 07/29 completed Duration : 30; VACCINE_ IND: no; Not Available Not Available Not Available metformin ER 500 mg tablet,ex tended release 24 hr TAKE 1 TABLET BY MOUTH EVERY DAY WITH BREAKFAS T active Not Available Not Available No t Available naproxen 500 mg tablet 500 MG TABLET; Quantity : 10; Duration : 5; 0 refill(s ) 11/21 completed Duration : 5; VACCINE_ IND: no; Not Available Not Available Not Available Pneumovax -23 25 mcg/0.5 mL injection syringe - Quantity : ; 0 refill(s ) 2021 active VACCINE_ IND: yes; VACCINE_ DOCUMENT _DATE: 00:00:00 ; VACCINE_ DOCUMENT _NAME: Pneumoco ccal Polysacc haride (PPSV23) : 12/28/18 ; VACCINE_ NAME: pneumoco ccal polysacc haride PPV23; SU_FULL_ NAME: Oneil enamorado; VIS_DATE : 16:33:49 .0; Not Available Not Available Not Available nitrofura ntoin monohydra te/macroc rystals 100 mg capsule TAKE 1 CAPSULE BY MOUTH 2 TIMES A DAY FOR UTI FOR 10 DAYS MUST ADMINIST ER WITH A MEAL/RYAN D 09/08 completed Duration : 10; VACCINE_ IND: no; Not Available Not Available Not Available acyclovir Quantity : ; 0 refill(s ) 06/08 completed VACCINE_ IND: no; Not Available Not Available Not Available aspirin Quantity : ; 0 refill(s ) 06/08 completed VACCINE_ IND: no; Not Available Not Available Not Available omeprazol e Quantity : ; 0 refill(s ) 06/08 completed VACCINE_ IND: no; Not Available Not Available Not Available PreviDent 5000 Booster 1.1 % dental paste 1.1% Quantity : 100.000; Duration : 30; 6 refill(s ) 06/08 completed Duration : 30; VACCINE_ IND: no; Not Available Not Available Not Available Atripla 600 mg-200 mg-300 mg tablet TAB; Quantity : 90; Duration : 90; 0 refill(s ) 01/16 completed Duration : 90; VACCINE_ IND: no; Not Available Not Available Not Available Engerix-B (PF) 20 mcg/mL intramusc ular suspensio n 20 mcg/mL Quantity : ; 0 refill(s ) 04/26 completed VACCINE_ IND: yes; VACCINE_ NAME: Hep B, adult; SU_FULL_ NAME: Oneil enamorado; Not Available Not Available Not Available fesoterod ine ER 4 mg tablet,ex tended release 24 hr TAKE 1 TABLET ORALLY DAILY FOR 90 DAYS active Not Available Not Available No t Available GaviLyte- G 236 gram-22.7 4 gram-6.74 gram-5.86 gram oral solution active Not Available Not Available Not Available Prevnar 13 (PF) 0.5 mL intramusc ular syringe - Quantity : ; Duration : 30; 0 refill(s ) 04/16 completed Duration : 30; VACCINE_ IND: yes; VACCINE_ NAME: Pneumoco ccal conjugat e PCV 13; SU_FULL_ NAME: Oneil Salazar; Not Available Not Available Not Available Egrifta 1 mg subcutane ous solution 1 mg Quantity : ; Duration : 30; 0 refill(s ) 05/06 completed Duration : 30; VACCINE_ IND: yes; SU_FULL_ NAME: Oneil Salazar; VIS_DATE : 05:00:00 .0; Not Available Not Available Not Available Cough-Adriana st Congestio n DM 5 mg-100 mg/5 mL oral liquid TAKE 5 ML BY MOUTH 4 TIMES A DAY NEEDED FOR COUGH FOR 7 DAYS active Not Available Not Available No t Available Genvoya 150 mg-150 mg-200 mg-10 mg tablet TABLET; Quantity : 90; Duration : 90; 0 refill(s ) 07/05 completed Duration : 90; VACCINE_ IND: no; Not Available Not Available Not Available Fluad 2016- 65yr up(PF)45 mcg(15 mcgx3)/0. 5 mL intramusc ular syringe 0 Quantity : 0.5; Duration : 1; 0 refill(s ) 04/26 completed Duration : 1; VACCINE_ IND: no; VACCINE_ NAME: influenz a, trivalen t, adjuvant ed; Not Available Not Available Not Available Shingrix (PF) 50 mcg/0.5 mL intramusc ular suspensio n, kit 1 dose x1, followed by 2nd dose 2-6 months after initial dose 08/15 completed Duration : 1; VACCINE_ IND: no; VACCINE_ NAME: zoster recombin ant; SU_FULL_ NAME: Oneil enamorado; Not Available Not Available Not Available Biktarvy 50 mg-200 mg-25 mg tablet TAKE 1 TABLET BY MOUTH EVERY DAY active Not Available Not Available No t Available Zenpep 10,000 unit-32,0 00 unit-42,0 00 unit capsule,d elayed release 32-42 K Quantity : 90; Duration : 30; 0 refill(s ) 01/11 completed Duration : 30; VACCINE_ IND: no; Not Available Not Available Not Available Fluzone High-Dose (PF) 180 mcg/0.5 mL intramusc ular syringe 180MCG/ Quantity : 0; Duration : 1; 0 refill(s ) 12/15 completed Duration : 1; VACCINE_ IND: no; VACCINE_ NAME: Influenz a, high dose seasonal ; Not Available Not Available Not Available Fluzone High-Dose (PF) 180 mcg/0.5 mL intramusc ular syringe 180MCG/ Quantity : 0; Duration : 1; 0 refill(s ) 11/21 completed Duration : 1; VACCINE_ IND: no; VACCINE_ NAME: Influenz a, high dose seasonal ; Not Available Not Available Not Available FreeStyle Keerthi 2 Sensor kit USE EVERY 14 DAYS. active Not Available Not Available No t Available FreeStyle Keerthi 2 [place] Quantity : 1; Duration : 30; 0 refill(s ) 09/08 completed Duration : 30; VACCINE_ IND: no; Not Available Not Available Not Available BinaxNOW COVID-19 Ag Self Test kit Take 1 kit by Place[employer]. route. 2023 active Not Available Not Available Not Avai lable Prevnar 20 (PF) 0.5 mL intramusc ular syringe - Quantity : 1; Duration : 1; 0 refill(s ) 09/08 completed Frequenc y: x1; Duration : 1; VACCINE_ IND: no; VACCINE_ NAME: Pneumoco ccal conjugat e PCV20, polysacc haride [id number] conjugat e, adjuvant , PF; SU_FULL_ NAME: Oneil enamorado; Not Available Not Available Not Available Vitals Date Recorded Heart rate Respiratory rate Body temperature Body mass index (BMI) Body weight Oxygen saturation Oxygen saturation in Arterial blood by Pulse oximetry Systolic And Diastolic Provider Name and Address Organization Details Last Updated DateTime 5 68 /min 12 /min 98.3 [degF] 25.7 kg/m2 93773.1 1 g 96 % 96 % 118/72 mm[Hg] [place] CASTANEDA MD [facility] 5 12:05:09 Date Recorded Body height Provider Name an d Address Organization Details Last Updated DateTime 03/22/2024 172.72 cm Gisela CASTANEDA MD [facility] 03/22/2024 11:53:40 Date Recorded Body height Heart rate Respiratory rate Body temperature Body mass index (BMI) Body weight Systolic And Diastolic Provider Name and Address Organization Details Last Updated DateTime 4 172.72 cm 75 /min 10 /min 97.8 [degF] 24.8 kg/m2 21213.5 6 g 123/80 mm[Hg] [place] CASTANEDA MD [facility] 4 10:51:27 Date Recorded Body height Heart rate Respiratory rate Body temperature Body mass index (BMI) Body weight Systolic And Diastolic Provider Name and Address Organization Details Last Updated DateTime 4 172.72 cm 85 /min 10 /min 98.1 [degF] 25.2 kg/m2 92216.3 3 g 100/70 mm[Hg] [place] CASTANEDA MD [facility] 4 14:02:05 Date Recorded Body height Heart rate Respiratory rate Body temperature Body mass index (BMI) Body weight Systolic And Diastolic Provider Name and Address Organization Details Last Updated DateTime 5 172.72 cm 66 /min 12 /min 98.3 [degF] 25.2 kg/m2 86328.3 3 g 108/64 mm[Hg] Gisela CASTANEDA MD [facility] 5 14:57:33 Date Recorded Body height Heart rate Respiratory rate Body temperature Body mass index (BMI) Body weight Oxygen saturation Oxygen saturation in Arterial blood by Pulse oximetry Systolic And Diastolic Provider Name and Address Organization Details Last Updated DateTime 4 172.72 cm 62 /min 10 /min 98.3 [degF] 24.2 kg/m2 79242.1 9 g 97 % 97 % 110/68 mm[Hg] Gisela CASTANEDA MD [facility] 4 11:54:42 Social History None recorded. Functional Status None recorded. Mental Status None recorded. Family History Nothing Reported Notes:Diabetes, Response Pro perty: Yes; Relationship: Father: Renal Failure, Response Property: Yes; Relationship: Mother: Cancer of the breast, Response Property: Yes; Medical History No medical history recorded. Immunizations Vaccine Type Date Status Note Provider Nam e and Address Organization Details Recorded Time pneumococcal polysaccharide PPV23 2 completed Not Available [facility] 04/21/2023 06:54:33 Past Encounters Encounter ID Performer Location Encounter Start Date Encounter Closed Date Diagnosis/Indication Diagnosis SNOMED-CT Code Diagnosis ICD10 Code Diagnosis Note [id number] Oneil Castaneda MD Main Office [address] [place] [address] [phone] 12/14/2022 11:49:12 12/15/2022 09:10:39 Human immunodeficiency virus infection 07953886 B20 Continue Biktarvy 1 tab po qd. Strict compliance with daily correct use of med to prevent viral resistance and keep viral suppressio n and transmissi on. repeat HIV VL PCR, Cd4, STI testing, ALt/AST, creatinine RSV vaccine prescribed fungal skin rash: nystatin bid on skin x 7-10 days. DM control. U=U. pt aware of PreP availabili ty. condom use reviewed. DM control. diet and exercise. plan of care reviewed. [id number] Oneil Castaneda MD Main Office [address] [place] [address] [phone] 04/16/2023 10:37:53 04/16/2023 11:05:12 Human immunodeficiency virus infection 46581966 B20 Continue Biktarvy 1 tab po qd. Strict compliance with daily correct use of med to prevent viral resistance and keep viral suppressio n and transmissi on.labsU=U . pt aware of PreP availabili ty. condom use reviewed.p michelle of care reviewed.r ecommend Prevnar 20 [id number] Oneil Castaneda MD Main Office [address] [place] [address] [id number] 07/15/2023 13:40:23 07/15/2023 14:18:14 Human immunodeficiency virus infection 67502885 B20 Continue Biktarvy 1 tab po qd.Strict compliance with daily correct use of med to prevent viral resistance and keep viral suppressio n and transmissi on.avoid vitamins and supplement Stark=U. pt aware of PreP availabili ty. condom use reviewed.D oxyPeP reviewed and prescribed plan of care reviewed. Spasm of back muscles 20 4273570 M62.830 muscle relaxant if needed. declines prescripti on today, but will call if needed, or persistent .hydration tylenol or motrinwarm water.lido jud patches if needed Exposure t o sexually transmissible disorder 126420208 Z20.2 declines STI screen today.nega tive STI screen in the pastDoxyPE P for STI prevention : doxycyclin e 2 cap po within 24-72 hrs of condomless sex. no allergies t teatracycl ginger.potet nial side effects reviewed. [id number] Oneil Castaneda MD Main Office [address] [place] [address] [id number] 11/15/2023 11:42:58 11/15/2023 12:27:06 Human immunodeficiency virus infection 15198738 B20 Continue Biktarvy 1 tab po qd.Strict compliance with daily correct use of med to prevent viral resistance and keep viral suppressio n and transmissi on.avoid vitamins and supplement Stark=U. pt aware of PreP availabili ty. condom use reviewed.D oxyPeP reviewed and prescribed flu vaccine in2-3 weeksCOVID 19 vaccine recommende d 3 months from todayRSV vaccine recommende dplan of care reviewed. Exposure t o sexually transmissible disorder 350328095 Z20.2 DoxyPEP for STI prevention : doxycyclin e 2 cap po within 24-72 hrs of condomless sex. Upper resp iratory infection 55550226 J06.9 COVID19 test done positive.m ed not prescribed as he has had symptoms for longer than a weekisolat ionhand washingto call if no improvemen t or worsening sx. [id number] Oneil Castaneda MD Main Office [address] [place] [address] [id number] 03/22/2024 11:46:13 03/22/2024 13:07:35 Human immunodeficiency virus infection 53435219 B20 Continue Biktarvy 1 tab po qd.Strict compliance with daily correct use of med to prevent viral resistance and keep viral suppressio n and transmissi on.avoid vitamins and supplement s or keep 8 hours apartU=U. pt aware of PreP availabili ty. condom use reviewed.D oxyPeP reviewed and prescribed plan of care reviewed. Upper resp iratory infection 92075994 J06.9 COVID19 2023s/p URI 3 weeks ago.Robitu ssin DM PRN for cough; might benefit from Zyrtec or claritin or benadryl for rhinitis.t o call if worsening cough or nonresolvi ng. [id number] Oneil Castaneda MD Main Office [address] [place] [address] [id number] 07/20/2024 14:45:30 07/20/2024 16:03:21 Human immunodeficiency virus infection 77195807 B20 Continue Biktarvy 1 tab po qd.Strict compliance with daily correct use of med to prevent viral resistance and keep viral suppressio n and transmissi on.avoid vitamins and supplement Stark=U. pt aware of PreP availabili ty. condom use reviewed.p [id number] vaccine prescribed plan of care reviewed. Health Concerns Section Related Observation LastModified by Organization Detai ls LastModified Time None Recorded Concern Status LastModified by Organization Details LastModified Time None Recorded Advance Directives Directive None Recorded Payers Insurance Date Sequence Insurance Name Policy Number Policy Topete Covered Member ID Topete Member ID Guarantor Name 07/24/[address] [facility] [employer] - [facility] [id number] Faizan Rudd [id number] Faizan Rudd Notes Date Note Type Note Provider Name and Address Organization Details Recorded Time 04/16/2023 text/html ROS as noted in the HPI Pt returns for management of HIV.on Biktarvy 1 tab po qd; compliant. denies missing doses.med list reviewedno fever. no n/v/d.08/2022 HIV VL nondetceted; Ks8=9099; HCV ab neg; HBV s ag neg; GC/chlamydia neg; RPR10 HIV VL nondetected; Xr6=367(41%)vaccin es upto date to includenot sexually active. Oneil Castaneda MD [address] [place] [address], [phone], [facility] - ONEIL CASTANEDA MD [facility] 04/17/2023 14:02:39 07/15/2023 text/html ROS as noted in the HPI Pt returns for management of HIV.on Biktarvy 1 tab po qd; compliant. denies missing doses.med list reviewednot on iron supplements; stopped in the past visit.no fever. no n/v/d.04/2023 HIV VL NOndetceted; [id number]; no syphilis; SGPT 24; SGOT 9; cOMT=784 HIV VL nondetceted; Vd9=5013; HCV ab neg; HBV s ag neg; GC/chlamydia neg; RPR1 HIV VL nondetected; Te3=765(41%)vaccin es upto date to includenot sexually active.muscle sapsm left side: lower.might become sexually active with a friend who is visiting him in a few weeks rfom CTdeclines STI screen today due to no STI sx nor sexual activity in years.HgAiC around 6 Oneil Castaneda MD [address] [place] [address], [phone], TWYLA CASTANEDA MD [facility] 07/15/2023 15:20:29 11/15/2023 text/html ROS as noted in the HPI HIV.on Biktarvy 1 tab po qd;tolerating welltaking dailyno concernsno side effectsno hospitalization.rl smith is on PreP06/2023 HIV VL nondetceted; CD4= 1361; % 44; AST/ALT wnl; zZPG=199/2024 HIV Vl nondetected; quantiferon negative; GC/chlamydia negno fever. no chills. no back pain. no sweats.used DOXYPEP. x 1; sexually active. no STI sxrecent URI 1.5 weeks ago; recovering; improved cough and malaise. negative rapid test for COVID19 last weekhe thinks he got RSV vaccine Oneil Castaneda MD [address] [place] [address], [phone], TWYLA CASTANEDA MD [facility] 11/15/2023 12:54:29 03/22/2024 text/html ROS as noted in the HPI HIV.on Biktarvy 1 tab po qd;tolerating welltaking dailyno side effectsno hospitalization. HIV CD4= 856 HIV L 28; ALT/AST06/2023 HIV VL nondetceted; CD4= 1361; % 44; AST/ALT wnl; rMJN=415/2024 HIV Vl nondetected; quantiferon negative; GC/chlamydia negURI about 3 weeks ago; resolving. has a dry cough that is improved but not resolved.no fever. no chills. no back pain. no sweats. no malaiseno use of DOXYPEP. x 1; not sexually active. no STI sxhad COVID19 and flu vaccine ; had RSV vaccine. seeing Urology and Surgey; getting monitored for pancreas. has scar tissue post surgery, and being monitored. Dr Blair. Reports vaccines uptodate Oneil Castaneda MD [address] [place] [address], [phone], TWLYA CASTANEDA MD [facility] 04/04/2024 18:18:19 07/20/2024 text/html ROS as noted in the HPI HIV.on Biktarvy 1 tab po qd; stopped supplement since April 2024 when VL was detected. was on MTV, vit B [address] Blair; VL was detected once in the past year when he was taking supplements as well.compliant. taking dailyno side effectsnot sexually active. no STI sx.reports that vaccine are uptodayehe reports had RSV and shingles vaccines.has been seen by PCP as well.has case management. his ADAP forms were completed on 01/2024 and 04/2024.04/2024 HIV VL nondetected. HIV CD4= 856 HIV L 28; ALT/AST06/2023 HIV VL nondetceted; CD4= 1361; % 44; AST/ALT wnl; uRLC=670/2024 HIV Vl nondetected; quantiferon negative; GC/chlamydia neg Oneil Castaneda MD [address] [place] [address], [phone], TWYLA CASTANEDA MD [facility] 07/21/2024 02:34:31
[2024-09-22 10:30] LABS: Prostate Specific Antigen 1.48 ng/mL (<0.05-4.0)
== END 2024-09-22 09:08 | disposition home or self-care (01) ==
LOC: HO.LAB 09:07
PROVIDERS: PCP Physician Assistant Medical; Visit Provider Urology
DX: R35.0 Frequency of micturition (principal)
CPT/HCPCS: 36415; 84153

== ENCOUNTER 2024-10-10 09:31 | Outpatient (AMB) | payer OTHER, SELFPAY ==
--- NOTE | 2024-10-10 09:34 | A.OFFVIS_ITS ---
Intake Visit Reasons: 6m/PSA Intake Note: Patient is present for 6M FOLLOW UP Urology Medication:ALLOPURINOL,OXYBUTYNIN,FESOTERODINE Antibiotic Allergy:PENICILLINS Blood Thinner:NONE Labs done 09/22/24 : PSA 1.48 TODAY'S PVR 143ML'S Packaging Sales Required: No Accompanied by: Self / Same As Patient Allergies Penicillins (PCN) Allergy (Mild, Verified 10/10/24 09:35) HIVES abacavir Allergy (Unknown, Verified 10/10/24 09:35) rash, chills HPI Comments Details: Faizan is a pleasant male. He is a patient of Dr. Wheeler. He is seen for the following urologic conditions - lower urinary tract symptoms - nephrolithiasis Imaging follow-up Remains on allopurinol and vitamin B6 Trial Gemtesa Nephrolithiasis Initial presentation September 2022 Intervention - 11/21 left ureteroscopy Stone composition - calcified ox monohydrate 75% Imaging - 02/20 renal ultrasound no evidence of stone, mild left hydronephrosis - 08/22 renal ultrasound question small stone left side 3 mm - 02/21 renal ultrasound tiny bilateral stone Surveillance imaging Lower urinary tract symptoms Background triple therapy HIV for 1999 diagnosis in 1985 Underwent laser prostatectomy in the past Procedure 06/20 redo laser prostatectomy Cystoscopy 2019 - apical tissue PSA 02/19 1.1, 09/22 1.5 Urinary urgency on fesoterodine Four years from pancreatectomy [facility] Medical History UTI (urinary tract infection) Obstructive uropathy Left ureteral calculus Acidosis, lactic Bandemia Abdominal pain Sepsis associated hypotension HIV (human immunodeficiency virus infection) Anemia GERD (gastroesophageal reflux disease) Arthritis History of pancreatic cancer Hypertensive heart disease HTN (hypertension) Hyperlipidemia Right bundle branch block (RBBB) determined by electrocardiography Surgical History S/P ureteral stent placement History of appendectomy Hx of cystoscopy History of Whipple procedure History of tonsillectomy and adenoidectomy Hx of hernia repair History of prostate surgery Hx of colonoscopy Family History Father No problems noted. Mother Cancer Social History Household Members: None Housing: Apartment Are you a primary inpatient care manager rn to a significant other at home: No Do you presently have visiting nurse or other home services: No Alcohol intake: current Alcohol intake frequency: holidays/special occasions only Comment: aware of trip hazard Patient Tobacco Use Status: Never used Tobacco Substance Use Type: Marijuana service: No Office Procedures Post Void Residual Post Residual Void Post Void Residual (PVR): 143 [id number] Void Residual by ultrasound Results AMB Urinalysis, Automated UA Leukoctes 0 Yuki/uL Last Edit by Reba Wilson MA on 10/10/24 13:59 UA Nitrite Last Edit by Reba Wilson, MS on 10/10/24 13:59 UA Urobilinogen 3.5 mg/dL Last Edit by Reba Wilson MS on 10/10/24 13:59 UA Protein 0 mg/dL Last Edit by Reba Wilson, MS on 10/10/24 13:59 UA pH 6.5 Last Edit by Reba Wilson, MS on 10/10/24 13:59 UA Blood 0 Armando/uL Last Edit by Reba Wilson, MS on 10/10/24 13:59 UA Specific [place] 1.010 Last Edit by Reba Wilson, MS on 10/10/24 13:59 UA Ketone Last Edit by Reba Wilson MS on 10/10/24 13:59 UA Bilirubin 0 mg/dL Last Edit by eRba Wilson MS on 10/10/24 13:59 UA Glucose 0 mg/dL Last Edit by Reba Wilson MS on 10/10/24 13:59 Assessment & Plan Assessment & Plan (1) Overactive bladder: Code(s): N32.81 - Overactive bladder Category: Medical (2) Nocturia more than twice per night: Code(s): R35.1 - Nocturia Category: Medical (3) Urinary frequency: Code(s): R35.0 - Frequency of micturition Category: Medical Orders: Orders AMB Post Void Residual by ultrasound Today N32.81 - Overactive bladder, R35.0 - Frequency of micturition, R35.1 - Nocturia AMB Urinalysis Automated Today Z13.9 - Encounter for screening, unspecified Medications: New mirabegron ER 25 mg PO DAILY 30 tabs 2RF 30 days N32.81 - Overactive bladder Coding Diagnoses Overactive bladder N32.81 Nocturia more than twice per night R35.1 Urinary frequency R35.0 CPT Codes Post Residual Void - PVR CPT Code: 24465-Axgk Void Residual by ultrasound ([id number])
--- OUTSIDE RECORDS SUMMARY | 2024-10-10 10:09 | XMS_ITS | Clinical Summary ---
Author Organization 175 [facility] Address [address] [place] [address] Phone Care Team Providers Care Community Education Specialist Name Role Phone Liborio Noland Primary Care Provider [phone] Allergies Active Allergy Reactions Criticality Noted Date [...] NEEDED Active cefuroxime (CEFTIN) 500 mg tablet 11/09/19 23 Active loperamide (IMODIUM A-D) 2 mg tablet Take 1 Tablet by mouth daily as needed for Diarrhea. 08/14/19 22 Active metFORMIN (GLUCOPHAGE) 500 mg tablet TAKE 1 TABLET BY MOUTH DAILY (WITH BREAKFAST) FOR BLOOD SUGAR. 08/24/19 24 Active multivit-min/fe rrous fumarate (MULTI VITAMIN ORAL) 1 tablet daily Active polyethylene glycol (MIRALAX) 17 gram packet MIX 17 GRAMS INTO LIQUID AND DRINK BY MOUTH ONCE A DAYFOR 1 WEEK THEN EVERY 3 DAYS NEEDED 03/27/19 22 Active allopurinoL (ZYLOPRIM) 100 mg tablet Take 1 tablet (100 mg total) by mouth 1 (one) time each day. 11/22/19 24 Active fesoterodine 4 mg tablet extended release 24 hr Take 1 tablet by mouth 1 (one) time each day. 11/22/19 24 Active metoprolol succinate (TOPROL-XL) 25 mg 24 hr tablet TAKE 1 TABLET BY MOUTH EVERY DAY 90 tablet 3 02/15/20 24 Active omeprazole (PriLOSEC) [address] capsule TAKE 1 CAPSULE BY MOUTH EVERY DAY 90 capsule 3 03/16/19 25 Active atorvastatin (LIPITOR) 20 mg tablet TAKE 1 TABLET BY MOUTH EVERY DAY 90 tablet 3 04/11/19 25 Active docusate sodium (COLACE) 100 mg capsule TAKE 1 CAPSULE BY MOUTH TWICE A DAY 60 capsule 3 06/15/19 25 Active metFORMIN XR (GLUCOPHAGE-XR) 500 mg 24 hr tablet TAKE 1 TABLET BY MOUTH EVERY DAY WITH BREAKFAST 90 tablet 3 10/03/19 25 Active tamsulosin (FLOMAX) 0.4 mg 24 hr capsule TAKE 1 CAPSULE BY MOUTH DAILY. TAKE 30 MINS AFTER SAME MEAL EVERY DAY. 90 capsule 1 10/10/19 25 Active tamsulosin (FLOMAX) 0.4 mg 24 hr capsule TAKE 1 CAPSULE BY MOUTH DAILY. TAKE 30 MINS AFTER SAME MEAL EVERY DAY. 90 capsule 1 03/16/19 25 025 Discontinued Active Problems Problem Noted Date Diagnosed Date Type 2 diabetes mellitus wit hout complication, without long-term current use of insulin ([facility] V24, [facility] V28) 11/11/2022 Frequent stools 08/13/2021 Incisional hernia of anterio r abdominal wall without obstruction or gangrene 11/19/2020 Iron deficiency anemia 11/14/2020 Pancreatic adenocarcinoma ([facility] V24, [facility] V28) 06/18/2020 Overview (11/30/2023): S/P whipple procedure Drs. Bose GERD (gastroesophageal reflux disease) 9 Benign prostatic hyperplasia with nocturia 02/16 Right bundle branch block (RBBB) 08/28/2016 Subclinical hypothyroidism 07/22/2016 Overview (11/30/2023): TSH 5.02, 07/14/16 Retinal vein occlusion, branch ([facility] V28) 09/2011 Overview (11/30/2023): Left, 2011 Mixed hyperlipidemia 08/02/2009 Human immunodeficiency virus (HIV) disease ([facility] V24, [facility] V28) 05/10/2005 Overview (11/30/2023): Dx July 2000 Hypertrophy of breast 05/10/2005 Immunizations Name Administration Dates Next Due H1N1 Inj Preservative Free 02/08/2009 Hepatitis B ([id number]-Ffesd , Recombivax HB-Adult) 19yo and older 09/07/2001,04/11/2001 [...] Tubular adenoma BREAST SURGERY 2005, 2008ish PROCEDURE: [facility] UNLISTED PROCEDURE BREAST; COMMENT: ? bilat TURP / TRANSURETHRAL INCISION / DRAINAGE PROSTATE 06/23/2021 PROCEDURE: HISTORICAL TURP; COMMENT: Dr. Johnnie perrin laser CYSTOSCOPY 11/03/2022 PROCEDURE: HISTORICAL CYSTOSCOPY; COMMENT: Left cystoscopy, stent placement for left ureteral stone dr. thanh conte COLONOSCOPY 12/24/2022 PROCEDURE: HISTORICAL COLONOSCOPY; COMMENT: muslu 4 polyps 3 years Medical History Medical History Date Comments Human immunodeficiency virus (HIV) disease ([facility] V24, [facility] V28) 05/10/2005 DX:Human immunodefi ciency virus (HIV) disease (HCC); COMMENT: Dx July 2000 Hypertrophy of breast [...] 8:00 AM EDT Office Visit Adult Medicine [facility] [address] [place] [address] Liborio Noland PA [address] [place] [address] 01/11/2025 8:30 AM EST Office Visit General Surgery - [place] [address] [phone] Alexander Bose MD [address] [address] 01/16/2025 9:00 AM EST Office Visit [facility] Hematology Oncology [address] [place] [phone] Michael Ny MD [address] [place] [address] Health Maintenance Due Date Last Done Comments [...] Procedure Name Priority Date/Time Associated Diagnosis Comments EXTERNAL CLINICAL LAB 09/22/2024 TRIIODOTHYRONINE FREE Routine 09/15/2024 7:52 AM EDT Type 2 diabetes mellitus without complication, without long-term current use of insulin ([facility] V24, [facility] V28) Benign prostatic hyperplasia with nocturia Gastroesophageal reflux disease without esophagitis Human immunodeficiency virus (HIV) disease ([facility] V24, [facility] V28) Mixed hyperlipidemia Iron deficiency anemia, unspecified iron deficiency anemia type Subclinical hypothyroidism Pancreatic adenocarcinoma ([facility] V24, [facility] V28) FREE THYROXINE WITH REFLEX TO FREE TRIIODOTHYRONINE Routine 09/15/2024 7:52 AM EDT Type 2 diabetes mellitus without complication, without long-term current use of insulin ([facility] V24, [facility] V28) Benign prostatic hyperplasia with nocturia Gastroesophageal reflux disease without esophagitis Human immunodeficiency virus (HIV) disease ([facility] V24, [facility] V28) Mixed hyperlipidemia Iron deficiency anemia, unspecified iron deficiency anemia type Subclinical hypothyroidism Pancreatic adenocarcinoma ([facility] V24, [facility] V28) CBC WITH AUTO DIFFERENTIAL Routine 09/15/2024 7:52 AM EDT Type 2 diabetes mellitus without complication, without long-term current use of insulin ([facility] V24, [facility] V28) Benign prostatic hyperplasia with nocturia Gastroesophageal reflux disease without esophagitis Human immunodeficiency virus (HIV) disease ([facility] V24, [facility] V28) Mixed hyperlipidemia Iron deficiency anemia, unspecified iron deficiency anemia type Subclinical hypothyroidism Pancreatic adenocarcinoma ([facility] V24, [facility] V28) LIPID PANEL WITH REFLEX TO DIRECT LDL Routine 09/15/2024 7:52 AM EDT Type 2 diabetes mellitus without complication, without long-term current use of insulin ([facility] V24, [facility] V28) Benign prostatic hyperplasia with nocturia Gastroesophageal reflux disease without esophagitis Human immunodeficiency virus (HIV) disease ([facility] V24, [facility] V28) Mixed hyperlipidemia Iron deficiency anemia, unspecified iron deficiency anemia type Subclinical hypothyroidism Pancreatic adenocarcinoma ([facility] V24, [facility] V28) MICROALBUMIN CREATININE URINE RATIO Routine 09/15/2024 7:52 AM EDT Type 2 diabetes mellitus without complication, without long-term current use of insulin ([facility] V24, [facility] V28) Benign prostatic hyperplasia with nocturia Gastroesophageal reflux disease without esophagitis Human immunodeficiency virus (HIV) disease ([facility] V24, [facility] V28) Mixed hyperlipidemia Iron deficiency anemia, unspecified iron deficiency anemia type Subclinical hypothyroidism Pancreatic adenocarcinoma ([facility] V24, [facility] V28) COMPREHENSIVE METABOLIC PANEL Routine 09/15/2024 7:52 AM EDT Type 2 diabetes mellitus without complication, without long-term current use of insulin ([facility] V24, [facility] V28) Benign prostatic hyperplasia with nocturia Gastroesophageal reflux disease without esophagitis Human immunodeficiency virus (HIV) disease ([facility] V24, [facility] V28) Mixed hyperlipidemia Iron deficiency anemia, unspecified iron deficiency anemia type Subclinical hypothyroidism Pancreatic adenocarcinoma ([facility] V24, [facility] V28) HEMOGLOBIN A1C Routine 09/15/2024 7:52 AM EDT Type 2 diabetes mellitus without complication, without long-term current use of insulin ([facility] V24, [facility] V28) Benign prostatic hyperplasia with nocturia Gastroesophageal reflux disease without esophagitis Human immunodeficiency virus (HIV) disease ([facility] V24, [facility] V28) Mixed hyperlipidemia Iron deficiency anemia, unspecified iron deficiency anemia type Subclinical hypothyroidism Pancreatic adenocarcinoma ([facility] V24, [facility] V28) CBC AND DIFFERENTIAL Routine 09/15/2024 7:52 AM EDT Type 2 diabetes mellitus without complication, without long-term current use of insulin ([facility] V24, [facility] V28) Benign prostatic hyperplasia with nocturia Gastroesophageal reflux disease without esophagitis Human immunodeficiency virus (HIV) disease ([facility] V24, [facility] V28) Mixed hyperlipidemia Iron deficiency anemia, unspecified iron deficiency anemia type Subclinical hypothyroidism Pancreatic adenocarcinoma ([facility] V24, [facility] V28) IRON AND TIBC Routine 09/15/2024 7:52 AM EDT Type 2 diabetes mellitus without complication, without long-term current use of insulin ([facility] V24, [facility] V28) Benign prostatic hyperplasia with nocturia Gastroesophageal reflux disease without esophagitis Human immunodeficiency virus (HIV) disease ([facility] V24, [facility] V28) Mixed hyperlipidemia Iron deficiency anemia, unspecified iron deficiency anemia type Subclinical hypothyroidism Pancreatic adenocarcinoma ([facility] V24, [facility] V28) THYROID STIMULATING HORMONE WITH REFLEX TO FREE T4 AND FREE T3 Routine 09/15/2024 7:52 AM EDT Type 2 diabetes mellitus without complication, without long-term current use of insulin ([facility] V24, [facility] V28) Benign prostatic hyperplasia with nocturia Gastroesophageal reflux disease without esophagitis Human immunodeficiency virus (HIV) disease ([facility] V24, [facility] V28) Mixed hyperlipidemia Iron deficiency anemia, unspecified iron deficiency anemia type Subclinical hypothyroidism Pancreatic adenocarcinoma ([facility] V24, [facility] V28) HIV 1 MOLECULAR STUDY QUANTITATIVE Routine 07/10/2024 10:07 AM EDT Human immunodeficiency virus (HIV) disease ([facility] V24, [facility] V28) DIABETES EYE EXAM Routine 09/24/2023 DIABETES FOOT EXAM Routine 12/25/2022 COLONOSCOPY Routine 12/24/2022 HEPATITIS C SCREENING Routine 04/09/2020 from Last 3 Months or Most Recently Relevant to Health Maintenance Results * External clinical lab (09/22/2024) Provider [facility] LAB BLOOD ORDERABLES Fin al Result * (ABNORMAL) Thyroid stimulating hormone with reflex to free t4 and free t3 (09/15/2024 7:52 AM EDT) Pathologist [facility] TSH 4.46(H) 0.40 - 4.00 mcIU/mL LAB CHEMISTRY METHOD 09/15/2024 11:38 AM EDT [facility] Blood Venous blood specimen / Unknown Venipuncture / Unknown 09/15/2024 7:52 AM EDT 09/15/2024 7:52 AM EDT Liborio STALLWORTH LAB BLOOD ORDERABLES Azeb l Result [facility]) [facility] [address] [place] [address], [place] [phone] * Free thyroxine with reflex to free triiodothyronine (09/15/2024 7:52 AM EDT) [facility] Free T4 1.09 0.70 - 1.80 ng/dL LAB CHEMISTRY METHOD 09/15/2024 12:49 PM EDT [facility] Blood Venous blood specimen / Unknown Venipuncture / Unknown 09/15/2024 7:52 AM EDT 09/15/2024 7:52 AM EDT Liborio STALLWORTH LAB BLOOD ORDERABLES Azeb l Result [facility] [address] [place] [address], [place] [phone] * Lipid panel with reflex to direct LDL (09/15/2024 7:52 AM EDT) [facility] Cholesterol 127 0 - 200 mg/dL LAB CHEMISTRY METHOD 09/15/2024 10:58 AM EDT [facility] Triglycerides 106 0 - 150 mg/dL LAB CHEMISTRY METHOD 09/15/2024 10:58 AM EDT [facility] HDL 57 >=40 mg/dL LAB CHEMISTRY METHOD 09/15/2024 10:58 AM EDT [facility] LDL Calculated 49 0 - 100 mg/dL LAB CHEMISTRY METHOD 09/15/2024 10:58 AM [facility] VLDL Cholesterol Brice 21.2 mg/dL LAB CHEMISTRY METHOD 09/15/2024 10:58 AM EDT [facility] Non HDL Chol. (LDL+VLDL) 70 <145 mg/dL LAB CHEMISTRY METHOD 09/15/2024 10:58 AM EDT [facility] Chol/HDL Ratio 2.2 0.0 - 4.4 LAB CHEMISTRY METHOD 09/15/2024 10:58 AM [facility] Blood Venous blood specimen / Unknown Venipuncture / Unknown 09/15/2024 7:52 AM EDT 09/15/2024 7:52 AM EDT Liborio STALLWORTH LAB BLOOD ORDERABLES Azeb fei Result [facility] [address] [place] [address], * (ABNORMAL) CBC auto differential (09/15/2024 7:52 AM EDT) WBC 6.5 4.8 - 10.8 K/mcL LAB HEMETOLOGY METHOD 09/15/2024 10:44 AM EDT [facility] RBC 4.20(L) 4.50 - 5.50 M/mcL LAB HEMETOLOGY METHOD 09/15/2024 10:44 AM EDT [facility] Hemoglobin 14.4 13.5 - 17.5 g/dL LAB HEMETOLOGY METHOD 09/15/2024 10:44 AM EDT [facility] Hematocrit 42.7 42.0 - 54.0 % LAB HEMETOLOGY METHOD 09/15/2024 10:44 AM EDT [facility] MCV 101.7(H) 79.0 - 98.0 FL LAB HEMETOLOGY METHOD 09/15/2024 10:44 AM EDT [facility] MCH 34.3(H) 27.0 - 32.0 pcg LAB HEMETOLOGY METHOD 09/15/2024 10:44 AM EDT [facility] MCHC 33.7 32.0 - 37.0 g/dL LAB HEMETOLOGY METHOD 09/15/2024 10:44 AM EDT [facility] RDW 12.2 11.0 - 15.0 % LAB HEMETOLOGY METHOD 09/15/2024 10:44 AM EDT [facility] Platelets 156 130 - 400 K/mcL LAB HEMETOLOGY METHOD 09/15/2024 10:44 AM EDT [facility] MPV 10.3 7.0 - 11.0 FL LAB HEMETOLOGY METHOD 09/15/2024 10:44 AM [facility] NRBC 0.0 <1.0 % LAB HEMETOLOGY METHOD 09/15/2024 10:44 AM [facility] NRBC Absolute 0.00 <0.10 K/mcL LAB HEMETOLOGY METHOD 09/15/2024 10:44 AM [facility] Neutrophils Relative 46.2 % LAB HEMETOLOGY METHOD 09/15/2024 10:44 AM [facility] Lymphocytes Relative 41.3 % LAB HEMETOLOGY METHOD 09/15/2024 10:44 AM [facility] Monocytes Relative 8.8 % LAB HEMETOLOGY METHOD 09/15/2024 10:44 AM [facility] Eosinophils Relative 2.0 % LAB HEMETOLOGY METHOD 09/15/2024 10:44 AM [facility] Basophils Relative 1.4 % LAB HEMETOLOGY METHOD 09/15/2024 10:44 AM [facility] Immature Granulocytes Relative 0.3 % LAB HEMETOLOGY METHOD 09/15/2024 10:44 AM [facility] Neutrophils Absolute 2.98 1.50 - 7.00 K/mcL LAB HEMETOLOGY METHOD 09/15/2024 10:44 AM [facility] Lymphocytes Absolute 2.67 1.00 - 5.00 K/mcL LAB HEMETOLOGY METHOD 09/15/2024 10:44 AM [facility] Monocytes Absolute 0.57 0.20 - 1.00 K/mcL LAB HEMETOLOGY METHOD 09/15/2024 10:44 AM [facility] Eosinophils Absolute 0.13 0.00 - 0.50 K/mcL LAB HEMETOLOGY METHOD 09/15/2024 10:44 AM [facility] Basophils Absolute 0.09 0.00 - 0.20 K/[facility] LAB HEMETOLOGY METHOD 09/15/2024 10:44 AM EDT [facility] Immature Granulocytes Absolute 0.02 0.00 - 0.03 K/[facility] LAB HEMETOLOGY METHOD 09/15/2024 10:44 AM EDT [facility] Blood Venous blood specimen / Unknown Venipuncture / Unknown 09/15/2024 7:52 AM EDT 09/15/2024 7:52 AM EDT Liborio STALLWORTH LAB BLOOD ORDERABLES Azeb l Result [facility] [address] [place] [address], [place] [phone] * Iron and TIBC (09/15/2024 7:52 AM EDT) Iron 96 50 - 160 mcg/dL LAB CHEMISTRY METHOD 09/15/2024 10:58 AM EDT [facility] TIBC 337 250 - 450 mcg/dL LAB CHEMISTRY METHOD 09/15/2024 10:58 AM EDT [facility] Iron Saturation 28 20 - 50 % LAB CHEMISTRY METHOD 09/15/2024 10:58 AM EDT [facility] Blood Venous blood specimen / Unknown Venipuncture / Unknown 09/15/2024 7:52 AM EDT 09/15/2024 7:52 AM EDT Liborio STALLWORTH LAB BLOOD ORDERABLES Azeb l Result [facility] [address] [place] [address], [place] [phone] * Microalbumin creatinine urine ratio (09/15/2024 7:52 AM EDT) Creatinine, Urine 127.0 mg/dL LAB CHEMISTRY METHOD 09/15/2024 11:16 AM EDT [facility] Microalb, Ur 19.9 0.0 - 29.0 mg/L LAB CHEMISTRY METHOD 09/15/2024 11:16 AM EDT [facility] Microalb/Creat Ratio 16 <30 mg/g creat LAB CHEMISTRY METHOD 09/15/2024 11:16 AM EDT [facility] Urine Urine specimen obtained by clean catch procedure / Unknown Non-blood Collection / Unknown 09/15/2024 7:52 AM EDT 09/15/2024 7:52 AM EDT Liborio STALLWORTH LAB URINE ORDERABLES Azeb l Result Performing Organization Address [facility]/ZIP Co de Phone Number [facility] [address] [place] [address], [place] [phone] * Triiodothyronine free (09/15/2024 7:52 AM EDT) Pathologist [facility] T3, Free 329 230 - 420 pcg/dL LAB CHEMISTRY METHOD 09/15/2024 1:32 PM EDT [facility] Blood Venous blood specimen / Unknown Venipuncture / Unknown 09/15/2024 7:52 AM EDT 09/15/2024 7:52 AM EDT Liborio STALLWORTH LAB BLOOD ORDERABLES Azeb l Result [facility] [address] [place] [address], [place] [phone] * Hemoglobin A1c (09/15/2024 7:52 AM EDT) Pathologist [facility] Hemoglobin A1C 6.3 <6.5 % LAB CHEMISTRY METHOD 09/15/2024 1:42 PM EDT [facility] Mean Bld Glu Estim. 134 mg/dL LAB CHEMISTRY METHOD 09/15/2024 1:42 PM [facility] Blood Venous blood specimen / Unknown Venipuncture / Unknown 09/15/2024 7:52 AM EDT 09/15/2024 7:52 AM EDT us Liborio STALLWORTH LAB BLOOD ORDERABLES Azeb l Result [facility] [address] [place] [address], * (ABNORMAL) Comprehensive metabolic panel (09/15/2024 7:52 AM EDT) Sodium 138 133 - 145 mmol/L LAB CHEMISTRY METHOD 09/15/2024 10:58 AM [facility] Potassium 4.6 3.5 - 5.5 mmol/L LAB CHEMISTRY METHOD 09/15/2024 10:58 AM [facility] Chloride 105 96 - 110 mmol/L LAB CHEMISTRY METHOD 09/15/2024 10:58 AM [facility] CO2 28 21 - 32 mmol/L LAB CHEMISTRY METHOD 09/15/2024 10:58 AM [facility] Anion Gap 5 3 - 11 LAB CHEMISTRY METHOD 09/15/2024 10:58 AM [facility] Glucose 123(H) 70 - 100 mg/dL LAB CHEMISTRY METHOD 09/15/2024 10:58 AM [facility] BUN 16 5 - 25 mg/dL LAB CHEMISTRY METHOD 09/15/2024 10:58 AM [facility] Creatinine 0.96 0.70 - 1.30 mg/dL LAB CHEMISTRY METHOD 09/15/2024 10:58 AM [facility] eGFR 83 >=60 mL/min/1. 73m2 LAB CHEMISTRY METHOD 09/15/2024 10:58 AM [facility] Comment:Calculation based on the Chronic Kidney Disease Epidemiology Collaboration (CKD-EPI) equation refit without adjustment for race. BUN/Creatinine Ratio 16.7 LAB CHEMISTRY METHOD 09/15/2024 10:58 AM [facility] Calcium 9.0 8.5 - 10.5 mg/dL LAB CHEMISTRY METHOD 09/15/2024 10:58 AM [facility] AST (SGOT) 19 10 - 42 unit/L LAB CHEMISTRY METHOD 09/15/2024 10:58 AM [facility] ALT (SGPT) 30 10 - 60 unit/L LAB CHEMISTRY METHOD 09/15/2024 10:58 AM [facility] Alkaline Phosphatase 66 42 - 121 unit/L LAB CHEMISTRY METHOD 09/15/2024 10:58 AM [facility] Total Protein 6.9 6.0 - 8.0 g/dL LAB CHEMISTRY METHOD 09/15/2024 10:58 AM [facility] Albumin 3.9 3.2 - 5.0 g/dL LAB CHEMISTRY METHOD 09/15/2024 10:58 AM [facility] Total Bilirubin 0.6 0.0 - 1.4 mg/dL LAB CHEMISTRY METHOD 09/15/2024 10:58 AM [facility] Blood Venous blood specimen / Unknown Venipuncture / Unknown 09/15/2024 7:52 AM EDT 09/15/2024 7:52 AM EDT Liborio STALLWORTH LAB BLOOD ORDERABLES Azeb l Result [facility] [address] [place] [address], * HIV 1 molecular study quantitative (07/10/2024 10:07 AM EDT) HIV-1 RNA Interpretation Not Detected Not Detected LAB MOLECULAR DIAGNOSTICS METHOD 07/11/2024 10:59 AM EDT [facility] Comment:HIV RNA not detected , unable to report quantitative results. Blood Venous blood specimen / Unknown Venipuncture / Unknown 07/10/2024 10:07 AM EDT 07/10/2024 10:07 AM EDT No Bowman MD LAB BLOOD ORDERABLES Azeb l Result [facility] [address] [place] [address], * Diabetes Eye Exam (09/24/2023) [facility] Diabetes: Annual Retina Eye Exam abstracted Historical Provider HEALTH MAINTENANCE Final Result * Diabetes Foot Exam (12/25/2022) [facility] Diabetes: Annual Foot Exam abstracted Historical Provider HEALTH MAINTENANCE Final Result * Colonoscopy (12/24/2022) [facility] Colonoscopy abstracted Anatomical Region Laterality Modality Other Historical Provider HEALTH MAINTENANCE Final Result * Hepatitis C Screening (04/09/2020) [facility] Hepatitis C Screening abstracted Historical Provider HEALTH MAINTENANCE Final Result from Last 3 Months or Most Recently Relevant to Health Maintenance Insurance [facility] Member Subscriber Plan / Payer (Ef fective 2017-Present) Name:FAIZAN ARMAS Relation to Subscriber:Self Name:Faizan Armas Payer ID:[id number] Type:Not on file Address: [address] [address] Advance Directives Documents on File Type Date Recorded 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
--- OUTSIDE RECORDS SUMMARY | 2024-10-10 10:09 | XMS_ITS | Clinical Summary ---
Author Organization [facility] Address [address] [place] [address] Care Team Providers Care Supervisor Buffing And Pasting Name Role Phone Liborio Noland PA-C Primary [...] age to complete this topic Care Teams Supervisor Buffing And Pasting Relationship Specialty Start Date End Date Liborio Noland PA-C PCP - General Medical Services 10/07/20
--- OUTSIDE RECORDS SUMMARY | 2024-10-10 10:09 | XMS_ITS | Clinical Summary ---
Author Organization [facility] Address [address] [place] [phone] Phone Care Team Providers Care Fishing Tackle Repairer Name Role Phone Unavailable Primary Care Provider [...] It is not the complete legal health record.[facility]
== END 2024-10-10 10:14 | disposition home or self-care (01) ==
LOC: HO.HUSH 09:32
PROVIDERS: PCP Physician Assistant Medical; Visit Provider Urology
DX: Z13.9 Encounter for screening, unspecified (principal)

== ENCOUNTER → 2024-10-10 09:31 | Outpatient (BNVA) | payer OTHER, SELFPAY | PROVIDERS: PCP Physician Assistant Medical; Visit Provider Urology | DX: R35.1 Nocturia (principal); R35.0 Frequency of micturition; N32.81 Overactive bladder; Z13.9 Encounter for screening, unspecified; Z96.0 Presence of urogenital implants | CPT/HCPCS: 51798; 81003 ==

== ENCOUNTER 2025-01-10 10:18 | Outpatient (AMB) | payer OTHER, SELFPAY ==
--- NOTE | 2025-01-10 10:44 | A.OFFVIS_ITS ---
Intake Visit Reasons: 3M PVR/Med Review Intake Note: Patient is present for PVR/MED Review Urology Med: Allopurinol, Fesoterodine(Toviaz), Myrbetriq Antibiotic Allergy: Penicillin Blood Thinner: None LAST PVR:143ML PVR: 138 Trial Med: Myrbetriq 09/22/24 PSA- 1.48 Body Designer Required: No Accompanied by: Self / Same As Patient Allergies Penicillins (PCN) Allergy (Mild, Verified 01/10/25 10:55) HIVES abacavir Allergy (Unknown, Verified 01/10/25 10:55) rash, chills HPI Comments Details: Faizan is a pleasant male. He is a patient of Dr. Wheeler. He is seen for the following urologic conditions - lower urinary tract symptoms - nephrolithiasis Imaging follow-up Remains on allopurinol and vitamin B6 Did not take Gemtesa Repeat trial of high-dose fesoterodine Nephrolithiasis Initial presentation September 2022 Intervention - 11/21 left ureteroscopy Stone composition - calcified ox monohydrate 75% Imaging - 02/20 renal ultrasound no evidence of stone, mild left hydronephrosis - 08/22 renal ultrasound question small stone left side 3 mm - 02/21 renal ultrasound tiny bilateral stone Surveillance imaging Lower urinary tract symptoms Background triple therapy HIV for 1999 diagnosis in 1985 Underwent laser prostatectomy in the past Procedure 06/20 redo laser prostatectomy Cystoscopy 2019 - apical tissue PSA 02/19 1.1, 09/22 1.5 Urinary urgency on fesoterodine Four years from pancreatectomy [facility] Medical History UTI (urinary tract infection) Obstructive uropathy Left ureteral calculus Acidosis, lactic Bandemia Abdominal pain Sepsis associated hypotension HIV (human immunodeficiency virus infection) Anemia GERD (gastroesophageal reflux disease) Arthritis History of pancreatic cancer Hypertensive heart disease HTN (hypertension) Hyperlipidemia Right bundle branch block (RBBB) determined by electrocardiography Surgical History S/P ureteral stent placement History of appendectomy Hx of cystoscopy History of Whipple procedure History of tonsillectomy and adenoidectomy Hx of hernia repair History of prostate surgery Hx of colonoscopy Family History Father No problems noted. Mother Cancer Social History Household Members: None Housing: Apartment Are you a primary campground caretaker to a significant other at home: No Do you presently have visiting nurse or other home services: No Alcohol intake: current Alcohol intake frequency: holidays/special occasions only Comment: aware of trip hazard Patient Tobacco Use Status: Never used Tobacco Substance Use Type: Marijuana service: No Review of Systems Const Denies chills and Denies fever(s) Card Reports no additional complaints and Denies syncope Resp Denies cough GI Denies abdominal pain and Denies heartburn Reports as per HPI and Denies change in libido Neuro Denies syncope Psych Denies change in libido Endo Denies change in libido Physical Exam Const General: cooperative, healthy appearing, comfortable and no acute distress Orientation/consciousness: patient oriented x3 HEENT Face and sinus: Yes normal facial exam Mouth: moist mucous membranes Neck Neck: Yes normal visual inspection, Yes full ROM and Yes trachea midline Chest Chest palpation & inspection: normal inspection of the chest Resp Effort & Inspection: normal respiratory effort, able to speak in complete sentences and no respiratory distress GI Inspection: Yes normal to inspection Back/Spine/Pelvis Cervical Spine: normal cervical lordosis Thoracic/Lumbar Spine: thoracic and lumbar spine normal to inspection Skin General skin exam: no rashes or lesions noted Neuro General: patient oriented x3, gait normal, tone normal and moves all extremities Extrem General: Yes normal to inspection and Yes capillary refill normal Office Procedures Post Void Residual Post Residual Void Post Void Residual (PVR): 138 [id number] Void Residual by ultrasound Assessment & Plan Assessment & Plan (1) BPH w urinary obs/LUTS: Code(s): N40.1 - Benign prostatic hyperplasia with lower urinary tract symptoms; N13.8 - Other obstructive and reflux uropathy Category: Medical (2) Overactive bladder: Code(s): N32.81 - Overactive bladder Category: Medical (3) Nephrolithiasis: Code(s): N20.0 - Calculus of kidney Category: Medical Plan Re trial beta agonist Orders: Orders AMB Post Void Residual by ultrasound Today N32.81 - Overactive bladder Medications: Changed From fesoterodine ER 4 mg PO DAILY 90 days 90 tabs 1RF R35.0 - Frequency of micturition To fesoterodine ER 8 mg PO DAILY 90 tabs 1RF 90 days R35.0 - Frequency of micturition Discontinued mirabegron ER Discontinued Reason: Doctor's Order 25 mg PO DAILY 30 days 30 tabs 2RF N32.81 - Overactive bladder Patient Instructions: This note is constructed using voice recognition software. While every effort has been made to ensure accuracy excellence specialist errors may have been included. Imaging studies, laboratory and physical exam results were discussed and reviewed in detail. No major barriers to patient understanding were identified. An opportunity to ask questions regarding the treatment plan was provided. All questions were answered. The patient expressed understanding and agreement with the above treatment plan. The patient is aware they should contact our office by phone for worsening of their current condition or the appearance of new urologic symptoms. Compliance is encouraged with any medications and followup testing that is ordered. It is a privilege to participate in the urologic care of your patient. If you have any questions or concerns regarding treatment for the above conditions, or other urologic issues, please do not hesitate to contact me. The office telephone contact is [phone]. Sincerely, Dr Carl Brooks MD, [facility]ON[facility] - Urology Compassionate Specialist Care for the Genitourinary System Coding Level of Care Code Est Pt Level 3 (36413) Complex EM visit Add On G2211 Diagnoses BPH w urinary obs/LUTS N40.1; N13.8 Overactive bladder N32.81 Nephrolithiasis N20.0 CPT Codes Post Residual Void - PVR CPT Code: 88368-Znum Void Residual by ultrasound ([id number])
--- OUTSIDE RECORDS SUMMARY | 2025-01-10 12:09 | XMS_ITS | Clinical Summary ---
Author Organization [facility] Address [address] [place] [address] Care Team Providers Care Shredding Floor Equipment Operator Name Role Phone Liborio Noland PA-C [...] age to complete this topic Care Teams Shredding Floor Equipment Operator Relationship Specialty Start Date End Date Liborio Noland PA-C PCP - General Medical Services 10/07/20
--- OUTSIDE RECORDS SUMMARY | 2025-01-10 12:09 | XMS_ITS | Encounter Summary ---
Author Organization [facility] Address [address] [place] [address] Care Team Providers Care Solid Tire Finisher Name Role Phone Liborio Noland Primary Care Provider [phone] Encounter Details Date Type Department Care Team (Latest Contact Info) Description 11/21/2024 Lab Requisition [facility] - Main Lab [address] [facility] [place] [phone] No Bowman MD [address] [place] [address] Human immunodeficiency virus (HIV) disease ([facility] V24, [facility] V28) Social History Tobacco Use Types Packs/Day Years [...] on file documented as of this encounter Plan of Treatment Upcoming Encounters Date Type Department Care Team (Late st Contact Info) Description 01/11/2025 10:15 AM EST Office Visit General Surgery - [place] [address] [place] [address] Alexander Sampson MD [address] [place] [address] 01/16/2025 9:00 AM EST Office Visit [facility] Hematology Oncology [address] [place] [phone] Michael Ny MD [address] [place] [address] 04/16/2025 8:15 AM EST Office Visit [address] [phone] Liborio Noland PA [address] [place] [phone] documented as of this encounter Procedures Procedure Name Priority Date/Time Associated Diagnosis Comments CHLAMYDIA TRACHOMATIS AND NEISSERIA GONORRHOEAE PCR Routine 11/21/2024 12:00 AM EDT Human immunodeficiency virus (HIV) disease ([facility] V24, [facility] V28) CHLAMYDIA TRACHOMATIS AND NEISSERIA GONORRHOEAE PCR Routine 11/21/2024 12:00 AM EDT Human immunodeficiency virus (HIV) disease ([facility] V24, [facility] V28) documented in this encounter Results * Chlamydia trachomatis and Neisseria gonorrhoeae molecular study (11/21/2024 12:00 AM EDT) Neisseria gonorrhoeae PCR Negative Negative LAB MOLECULAR DIAGNOSTICS METHOD 11/23/2024 9:30 AM EDT [facility] Chlamydia trachomatis PCR Negative Negative LAB MOLECULAR DIAGNOSTICS METHOD 11/23/2024 9:30 AM EDT [facility] Swab Rectum structure / Unknown 11/21/2024 11/21/2024 6:22 PM EDT Narrative [facility] - 11/23/2024 9:30 AM EDT This specimen type has not been evaluated for this method. Interpret results with caution. us No Bowman MD LAB MICROBIOLOGY - GENERA L ORDERABLES Final Result [facility] [address] [place] [address], [place] [phone] * Chlamydia trachomatis and Neisseria gonorrhoeae molecular study (11/21/2024 12:00 AM EDT) Neisseria gonorrhoeae PCR Negative Negative LAB MOLECULAR DIAGNOSTICS METHOD 11/23/2024 9:30 AM EDT [facility] Chlamydia trachomatis PCR Negative Negative LAB MOLECULAR DIAGNOSTICS METHOD 11/23/2024 9:30 AM EDT [facility] Swab Structure of anterior region of neck / Unknown 11/21/2024 11/21/2024 6:22 PM EDT Narrative [facility] - 11/23/2024 9:30 AM EDT This specimen type has not been evaluated for this method. Interpret results with caution. No Bowman MD LAB MICROBIOLOGY - GENERA L ORDERABLES Final Result Performing Organization Address [facility]/State/ZIP Co de Phone Number [facility] [address] [place] [address], [place] [phone] documented in this encounter Visit Diagnoses Diagnosis Human immunodeficiency virus (HIV) disease ([facility] V24, [facility] V28) Human immunodeficiency virus [HIV] disease documented in this encounter Care Teams Solid Tire Finisher Relationship Specialty Start Date End Date Liborio Noland PA [address] [place] [phone] PCP - General Internal Medicine 01/05/24 documented as of this encounter
--- OUTSIDE RECORDS SUMMARY | 2025-01-10 12:09 | XMS_ITS | Clinical Summary ---
Author Organization [facility] Address [address] [place] [phone] Phone Care Team Providers Care Aerial Gunner Superintendent Name Role Phone Unavailable Primary Care Provider [...] It is not the complete legal health record.[facility]
--- OUTSIDE RECORDS SUMMARY | 2025-01-10 12:09 | XMS_ITS | Clinical Summary ---
Author Organization 175 [facility] Address [address] [place] [address] Phone Care Team Providers Care Basket Hand Braider Name Role Phone Liborio Noland Primary Care Provider [phone] Allergies Active Allergy Reactions Criticality Noted Date [...] (WITH BREAKFAST) FOR BLOOD SUGAR. 4 Active multivit-min/shannan maureen fumarate (MULTI VITAMIN ORAL) 1 tablet daily Activ e polyethylene glycol (MIRALAX) 17 gram packet MIX 17 GRAMS INTO LIQUID AND DRINK BY MOUTH ONCE A DAYFOR 1 WEEK THEN EVERY 3 DAYS NEEDED 2 Active allopurinoL (ZYLOPRIM) 100 mg tablet Take 1 tablet (100 mg total) by mouth 1 (one) time each day. 4 Active fesoterodine 4 mg tablet extended release 24 hr Take 1 tablet by mouth 1 (one) time each day. 4 Active metoprolol succinate (TOPROL-XL) 25 mg 24 hr tablet TAKE 1 TABLET BY MOUTH EVERY DAY 90 tablet 3 4 Active omeprazole (PriLOSEC) [address] capsule TAKE 1 CAPSULE BY MOUTH EVERY DAY 90 capsule 3 5 Active atorvastatin (LIPITOR) 20 mg tablet TAKE 1 TABLET BY MOUTH EVERY DAY 90 tablet 3 5 Active metFORMIN XR (GLUCOPHAGE-XR) 500 mg 24 hr tablet TAKE 1 TABLET BY MOUTH EVERY DAY WITH BREAKFAST 90 tablet 3 5 Active tamsulosin (FLOMAX) 0.4 mg 24 hr capsule TAKE 1 CAPSULE BY MOUTH DAILY. TAKE 30 MINS AFTER SAME MEAL EVERY DAY. 90 capsule 1 5 Active ciclopirox (PENLAC) 8 % solution Apply topically at bedtime. Apply over nail and surrounding skin. Apply daily over previous coat. After seven (7) days, may remove with alcohol and continue cycle. 6.6 mL 11 5 Active docusate sodium (COLACE) 100 mg capsule TAKE 1 CAPSULE BY MOUTH TWICE A DAY 60 capsule 3 5 Active Active Problems Problem Noted Date Diagnosed Date Type 2 diabetes mellitus wit hout complication, without long-term current use of insulin ([facility] V24, [facility] V28) 11/11/2022 Frequent stools 08/13/2021 Incisional hernia of anterio r abdominal wall without obstruction or gangrene 11/19/2020 Iron deficiency anemia 11/14/2020 Pancreatic adenocarcinoma ([facility] V24, [facility] V28) 06/18/2020 Overview (11/30/2023): S/P whipple procedure Drs. Bose GERD (gastroesophageal reflux disease) 9 Benign prostatic hyperplasia with nocturia 02/16 Right bundle branch block (RBBB) 08/28/2016 Subclinical hypothyroidism 07/22/2016 Overview (11/30/2023): TSH 5.02, 07/14/16 Retinal vein occlusion, branch ([facility] V28) 09/2011 Overview (11/30/2023): Left, 2011 Mixed hyperlipidemia 08/02/2009 Human immunodeficiency virus (HIV) disease ([facility] V24, [facility] V28) 05/10/2005 Overview (11/30/2023): Dx July 2000 Hypertrophy of breast 05/10/2005 Encounters Date Type Department Care Team Description 11/21/2024 Lab Requisition [facility] - Main Lab [address] [facility] [place] [phone] No Bowman MD Human immunodeficiency virus (HIV) disease ([facility] V24, [facility] V28) 10/11/2024 8:00 AM EDT Office Visit Adult Medicine [address] [phone] Liborio Noland PA Type 2 diabetes mellitus without complication, without long-term current use of insulin ([facility] V24, [facility] V28) (Primary Dx); Benign prostatic hyperplasia with nocturia; Gastroesophageal reflux disease without esophagitis; Human immunodeficiency virus (HIV) disease ([facility] V24, [facility] V28); Pancreatic adenocarcinoma ([facility] V24, [facility] V28); Mixed hyperlipidemia; Iron deficiency anemia, unspecified iron deficiency anemia type; Onychomycosis from Last 3 Months Immunizations Immunization Administration Dates Next Due H1N1 Inj Preservative Free 02/08/2009 Hepatitis B (Hrmsjma-E-Mogrf , Recombivax HB-Adult) 19yo and older 09/07/2001,04/11/2001 Influenza trivalent, 0.5mL ( Fluzone High-dose) 65yo and older 11/23/2024,11/27/2022,12/02/2021,10/31,11/23/2018,11/26/2015 Influenza trivalent, with pr eservative (Fluzone; Afluria) [...] subun it RSVpreF, 0.5mL, Preservative Free (Arexvy) 50yo and older 12/21/2022 Td Tetanus diptheria, preser [...] Tubular adenoma BREAST SURGERY 2005, 2008ish PROCEDURE: OK UNLISTED PROCEDURE BREAST; COMMENT: ? bilat TURP / TRANSURETHRAL INCISION / DRAINAGE PROSTATE 06/23/2021 PROCEDURE: HISTORICAL TURP; COMMENT: Dr. Johnnie perrin laser CYSTOSCOPY 11/03/2022 PROCEDURE: HISTORICAL CYSTOSCOPY; COMMENT: Left cystoscopy, stent placement for left ureteral stone dr. thanh conte COLONOSCOPY 12/24/2022 PROCEDURE: HISTORICAL COLONOSCOPY; COMMENT: muslu 4 polyps 3 years Medical History Medical History Date Comments Human immunodeficiency virus (HIV) disease ([facility] V24, [facility] V28) 05/10/2005 DX:Human immunodefi ciency virus (HIV) disease ([facility]); COMMENT: Dx July 2000 Hypertrophy of breast [...] Sign Reading Time Taken Comments Blood Pressure 114/66 10/11/2024 8:01 AM EDT Pulse 57 10/11/2024 8:01 AM EDT Temperature 35.9 C (96.6 F) 10/11/2024 8:01 AM EDT Respiratory Rate 12 10/11/2024 8:01 AM EDT Oxygen Saturation 98% 10/11/2024 8:01 AM EDT Inhaled Oxygen Concentration - - Weight 72.7 kg (160 lb 3.2 oz) 10/11/2024 8:01 A M EDT Height 174 cm (5' 8.5 ) 10/11/2024 8:01 AM EDT Body Mass Index 24 10/11/2024 8:01 AM EDT Plan of Treatment Upcoming Encounters Date Type Department Care Team (Late st Contact Info) Description 01/11/2025 10:15 AM EST Office Visit General Surgery [facility] [address] [facility] [address] [place] [phone] Alexander Boes MD [address] [place] [phone] 01/16/2025 9:00 AM EST Office Visit [facility] Hematology Oncology [address] [place] [phone] Michael Ny MD [address] [place] [address] 04/16/2025 8:15 AM EST Office Visit Adult [address] [phone] Liborio Noland PA [address] [place] [phone] Health Maintenance Due Date Last Done Comments Meningococcal ACWY Vaccine (1 - Risk 2-dose series) 1952 Hepatitis A Vaccines (1 of 2 - Risk 2-dose series) 1969 Hepatitis B Vaccines (3 of 3 - Risk 3-dose series) 11/02/2001 09/07/2001, 04/11/2001 MMR Vaccines (1 of 2 - Risk 2-dose series) 10/12/2013 Falls Risk Assessment 02/06/2022 Social Influencers of Health Screening 02/06/2022 Depression Screening 03/01/2024 Diabetes: Blood Sugar Control Test (HGBA1C) 03/18/2025 09/15/2024, 04/03/2024, 09/21/2023, Additional history exists COVID-19 Vaccine (9 - Moderna risk season) 2025 11/23/2024, 08/30/2024, 02/03/2024, Additional history exists Diabetes: Annual Urine Albumin-Creatinine Ratio (uACR) 09/15/2025 09/15/2024, 04/03/2024, 09/21/2023 Diabetes: Annual GFR (Glomerular Filtration Rate) 09/15/2025 09/15/2024, 05/02/2024, 04/03/2024, Additional history exists Hypertension/CHF/CAD Annual BMP Blood Test 09/15/2025 09/15/2024, 05/02/2024, 04/03/2024, Additional history exists Diabetes: Annual Retina Eye Exam 10/03/2025 10/03/2024, 09/24/2023 Diabetes: Annual Foot Exam 10/11/2025 10/11/2024, Colorectal Cancer Screening: Colonoscopy 12/24/2025 12/24/2022 Cholesterol Screening (Lipid Panel) 09/15/2029 09/15/2024, 04/03/2024, 09/21/2023, Additional history exists DTaP,Tdap,and Td Vaccines (4 - Td or Tdap) 03/30/2032 03/30/2022, 02/10/2012, 04/18/2001 Zoster Vaccines Completed 11/13/2019, 04/02, 09/14/2013 Pneumococcal Vaccine: 50+ Years Completed 2022, 08/22/2021, 01/04/2018, Additional history exists RSV Immunization Adult Patients Completed 12/21/2022 Hepatitis C Screening Completed 11/06/2024, 021 Influenza Vaccine Completed 11/23/2024, , 11/27/2022, Additional history exists HIB Vaccines Aged Out [...] AM EDT Human immunodeficiency virus (HIV) disease ([facility] V24, [facility] V28) CHLAMYDIA TRACHOMATIS AND NEISSERIA GONORRHOEAE PCR Routine 11/21/2024 12:00 AM EDT Human immunodeficiency virus (HIV) disease ([facility] V24, [facility] V28) TREPONEMA PALLIDUM ANTIBODY WITH REFLEX TO RPR AND PARTICLE AGGLUTINATION Routine 11/06/2024 9:07 AM EDT Human immunodeficiency virus (HIV) disease ([facility] V24, [facility] V28) HIV 1 MOLECULAR STUDY QUANTITATIVE Routine 11/06/2024 9:07 AM EDT Human immunodeficiency virus (HIV) disease ([facility] V24, [facility] V28) HEPATITIS C ANTIBODY Routine 11/06/2024 9:07 AM EDT Human immunodeficiency virus (HIV) disease ([facility] V24, [facility] V28) ASPARTATE AMINOTRANSFERASE Routine 11/06/2024 9:07 AM EDT Human immunodeficiency virus (HIV) disease ([facility] V24, [facility] V28) ALANINE AMINOTRANSFERASE Routine 11/06/2024 9:07 AM EDT Human immunodeficiency virus (HIV) disease ([facility] V24, [facility] V28) LYMPHOCYTE T-CELL PANEL Routine 11/07/19 9:07 AM EDT Human immunodeficiency virus (HIV) disease ([facility] V24, [facility] V28) CHLAMYDIA TRACHOMATIS AND NEISSERIA GONORRHOEAE PCR Routine 11/06/2024 9:07 AM EDT Human immunodeficiency virus (HIV) disease ([facility] V24, [facility] V28) MICROALBUMIN CREATININE URINE RATIO Routine 09/15/2024 7:52 AM EDT Type 2 diabetes mellitus without complication, without long-term current use of insulin ([facility] V24, [facility] V28) Benign prostatic hyperplasia with nocturia Gastroesophageal reflux disease without esophagitis Human immunodeficiency virus (HIV) disease ([facility] V24, [facility] V28) Mixed hyperlipidemia Iron deficiency anemia, unspecified iron deficiency anemia type Subclinical hypothyroidism Pancreatic adenocarcinoma ([facility] V24, [facility] V28) COMPREHENSIVE METABOLIC PANEL Routine 09/15/2024 7:52 AM EDT Type 2 diabetes mellitus without complication, without long-term current use of insulin ([facility] V24, [facility] V28) Benign prostatic hyperplasia with nocturia Gastroesophageal reflux disease without esophagitis Human immunodeficiency virus (HIV) disease ([facility] V24, [facility] V28) Mixed hyperlipidemia Iron deficiency anemia, unspecified iron deficiency anemia type Subclinical hypothyroidism Pancreatic adenocarcinoma ([facility] V24, [facility] V28) HEMOGLOBIN A1C Routine 09/15/2024 7:52 AM EDT Type 2 diabetes mellitus without complication, without long-term current use of insulin ([facility] V24, [facility] V28) Benign prostatic hyperplasia with nocturia Gastroesophageal reflux disease without esophagitis Human immunodeficiency virus (HIV) disease ([facility] V24, [facility] V28) Mixed hyperlipidemia Iron deficiency anemia, unspecified iron deficiency anemia type Subclinical hypothyroidism Pancreatic adenocarcinoma ([facility] V24, [facility] V28) LIPID PANEL WITH REFLEX TO DIRECT LDL Routine 09/15/2024 7:52 AM EDT Type 2 diabetes mellitus without complication, without long-term current use of insulin ([facility] V24, [facility] V28) Benign prostatic hyperplasia with nocturia Gastroesophageal reflux disease without esophagitis Human immunodeficiency virus (HIV) disease ([facility] V24, [facility] V28) Mixed hyperlipidemia Iron deficiency anemia, unspecified iron deficiency anemia type Subclinical hypothyroidism Pancreatic adenocarcinoma ([facility] V24, [facility] V28) DIABETES EYE EXAM Routine 09/24/2023 DIABETES FOOT EXAM Routine 12/25/2022 COLONOSCOPY Routine 12/24/2022 from Last 3 Months or Most Recently Relevant to Health Maintenance Results * Chlamydia trachomatis and Neisseria gonorrhoeae molecular study (11/21/2024 12:00 AM EDT) Only the most recent of3 resultswithin the time period is included. [facility] Neisseria gonorrhoeae PCR Negative Negative LAB MOLECULAR DIAGNOSTICS METHOD 11/23/2024 9:30 AM EDT [facility] Chlamydia trachomatis PCR Negative Negative LAB MOLECULAR DIAGNOSTICS METHOD 11/23/2024 9:30 AM EDT [facility] Swab Rectum structure / Unknown 11/21/2024 11/21/2024 6:22 PM EDT Narrative [facility] - 11/23/2024 9:30 AM EDT This specimen type has not been evaluated for this method. Interpret results with caution. us No Bowman MD LAB MICROBIOLOGY - GENERA L ORDERABLES Final Result [facility] [address] [place] [address], * Hepatitis C antibody (11/06/2024 9:07 AM EDT) Pathologist [facility] Hepatitis C Antibody Negative Negative LAB CHEMISTRY METHOD 11/06/2024 5:03 PM EDT [facility] Blood Venous blood specimen / Unknown Venipuncture / Unknown 11/06/2024 9:07 AM EDT 11/06/2024 9:07 AM EDT No Bowman MD LAB BLOOD ORDERABLES Azeb l Result Performing Organization Address City/[facility]/ZIP Co de Phone Number [facility] [address] [place] [address], [place] [phone] * Treponema pallidum antibody with reflex to RPR and particle agglutination (11/06/2024 9:07 AM EDT) Pathologist [facility] T. Pallidum Antibodies Negative Negative LAB CHEMISTRY METHOD 11/06/2024 4:34 PM EDT [facility] Blood Venous blood specimen / Unknown Venipuncture / Unknown 11/06/2024 9:07 AM EDT 11/06/2024 9:07 AM EDT No Bowman MD LAB BLOOD ORDERABLES Azeb l Result Performing Organization Address [facility]/ZIP Co de Phone Number [facility] [address] [place] [address], [place] [phone] * (ABNORMAL) Lymphocyte T-cell panel (11/06/2024 9:07 AM EDT) CD4 769 426 - 1,776 cells/mcL 11/08/2024 3:48 PM EDT [facility] CD8 803 161 - 838 cells/mcL 11/08/2024 3:48 PM EDT [facility] CD4/CD8 Ratio 0.96 0.90 - 4.90 11/08/2024 3:48 PM EDT [facility] CD4 % 44 33 - 64 % 11/08/2024 3:48 PM EDT [facility] CD8 % 46(H) 10 - 39 % 11/08/2024 3:48 PM EDT [facility] Blood Venous blood specimen / Unknown Venipuncture / Unknown 11/06/2024 9:07 AM EDT 11/06/2024 9:07 AM EDT No Bowman MD LAB MOLECULAR DIAGNOSTICS ORDERABLES Final Result [facility] [address] [place] [address], [place] [phone] * HIV 1 molecular study quantitative (11/06/2024 9:07 AM EDT) [facility] HIV-1 RNA Interpretation Not Detected Not Detected LAB MOLECULAR DIAGNOSTICS METHOD 11/07/2024 10:18 AM EDT [facility] Comment:HIV RNA not detected , unable to report quantitative results. Blood Venous blood specimen / Unknown Venipuncture / Unknown 11/06/2024 9:07 AM EDT 11/06/2024 9:07 AM EDT No Bowman MD LAB BLOOD ORDERABLES Azeb l Result [facility] [address] [place] [address], [place] [phone] * Alanine aminotransferase (11/06/2024 9:07 AM EDT) [facility] ALT (SGPT) 28 10 - 60 unit/L LAB CHEMISTRY METHOD 11/06/2024 3:02 PM EDT [facility] Blood Venous blood specimen / Unknown Venipuncture / Unknown 11/06/2024 9:07 AM EDT 11/06/2024 9:07 AM EDT No Bowman MD LAB BLOOD ORDERABLES Azeb l Result [facility] [address] [place] [address], [place] [phone] * Aspartate aminotransferase (11/06/2024 9:07 AM EDT) AST (SGOT) 25 10 - 42 unit/L LAB CHEMISTRY METHOD 11/06/2024 3:02 PM EDT [facility] Blood Venous blood specimen / Unknown Venipuncture / Unknown 11/06/2024 9:07 AM EDT 11/06/2024 9:07 AM EDT us No Bowman MD LAB BLOOD ORDERABLES Azeb fei Result [facility] [address] [place] [address], [place] [phone] * Lipid panel with reflex to direct LDL (09/15/2024 7:52 AM EDT) Pathologist [facility] Cholesterol 127 0 - 200 mg/dL LAB CHEMISTRY METHOD 09/[facility]2024 10:[facility] Triglycerides 106 0 - 150 mg/dL LAB CHEMISTRY METHOD 09/15/2024 10:58 AM [facility] HDL 57 >=40 mg/dL LAB CHEMISTRY METHOD 09/15/2024 10:58 AM T [facility] LDL Calculated 49 0 - 100 mg/dL LAB CHEMISTRY METHOD 09/15/2024 10:58 AM [facility] VLDL Cholesterol Brice 21.2 mg/dL LAB CHEMISTRY METHOD 09/15/2024 10:58 AM T [facility] Non HDL Chol. (LDL+VLDL) 70 <145 mg/dL LAB CHEMISTRY METHOD 09/15/2024 10:58 AM [facility] Chol/HDL Ratio 2.2 0.0 - 4.4 LAB CHEMISTRY METHOD 09/15/2024 10:58 AM [facility] Blood Venous blood specimen / Unknown Venipuncture / Unknown 09/15/2024 7:52 AM EDT 09/15/2024 7:52 AM EDT Liborio STALLWORTH LAB BLOOD ORDERABLES Azeb l Result [facility] [address] [place] [address], [place] [phone] * Microalbumin creatinine urine ratio (09/15/2024 7:52 AM EDT) Creatinine, Urine 127.0 mg/dL LAB CHEMISTRY METHOD 09/15/2024 11:16 AM EDT [facility] Microalb, Ur 19.9 0.0 - 29.0 mg/L LAB CHEMISTRY METHOD 09/15/2024 11:16 AM EDT [facility] Microalb/Creat Ratio 16 <30 mg/g creat LAB CHEMISTRY METHOD 09/15/2024 11:16 AM EDT [facility] Urine Urine specimen obtained by clean catch procedure / Unknown Non-blood Collection / Unknown 09/15/2024 7:52 AM EDT 09/15/2024 7:52 AM EDT Liborio STALLWORTH LAB URINE ORDERABLES Azeb l Result Performing Organization Address [facility]/ZIP Co de Phone Number [facility] [address] [place] [address], [place] [phone] * Hemoglobin A1c (09/15/2024 7:52 AM EDT) Hemoglobin A1C 6.3 <6.5 % LAB CHEMISTRY METHOD 09/15/2024 1:42 PM EDT [facility] Mean Bld Glu Estim. 134 mg/dL LAB CHEMISTRY METHOD 09/15/2024 1:42 PM EDT [facility] Blood Venous blood specimen / Unknown Venipuncture / Unknown 09/15/2024 7:52 AM EDT 09/15/2024 7:52 AM EDT us Liborio STALLWORTH LAB BLOOD ORDERABLES Azeb l Result [facility] [address] [place] [address], * (ABNORMAL) Comprehensive metabolic panel (09/15/2024 7:52 AM EDT) Sodium 138 133 - 145 mmol/L LAB CHEMISTRY METHOD 09/15/2024 10:58 AM EDT [facility] Potassium 4.6 3.5 - 5.5 [...] mg/dL LAB CHEMISTRY METHOD 09/15/2024 10:58 AM T [facility] AST (SGOT) 19 10 - 42 unit/L LAB CHEMISTRY METHOD 09/15/2024 10:58 AM T [facility] ALT (SGPT) 30 10 - 60 unit/L LAB CHEMISTRY METHOD 09/15/2024 10:58 AM EDT [facility] Alkaline Phosphatase 66 42 - 121 unit/L LAB CHEMISTRY METHOD 09/15/2024 10:58 AM EDT [facility] Total Protein 6.9 6.0 - 8.0 g/dL LAB CHEMISTRY METHOD 09/15/2024 10:58 AM T [facility] Albumin 3.9 3.2 - 5.0 g/dL LAB CHEMISTRY METHOD 09/15/2024 10:58 AM [facility] Total Bilirubin 0.6 0.0 - 1.4 mg/dL LAB CHEMISTRY METHOD 09/15/2024 10:58 AM T [facility] Blood Venous blood specimen / Unknown Venipuncture / Unknown 09/15/2024 7:52 AM EDT 09/15/2024 7:52 AM EDT Liborio STALLWORTH LAB BLOOD ORDERABLES Azeb l Result [facility] [address] [place] [address], * Diabetes Eye Exam (09/24/2023) Pathologist [facility] Diabetes: Annual Retina Eye Exam abstracted Historical Provider HEALTH MAINTENANCE Final Result * Diabetes Foot Exam (12/25/2022) Pathologist [facility] Diabetes: Annual Foot Exam abstracted Historical Provider HEALTH MAINTENANCE Final Result * Colonoscopy (12/24/2022) HM Colonoscopy abstracted Anatomical Region Laterality Modality Other us Historical Provider HEALTH MAINTENANCE Final Result from Last 3 Months or Most Recently Relevant to Health Maintenance Insurance [employer] Advance Directives Documents on File Type Date Recorded 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
== END 2025-01-10 11:15 | disposition home or self-care (01) ==
LOC: HO.HUSH 10:18
PROVIDERS: PCP Physician Assistant Medical; Visit Provider Urology
DX: N40.1 Benign prostatic hyperplasia with lower urinary tract symptoms (principal); N13.8 Other obstructive and reflux uropathy; N32.81 Overactive bladder; N20.0 Calculus of kidney
CPT/HCPCS: 99213

== ENCOUNTER → 2025-01-10 10:18 | Outpatient (BNVA) | payer OTHER, SELFPAY | PROVIDERS: PCP Physician Assistant Medical; Visit Provider Urology | DX: N40.1 Benign prostatic hyperplasia with lower urinary tract symptoms (principal) | CPT/HCPCS: 51798 ==